=== PATIENT | male | born 1995 | race Caucasian/White ===

== ENCOUNTER 2024-11-09 22:41 | Inpatient (IN) | payer OTHER, SELFPAY ==
[2024-11-09] VITALS (10 sets, daily range): BP systolic 106–134; BP diastolic 64–98; BMI 18.0
[2024-11-09 18:57] LABS: Hematocrit 26.0 % (39.0-52.0); Hemoglobin 9.3 g/dL (13.0-18.0); Mean Corp Hgb Conc. 35.8 g/dL (33.0-37.0); Mean Corpuscular Volume 88.4 fL (80.0-94.0); Platelet Count 330 10^3/uL (130-400); Red Cell Dist. Width 14.7 % (11.5-14.5)
[2024-11-09 19:34] LABS: Absolute Neutrophils -Man Diff 11.6 10^3/uL (1.4-6.5); Normal RBC Morphology No; Platelets Checked Yes
[2024-11-09 19:35] LABS: Acanthocytes 1+; Hypochromasia 1+; Microcytosis 1+; Target Cells 1+; Total Cells Counted 100
[2024-11-09] MEDS: OMNIPAQUE 50 ML PO (20:16)
[2024-11-09] MEDS: TYLENOL 650 MG PO (20:16)
[2024-11-09] MEDS: MAXIPIME 1000 MG IV (20:18)
--- NOTE | 2024-11-09 20:18 | ED.GENMED ---
History of Present Illness
<Pritesh Celis PA-C - Last Filed: 11/09/24 23:04>
General
Chief Complaint: Breathing Problem
Source: records and family
Time Seen by Provider: 11/09/24 19:56
History of Present Illness
History of Present Illness:
29-year-old male, Burkinan speaking, presenting to the emergency department with family, past medical history of previous TB reportedly treated while in [facility], renal insufficiency, presenting to the emergency department for evaluation here with
family for reported abdominal distention, fevers, poor p.o. intake and fever with Tmax of 39 Celsius over the last few days. Patient for the last 6 months has been unwell, in and out of [facility], last admission was October 2024. Family
states that they saw something within the which was possibly malignant, unable to get all of the studies due to patient's abnormal labs. Mom had been treating at home with 500 mg of azithromycin due to the fever a few days ago and reports that the
fever has since subsided. Patient did have 2 episodes of nonbloody nonbilious emesis today. Based off of record review patient was admitted to [facility] about 3 weeks ago where he had significant renal dysfunction, transaminitis and
what appeared to be a chronic fungal pneumonia. His creatinine at discharge was around 5 point. He had a MRI of the abdomen which was concerning for possible malignancy versus TB findings. AST and ALT were only minimally elevated, normal
bilirubin.
Past History
<Pritesh Celis PA-C - Last Filed: 11/09/24 23:04>
Past History
ED Past Medical History: Renal failure, Hypothyroidism, Other (Thrombocytopenia) and Other (TB/chronic pneumonia)
ED Past Surgical History: Appendectomy and Other (Splenectomy)
Review of Systems
<Pritesh Celis PA-C - Last Filed: 11/09/24 23:04>
Review of Systems
All Other Systems: ROS reviewed and negative except as documented in HPI and ROS
Phy Exam
<Pritesh Celis PA-C - Last Filed: 11/09/24 23:04>
Physical Exam
Physical Exam:
GENERAL: Alert , chronically ill-appearing, somewhat mottled, malnourished
HEAD: Normocephalic atraumatic
EYE: Clear conjunctiva/anicteric sclera
NECK: Supple
ENT: o/p clr, dry mucous membranes
CARDIAC: tachycardic rate and rhythm between 130 bpm and 138 bpm
LUNGS: Clear breath sounds bilaterally, no acute respiratory distress, no wheezes/rales/rhonchi
ABDOMEN: Firm, distended, generally tender
NEUROLOGICAL: Alert but not answering questions
SKIN: Hot to the touch and somewhat clammy, skin intact.
MUSCULOSKELETAL: 1+ pitting edema bilateral ankle, well perfused.
PSYCH: Unable to assess
Scores
<Pritesh Celis PA-C - Last Filed: 11/09/24 23:04>
Heart Failure Risk
Heart Failure Risk Score: Not Applicable
Heart Score for Chest Pain Patients
STEMI patient?: Not applicable
Withdrawal Assessment of Alcohol
Withdrawal Assessment Completed?: Not applicable
Course
<Pritesh Celis PA-C - Last Filed: 11/09/24 23:04>
Orders/Labs/Results
Orders:
Orders
11/09/24 18:10
EKG [Electrocardiogram (*1)] Urgent
Reason for Study: Tachycardia
EKG- Treatment ONCE
11/09/24 18:35
Complete Blood Count/With Diff Urgent
Manual Differential Urgent
11/09/24 19:46
Comprehensive Metabolic Panel Urgent
Serum Osmolality Urgent
Comment: ADD ON
11/09/24 20:04
Lactic Acid Q4H
Comment: CANCEL 2nd LACTIC ACID IF 1st LACTIC ACID IS LESS THAN 2
NT-proBNP Urgent
Troponin I Urgent
Blood Culture Q30M
CHIP Source: Blood/Venous
Specimen Description:
Blood Culture Q30M
CHIP Source: Blood/Venous
Specimen Description:
11/09/24 20:09
Iohexol [Omnipaque] See Protocol PO NOW STA
11/09/24 20:10
0.9% Sodium Chloride 1000 ml [Nss] 1,300 ml IV NOW STA
Acetaminophen [Tylenol] 650 mg PO NOW STA
11/09/24 20:14
Cefepime HCl [Maxipime] 1,000 mg IV NOW STA
11/09/24 20:15
Vancomycin 1 Gram/200 ml [Vancocin] 1 gram in 200 ml IV NOW
11/09/24 20:34
Calcium Gluconate 1,000 mg IV NOW STA
Dextrose 50%-Water [Dextrose 50% Syringe] 25 grams IV NOW STA
Insulin Human Regular [Novolin R] 4 units SC NOW STA
Sodium Bicarbonate 50 meq IV NOW STA
11/09/24 20:39
Add On- LAB Urgent
Tests Added?: urine sodium, serum osmo
Straight cath- Treatment ONCE
Sodium Zirconium Cyclosilicate [Lokelma] 10 gram PO NOW STA
11/09/24 20:42
Osmolality, Random Urine Urgent
Date Specimen was Collected: 11/09/24
Time Specimen was Collected: 20:35
Comment: ADD ON
Urinalysis Reflex To Culture Urgent
Date Specimen was Collected: 11/09/24
Time Specimen was Collected: 20:35
Urine Microscopic Reflex Cult Urgent
Urine Sodium Urgent
Date Specimen was Collected: 11/09/24
Time Specimen was Collected: 20:35
Comment: ADD ON
11/09/24 20:49
CR Chest Portable - 1 View Urgent
Comment:
Reason For Exam: fever
Reason Study Needs to be Portable: Patient Unstable
07/06/25 22:22
CT Abd/pel Without Iv Or Oral Urgent
Comment:
Reason For Exam: abd distention, renal failure
11/09/24 22:24
Admit/Transfer Patient As Directed
Co-Sign Provider:
Level of Care: Inpatient admission
Assign to:: ICU
Physician / Group: [facility]
Diagnosis: Pneumonia
Reason for Hospitalization: sepsis, hyponatremia, hyperkalemia
Expected length of stay greater than two midnights?: Yes
ELOS- Estimated Length of Stay in days: 3
I certify the patient meets the requirements for IP care: Yes
PRN Pain Medication Management As Directed
May give lesser potent ordered pain med per pt: Yes
preference::
Protocol:: Medication orders for pain may be administered in a
manner that supports deferring to patient preference
when the pt is:
- Requesting an ordered lesser potent pain medication.
Least to most potent pain medications are defined
as: acetaminophen < NSAID < tramadol < opioids
(morphine, oxycodone, hydromorphone).
- Requesting a lesser dose of the same medication IF
ORDERED.
- Requesting a less intrusive route of administration
if both routes are prescribed by the provider (PO <
IV).
11/09/24 22:25
Code Status As Directed
Resuscitation Status: Full Code
11/10/24 00:00
Lactic Acid Q4H
Comment: CANCEL 2nd LACTIC ACID IF 1st LACTIC ACID IS LESS THAN 2
Abnormal Lab Results
11/09/24 11/09/24 11/09/24
18:35 19:46 20:42
WBC 16.2 H 10^3/uL
(4.8-10.8)
RBC 2.94 L 10^6/uL
(4.70-6.10)
Hgb 9.3 L g/dL
(13.0-18.0)
Hct 26.0 L %
(39.0-52.0)
MCH 31.6 H pg
(27.0-31.0)
RDW 14.7 H %
(11.5-14.5)
MPV 12.5 H fL
(7.4-10.4)
Abs Neuts (Manual) 11.6 H 10^3/uL
(1.4-6.5)
Band Neutrophils 6 H %
(0-3)
Lymphocytes (Manual) 4 L %
(20-51)
Monocytes (Manual) 22 H %
(2-9)
Sodium 118 L* mmol/L
(135-145)
Potassium 6.4 H* mmol/L
(3.5-5.1)
Chloride 90 L mmol/L
(98-107)
BUN 95 H mg/dl
(9-20)
Creatinine 6.3 H* mg/dL
(0.7-1.3)
Calcium 12.1 H mg/dl
(8.4-10.2)
Alkaline Phosphatase 1127 H U/L
(38-126)
Total Protein 5.7 L g/dl
(6.3-8.2)
Albumin 3.1 L g/dl
(3.5-5.0)
Ur Occult Blood Reflex 1+ A
(Negative)
Urine Osmolality 292 L mOsm/kg
(300-900)
Urine Sodium 98 H mmol/L
(30-90)
Urine Albumin (Reflex) 2+ A
(Neg - Trace)
POC Glucose
11/09/24
20:48
WBC
RBC
Hgb
Hct
MCH
RDW
MPV
Abs Neuts (Manual)
Band Neutrophils
Lymphocytes (Manual)
Monocytes (Manual)
Sodium
Potassium
Chloride
BUN
Creatinine
Calcium
Alkaline Phosphatase
Total Protein
Albumin
Ur Occult Blood Reflex
Urine Osmolality
Urine Sodium
Urine Albumin (Reflex)
POC Glucose 124 H mg/dl
(70-99)
11/09/24 18:35
11/09/24 19:46
Vital Signs
Initial and Last Documented VS:
Initial Vital Signs
Temp Pulse Resp BP Pulse Ox
98.9 F 138 18 129/90 98
11/09/24 18:02 11/09/24 18:02 11/09/24 18:02 11/09/24 18:02 11/09/24 18:02
Last Documented Vital Signs
Temp Pulse Resp BP Pulse Ox
99.0 F 129 28 109/80 94
11/09/24 22:51 11/09/24 22:00 11/09/24 22:00 11/09/24 22:00 11/09/24 22:00
<Rigoberto Escobedo, DO - Last Filed: 11/09/24 20:57>
Orders/Labs/Results
Orders:
Orders
11/09/24 18:10
EKG [Electrocardiogram (*1)] Urgent
Reason for Study: Tachycardia
EKG- Treatment ONCE
11/09/24 18:35
Complete Blood Count/With Diff Urgent
Manual Differential Urgent
11/09/24 19:46
Comprehensive Metabolic Panel Urgent
Serum Osmolality Urgent
Comment: ADD ON
11/09/24 20:04
Lactic Acid Q4H
Comment: CANCEL 2nd LACTIC ACID IF 1st LACTIC ACID IS LESS THAN 2
NT-proBNP Urgent
Troponin I Urgent
Blood Culture Q30M
CHIP Source: Blood/Venous
Specimen Description:
Blood Culture Q30M
CHIP Source: Blood/Venous
Specimen Description:
11/09/24 20:09
Iohexol [Omnipaque] See Protocol PO NOW STA
11/09/24 20:10
0.9% Sodium Chloride 1000 ml [Nss] 1,300 ml IV NOW STA
Acetaminophen [Tylenol] 650 mg PO NOW STA
11/09/24 20:14
Cefepime HCl [Maxipime] 1,000 mg IV NOW STA
11/09/24 20:15
Vancomycin 1 Gram/200 ml [Vancocin] 1 gram in 200 ml IV NOW
11/09/24 20:34
Calcium Gluconate 1,000 mg IV NOW STA
Dextrose 50%-Water [Dextrose 50% Syringe] 25 grams IV NOW STA
Insulin Human Regular [Novolin R] 4 units SC NOW STA
Sodium Bicarbonate 50 meq IV NOW STA
11/09/24 20:39
Add On- LAB Urgent
Tests Added?: urine sodium, serum osmo
Straight cath- Treatment ONCE
Sodium Zirconium Cyclosilicate [Lokelma] 10 gram PO NOW STA
11/09/24 20:42
Osmolality, Random Urine Urgent
Date Specimen was Collected: 11/09/24
Time Specimen was Collected: 20:35
Comment: ADD ON
Urinalysis Reflex To Culture Urgent
Date Specimen was Collected: 11/09/24
Time Specimen was Collected: 20:35
Urine Microscopic Reflex Cult Urgent
Urine Sodium Urgent
Date Specimen was Collected: 11/09/24
Time Specimen was Collected: 20:35
Comment: ADD ON
11/09/24 20:49
CR Chest Portable - 1 View Urgent
Comment:
Reason For Exam: fever
Reason Study Needs to be Portable: Patient Unstable
11/09/24 22:22
CT Abd/pel Without Iv Or Oral Urgent
Comment:
Reason For Exam: abd distention, renal failure
11/09/24 22:24
Admit/Transfer Patient As Directed
Co-Sign Provider:
Level of Care: Inpatient admission
Assign to:: ICU
Physician / Group: [facility]
Diagnosis: Pneumonia
Reason for Hospitalization: sepsis, hyponatremia, hyperkalemia
Expected length of stay greater than two midnights?: Yes
ELOS- Estimated Length of Stay in days: 3
I certify the patient meets the requirements for IP care: Yes
PRN Pain Medication Management As Directed
May give lesser potent ordered pain med per pt: Yes
preference::
Protocol:: Medication orders for pain may be administered in a
manner that supports deferring to patient preference
when the pt is:
- Requesting an ordered lesser potent pain medication.
Least to most potent pain medications are defined
as: acetaminophen < NSAID < tramadol < opioids
(morphine, oxycodone, hydromorphone).
- Requesting a lesser dose of the same medication IF
ORDERED.
- Requesting a less intrusive route of administration
if both routes are prescribed by the provider (PO <
IV).
11/09/24 22:25
Code Status As Directed
Resuscitation Status: Full Code
11/10/24 00:00
Lactic Acid Q4H
Comment: CANCEL 2nd LACTIC ACID IF 1st LACTIC ACID IS LESS THAN 2
Abnormal Lab Results
11/09/24 11/09/24 11/09/24
18:35 19:46 20:42
WBC 16.2 H 10^3/uL
(4.8-10.8)
RBC 2.94 L 10^6/uL
(4.70-6.10)
Hgb 9.3 L g/dL
(13.0-18.0)
Hct 26.0 L %
(39.0-52.0)
MCH 31.6 H pg
(27.0-31.0)
RDW 14.7 H %
(11.5-14.5)
MPV 12.5 H fL
(7.4-10.4)
Abs Neuts (Manual) 11.6 H 10^3/uL
(1.4-6.5)
Band Neutrophils 6 H %
(0-3)
Lymphocytes (Manual) 4 L %
(20-51)
Monocytes (Manual) 22 H %
(2-9)
Sodium 118 L* mmol/L
(135-145)
Potassium 6.4 H* mmol/L
(3.5-5.1)
Chloride 90 L mmol/L
(98-107)
BUN 95 H mg/dl
(9-20)
Creatinine 6.3 H* mg/dL
(0.7-1.3)
Calcium 12.1 H mg/dl
(8.4-10.2)
Alkaline Phosphatase 1127 H U/L
(38-126)
Total Protein 5.7 L g/dl
(6.3-8.2)
Albumin 3.1 L g/dl
(3.5-5.0)
Ur Occult Blood Reflex 1+ A
(Negative)
Urine Osmolality 292 L mOsm/kg
(300-900)
Urine Sodium 98 H mmol/L
(30-90)
Urine Albumin (Reflex) 2+ A
(Neg - Trace)
POC Glucose
11/09/24
20:48
WBC
RBC
Hgb
Hct
MCH
RDW
MPV
Abs Neuts (Manual)
Band Neutrophils
Lymphocytes (Manual)
Monocytes (Manual)
Sodium
Potassium
Chloride
BUN
Creatinine
Calcium
Alkaline Phosphatase
Total Protein
Albumin
Ur Occult Blood Reflex
Urine Osmolality
Urine Sodium
Urine Albumin (Reflex)
POC Glucose 124 H mg/dl
(70-99)
11/09/24 18:35
11/09/24 19:46
Vital Signs
Initial and Last Documented VS:
Initial Vital Signs
Temp Pulse Resp BP Pulse Ox
98.9 F 138 18 129/90 98
11/09/24 18:02 11/09/24 18:02 11/09/24 18:02 11/09/24 18:02 11/09/24 18:02
Last Documented Vital Signs
Temp Pulse Resp BP Pulse Ox
99.0 F 129 28 109/80 94
11/09/24 22:51 11/09/24 22:00 11/09/24 22:00 11/09/24 22:00 11/09/24 22:00
<Pritesh Celis PA-C - Last Filed: 11/09/24 23:04>
MDM/Problems Addressed
Differential Diagnosis Includes:
Bacteremia
Pneumonia
Worsening renal failure
Hepatitis
Malignancy
Pancreatitis
Electrolyte imbalance
MDM/Problems Addressed:
29-year-old male, chronically ill-appearing presenting to the ER for evaluation of fever, vomiting and weakness. Patient with multiple recent admissions and hospitalizations at [facility]. Records from there were reviewed which showed worsening
renal function and MRI of the abdomen findings concerning for possible malignancy. Patient arrives here febrile to 100.5 at time of my exam, tachycardiac. He is not in any acute respiratory distress. Based off of exam I am concerned for worsening
renal function, progression of patient's potential malignancy and dehydration. Sepsis workup initiated. Anticipate admission. I ordered CT of the abdomen pelvis with oral contrast only given patient's known renal dysfunction
Chronic conditions affecting care: Kidney disease
Acute Exacerbation and/or Progression of Chronic Illness: Kidney disease
<Pritesh Celis PA-C - Last Filed: 11/09/24 23:04>
*Radiology
Radiology exam reviewed: radiology read reviewed
*Pulse Oximetry
SaO2: 97
Oxygen Mode of Delivery: Room air
Patient hypoxic: no
*EKG
Heart Rate: 136
Rate: tachycardiac
Rhythm: sinus
[place]: normal axis
Ischemia: other (Diffuse ST changes in)
*Aircraft Riveter Interpretation
Rate: tachycardiac
Rhythm: sinus
*Critical Care Note
Total Time (30-74mins, 75-104mins- exclusive of procedures): 34
comment:
Critical care statement: A total of 34 minutes of critical care time was provided for this patient. This includes management of unstable vital signs, evaluation of the patient at bedside, reviewing the patient's pertinent medical records, discussion
with consultants, review of old EKGs and review of pertinent medical records. This time with separate from time utilized to perform the aforementioned documented procedures.
Data Reviewed
Review of Other/Old Records Reveals: Labs, Records and Discharge Summary
<Pritesh Celis PA-C - Last Filed: 11/09/24 23:04>
Patient Management
Discussion with other providers: Hospitalist and Patient Observation Assistant
Escalation/DeEscalation of care consider admission/obs:
Patient critically ill. Significant leukocytosis with leftward shift and bandemia, hemoglobin of 9.3. Chemistry significantly abnormal with a sodium of 118 potassium 6.4, creatinine of 6.3., Patient's EKG with diffuse ST changes, concerns that
patient potassium could potentially be the cause of this. We ordered calcium gluconate, sodium bicarb, insulin, dextrose and Lokelma. I discussed the case with Dr. Jack from nephrology who will come to the ER to evaluate the patient. Agrees with
medications at present time. I did also notify interventional radiology as patient may need a temporary dialysis catheter. Hospitalist team was also notified and accepts for continued evaluation and treatment.
After nephrology evaluated bedside, they do not feel patient needs emergent dialysis this evening. Interventional radiology notified. Patient to be dispositioned to the ICU.
ED Attending Note
<Pritesh Celis PA-C - Last Filed: 11/09/24 23:04>
-
Portions of this chart may have been created with voice recognition software.� Occasional wrong word or��sound alike� substitutions may have occurred due to the inherent limitations of voice recognition software.
<Rigoberto Escobedo DO - Last Filed: 11/09/24 20:57>
ED Attending Note
Patient seen and examined by attending physician: Yes
I performed the substantive portion of visit, reviewed & personally made and approve the management plan that is documented in note by myself or REGINO.: Yes
ED Attending Note:
Seen with CATA examined independently chronically ill male with multiple visits to presents with fever cough shortness of breath here is acute on chronic renal sufficiency with hyperkalemia hyponatremia will treat medically, nephrology has been
consulted,
Discharge Plan
Departure
Patient Disposition: Admit
Date of Disposition: 11/09/24
Time of Disposition: 20:59
Presentation/result/management discussed w/ accepting MD/DO: Hospitalist
Discharge Problem:
Renal failure, Acute hyponatremia, Acute hyperkalemia, Anemia
Interventions
Interventions:
*Risk Screen - Suicide Last Done: 11/09/24 18:02
*General Assessment Last Done: 11/09/24 18:02
*Neglect/Abuse Screening Last Done: 11/09/24 19:47
*ED- Fall Risk Assessment Last Done: 11/09/24 19:47
*ED COVID-19 Vaccine History Last Done: 11/09/24 19:47
ED- Cardiac Assessment Last Done: 11/09/24 19:43
ED- Pulmonary Assessment Last Done: 11/09/24 19:43
[2024-11-09] MEDS: NSS 1300 ML IV (20:19)
[2024-11-09 20:33] LABS: ALT (SGPT) 38 U/L (0-50); AST (SGOT) 54 U/L (17-59); Albumin 3.1 g/dl (3.5-5.0); Blood Urea Nitrogen 95 mg/dl (9-20); Calcium 12.1 mg/dl (8.4-10.2); Carbon Dioxide 26 mmol/L (22-30); Chloride 90 mmol/L (98-107); Estimated Creatinine Clearance 11 ml/min; Glucose 94 mg/dl (70-99); Potassium 6.4 mmol/L (3.5-5.1); Sodium 118 mmol/L (135-145); Total Protein 5.7 g/dl (6.3-8.2); eGFR 11.34
[2024-11-09] MEDS: VANCOCIN 200 IV (20:35)
[2024-11-09 20:42] LABS: Troponin I 0.024 ng/ml
[2024-11-09] MEDS: DEXTROSE 50% SYRINGE 25 GRAMS IV (20:45)
[2024-11-09] MEDS: NOVOLIN R 4 UNITS SC (20:46)
[2024-11-09] MEDS: SODIUM BICARBONATE 50 MEQ IV (20:46)
[2024-11-09] MEDS: CALCIUM GLUCONATE 1000 MG IV (20:46)
[2024-11-09 20:47] LABS: Alkaline Phosphatase 1127 U/L (38-126)
[2024-11-09 20:49] LABS: Glucose - Point of Care 124 mg/dl (70-99)
[2024-11-09] MEDS: LOKELMA 10 GRAM PO (20:54)
[2024-11-09 21:06] LABS: Urine Character Clear (Clear)
--- NOTE | 2024-11-09 22:35 | HPS.HSE ---
Family Physician
-
Family Physician: Anatoliy Schaffer
Chief Complaint
-
Shortness of breath
History of Present Illness
This 29-year-old male with complex past medical history who presents to the emergency department with recurrent fevers, shortness of breath, nausea decreased p.o. and essentially some failure to thrive.
Briefly, patient is originally from [facility] having moved to the 8 years ago with parents. He has a history of congenital chromosomal abnormality currently unknown to us. Is chronic history of primary hypothyroid, he has been developing
worsening CKD over the last several years with last creatinine of around 5.5, he has history of recurrent pulmonary infections likely has had multiple pneumonias in the past, he has a history of triple cytopenia status post penectomy with subsequent
infections from that, history of appendectomy unrelated to the splenectomy, intellectual developmental level at about the 12-year-old level with normal activities of daily living.
According to family members patient was previously treated for TB in 2009. At that time it was not clearly diagnosed but he was treated empirically and he completed a 9-day course of a 4 drug regimen. Patient has also been evaluated more recently
for fungal infection. It is unclear whether he had a bronc but he has had a biopsy for tissue scarring from his recurrent pneumonias. Family tells me that is evaluation at pain that essentially ruled out fungal infections.
Over the last 6 months the patient has been having admissions for pneumonia with last admission at [facility] in October. He presented there for abnormal labs with a sodium of 120 fatigue and itchiness. Found to have elevated alk phos. He had an
MRI of the abdomen which was limited due to motion artifact but no evidence of abnormal biliary ductal dilation, there was bulky abdominal adenopathy with concern for malignancy such as lymphoma or metastatic disease, infections including TB could
have a similar appearance. He had a cystic focus in the head of the pancreas which will also represent intraductal papillary mucinous neoplasm. A suggestion was made to consider contrast-enhanced CT or MRI. This test actually high risk patient
due to its severe CKD and it was opted not to be performed.
They found that he likely had advanced CKD/ATN,. He was found to have chronic hyperparathyroidism with a PTH of 1.0, 25 OH vitamin D was 28 at that time. Acute on chronic hyponatremia noted thought to be secondary to hypovolemic hyponatremia. His
sodium had improved to 137 at the time of discharge. It is unclear to me whether he was treated with any antibiotics while he was admitted there.
According to family the patient has been having recurrent fevers up to 100.5 at home. Family started taking azithromycin 500 mg daily for the last 3 days. Patient reports nausea and mild vomiting. Decreased p.o. intake. No diarrhea. No acute
urinary symptoms. He did report that he has been coughing mostly nonproductively. No sick contacts at home.
In the ED Emergency Department the patient was found to be tachycardic to 136, temperature was 98.9, blood pressure 131/89 with oxygen saturation of 94%.
ECG shows sinus tachycardia at 136. Troponin was negative. BNP was 800.
Chest x-ray shows bilateral opacities consistent with bilateral pneumonia.
Labs notable for a white count of 16.2, hemoglobin 9.3 platelets 330, potassium was 6.4 sodium 118 BUN 95 creatinine 6.3 with a bicarb of 26. Alk phos was elevated at over 1000. Rest of the LFTs were unremarkable.
Medical History
Past Medical History
Past Medical History: Reports Other
Additional Past Medical History:
CKD
Chronic primary hyperparathyroid
ITP status post penectomy
Status post appendectomy
CKD with baseline creatinine of around 5.0
Intellectual developmental delay
Past Surgical History: Reports Other (Splenectomy)
Social History
Tobacco: Non-smoker
Alcohol: None
Drug: None
Personal: Single
Living: With Family
Family History
Family History: Not pertinent
Allergies / Home Medications
Allergies reflects when Allergies were last updated in [employer]
Home Medications with original date entered in [employer]
Allergy/Medication List:
Allergies
Allergy/AdvReac Type Severity Reaction Status Date / Time
No Known Allergies Allergy Unverified 11/09/24 18:08
Allopurinol 100 mg tablet, 100 mg p.o. daily
Dizziness 0.25 mg / 2 mL suspension, 2 mL inhalation every 12 hours
Calcium acetate 667 mg tablet, 3 tablets orally 3 times daily
Cholecalciferol 2000 unit capsule, 1 capsule oral daily
Levothyroxine 88 mcg, 1 tablet oral daily
Sodium bicarbonate 650 mg tablets, 2 tablets oral 3 times daily
Review of Systems
-
History Source: Patient and Family
Constitutional: Reports Fever
EENT: Reports No Symptoms
Respiratory: Reports Cough and Trouble Breathing
Cardiac: Reports No Symptoms
Abdomen/GI: Reports Nausea
: Reports No Symptoms
Musculoskeletal: Reports No Symptoms
Skin: Reports No Symptoms
Neurological: Reports No Symptoms
Endocrine: Reports No Symptoms
Hematologic/Lymphatic: Reports No Symptoms
Psych: Reports No Symptoms
Physical Exam
Vital Signs
Vital Signs
Temp Pulse Resp BP Pulse Ox
100.5 F H 129 28 109/80 94
11/09/24 20:30 11/09/24 22:00 11/09/24 22:00 11/09/24 22:00 11/09/24 22:00
Physical Exam
General: Well Developed, Well Nourished and No Apparent Distress
HEENT: Atraumatic and Other (Microcephaly); No NormoCephalic or Moist mucous membranes
Respiratory: Clear
Cardiac: S1/S2 and Regular Rhythm; No Murmur or Rub
GI: Soft, Non Tender, Non Distended and Normal Bowel Sounds; No Organomegaly
Rectal: Deferred by Provider
Musculoskeletal: No Clubbing, No Cyanosis and No Edema
Skin: No Rash
Neuro: Nonfocal/grossly intact
Hematologic/Lymphatic: No Lymphadenopathy
Laboratory Results
-
11/09/24 18:35
11/09/24 19:46
Laboratory Results
Lactic Acid 1.7 mmol/L (0.7-2.0) 11/09/24 20:04
Total Bilirubin 0.8 mg/dl (0.2-1.3) 11/09/24 19:46
AST 54 U/L (17-59) 11/09/24 19:46
ALT 38 U/L (0-50) 11/09/24 19:46
Alkaline Phosphatase 1127 U/L (38-126) H 11/09/24 19:46
Troponin I 0.024 ng/ml 11/09/24 20:04
Data Reviewed
-
Diagnostic Radiology: Image Personally Visualized and interpreted and Report Reviewed by me
Medical Tests (Nuc Med, Echo, EKG etc): Image Personally Visualized and interpreted
Lab Data: Labs Reviewed by me
Old Records: Reviewed
Impression/Plan
-
IMPRESSION:
29-year-old with multiple medical conditions including advanced CKD with likely BRENDON on CKD complicated by hyponatremia and hyperkalemia to 6.4. ECG without acute hyperkalemic changes. History suggestive of significant hypovolemia due to poor p.o.
intake. He also has features of pneumonia with sepsis including hypoxia, lethargy, cough, leukocytosis with and recurrent fevers at home. Patient has a complex pulmonary, infectious and renal disease and recently found to have significant
intra-abdominal adenopathy concerning for granulomatous/infectious/lymphoma/metastatic disease.
PLAN:
1. Sepsis -patient with fever, tachycardia, hypoxia and x-ray with bilateral lower lobe infiltrates. Picture suggestive of pneumonia with sepsis presumptively.
- Admit to ICU
-Status post 30 mL/kg crystalloid
-Blood cultures
-Sputum culture
-Urinary Legionella and pneumococcal antigens
- Checking COVID and flu
-IV vancomycin, cefepime and doxycycline for now
-ID consultation
-Pulmonary critical care consult
2. Pulmonary infections -history of recurrent pulmonary infections, status post splenectomy, patient has been being followed by pain status post biopsy and family stated that they ruled out aspergillosis. He completed a 9-month 4 drug regimen for
TB in 2009.
- tb testing as below
- Pneumococcal urinary antigen
- Check galactomannan
- airborne precautions
3. Adenopathy -intra-abdominal adenopathy, given history of prior treatment for TB cannot rule out TB at this time, cannot rule out other granulomatous disease
- AFB smear from sputum
- Check IGRA
- check dale levels
- CT a/p pending
- consider biopsy
4. Hyponatremia - H/O hyponatremia, poor po intake and severe CKD. Suspect combination of tea/toast, impaired free water clearance and dehyration. Na 118
- s/p 30 ml/kg sepsis bolus
- continue with 3% saline 250 ml
- repeat na in 6 hours
5. Hyperkalemia
- s/p insulin/dextrose
- s/p lokelma
- low K diet for now
- iv fluids
6. BRENDON on CKD - non oliguric
- fluid resuscitation
- avoid nephrotoxins
7. Hypercalcemia - Patient on calcium/vitamin d supplementation for primary hypopara.
- check serum phos, vit d levels and ionized calcium in am
- check pth
- stopping supplementation for now
Nephrology consulted and appreciate recs for renal/electrolyte issues
DVT PPX - heparin sq
Code status - Full Code
--- NOTE | 2024-11-09 22:50 | W.CON.NEPH ---
Consultation
-
Date/Time Consultation Requested: 11/09/2024 8 PM
Date/Time Consultation Performed: 11/09/2024 10 PM
Requesting Provider: Dr. Damon
Performing Provider: Dr. Jack
Reason for Consultation: BRENDON
Medical History
-
Chief Complaint: Fever, cough
History of Present Illness:
This is a 29-year-old gentleman who was born in the [facility]. His parents believe that he did have either a developmental or chromosomal abnormality at given that he was born with microcephaly. They do not recall if they diagnosis was made at
that time. His childhood was notable for mental retardation and he did complete up to 10th grade with special education. His brother notes that his conversational skills are equal to a 12-year-old. However, he is otherwise able to perform almost
all tasks independently and is able to even cook for himself if needed. In 2008 he developed thrombocytopenia and required splenectomy which had resolved the thrombocytopenia. The parents do not recall what type of thrombocytopenia he had. He
then underwent appendectomy the year after. In 2009 there is also suspected tuberculosis. The family notes that this was never confirmed but that he was treated empirically with 9 months of 4 drug therapy. They do believe that since his
splenectomy he has had more frequent and aggressive bouts of pneumonia, at least twice yearly. He has received multiple courses of antibiotics as a result. Since coming to [facility] almost a decade ago he has been following with nephrology
with the [facility]. They state that his creatinine was around 2.2 back in 2018 but has steadily risen over time but he was running easily 4 or 5 last year. About 6 months ago he began feeling sick again with fever and cough this worsened 2
months ago. About a month ago he also then developed decreasing appetite. He brought him to [facility] where he was admitted. Reportedly he was treated for pneumonia but then discharged. Going to the family he still had a fever at
the time of discharge. Imaging studies at [facility] disclosed lymphadenopathy in the abdomen and he was told to see oncology as an outpatient. Creatinine at that time was 5.7. They state that he had a creatinine 1 week ago which was 6.95. At
the time of admission here his sodium was 118, creatinine was 6.3 with a potassium of 6.4 and a calcium level of 12.1. His calcium at [facility] on October 28 was 7.8 with a PTH 1.0.
He said that they had discussed dialysis with his outpatient trenching machine operator but then no formal plans had been made.
Past Medical History
Microcephaly, multiple pneumonia, cavitary lung lesion, hypoparathyroidism, appendectomy, splenectomy, thrombocytopenia unknown type
Developmental delay, short stature
Social History
Tobacco: Non-Smoker
Alcohol: None
Drug: None
Family History
No CKD in the family, no developmental issues in the family otherwise
Allergies / Home Medications
Allergy/AdvReac Type Severity Reaction Status Date / Time
No Known Allergies Allergy Unverified 11/09/24 18:08
Review of Systems
-
Fever and cough
History Source: Family
Physical Exam
Vital Signs
Vital Signs
Temp Pulse Resp BP Pulse Ox
100.5 F H 129 28 109/80 94
11/09/24 20:30 11/09/24 22:00 11/09/24 22:00 11/09/24 22:00 11/09/24 22:00
Lab Results
WBC 16.2 10^3/uL (4.8-10.8) H 11/09/24 18:35
RBC 2.94 10^6/uL (4.70-6.10) L 11/09/24 18:35
Hgb 9.3 g/dL (13.0-18.0) L 11/09/24 18:35
Hct 26.0 % (39.0-52.0) L 11/09/24 18:35
Plt Count 330 10^3/uL (130-400) 11/09/24 18:35
Sodium 118 mmol/L (135-145) L* 11/09/24 19:46
Potassium 6.4 mmol/L (3.5-5.1) H* 11/09/24 19:46
Chloride 90 mmol/L (98-107) L 11/09/24 19:46
Carbon Dioxide 26 mmol/L (22-30) 11/09/24 19:46
BUN 95 mg/dl (9-20) H 11/09/24 19:46
Creatinine 6.3 mg/dL (0.7-1.3) H* 11/09/24 19:46
eGFR 11.34 11/09/24 19:46
Glucose 94 mg/dl (70-99) 11/09/24 19:46
Calcium 12.1 mg/dl (8.4-10.2) H 11/09/24 19:46
Clc-N-Nmhcukczppr Pept 845 pg/ml 11/09/24 20:04
Albumin 3.1 g/dl (3.5-5.0) L 11/09/24 19:46
Laboratory Tests
11/09/24 11/09/24 11/09/24
18:35 19:46 20:04
Monocytes (Manual) 22 H
Lactic Acid 1.7
Alkaline Phosphatase 1127 H
Nak-H-Qtuvkropbhu Pept 845
Albumin 3.1 L
Urine Sodium
11/09/24
20:42
Monocytes (Manual)
Lactic Acid
Alkaline Phosphatase
Zkc-E-Ypctjufmyyb Pept
Albumin
Urine Sodium 98 H
Physical Exam
Patient is awake alert oriented and in no distress. Mood and affect were pleasant, insight and judgment were good. Pupils are equal round and reactive to light, extraocular movements are intact, sclera were anicteric. Hearing was normal, ears and
nose are intact. Oropharynx was clear. Neck was supple with trachea midline and no thyromegaly. Heart was regular rate and rhythm without rubs. Lower extremities without edema. Lungs were clear to auscultation bilaterally and with normal
excursion. Abdomen was soft, nontender, with normal active bowel sounds, and no hepatosplenomegaly. Skin was without rash and with normal turgor.
Data Reviewed
-
Radiology: Image Personally Visualized and interpreted (Chest x-ray 11/08/2024 by reading shows bilateral infiltrate)
CT Scan: Report Reviewed by me (Report pending)
Labs: Labs Reviewed by me
Old Records: Reviewed
Assessment/Plan
-
Assessment
Microcephaly, short stature
Hypoparathyroidism
Hypercalcemia
CKD 5 progressive
Hyperkalemia
Hyponatremia
Abdominal lymphadenopathy
History of cavitary lung lesion, multiple pneumonia
Bilateral infiltrates lung
Splenectomy
Plan
Hypertonic saline
Serial BMP
If calcium remains elevated will offer pamidronate
Hypercalcemia workup
CT imaging, will likely need biopsy
Concern for malignancy or granulomatous disease
will likely need to start HD this admission. parents understand and would accept if needed.
critical care time 75 minutes
--- NOTE | 2024-11-09 23:32 | PHA.VAN.IN ---
Assessment
- Assessment
Renal Function: Other (ESRD on possible start of dialysis this admission)
Renal Function may be Overestimated due to: cefepime, doxycycline
Maximum Temperature: 100.5
Minimum Temperature: 98.9
Plan
- Plan
Initial / Loading Dose: 1000mg on 11/09
Maintenance Regimen: Dose by level
Monitoring: Random level with labs at 0600 on 11/10
Pharmacokinetics Vancomycin I
- -
Patient Age: 29
Patient Sex: Male
Vancomycin Day #: 1
Indication: Pulmonary/Respiratory
Requesting Provider: Dr. Damon/Dr. Stern
Pertinent Antimicrobial Allergies:
NKDA
Height / Weight:
Height 5 ft 1 in
Actual Weight 44.5 kg
- Vital Signs / Lab Results
Temp Pulse Resp BP Pulse Ox
99.0 F 124 28 106/65 93
11/09/24 22:51 11/09/24 23:00 11/09/24 23:00 11/09/24 23:00 11/09/24 23:00
Lab Results - Hematology
11/09/24
18:35
WBC 16.2 H
Band Neutrophils 6 H
Lab Results - Chemistry
11/09/24 11/09/24
18:35 19:46
BUN Cancelled 95 H
Creatinine Cancelled 6.3 H*
Estimated Creat Clear Cancelled 11
Albumin Cancelled 3.1 L
11/09/24
20:04
Lactic Acid 1.7
Lab Results - Urine
11/09/24
20:42
Urine Nitrite (Reflex) Negative
Leukocyte Esterase Rfl Negative
Urine WBC (Reflex)
Ur Squamous Epith Cells
Urine Bacteria (Reflex)
[2024-11-10] VITALS (73 sets, daily range): BP systolic 68–128; BP diastolic 48–109; BMI 18.0
--- NOTE | 2024-11-10 | PTCARENOTE ---
Patient received from ED, ambulated from stretcher to bed, ethiopian speaking only with developmental delays. Sinus Tachycardia on monitor, afebrile, blood pressure as documented. No edema. Lungs with crackles left base, pulse ox 96% on room air.
+ shallow respirations, + tachypnea. Abdomen round with hypoactive bowel sounds. skin intct. #20 g in left wrist and #20 g in RAC flushed and patent. CHG bath given
[2024-11-10] MEDS: SODIUM CHLORIDE 3% 250 IV ×2 (00:10→18:30)
--- NOTE | 2024-11-10 01:05 | W.PN.SEPSIS ---
Sepsis
Vital Signs
Temp Pulse Resp BP Pulse Ox
99.1 F 116 40 110/73 96
11/09/24 23:45 11/10/24 00:00 11/10/24 00:00 11/10/24 00:00 11/10/24 00:48
Physical Exam
Physical Exam:
A focused exam was performed after fluid resuscitation.
Capillary Refill
Bilateral Upper Extremity:
Constance Time: Less than 3 sec
Bilateral Lower Extremity:
Constance Time: Less than 3 sec
Pulse Evaluation
Bilateral Radial:
Pulse Evaluation: Present
Bilateral Dorsalis Pedis:
Pulse Evaluation: Present
[2024-11-10 01:13] LABS: COVID-19 Antigen Negative (Negative)
--- NOTE | 2024-11-10 03:29 | PTCARENOTE ---
Reassessed patient, hypothermic, incontinent of urine, patient obtunded during care, notified COURTESY CLERK, orders received
[2024-11-10 03:42] LABS: Blood Urea Nitrogen 89 mg/dl (9-20); Calcium 12.0 mg/dl (8.4-10.2); Carbon Dioxide 26 mmol/L (22-30); Chloride 98 mmol/L (98-107); Estimated Creatinine Clearance 11 ml/min; Glucose < 30 mg/dl (70-99); Potassium 5.2 mmol/L (3.5-5.1); Sodium 126 mmol/L (135-145); eGFR 13.06
[2024-11-10] MEDS: DEXTROSE 50% SYRINGE 25 GRAMS IV ×2 (03:50→05:09)
--- NOTE | 2024-11-10 03:52 | PTCARENOTE ---
BMP results noted, dextrose given
--- NOTE | 2024-11-10 03:53 | PTCARENOTE ---
Patient vomited, pulse ox 85-87% on room air. MUSIC THERAPY SPECIALIST notified, placed on nasal cannula
[2024-11-10 04:09] LABS: Glucose - Point of Care 138 mg/dl (70-99)
[2024-11-10 04:18] LABS: B.E. -2.5 mmol/L; HCO3 23.2 mmol/L (21-28); O2 Saturation % 92.1 % (94-98); PCO2 43 mmHg (35-48); PO2 65 mmHg (83-108)
[2024-11-10 04:19] LABS: O2 Therapy RA
--- NOTE | 2024-11-10 04:27 | PTCARENOTE ---
ABG resulted, Respiratory at bedside for HFNC
[2024-11-10] MEDS: DEXTROSE 50% SYRINGE 12.5 GRAMS IV ×6 (05:05→12:37)
--- NOTE | 2024-11-10 05:05 | PTCARENOTE ---
Patients blood sugar check, reading 28, dextrose given.
[2024-11-10 05:14] LABS: Glucose - Point of Care 28 mg/dl (70-99)
[2024-11-10] MEDS: ATIVAN 1 MG IV (05:19)
[2024-11-10] MEDS: NSS (PRESERVATIVE FREE) 0.5 ML IV (05:20)
--- NOTE | 2024-11-10 05:20 | PTCARENOTE ---
Patient with myoclonic jerks in bilateral upper and lower extremities, notified SUPERVISOR ENGINES ROAD. order received.
[2024-11-10 05:25] LABS: Glucose - Point of Care 223 mg/dl (70-99)
--- NOTE | 2024-11-10 05:30 | PTCARENOTE ---
Patient continues with seizure like activity, respiratory distress, patient intubated 7.0 ETT and 21 cm by ELECTRO MECHANICAL TECHNICIAN
--- NOTE | 2024-11-10 05:46 | W.PN.ANESINT ---
Anesthesia Intubation Note
- Intubation Note
Intubation Note:
Diagnosis: sepsis/seizures/respiratory distress
Blade: Glidescope # 4
Tube Size: 7.0 ETT
Depth: 21 cm at right lip
Side Taped:
Drugs Used: propofol 100 mg IV
Grade View: grade 1
EtCO2 Present: + ETCO2 via stat cap
Atraumatic: yes
Attempts: 1
Insertion Start and Stop Time: 3583-9112
SaO2 Pre: 93%
SaO2 Post: 98%
Glidescope Used: yes
Other Airway Adjustments:
Pre-Oxygenated: easy ambu bag ventilation
Portable Chest X-Ray: pending
RSI:
Suctioned: no, airway clear
Bilateral Breath Sounds Confirmed: yes
Vent Settings: see respiratory/ICU notes for vent settings
*of note- called to ICU earlier at 0348 for urgent intubation, on arrival pts respiratory status/VS/ABG improving, intubation on hold and high flow O2 to be started as per MOVABLE BULKHEAD INSTALLER. Called to ICU at 0516 with suspected seizure activity, tachypneic and
unresponsive and decision made to intubate at that time. Induction and intubation smooth/uneventful...VSS left in care of ICU team in stable condition.
Settings per ___Attending Physician
[2024-11-10 06:09] LABS: Hematocrit 25.5 % (39.0-52.0); Hemoglobin 8.9 g/dL (13.0-18.0); Mean Corp Hgb Conc. 34.9 g/dL (33.0-37.0); Mean Corpuscular Volume 90.1 fL (80.0-94.0); Platelet Count 298 10^3/uL (130-400); Red Cell Dist. Width 15.0 % (11.5-14.5)
[2024-11-10 06:10] LABS: INR 1.04; PT 13.9 Sec (11.4-14.6); Triglycerides 79 mg/dl (10-149)
[2024-11-10 06:11] LABS: APTT 44.1 Sec (23.4-35.0)
[2024-11-10 06:14] LABS: Blood Urea Nitrogen 81 mg/dl (9-20); Calcium 10.7 mg/dl (8.4-10.2); Carbon Dioxide 17 mmol/L (22-30); Chloride 98 mmol/L (98-107); Estimated Creatinine Clearance 11 ml/min; Glucose 110 mg/dl (70-99); Magnesium 2.7 mg/dl (1.6-2.3); Potassium 4.9 mmol/L (3.5-5.1); Sodium 125 mmol/L (135-145); eGFR 12.52
[2024-11-10 06:17] LABS: Glucose - Point of Care 56 mg/dl (70-99)
[2024-11-10] MEDS: D10W 1000 IV (06:22)
[2024-11-10 06:32] LABS: B.E. -3.8 mmol/L; HCO3 21.5 mmol/L (21-28); O2 Saturation % 96.7 % (94-98); PCO2 39 mmHg (35-48); PO2 134 mmHg (83-108)
[2024-11-10] MEDS: SOLU-CORTEF 100 MG IV ×2 (06:37→17:15)
[2024-11-10 06:38] LABS: Glucose - Point of Care 104 mg/dl (70-99)
--- NOTE | 2024-11-10 06:57 | CON.NEURO ---
Neuro Assessment/Plan
Assessment
29 year old man with unknown to us chromosomal abnormality, questionable history of TB which was treated but not confirmed, numerous infections
symptomatic seizure with status epilepticus, most likely due to hypoglycemia <30, as the hyponatremia was improving.
status epilepticus broke with ativan
no suspicion for underlying epilepy, no need for Keppra, brain MRI, or routine EEG
Ceribell EEG beginning 5:24 am showing seizure in initial 2 minutes, then no seizure 2 hours and can be discontinued
Consultation
Order
Date of Consultation: 11/10/24
Requesting Provider: Ana Garibay
Reason for Consult: Seizure
Subjective/Objective
Subjective Data
Date of Service: November 10, 2024
called ~6am by ICU team for emergent consult for status epilepticus
from h&p:
This 29-year-old male with complex past medical history who presents to the emergency department with recurrent fevers, shortness of breath, nausea decreased p.o. and essentially some failure to thrive.
Briefly, patient is originally from [facility] having moved to the 8 years ago with parents. He has a history of congenital chromosomal abnormality currently unknown to us. Is chronic history of primary hypothyroid, he has been developing
worsening CKD over the last several years with last creatinine of around 5.5, he has history of recurrent pulmonary infections likely has had multiple pneumonias in the past, he has a history of triple cytopenia status post penectomy with subsequent
infections from that, history of appendectomy unrelated to the splenectomy, intellectual developmental level at about the 12-year-old level with normal activities of daily living.
According to family members patient was previously treated for TB in 2009. At that time it was not clearly diagnosed but he was treated empirically and he completed a 9-day course of a 4 drug regimen. Patient has also been evaluated more recently
for fungal infection. It is unclear whether he had a bronc but he has had a biopsy for tissue scarring from his recurrent pneumonias. Family tells me that is evaluation at pain that essentially ruled out fungal infections.
Over the last 6 months the patient has been having admissions for pneumonia with last admission at [facility] in October. He presented there for abnormal labs with a sodium of 120 fatigue and itchiness. Found to have elevated alk phos. He had an
MRI of the abdomen which was limited due to motion artifact but no evidence of abnormal biliary ductal dilation, there was bulky abdominal adenopathy with concern for malignancy such as lymphoma or metastatic disease, infections including TB could
have a similar appearance. He had a cystic focus in the head of the pancreas which will also represent intraductal papillary mucinous neoplasm. A suggestion was made to consider contrast-enhanced CT or MRI. This test actually high risk patient
due to its severe CKD and it was opted not to be performed.
They found that he likely had advanced CKD/ATN,. He was found to have chronic hyperparathyroidism with a PTH of 1.0, 25 OH vitamin D was 28 at that time. Acute on chronic hyponatremia noted thought to be secondary to hypovolemic hyponatremia. His
sodium had improved to 137 at the time of discharge. It is unclear to me whether he was treated with any antibiotics while he was admitted there.
According to family the patient has been having recurrent fevers up to 100.5 at home. Family started taking azithromycin 500 mg daily for the last 3 days. Patient reports nausea and mild vomiting. Decreased p.o. intake. No diarrhea. No acute
urinary symptoms. He did report that he has been coughing mostly nonproductively. No sick contacts at home.
overnight patient seizure - left gaze deviation, convulsions. the seizure did not break on it's own, and at exactly 5 minutes the patient given Ativan 1 mg and the seizure broke clinically. glc was <30, he was given D10, Ceribell device placed,
seizure seen in the initial 2 minutes.
This AM Na 118-->125
family report no prior history of seizures
Objective Data
Vital Signs
Temp Pulse Resp BP Pulse Ox
36.6 C 122 26 81/57 98
11/10/24 06:30 11/10/24 05:55 11/10/24 05:55 11/10/24 05:55 11/10/24 05:58
Lab Results
11/10/24 05:38
PT 13.9 Sec (11.4-14.6) 11/10/24 05:37
INR 1.04 11/10/24 05:37
APTT 44.1 Sec (23.4-35.0) H 11/10/24 05:37
Sodium 125 mmol/L (135-145) L 11/10/24 05:37
Potassium 4.9 mmol/L (3.5-5.1) 11/10/24 05:37
BUN 81 mg/dl (9-20) H 11/10/24 05:37
Glucose 110 mg/dl (70-99) H 11/10/24 05:37
Calcium 10.7 mg/dl (8.4-10.2) H 11/10/24 05:37
Phosphorus 5.2 mg/dl (2.5-4.5) H 11/10/24 05:37
Dbc-F-Rgznmevhqyo Pept 845 pg/ml 11/09/24 20:04
Patient Allergies
No Known Allergies Allergy (Unverified 11/09/24 18:08)
Physical Exam
-
intubated, sedated propofol 10 mcg/kg/min
+pupils +corneal +cough
no response noxious stim x4
Medications
-
Active Medications
Generic Name Dose Route Start Last Admin
Trade Name Freq PRN Reason Stop Dose Admin
Acetaminophen 650 mg 11/09/24 23:18
Acetaminophen 325 Mg Tablet PO 12/07/24 23:17
Q4HPRN PRN
if temp > 101 F
Albuterol 2 puff 11/09/24 23:18
Albuterol Hfa [90 Mcg/Dose] Inhaler INH
R Q4HPRN PRN
shortness of breath
Protocol
Budesonide 0.25 mg 07/07/25 08:00
Budesonide (Pulmicort Respules) 0.25 Mg/2 Ml INH
R BID KAYY
Protocol
Cefepime HCl 1,000 mg 11/10/24 08:00
Cefepime Hcl 1,000 Mg/11.3 Ml Vial IV
Q12H KAYY
Dextrose 12.5 grams 11/10/24 05:04 11/10/24 06:12
Dextrose 50% (0.5 Grams/Ml) 50 Ml Syringe IV 12/08/24 05:03 12.5 grams
[id number] PRN Administration
hypoglycemia
Protocol
Doxycycline Hyclate 100 mg 11/10/24 08:00
Doxycycline 100 Mg Capsule PO
Q12 KAYY
Fentanyl Citrate 50 mcg 11/10/24 03:52
Fentanyl (50 Mcg/Ml) 100 Mcg/2 Ml Ampul IV 11/24/24 03:51
[id number] PRN
see protocol
Protocol
Glucagon 1 mg 11/10/24 05:04
Glucagon 1 Mg Vial IM 12/08/24 05:03
PRN PRN
hypoglycemia
Protocol
Guaifenesin 600 mg 11/10/24 08:00
Guaifenesin 600 Mg Extended Release Tablet PO 12/08/24 07:59
Q12 KAYY
Heparin Sodium 5,000 units 11/10/24 08:00
Heparin 5,000 Units/Ml 1 Ml Vial SC 12/08/24 07:59
Q12 KAYY
Sodium Chloride 250 mls @ 20 mls/hr 11/09/24 23:03 11/10/24 00:10
Sodium Chloride 3% IV 11/10/24 11:32 250 mls
ONCE ONE Administration
Vancomycin HCl 1 each/ Device 0 mls @ 0 mls/hr 11/09/24 23:18
IV
PER PROTOCOL KAYY
Protocol
As Directed
Fentanyl Citrate 1,000 mcg in 100 mls @ 0 mls/hr 11/10/24 04:00
Sublimaze IV
PER PROTOCOL KAYY
Protocol
Per Protocol
Propofol 1,000,000 mcg in 100 mls @ 0 mls/hr 11/10/24 04:00
Diprivan IV
PER PROTOCOL KAYY
Protocol
Per Protocol
Norepinephrine Bitartrate 4 mg in 250 mls @ 0 mls/hr 11/10/24 04:00
Levophed IV
PER PROTOCOL KAYY
Protocol
Per Protocol
Dextrose 1,000 mls @ 20 mls/hr 11/10/24 07:00 11/10/24 06:22
D10w IV 1,000 mls
.Q24H KAYY Administration
Levetiracetam 500 mg 11/10/24 08:00
Levetiracetam (100 Mg/Ml) 500 Mg/5 Ml Vial IV 12/08/24 07:59
Q12 KAYY
Levothyroxine Sodium 88 mcg 11/10/24 06:00
Levothyroxine 88 Mcg Tablet PO 12/08/24 05:59
DAILY @ 06 KAYY
Magnesium Hydroxide 30 ml 11/09/24 23:18
Milk Of Magnesia 30 Ml Cup PO 12/07/24 23:17
Q4HPRN PRN
constipation
Polyethylene Glycol 17 grams 11/11/24 08:00
Polyethylene Glycol Powder 17 Grams Packet TUBE 12/09/24 07:59
DAILY KAYY
Sodium Bicarbonate 1,300 mg 11/10/24 08:00
Sodium Bicarbonate 650 Mg Tablet PO 12/08/24 07:59
TID KAYY
Sodium Chloride 0 flush 11/09/24 23:00
Sodium Chloride 0.9% (Flush) Syringe IV 12/07/24 22:59
PER PROTOCOL KAYY
Sterile Water 10 ml 11/10/24 08:00
Sterile Water For Injection 10 Ml Vial IV 12/08/24 07:59
Q12 KAYY
--- NOTE | 2024-11-10 07:15 | W.PN.UPDATE ---
Addendum entered and electronically signed by ELY Ogden 11/11/24 00:16:
late entry:
Add to above note- seizure last approximately 5 minutes and was treated with 1mg IV ativan.
Original Note:
Update Note
Progress Note Update
11/10/2024
034- Patient unresponsive to noxious stimuli. Increased difficulty with breathing, tachypnea RR 30s, tachycardic 120-130s, and vomited. Blood sugar was hypoglycemic <30, treated with dextrose IV. Concern about protecting airway and increased
work of breathing, anesthesia was called for intubation. Abg obtained ph 7.34, CO2 43, PO2 65, HC03 23; patient was opening his eyes and breathing had improved, therefore decision was made to trial high flow nasal cannula. Blood sugars checks
ordered q1H.
0430- BMP results sodium 126 and K 5.2; Dr. Jack mr teacher updated with results.
0500 Patient had abrupt change in mental status, became unresponsive, blood sugar checked and it dropped to 28, again dextrose IV push was ordered. Then generalized tonic clonic movements were noted in both arms and legs with left fixed gaze of the
eyes. Ativan 1mg IV push was given and anesthesia was called for intubation. Patient tachypnea, 30-40s, tachycardic 150s, hypoxic 70s%, and concern for seizure activity with protection of airway. rapt.fmibell rapid EEG monitor applied to monitor
seizure activity. Patient was intubated without event. Chest xray ordered for ETT placement and post ABG. Unclear of seizure like activity triggers: hypoglycemia, hyponatremia, or infection. Hypertonic 3% turned off. Hypoglycemia was treated
and q1H blood sugars, labs sent: CBC/BMP/Lactic/mag/phos. Family at bedside and updated on events, all questions answered. Sedation ordered propofol gtt and fentanyl gtt/prns, per light sedation protocol.
Dr. Jack, mr teacher updated, recommendations: stop hypertonic 3% saline, start D10W 20cc/hr, and check blood sugars q1H, treat with dextrose IV push. Dr. Woodruff, clicking machine operator, case discussed, recommendations received.
Dr. Guardado, neurologist consulted for seizures. Ctscan of the head ordered, at this time recommendation from neurology to hold keppra or AEDs for now. Patient on propofol for sedation and seizures.
--- NOTE | 2024-11-10 07:34 | CON.INTV ---
Consultation
Consultation Request
Date/Time Consultation Requested: 11/10
Date/Time Consultation Performed: 11/10
Reason for Consultation: Critical care
Medical History
-
History of Present Illness:
History obtained from the chart, brother and father at bedside with brother acting as livestock buyer. Patient is a 29-year-old male with complex medical history. 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, complicated by multiple pneumonias as a
child, hospitalized for 9 months, treated for presumed tuberculosis, moved to [facility] 2014, with multiple pneumonias since, follows infectious disease, pulmonary, nephrology, endocrine at [facility]. Patient has had 6 months of persistent cough,
fevers, now presents with 1 week of increased nausea, poor appetite. Patient was brought to [facility] as family wanted to go to a different hospital. Upon arrival to [facility], afebrile, pulse 138, breathing at 18, blood
pressure 129/90, 98%. Cultures were obtained, patient given cefepime, vancomycin. He was also given 1 dose of insulin in the ED for hyperglycemia. Hospital course reviewed. Patient became increasingly confused, developed seizure noted to have
low blood sugar, treated for hypoglycemia. Patient was empirically intubated for airway protection 11/10/2024. We are asked to help from critical care standpoint
At baseline, patient is living with family. There is some question as to underlying malignancy being considered at [facility] although details unclear. Records also suggest chronic fungal pneumonia but cannot confirm. Family is unaware of any
chronic infection.
Of note, patient has seen nephrology, pulmonary and infectious disease in the last month. Was also told by fisher spear that did not need to follow-up
.
PMH: Hospitalized for 10 months in [address] [facility] for pneumonia, empirically treated for tuberculosis with 9 months of therapy, details unclear. Tuberculosis was not confirmed according to family. History of multiple pneumonias upon moving to
[facility] in 2014, chronic renal disease, baseline creatinine 2.0 as of 2014, history of hypothyroidism, chronic lung disease. Hx of Liver disease seen by [facility]. Care is primarily at [facility].
Past Medical History
Past Medical History: None (See above)
Past Surgical History: None (See above)
Social History
Tobacco: Non-smoker
Alcohol: None
Drug: None
Personal: Single
Living: With Family
Employment: Not Employed
Environmental Exposures: Born in [facility], moved to [facility] 2014
Family History
Family History: Other (1 brother at age 6 months from pneumonia. Otherwise family history negative for blood clots, cancer, pneumonia. 2 siblings and parents are healthy)
Allergies / Home Medications
Allergies
Allergy/AdvReac Type Severity Reaction Status Date / Time
No Known Allergies Allergy Unverified 11/09/24 18:08
Review of Systems
-
Unable to Obtain full review of systems at this time due to: Patient Intubation
History Source: Family
All other systems: Negative unless noted
Vitals / Labs / Diagnostic Testing
Vital Signs
Temp Pulse Resp BP Pulse Ox
97.8 F 119 18 105/73 100
11/10/24 06:30 11/10/24 07:15 11/10/24 07:15 11/10/24 07:15 11/10/24 07:15
Lab Data
11/10/24 05:38
Laboratory Results
11/10/24 11/10/24 11/10/24
03:35 04:12 05:37
PT 13.9
INR 1.04
APTT 44.1 H
pH Cancelled 7.34 L
pCO2 Cancelled 43
pO2 Cancelled 65 L
HCO3 Cancelled 23.2
O2 Delivery Level Cancelled Ra
11/10/24
06:16
PT
INR
APTT
pH 7.35
pCO2 39
pO2 134 H
HCO3 21.5
O2 Delivery Level
Microbiology
11/10/24 00:38 Nasal Swab Influenza Types A & B (YADIRA) - Final
Negative for Influenza A & B, NAAT
Negative results must be combined with clinical observations
and patient history.
Nucleic Acid Amplification test (NAAT)performed on the
[employer] platform.
Diagnostic Testing:
Physical Exam
-
HEENT: Normocephalic (Microcephaly) and Other (ETT, OG tube)
Cardiovascular: S1/S2, Regular Rhythm (Tachycardic), Murmur (n), Rub (n), Peripheral Edema (n) and Calf Tenderness (n)
Respiratory: Wheeze (n), Rales (n), Rhonchi (n) and Non-Labored Respirations
GI: Soft, Distended and Non Tender
Neurology: Other (spont moves head and coughs)
Skin: Good Color and Other (no rash, extremities warm. cap refill > 3 sec)
General: Comfortable
Assessment
-
29-year-old male with complex medical history, including microcephaly, history of multiple pneumonias, treated for 9 months for tuberculosis in 2009, complaining of 6 months of cough, intermittent fevers, followed by infectious disease, nephrology,
endocrinology, pulmonary at [facility] with recent hospital stay 3 weeks ago at , now presents with increased fatigue, emesis, cough and malaise. Family brought patient to the [facility] due to no answers at . patient developed
increased tachypnea, emesis, hypoglycemia with blood sugar less than 30. Patient was intubated, hypoglycemia treated. Sodium on admission 118, increased to 126, stabilized at 125. Patient required initiation of D10 gtt. we are asked to help from
critical care standpoint
Acute respiratory failure
Intubated 11/10/2024
Tachypnea, airway protection in the setting of emesis
Bilateral interstitial infiltrates
Chronicity unclear
Hypoglycemia
Hyponatremia/hyperkalemia
Leukocytosis/fevers, hypothermia
Bandemia, lymphopenia
Tachycardia
Incomplete right bundle branch block
Metabolic acidemia, elevated lactate
Acute renal insufficiency, creatinine 5.8
Baseline 2.0 in 2015, follows nephrology at [facility]
Acute seizure
Possibly secondary to hypoglycemia
Retroperitoneal and abdominal adenopathy per imaging
Largest 6.4 cm
Conditions present prior to admission
History of splenectomy/appendectomy in [facility]?
Thrombocytopenia while in [facility]
History of microcephaly
History of multiple pneumonias
10+ times
Prolonged hospital stay for 9 months in 2009 ([facility])
Presumptive diagnosis of tuberculosis status posttreatment
Follows pulmonary at [facility]
History of liver disease, follows hepatology at [facility]
Details unclear
Hypothyroidism
Plan/recommendations
At this time, patient remains critically ill with multisystem organ dysfunction
Salient features include presentation with hyponatremia, hypoglycemia, tachycardia
Patient with episode of emesis preadmission
Chest x-ray with bilateral infiltrates although per report, patiently initially ambulating in the room without clear respiratory distress
Developed increased tachypnea, hypoglycemia, questionable seizure activity
Intubated emergently 11/10, treated for hypoglycemia and 1 dose of Ativan
Family states patient has had symptoms for 6 months including cough, fevers, weight loss
Patient had been treated with steroids earlier within the last year although details unclear
There is some concern for underlying malignancy according to family but could not confirm this
Imaging suggest significant adenopathy worrisome for a lymphomatous process
Moving forward
Continue with volume cycle ventilation
Currently on AC 16/350/5/80%
ABG 7.3 539/134
Pplat 25
We will make appropriate adjustments to minimize lung injury
wean FiO2 as able
family states patient has chronic lung disease, chronic cough. No prior films available for review
Differential includes infectious, inflammatory, chronic interstitial disease, acute aspiration pneumonitis
Continue broad-spectrum antibiotics, currently cefepime/vancomycin. Doxycycline also ordered
Infectious disease has been consulted
Patient does follow-up with infectious disease at [facility]. family not aware of vaccine status
History of splenectomy noted per history, and confirmed per report although report is nebulous
Urine Legionella and streptococcal pneumonia antigen negative
Influenza, COVID-negative
Maintain minimal sedation as able
Hypoglycemia is concerning
Patient presented with hyperglycemia in the ED, was given 1 dose of insulin 4 units
Developed hypoglycemia while in ICU requiring Treatment, initiation of D10
Questionable history of steroid use although details unclear
Check a.m. serum cortisol
Empiric hydrocortisone for now
History of liver disease noted
Do not have medication list at this time. Will try to reconcile. Family denies any prior blood sugar issues
Suspect hypoglycemia secondary to underlying malignancy, renal disease, liver disease
Acute renal failure noted
Baseline creatinine 2.0 as of 2014, progressive over the past few years according to family. Patient follows nephrology at [facility]
No evidence of obvious hydronephrosis on abdominal CT imaging
Gruber catheter
Mild distention of the right renal pelvis noted per imaging
Patient had received hypertonic saline initially for sodium 118, this was discontinued overnight after follow-up sodium of 126, currently 125
Currently receiving D10
Follow sodium levels closely
Trend lactate
Nephrology following
Significant adenopathy noted on abdominal imaging, 6.4 cm retroperitoneal adenopathy and mesenteric adenopathy
Worrisome for underlying malignancy
Seizure likely secondary to hypoglycemia although sodium levels also noted
Hypertonic saline has been discontinued
Remains on D10, follow-up sodium levels closely
Will cancel head CT. Await stability of blood sugars prior to transport
Neurology has been consulted
Keppra has been discontinued. Neurology has signed off
DVT prophylaxis: Remains on subcutaneous heparin
GI prophylaxis: Will add Protonix
Reviewed with critical care nursing, respiratory care, pharmacy
Reviewed with neurology, infectious disease
Reviewed at length with father and brother at bedside. Brother acted as livestock buyer
Given multisystem organ dysfunction, prognosis at this point is poor, especially if underlying malignancy is within the differential
All questions answered
TCCT 90 min
[2024-11-10] MEDS: PULMICORT 0.25 MG INH ×2 (07:39→19:44)
[2024-11-10] MEDS: MAXIPIME 1000 MG IV ×2 (07:51→19:19)
[2024-11-10] MEDS: HEPARIN 5000 UNITS SC ×2 (07:51→19:20)
[2024-11-10] MEDS: STERILE WATER FOR INJECTION 10 ML IV ×2 (07:52→19:19)
[2024-11-10] MEDS: SODIUM BICARBONATE PO (07:52)
[2024-11-10 07:58] LABS: Glucose - Point of Care 36 mg/dl (70-99)
[2024-11-10] MEDS: SYNTHROID 88 MCG PO (08:16)
[2024-11-10 08:21] LABS: Glucose - Point of Care 83 mg/dl (70-99)
[2024-11-10] MEDS: SODIUM BICARBONATE 1300 MG PO (08:22)
[2024-11-10] MEDS: VIBRAMYCIN 100 MG PO ×2 (08:23→19:20)
--- NOTE | 2024-11-10 08:33 | EEGC.RPT ---
Continuous EEG Report
Recording
Start Date of Data Reviewed: 11/10/24
Start Time of Data Reviewed: 05:24
End Date of Data Reviewed: 11/10/24
End Time of Data Reviewed: 07:39
Report
Clinical Background:�status epilepticus
Introduction: A routine bedside EEG was done using [employer] 10-20 electrode placement protocol.
Background: In the comatose state, there is continuous generalized slowing, low amplitude delta activity. at times, frontally predominant alpha activity. There is spontaneous variability and reactivity.�
Sleep: none
Focal/epileptiform: in the initial 2 minutes, there is seizure consisting of of generalized 2-3 Hz spike waves and rhythmic delta with overriding fast activity
Photic stimulation: resulted in normal driving response. There was no photo myogenic or photoparoxysmal response.�
Impression: seizure in the initial 2 minutes followed by moderate generalized cerebral dysfunction
[2024-11-10 09:15] LABS: Glucose - Point of Care 124 mg/dl (70-99)
--- NOTE | 2024-11-10 09:32 | CON.ID ---
Consultation
-
Date/Time Consultation Requested: 11/09/2024 2318
Date/Time Consultation Performed: 11/10/2024 0900
Requesting Provider: Nelson
Performing Provider: Leena
Reason for Consultation: Fever
Chief Complaint / Past History
History of Present Illness
Bay Boyce is a 29-year-old male with a significant past medical history of microcephaly, intellectual disability and reported prior Hx of TB being evaluated at the request of Dr. Damon regarding pneumonia. History is obtained from chart
review, along with history obtained from the patient's father and her brother who are at the bedside. The patient is currently intubated and sedated, and no history is available from him.
Patient has a remote history of reported tuberculosis while living in [facility], and reportedly was treated in 2009 for 9 months in a hospital that there. The patient arrived in the [place] approximately 10 years ago, and was doing well until proximately
a year ago (or possibly longer; it is unclear) when he began to have kidney issues. He is usually seen at [facility], and has had multiple visits there recently.
Over the past 6 months he has had fever and cough. He has been on multiple courses of antibiotics. He additionally has had ongoing fevers.
The patient presented to the emergency room yesterday, brought in by family, for abdominal distention, poor p.o. intake. In the ER, history was obtained that the patient was on Azithromycin over the past several days to treat the fever.
Additionally, the patient reportedly recently had an MRI of the abdomen which was concerning for malignancy versus TB.
Admission workup revealed leukocytosis. Patient was placed on empiric antibiotics. Because of poor respiratory status, the patient was intubated overnight.
Past History
Additional Past Medical History:
Possible TB (Tx for 9 months in [facility], although not clear if empiric)
Microcephaly
CKD
Additional Past Surgical History:
Splenectomy (2008)
Appendectomy
Allergy History:
No Known Allergies Allergy (Unverified 11/09/24 18:08)
Medications Reviewed: Yes
Current Antibiotics:
Vancomycin
Cefepime
Doxycycline
Social History
Tobacco: Non-Smoker
Alcohol: None
Drug: None
Personal: Single
Living: With Family
Employment: Disabled
Family History
Family History: Not Pertinent
Review of Systems
Vital Signs
Temp Pulse Resp BP Pulse Ox
98.5 F 115 26 105/73 100
11/10/24 07:50 11/10/24 07:57 11/10/24 07:57 11/10/24 07:15 11/10/24 08:00
Physical Exam
Physical Exam
Constitutional: Acutely Ill, Chronically Ill and Non-toxic
Head: Other (Microcephalic)
Eyes: Pupils Equal, Pupils Round, No Conjunctival Hemorrhage and Sclera Anicteric
Oral: No Thrush and No Ulcers
Cardiovascular: S1/S2; Negative S3/S4
Pulmonary: Coarse and Other (ET tube in place to vent)
Gastrointestinal: Soft, Distended, Decreased Bowel Sounds, No Rebound and No Guarding
Genito-Urinary: Gruber and Clear Urine
Extremities: Negative Edema, Cyanosis or Erythema
Skin: Warm and Dry; Negative Rash or Jaundice
Neurological: Other (Sedated)
.
Lab / Diagnostic Study Results
11/10/24 05:38
Total Counted 100 11/09/24 18:35
Abs Neuts (Manual) 11.6 10^3/uL (1.4-6.5) H 11/09/24 18:35
Segmented Neutrophils 66 % (42-75) 11/09/24 18:35
Band Neutrophils 6 % (0-3) H 11/09/24 18:35
Lymphocytes (Manual) 4 % (20-51) L 11/09/24 18:35
Eosinophils (Manual) 1 % (0-6) 11/09/24 18:35
PT 13.9 Sec (11.4-14.6) 11/10/24 05:37
INR 1.04 11/10/24 05:37
Lactic Acid 6.9 mmol/L (0.7-2.0) H* 11/10/24 05:41
Ur Squamous Epith Cells /LPF (Few) 11/09/24 20:42
Microbiology Results
Micro:
11/10/24 07:58 Respiratory Culture - Pending
Sputum Gram Stain - Pending
11/10/24 07:58 Acid Fast Bacilli Smear - Pending
Sputum Acid Fast Bacilli Culture - Pending
11/10/24 07:58 Nasal Screen MRSA (PCR) - Pending
Nose
11/10/24 05:58 Legionella Urinary Antigen - Final
Urine Negative for Legionella pneumophila Serogroup 1 antigen.
A negative result does not rule out the possiblity of
Legionella infection due to other serogroups or species of
Legionella. Clinical correlation is recommended.
Streptococcus pneumoniae Antigen (M - Final
Negative for Streptococcus pneumoniae antigen.
A negative result does not exclude infection with
Streptococcus pneumoniae. Clinical correlation is
recommended.
11/09/24 20:04 Blood Culture - Pending
Blood/Venous
11/10/24 00:38 Influenza Types A & B (YADIRA) - Final
Nasal Swab Negative for Influenza A & B, NAAT
Negative results must be combined with clinical observations
and patient history.
Nucleic Acid Amplification test (NAAT)performed on the
ICEX platform.
11/09/24 20:04 Blood Culture - Pending
Blood/Venous
Imaging:
11/09/2024 CT abdomen/pelvis without contrast: Severe abdominal lymphadenopathy with markedly enlarged mesenteric, retroperitoneal and upper abdominal lymph nodes. Small volume ascites. Moderate to severe chronic renal disease. Severe pancreatic
lipomatosis. Moderate distal small bowel distention; suspected ileus. Diffuse groundglass pulmonary disease suspected to be inflammatory although cannot rule out infectious etiology. Mild focal left lower lobe airspace consolidation and possible
mild pneumonia. Please see full dictation for additional detail. Film personally viewed.
11/09/2024 CXR (portable): Bilateral parenchymal opacities. No evidence for cavitation. No evidence for pleural effusion. Please see full dictation for additional detail.
Assessment / Plan
Ventilator dependent respiratory failure
BRENDON on CKD
Hyponatremia
Suspected pneumonia
Leukocytosis
Lactic acidosis
Anemia
Hyperkalemia
Significant abdominal lymphadenopathy on CT
Possible TB (Tx for 9 months in [facility], although not clear if empiric)
Microcephaly
Hx splenectomy (2008). Vaccine status currently unknown.
Recommendations:
Continue with empiric antibiotics for today (vancomycin, cefepime, doxycycline).
- Cefepime dose appropriate for current renal insufficiency
Sputum culture has been obtained.
AFB culture has been obtained. Will order 2 more for collection today.
Given hyponatremia, will check Legionella culture (although may be negative given recent Azithromycin administration), along with a DFA.
Monitor white count and temperature curve.
Obtain old records from [facility] for review.
Continue with supportive measures.
Patient may ultimately require lymph node biopsy for more definitive diagnosis of lymphadenopathy
Patient currently critically ill, on pressor, vent dependent in ICU. Prognosis guarded.
Care Review
Plan reviewed with: Physician (Hospitalist, Critical Care)
--- NOTE | 2024-11-10 09:36 | W.PN.HOSP.TC ---
Today's Communication/Plan
-
abx per ID
f/u BMP
vent management per potato peeler
Assessment / Plan
Assessment / Plan
1. Sepsis
-Source remains unclear, presumed pulmonary at this stage
-Total WBC 16K, some bandemia of 6% yesterday. Significant lymphopenia and monocytosis.
-Chest x-ray showing bilateral infiltrates
-Blood cultures/sputum culture collected. COVID flu negative
-Maintain on broad-spectrum antibiotic
-Patient history of tuberculosis in past AFB culture has been obtained. QuantiFERON test was normal in 23.
2. History of cavitary lung lesion
-[facility] records showing CT scan of chest showing bronchiectasis/upper lobe cystic lung disease
-Question of possible aspergilloma
3. Seizure episode
-Patient was intubated earlier in the morning for possible seizure episode
-Seizure intent possibly was provoked by Hypoglycemia
-Will require brain imaging once clinically appropriate
-Neurology was involved who has signed off at this stage.
4. Diffuse lymphadenopathy
-Major intra-abdominal adenopathy suspicious of malignancy
-Will require eventual biopsy and oncology evaluation. Of note patient was recommended to follow-up with oncology on outpatient basis.
5. Hyponatremia
-Has history of previous hyponatremia. Reason unclear
-Urine sodium of 98 and urine osmolarity of 292
-Patient got 3% saline
-Nephrology folloing
6. Acute kidney injury on CKD stage unknown
- Patient apparently reported to have creatinine in range of 3, has been following with [facility]
- This admission creatinine elevated to 5-6 range
- Nephrology anticipating need of hemodialysis if not improved
7. Hyperkalemia - resolved
- s/p insulin/dextrose
- s/p lokelma
8. Episode of hypoglycemia
- Patient had low blood glucose of 30 in night, maintained on d10
- Discussed with potato peeler, who prefers for patient to be maintained on dextrose IVF for now
9. Hypercalcemia
- Due to chronic granulomatous disease versus malignancy related?
- Vitamin D 25-hydroxy level of 30, MARY level pending, PTH/PTH RP level pending
- Calcium level is improved with IV hydration
10. Lactic acidosis
- Possible seizure related, resolving
11. Developmental disorder
Microcephaly
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
- Patient have microcephaly and converges sign scale of 10-year old
- Lives with family and was somewhat independent before hospitalization
DVT PPX - heparin sq
Code status - Full Code
Total critical care time 43 mins . Total critical care time documented does not include time spent on separately billed procedures or the services of residents, students, nurses or physician assistants. I personally saw and examined the patient. I
have reviewed all diagnostic interpretations and treatment plans as written. I was present for the orellana portions of any procedures performed and the inclusive time noted in any critical care statement. Critical care time includes patient management
by me, time spent at the patients bedside, time to review lab and imaging results, discussing patient care, documentation in the medical record, and time spent with the family or caregiver.
Anticipated Discharge: > 48 hours
Subjective/Interval History
-
Date of Service: November 10, 2024
patient intubated overnight due to concern of seizures
Vitally stable and not requiring any pressors
Afebrile
Objective Data
-
Labs:
Laboratory Results
11/10/24 11/10/24 11/10/24
03:09 03:09 03:35
WBC
Hgb
Hct
Plt Count
PT
INR
APTT
HCO3 Cancelled
Sodium 126 L D
Potassium Cancelled 5.2 H
Chloride 98
Carbon Dioxide 26
BUN 89 H
Creatinine 5.6 H*
Glucose < 30 L*
Calcium 12.0 H
11/10/24 11/10/24 11/10/24
04:12 05:37 05:38
WBC 14.2 H
Hgb 8.9 L
Hct 25.5 L
Plt Count 298
PT 13.9
INR 1.04
APTT 44.1 H
HCO3 23.2
Sodium 125 L
Potassium 4.9
Chloride 98
Carbon Dioxide 17 L
BUN 81 H
Creatinine 5.8 H*
Glucose 110 H
Calcium 10.7 H
11/10/24 11/10/24
06:16 09:05
WBC
Hgb
Hct
Plt Count
PT
INR
APTT
HCO3 21.5
Sodium Pending
Potassium Pending
Chloride Pending
Carbon Dioxide Pending
BUN Pending
Creatinine Pending
Glucose Pending
Calcium Pending
Vital Signs:
Vital Signs
Temp Pulse Resp BP Pulse Ox
98.5 F 115 26 105/73 100
11/10/24 07:50 11/10/24 07:57 11/10/24 07:57 11/10/24 07:15 11/10/24 08:00
I&O
11/09/24 11/10/24 11/11/24
06:59 06:59 06:59
Intake Total 100 / 100
Output Total 200 / 200
Balance -100 / -100
Review of Systems
-
Unable to obtain full review of systems at this time due to: Acuity (Sedated )
Physical Exam
-
General: Comfortable
HEENT: Negative Oxygen
Respiratory: Clear to Auscultation
Cardiac: Regular Rhythm and S1/S2; Negative Murmur or Rub
GI: Soft, Nontender, Nondistended and Normal Bowel Sounds
Musculoskeletal: No Edema
Neuro: Negative Awake
Psych: Calm
[2024-11-10 09:41] LABS: Glucose - Point of Care 73 mg/dl (70-99)
[2024-11-10] MEDS: SUBLIMAZE 50 MCG IV (09:54)
--- NOTE | 2024-11-10 10:02 | PTCARENOTE ---
IV team at bedside to place picc line, premedicated with fentanyl prior to procedure
[2024-11-10 10:10] LABS: Blood Urea Nitrogen 84 mg/dl (9-20); Calcium 10.5 mg/dl (8.4-10.2); Carbon Dioxide 25 mmol/L (22-30); Chloride 98 mmol/L (98-107); Estimated Creatinine Clearance 11 ml/min; Glucose 70 mg/dl (70-99); Potassium 4.8 mmol/L (3.5-5.1); Sodium 124 mmol/L (135-145); eGFR 12.02
[2024-11-10 10:25] LABS: Vitamin D, 25-OH*** 30.0 ng/mL (30-80)
--- NOTE | 2024-11-10 10:36 | W.PN.NEPH.PH ---
Today's Communication / Plan
-
see plan
Assessment/Plan
-
Assessment
Microcephaly, short stature
Hypoparathyroidism
Hypercalcemia
CKD 5 progressive
Hyperkalemia
Hyponatremia
Abdominal lymphadenopathy
History of cavitary lung lesion, multiple pneumonia
Bilateral infiltrates lung
Splenectomy
Plan
hyponatremia-high ADH mediated, U osmo 292, U na 98
improved to 126 with HTS, now is off
monitor sodium q4h while on hypotonic fluids for hypoglycemia
goal of sodium today 124-126
hyperkalemia improved
monitor L acidosis -improving too
cont pressors to keep MAP>65
check cortisol level and u osmo
if sodium decreases likely resume HTS at low rate
hypercalcemia-improving, no need pamidronate
CT abd noted with severe abd lymphadenopathy, may need biopsy
h/o TB on precautions
cr no change at 6, UOP non oliguric with fletcher
felt to have status s/p ativan -felt hypoglycemia likely is the culprit
however SZ threshold could be lowered by hyponatremia and renal failure too
no emergent need of HD today , however high risk-may have to consider CRRT
abx per ICU
dose meds renally
d/w nursing and brother in detail
CC spent 40min
-
-
Date of Service: November 10, 2024
CC / HPI / ROS
-
Chief Complaint:
CKD, hyperkalemia, hyponatremia
History of Present Illness:
sodium upto 126 early this am, now at 124
off HTS through night and changed to D10 for persistent hypoglycemia
SZ-new, now intubated and sedated
cr no change at 6, BUN 84
L acid improving to 3.2
no fever, WBC slightly better at 14.2
Review of Systems:
intubated and sedated
non oliguric with fletcher
Labs
-
Labs:
WBC 14.2 10^3/uL (4.8-10.8) H 11/10/24 05:38
RBC 2.83 10^6/uL (4.70-6.10) L 11/10/24 05:38
Hgb 8.9 g/dL (13.0-18.0) L 11/10/24 05:38
Hct 25.5 % (39.0-52.0) L 11/10/24 05:38
Plt Count 298 10^3/uL (130-400) 11/10/24 05:38
eGFR 12.02 11/10/24 09:05
Phosphorus 5.2 mg/dl (2.5-4.5) H 11/10/24 05:37
Dow-S-Vndkrbssdod Pept 845 pg/ml 11/09/24 20:04
Albumin 3.1 g/dl (3.5-5.0) L 11/09/24 19:46
Physical Exam
-
Vital Signs:
Vital Signs
Temp Pulse Resp BP Pulse Ox
98.5 F 102 20 100/75 100
11/10/24 07:50 11/10/24 10:15 11/10/24 10:15 11/10/24 10:15 11/10/24 10:15
Cardiovascular:: Regular rate and rhythm
Respiratory:: Bilateral: Coarse
Lung Excursion:: Abnormal
Abdomen:: Nontender and Soft
Extremity Edema:: None: Bilateral:
Fletcher Catheter: Yes
[2024-11-10] MEDS: LEVOPHED 250 IV ×2 (10:38→16:35)
[2024-11-10 10:40] LABS: Cortisol, Random 34.9 ug/dl; TSH 24.60 uIU/ml (0.47-4.68)
[2024-11-10 10:41] LABS: Glucose - Point of Care 61 mg/dl (70-99)
[2024-11-10 10:56] LABS: Glucose - Point of Care 146 mg/dl (70-99)
--- NOTE | 2024-11-10 11:05 | PTCARENOTE ---
Received pt this am with multiple episodes of hypoglycemia this shift. No sz activity noted, per Dr Woodruff have given glucagon in addition to d50 as charted. PICC line has been placed with xray completed, waiting on read. Once confirmed, plan to
add vasopressin. Marcie Pedro, Hailey, Dimitry, Kacy all in to see pt and updated family.
[2024-11-10] MEDS: PITRESSIN 100 IV ×2 (11:46→20:50)
[2024-11-10 11:49] LABS: Glucose - Point of Care 78 mg/dl (70-99)
--- NOTE | 2024-11-10 11:54 | CM ---
Patient receiving care. Initial assessment completed with chris's brother. Patient is from [facility] and has lived in [place] since 2014. Patient lives with his parents and brother in a 2 story plus basement home with 1/2 bath on , B/B on , 1
step to enter. EDUCATION TRAINER patient was independent in ADL's and ambulation, does not drive. Patient has a nebulizer machine and no in-home services. No HC-POA. No service. PCP is Dr. Anatoliy Schaffer and Pharmacy is [facility]. Discharge POC:
Anticipate home with no needs, possibly HH RN.
[2024-11-10 12:42] LABS: Glucose - Point of Care 60 mg/dl (70-99)
--- NOTE | 2024-11-10 12:54 | PHA.VAN.FU ---
Vancomycin Assessment / Plan
- Assessment
Renal Function: Stable
WBC's are: Trending Down
Concomitant Antimicrobials: cefepime, doxycycline
- Assessment - Therapeutic Drug Monitoring
Random Level: 22.4 - drawn ~9H after initial dose of 1000mg
- Dosing Plan
Dosing by Level: Hold off on dosing today
- Monitoring Plan
Random Level: 11/11 06
- Follow Up
Pharmacy will continue to follow.
Vancomycin Follow UP
- -
Patient Age: 29
Patient Sex: Male
Vancomycin Day #: 2
Indication: Pulmonary/Respiratory
Requesting Provider: Dr. Damon/Dr. Stern
Pertinent Antimicrobial Allergies:
NKDA
Height / Weight:
Height 5 ft
Actual Weight 41.7 kg
IBW in k
Pertinent Past Medical History: BMI ~18
- Vital Signs / Lab Results
Temp Pulse Resp BP Pulse Ox
98.9 F 96 18 89/69 95
11/10/24 10:25 11/10/24 11:30 11/10/24 11:30 11/10/24 11:30 11/10/24 12:00
Lab Results - Hematology
11/09/24 11/10/24
18:35 05:38
WBC 16.2 H 14.2 H
Band Neutrophils 6 H
Lab Results - Chemistry
11/09/24 11/09/24 11/10/24
18:35 19:46 03:09
BUN Cancelled 95 H 89 H
Creatinine Cancelled 6.3 H* 5.6 H*
Estimated Creat Clear Cancelled 11 11
Albumin Cancelled 3.1 L
11/10/24 11/10/24
05:37 09:05
BUN 81 H 84 H
Creatinine 5.8 H* 6.0 H*
Estimated Creat Clear 11 11
Albumin
11/09/24 11/10/24 11/10/24
20:04 05:41 09:30
Lactic Acid 1.7 6.9 H* 3.2 H
Lab Results - Urine
11/09/24
20:42
Urine Nitrite (Reflex) Negative
Leukocyte Esterase Rfl Negative
Ur Squamous Epith Cells
Microbiology Results
11/10/24 07:58 Nasal Screen MRSA (PCR) - Final
Nose MRSA not detected - performed by PCR methodology.
11/10/24 05:58 Legionella Urinary Antigen - Final
Urine Negative for Legionella pneumophila Serogroup 1 antigen.
A negative result does not rule out the possiblity of
Legionella infection due to other serogroups or species of
Legionella. Clinical correlation is recommended.
Streptococcus pneumoniae Antigen (M - Final
Negative for Streptococcus pneumoniae antigen.
A negative result does not exclude infection with
Streptococcus pneumoniae. Clinical correlation is
recommended.
11/10/24 00:38 Influenza Types A & B (YADIRA) - Final
Nasal Swab Negative for Influenza A & B, NAAT
Negative results must be combined with clinical observations
and patient history.
Nucleic Acid Amplification test (NAAT)performed on the
frenting platform.
Therapeutic Drug Monitoring
Random Vancomycin 22.4 ug/ml 11/10/24 05:42
[2024-11-10 13:04] LABS: Glucose - Point of Care 169 mg/dl (70-99)
--- NOTE | 2024-11-10 13:09 | W.PN.UPDATE ---
Update Note
Progress Note Update
Reviewed extensive records provided from [facility]
Reviewed nephrology, infectious disease, pulmonary correspondence
Patient recently hospitalized 10/23/[address]24
[address] chest with bronchiectasis, left upper lobe predominant cystic lung disease. 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
There is also new subcarinal adenopathy when compared to prior imaging
Abdominal MRI confirms extensive abdominal and retroperitoneal adenopathy
Patient was referred to oncology
Patient was treated with cefepime
Of note prior records suggest cavitary pneumonia, fungal pneumonia diagnosed in 2022 at [facility] via bronchoscopy
Patient was started on antifungal therapy but per records, unclear whether patient followed through with antifungal therapy due to intolerance
Patient also has had negative QuantiFERON gold study 2022
Records also suggest possible NTM ([place]) from bronchoscopy 2022 but this cannot be confirmed
Serum galactomannan study negative
Based on above, worrisome for underlying malignancy
Significant adenopathy is new per imaging
Continue with antibiotics, AFB testing, Legionella testing per ID
Continue with current management plans
[2024-11-10 13:18] LABS: Blood Urea Nitrogen 85 mg/dl (9-20); Calcium 10.2 mg/dl (8.4-10.2); Carbon Dioxide 24 mmol/L (22-30); Chloride 96 mmol/L (98-107); Estimated Creatinine Clearance 11 ml/min; Glucose 41 mg/dl (70-99); Potassium 4.9 mmol/L (3.5-5.1); Sodium 123 mmol/L (135-145); eGFR 13.34
[2024-11-10 13:39] LABS: Glucose - Point of Care 55 mg/dl (70-99)
[2024-11-10 13:43] LABS: Glucose - Point of Care 103 mg/dl (70-99)
--- NOTE | 2024-11-10 13:53 | CM ---
TC from Outside Event Sales Specialist, Lenny, from [facility].
Patient is current with their services for NUCLEAR REACTOR ENGINEER daily and RN/PT.
--- NOTE | 2024-11-10 14:37 | CM ---
Patient receiving care. Initial assessment completed with patent's brother. Patient is from [facility] and has lived in [place] since 2014. Patient lives with his parents and brother in a 2 story plus basement home with 1/2 bath on , B/B on , 1
step to enter. 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 Patient has a nebulizer machine. Has in-home services with [facility] for AUTOMATIC PINSETTER MECHANIC daily and RN, PT/OT services. No HC-POA. No service. PCP is
Anatoliy Schaffer and Pharmacy is [facility]. Discharge POC: TBD.
[2024-11-10 14:52] LABS: Glucose - Point of Care 83 mg/dl (70-99)
--- NOTE | 2024-11-10 15:05 | PTCARENOTE ---
pt having echo at bedside
[2024-11-10 15:46] LABS: Glucose - Point of Care 80 mg/dl (70-99)
[2024-11-10 16:42] LABS: Glucose - Point of Care 73 mg/dl (70-99)
[2024-11-10 17:39] LABS: Glucose - Point of Care 88 mg/dl (70-99)
[2024-11-10 17:51] LABS: Blood Urea Nitrogen 90 mg/dl (9-20); Calcium 9.6 mg/dl (8.4-10.2); Carbon Dioxide 23 mmol/L (22-30); Chloride 96 mmol/L (98-107); Estimated Creatinine Clearance 12 ml/min; Glucose 49 mg/dl (70-99); Potassium 5.2 mmol/L (3.5-5.1); Sodium 120 mmol/L (135-145); eGFR 13.95
[2024-11-10 18:43] LABS: Glucose - Point of Care 95 mg/dl (70-99)
[2024-11-10 19:39] LABS: Glucose - Point of Care 103 mg/dl (70-99)
[2024-11-10 20:46] LABS: Glucose - Point of Care 140 mg/dl (70-99)
[2024-11-10 21:00] LABS: Blood Urea Nitrogen 89 mg/dl (9-20); Calcium 9.3 mg/dl (8.4-10.2); Carbon Dioxide 22 mmol/L (22-30); Chloride 97 mmol/L (98-107); Estimated Creatinine Clearance 12 ml/min; Glucose 108 mg/dl (70-99); Potassium 5.2 mmol/L (3.5-5.1); Sodium 120 mmol/L (135-145); eGFR 13.95
--- NOTE | 2024-11-10 21:21 | PTCARENOTE ---
Pt received start of shift, HR SR on telemetry. ETT #7 @ 22cm. Vent settings 16/350/+5/40%. Pt tolerating vent settings w/ occasional spontaneous breaths. RASS -1. Gruber draining clear yellow urine. Gtts infusing as ordered and documented in
worklist. OGT @ 58cm connected to continuous tube feed. No seizure activity noted. Mother and sister at bedside.
[2024-11-10 21:43] LABS: Glucose - Point of Care 152 mg/dl (70-99)
[2024-11-10 22:43] LABS: Glucose - Point of Care 170 mg/dl (70-99)
[2024-11-10 23:46] LABS: Glucose - Point of Care 198 mg/dl (70-99)
[2024-11-11] VITALS (44 sets, daily range): BP systolic 87–113; BP diastolic 55–84; BMI 18.6
[2024-11-11 00:53] LABS: Glucose - Point of Care 213 mg/dl (70-99)
[2024-11-11 02:00] LABS: Blood Urea Nitrogen 89 mg/dl (9-20); Calcium 9.0 mg/dl (8.4-10.2); Carbon Dioxide 21 mmol/L (22-30); Chloride 99 mmol/L (98-107); Estimated Creatinine Clearance 12 ml/min; Glucose 176 mg/dl (70-99); Potassium 5.4 mmol/L (3.5-5.1); Sodium 122 mmol/L (135-145); eGFR 13.64
[2024-11-11] MEDS: SODIUM CHLORIDE 3% 250 IV (02:09)
[2024-11-11] MEDS: SUBLIMAZE 50 MCG IV ×2 (02:17→08:16)
[2024-11-11] MEDS: DIPRIVAN 100 IV (02:20)
[2024-11-11] MEDS: LEVOPHED 250 IV (02:20)
[2024-11-11 02:41] LABS: Glucose - Point of Care 200 mg/dl (70-99)
--- NOTE | 2024-11-11 02:44 | PTCARENOTE ---
Addendum entered by Anastacio Wild RN 11/11/24 03:41:
d10w gtt placed on standby d/t sustained high sugars
Original Note:
Blood sugars within range, spoke with MANAGEMENT PROFESSOR d10W gtt decreased. Pt continuing to tolerate tube feed, rate increased per order to 30mL/hr. Vaso off since 2200. BP remaining in target range on low dose levo.
Pt asynchronous with vent and attempting to remove tube - fent bolus (see MAR) and Prop gtt increased.
[2024-11-11 03:49] LABS: Glucose - Point of Care 202 mg/dl (70-99)
[2024-11-11 03:51] LABS: Hematocrit 20.1 % (39.0-52.0); Hemoglobin 7.1 g/dL (13.0-18.0); Mean Corp Hgb Conc. 35.3 g/dL (33.0-37.0); Mean Corpuscular Volume 88.9 fL (80.0-94.0); Platelet Count 235 10^3/uL (130-400); Red Cell Dist. Width 14.6 % (11.5-14.5)
[2024-11-11 04:15] LABS: B.E. -2.8 mmol/L; HCO3 21.7 mmol/L (21-28); O2 Saturation % 96.2 % (94-98); PCO2 35 mmHg (35-48); PO2 105 mmHg (83-108)
[2024-11-11 04:46] LABS: Glucose - Point of Care 191 mg/dl (70-99)
[2024-11-11 05:12] LABS: Blood Urea Nitrogen 91 mg/dl (9-20); Calcium 9.0 mg/dl (8.4-10.2); Carbon Dioxide 19 mmol/L (22-30); Chloride 99 mmol/L (98-107); Estimated Creatinine Clearance 11 ml/min; Glucose 150 mg/dl (70-99); Potassium 5.3 mmol/L (3.5-5.1); Sodium 123 mmol/L (135-145); eGFR 13.06
[2024-11-11] MEDS: SYNTHROID 88 MCG TUBE (05:28)
[2024-11-11] MEDS: SODIUM BICARBONATE 50 MEQ IV (05:29)
[2024-11-11] MEDS: SOLU-CORTEF 100 MG IV (05:29)
[2024-11-11 05:48] LABS: Glucose - Point of Care 222 mg/dl (70-99)
[2024-11-11 05:55] LABS: Hematocrit 18.9 % (39.0-52.0); Hemoglobin 6.8 g/dL (13.0-18.0)
--- NOTE | 2024-11-11 06:27 | W.PN.UPDATE ---
Update Note
Progress Note Update
Hgb 6.8, (repeat lab and result), no external signs of bleeding, no bloody stools. Type and screen ordered, blood consent obtained at bedside from patient's mother Marline Boyce.
--- NOTE | 2024-11-11 06:30 | PTCARENOTE ---
AM labs drawn and sent. Amp bicarb ordered and administered. Levo titrating down as tolerated. Hgb critical, ENGINEERING TECHNICAL ANALYST aware. T+S obtained.
--- NOTE | 2024-11-11 06:38 | PTCARENOTE ---
Pt continues to be oriented but agitated at times. Continues to follow all commands. Pt removed pulsox, BP cuff, and SCDs by self. Turning in bed by self.
[2024-11-11 07:09] LABS: Glucose - Point of Care 216 mg/dl (70-99)
--- NOTE | 2024-11-11 07:19 | W.PN.ID1 ---
Date of Service
Date of Service: November 11, 2024
Today's Communication
Continue current antibiotics. See below�
Assessment / Plan
Ventilator dependent respiratory failure
BRENDON on CKD
Hyponatremia
Suspected pneumonia
Leukocytosis
Lactic acidosis
Anemia
Hyperkalemia
Significant abdominal lymphadenopathy on CT
Possible TB (Tx for 9 months in [facility], although not clear if empiric)
Microcephaly
Hx splenectomy (2008). Vaccine status currently unknown.
Recommendations:
Continue with empiric vancomycin, cefepime, doxycycline.
- Cefepime dose appropriate for current renal insufficiency
Sputum culture has been obtained.
AFB stain/culturex3 obtained.
Legionella culture and DFA pending.
Monitor white count and temperature curve.
Old records from [facility] obtained; will review. Per Pulmonary, reports of fungal infection noted, although not clear to what extent.
- Will order Aspergillus antibodies, along with dedicated sputum fungal culture.
Continue with supportive measures.
Patient may ultimately require lymph node biopsy for more definitive diagnosis.
Patient currently critically ill, on pressor, vent dependent in ICU. Prognosis guarded.
Chief Complaint
-: Leukocytosis and Pneumonia
Subjective / Review of Systems
Patient seen examined. Remains on vent at this time. Vasopressin titrated to off, patient remains on norepinephrine at this time.
Vital Signs / Physical Exam
Vital Signs
Vital Signs
Temp Pulse Resp BP Pulse Ox
97.5 F 100 17 93/62 97
11/11/24 02:00 11/11/24 06:00 11/11/24 06:00 11/11/24 06:00 11/11/24 06:05
Physical Exam
Constitutional: Acutely Ill, Chronically Ill and Non-toxic
Head: Other (Microcephaly)
Eyes: No Conjunctival Hemorrhage and Sclera Anicteric
Oropharyngeal: Other (ET tube in place.)
Cardiovascular: S1/S2; Negative S3/S4
Pulmonary: Rhonchi (Few; scattered), Coarse and Other (ET tube present.)
Gastrointestinal: Soft, Non Distended, Normal Bowel Sounds, No Rebound and No Guarding
Extremities: Negative Edema, Cyanosis or Erythema
Skin: Negative Rash or Jaundice
Lines: PICC
Objective Data
Lab Data
Lab Results
11/11/24 05:37
PT 13.9 Sec (11.4-14.6) 11/10/24 05:37
INR 1.04 11/10/24 05:37
APTT 44.1 Sec (23.4-35.0) H 11/10/24 05:37
Estimated Creat Clear 11 ml/min 11/11/24 04:34
Lactic Acid 3.2 mmol/L (0.7-2.0) H 11/10/24 09:30
Total Bilirubin 0.8 mg/dl (0.2-1.3) 11/09/24 19:46
AST 54 U/L (17-59) 11/09/24 19:46
ALT 38 U/L (0-50) 11/09/24 19:46
Alkaline Phosphatase 1127 U/L (38-126) H 11/09/24 19:46
Most recent labs reviewed.
Micro Results:
11/09/24 20:04 Blood Culture - Preliminary
Blood/Venous No Growth in 24 hours- Final report to follow
11/09/24 20:04 Blood Culture - Preliminary
Blood/Venous No Growth in 24 hours- Final report to follow
11/10/24 17:13 Acid Fast Bacilli Smear - Pending
Endotracheal Acid Fast Bacilli Culture - Pending
11/10/24 07:58 Respiratory Culture - Pending
Sputum Gram Stain - Preliminary
11/10/24 12:32 Acid Fast Bacilli Smear - Pending
Endotracheal Acid Fast Bacilli Culture - Pending
11/10/24 12:32 Specimen Source - Pending
Endotracheal Legionella pneumophila (Direct FA) - Pending
Legionella Culture - Pending
11/10/24 07:58 Nasal Screen MRSA (PCR) - Final
Nose MRSA not detected - performed by PCR methodology.
11/10/24 07:58 Acid Fast Bacilli Smear - Pending
Sputum Acid Fast Bacilli Culture - Pending
11/10/24 05:58 Legionella Urinary Antigen - Final
Urine Negative for Legionella pneumophila Serogroup 1 antigen.
A negative result does not rule out the possiblity of
Legionella infection due to other serogroups or species of
Legionella. Clinical correlation is recommended.
Streptococcus pneumoniae Antigen (M - Final
Negative for Streptococcus pneumoniae antigen.
A negative result does not exclude infection with
Streptococcus pneumoniae. Clinical correlation is
recommended.
11/10/24 00:38 Influenza Types A & B (YADIRA) - Final
Nasal Swab Negative for Influenza A & B, NAAT
Negative results must be combined with clinical observations
and patient history.
Nucleic Acid Amplification test (NAAT)performed on the
[employer] platform.
Imaging:
11/09/2024 CT abdomen/pelvis without contrast: Severe abdominal lymphadenopathy with markedly enlarged mesenteric, retroperitoneal and upper abdominal lymph nodes. Small volume ascites. Moderate to severe chronic renal disease. Severe pancreatic
lipomatosis. Moderate distal small bowel distention; suspected ileus. Diffuse groundglass pulmonary disease suspected to be inflammatory although cannot rule out infectious etiology. Mild focal left lower lobe airspace consolidation and possible
mild pneumonia. Please see full dictation for additional detail. Film personally viewed.
11/09/2024 CXR (portable): Bilateral parenchymal opacities. No evidence for cavitation. No evidence for pleural effusion. Please see full dictation for additional detail.
--- NOTE | 2024-11-11 07:46 | W.PN.HOSP.TC ---
Addendum entered and electronically signed by Lynette Villalba MD 11/11/24 08:07:
acute anemia likely on chronic disease--HGB dropped to 6.8--transfusing 1 unit pRBC--will add on iron studies prior to transfusion
Original Note:
Today's Communication/Plan
-
weaning to extubate
wean pressors/stress dose steroids per geoscience technician
Dobhoff for feedings?
rule out TB
apprec all consultants' input
prognosis guarded
Assessment / Plan
Assessment / Plan
pt is a 29 year old male with unspecified chromosomal abnormality
1. Septic shock?--requiring pressors, weaning to off but still on levophed--source unclear--pna most likely--ruling out TB--WBC increased to 49K (nursing reports addition of stress steroids)--Quantiferon pending--cont cefepime, doxy, vanco
-Chest x-ray showing bilateral infiltrates
-Blood cultures/sputum culture collected. COVID flu negative
-Maintain on broad-spectrum antibiotic
-Patient history of tuberculosis in past AFB culture has been obtained. QuantiFERON test was normal in 23.
2. History of cavitary lung lesion--ID checking for aspergillus and adding fungal culture
-[facility] records showing CT scan of chest showing bronchiectasis/upper lobe cystic lung disease
-Question of possible aspergilloma
3. Seizure episode--thought due to hypoglycemia--none further--apprec neuro, signed off--cont keppra
-Patient was intubated earlier in the morning for possible seizure episode
-Seizure intent possibly was provoked by Hypoglycemia
-Will require brain imaging once clinically appropriate
-Neurology was involved who has signed off at this stage.
4. Diffuse lymphadenopathy--highly suspicious for malignancy--will likely need LN biopsy
-Major intra-abdominal adenopathy suspicious of malignancy
-Will require eventual biopsy and oncology evaluation. Of note patient was recommended to follow-up with oncology on outpatient basis.
5. Hyponatremia --baseline ~ 127--apprec renal--on 3% NaCl--still low (123 this AM)
-Has history of previous hyponatremia. Reason unclear
-Urine sodium of 98 and urine osmolarity of 292
-Patient got 3% saline
6. Acute kidney injury on CKD stage unknown--appears progressive, creat staying in mid 5 range--may need to start HD--apprec renal
- Patient apparently reported to have creatinine in range of 3, has been following with [place] nephrology
- This admission creatinine elevated to 5-6 range
- Nephrology anticipating need of hemodialysis if not improved
7. Hyperkalemia - resolved
- s/p insulin/dextrose
- s/p lokelma
8. Episode of hypoglycemia--unclear if that precipitated the seizure or hyponatremia (less likely as pt chronically hyponatremic)--now on tube feeds--BS trending high--Q6H accuchecks--now on tube feeds--? need for Dobhoff--will defer to geoscience technician
- Patient had low blood glucose of 30 in night, maintained on d10
- Discussed with geoscience technician, who prefers for patient to be maintained on dextrose IVF for now
9. Hypercalcemia--elevated on admission (12.1 now down to 9.0)-intact pTH and PTH related peptide pending--MARY level pending--with renal failure--consider SPEP/UPEP
- Due to chronic granulomatous disease versus malignancy related?
- Vitamin D 25-hydroxy level of 30, MARY level pending, PTH/PTH RP level pending
- Calcium level is improved with IV hydration
10. Lactic acidosis--will repeat
- Possible seizure related, resolving
11. Developmental disorder
Microcephaly
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
- Patient have microcephaly and converges sign scale of 10-year old
- Lives with family and was somewhat independent before hospitalization
DVT PPX - heparin sq
Code status - Full Code
Total critical care time 38 mins . Total critical care time documented does not include time spent on separately billed procedures or the services of residents, students, nurses or physician assistants. I personally saw and examined the patient. I
have reviewed all diagnostic interpretations and treatment plans as written. I was present for the orellana portions of any procedures performed and the inclusive time noted in any critical care statement. Critical care time includes patient management
by me, time spent at the patients bedside, time to review lab and imaging results, discussing patient care, documentation in the medical record, and time spent with the family or caregiver.
Anticipated Discharge: > 48 hours
Subjective/Interval History
-
Date of Service: November 11, 2024
pt intubated and Dad at bedside
Objective Data
-
Labs:
Laboratory Results
11/10/24 11/11/24 11/11/24
20:36 01:25 03:38
WBC 49.5 H*
Hgb 7.1 L D
Hct 20.1 L*
Plt Count 235 D
HCO3
Sodium 120 L 122 L
Potassium 5.2 H 5.4 H
Chloride 97 L 99
Carbon Dioxide 22 21 L
BUN 89 H 89 H
Creatinine 5.3 H* 5.4 H*
Glucose 108 H 176 H
Calcium 9.3 9.0
11/11/24 11/11/24 11/11/24
04:02 04:34 05:37
WBC
Hgb 6.8 L*
Hct 18.9 L*
Plt Count
HCO3 21.7
Sodium 123 L
Potassium 5.3 H
Chloride 99
Carbon Dioxide 19 L
BUN 91 H
Creatinine 5.6 H*
Glucose 150 H
Calcium 9.0
11/11/24
06:00
WBC
Hgb
Hct
Plt Count
HCO3
Sodium Pending
Potassium Pending
Chloride Pending
Carbon Dioxide Pending
BUN Pending
Creatinine Pending
Glucose Pending
Calcium Pending
Vital Signs:
max temp for 24 hours
11/10/24
10:25
Temp 98.9 F
Vital Signs
Temp Pulse Resp BP Pulse Ox
97.5 F 100 17 93/62 97
11/11/24 02:00 11/11/24 06:00 11/11/24 06:00 11/11/24 06:00 11/11/24 06:05
I&O
11/10/24 11/11/24 11/12/24
06:59 06:59 06:59
Intake Total 100 / 167.5 2431.0 / 2431.0
Output Total 200 / 220 1025 / 1025
Balance -100 / -52.5 1406.0 / 1406.0
Review of Systems
-
Unable to obtain full review of systems at this time due to: Patient Intubation
Physical Exam
-
General: Intubated and Appears Chronically Ill
HEENT: Atraumatic; Negative Normocephalic (microcephalic)
Respiratory: Clear to Auscultation; Negative Wheezes, Rales, Rhonchi or Crackles
Cardiac: Regular Rhythm and S1/S2; Negative Murmur
GI: Soft, Nontender, Nondistended and Normal Bowel Sounds
Musculoskeletal: No Clubbing, No Cyanosis and No Edema
Skin: Warm
Neuro: Negative Awake or Alert
Psych: Calm
--- NOTE | 2024-11-11 07:49 | W.PN.INTV ---
Today's Communication / Plan
Recommendations
Transition to ASV
Sedation vacation
Restart low-dose sliding scale
Decrease steroids
Transfuse, follow hemoglobin
Wean pressors
DVT prophylaxis, GI prophylaxis
Assessment
-
29-year-old male with complex medical history, including microcephaly, history of multiple pneumonias, treated for 9 months for tuberculosis in 2009, complaining of 6 months of cough, intermittent fevers, followed by infectious disease, nephrology,
endocrinology, pulmonary at [facility] [address] with recent hospital stay 3 weeks ago at , now presents with increased fatigue, emesis, cough and malaise. Family brought patient to the [facility] due to no answers at . patient developed
increased tachypnea, emesis, hypoglycemia with blood sugar less than 30. Patient was intubated, hypoglycemia treated. Sodium on admission 118, increased to 126, stabilized at 125. Patient required initiation of D10 gtt. we are asked to help from
critical care standpoint
Acute respiratory failure
Intubated 11/10/2024
Tachypnea, airway protection in the setting of emesis
Bilateral interstitial infiltrates
Chronicity unclear
Hypoglycemia
Hyponatremia/hyperkalemia
Chronic intermittent hyponatremia in the past per records
Leukocytosis/fevers, hypothermia
Bandemia, lymphopenia
Tachycardia
Incomplete right bundle branch block
Metabolic acidemia, elevated lactate
Acute renal insufficiency, creatinine 5.8
Baseline 2.0 in 2014, follows nephrology at
Acute seizure
Possibly secondary to hypoglycemia
Retroperitoneal and abdominal adenopathy per imaging
Largest 6.4 cm
Conditions present prior to admission
History of splenectomy/appendectomy in [place]?
Thrombocytopenia while in [facility]
History of microcephaly
History of multiple pneumonias
10+ times
Prolonged hospital stay for 9 months in 2009 ([facility])
Presumptive diagnosis of tuberculosis status posttreatment
Follows pulmonary at [facility] left upper lobe cavitary lung disease
Left upper lobe cavitary lung disease
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
Bronchoscopy at [place] 2022, positive fungal pneumonia
Did not tolerate antifungal therapy per records
Bronchiectasis per prior imaging at [facility]
History of liver disease, follows hepatology at [place]
Details unclear
Hypothyroidism
Plan/recommendations
At this time, patient remains critically ill with multisystem organ dysfunction
Remains on norepinephrine, wean down to 4 mcg
Now off D10, hypoglycemia resolved
Tolerating tube feeds
Remains on stress dose steroids
Imaging suggest significant adenopathy worrisome for a lymphomatous process
Moving forward
Continue with volume cycle ventilation, will change to ASV
Attempt sedation vacation later today
ABG 7.40/35/105 as of 11/11
Pplat 21
Depending on how he does with sedation vacation but, may consider transition to CPAP, possible extubation trial in next 24 to 48 hours
Chest x-ray in a.m.
Family states patient has chronic lung disease, chronic cough. No prior films available for review
Reviewed extensive records from [facility]
Bronchiectasis, cavitary lung disease with bronchoscopy in the past suspicious for aspergilloma based on imaging and possible positive biopsy
Family unaware of this
For now Continue broad-spectrum antibiotics, currently cefepime/vancomycin/doxycycline
Infectious disease following
AFB culture Legionella sputum culture pending
Patient does follow-up with infectious disease at . family not aware of vaccine status
History of splenectomy noted per history, and confirmed per report although report is nebulous
Urine Legionella and streptococcal pneumonia antigen negative
Influenza, COVID-negative
Maintain minimal sedation as able
Hypoglycemia seems to be improved
Follow-up for now, may need to restart low-dose sliding scale
Questionable history of steroid use although details unclear
Decrease hydrocortisone
History of liver disease noted
Do not have medication list at this time. Will try to reconcile. Family denies any prior blood sugar issues
Suspect hypoglycemia secondary to underlying malignancy, renal disease, liver disease
Acute renal failure noted
Baseline creatinine 2.0 as of 2014, progressive over the past few years according to family. Patient follows nephrology at [facility]
No evidence of obvious hydronephrosis on abdominal CT imaging
Gruber catheter
Mild distention of the right renal pelvis noted per imaging
Patient remains on hypertonic saline
Follow sodium levels closely, target around 128 per discussion with nephrology
Family aware that patient may require hemodialysis
Significant adenopathy noted on abdominal imaging, 6.4 cm retroperitoneal adenopathy and mesenteric adenopathy
Worrisome for underlying malignancy
Eventual biopsy depending on clinical course
Seizure likely secondary to hypoglycemia although sodium levels also noted
Hypertonic saline has been discontinued
Hypoglycemia and hyponatremia seem to be improved
No further workup at this time.
Neurology has signed off
DVT prophylaxis: Remains on subcutaneous heparin, will decrease dosing given low BMI
GI prophylaxis: Protonix
Reviewed with critical care nursing, respiratory care, pharmacy
Reviewed with nephrology
Will try to update family later today with cassandra architect
TCCT 33 min
Subjective Dataa
Subjective Data
Date of Service:
Date of Service: November 11, 2024
Subjective:
Patient remains critically ill, remains on low-dose norepinephrine being weaned down to 4 mcg. Agitation overnight noted, required fentanyl bolus, reinitiation of propofol. Hemoglobin drop noted, no evidence of active bleeding. Remains on 3%
saline. Off D10, now hyperglycemic
Objective Data
Data Reviewed
Vital Signs / I&O / Oxygen:
Vital Signs
Temp Pulse Resp BP Pulse Ox
97.5 F 100 17 93/62 97
11/11/24 02:00 11/11/24 06:00 11/11/24 06:00 11/11/24 06:00 11/11/24 06:05
Intake and Output
11/10/24 11/11/24 11/12/24
06:59 06:59 06:59
Intake Total 100 / 167.5 2431.0 / 2431.0
Output Total 200 / 220 1025 / 1025
Balance -100 / -52.5 1406.0 / 1406.0
SaO2 [A/C] 95
SaO2 97
Nasal Cannula flow liters per 50
minute
Physical Exam
General: Comfortable and Other (Right upper extremity PICC line)
HEENT: Anicteric (n) and Other (Microcephalic)
Cardiovascular: S1-S2, Regular Rhythm, Murmur (n), Rub (n) and Peripheral Edema (tr)
Respiratory: Wheeze (n), Crackles (n), Rhonchi (n), Non-Labored Respirations, Crepitus (n) and ET Tube
GI: Soft, Distended (Slightly distended) and Non Tender
Neurology: Lethargic (Sedated. Does not open eyes, moves extremities)
Skin: Cyanosis (n), Jaundice (n) and Rash (n)
Labs/Micro/Reports
Lab Data
11/11/24 05:37
Laboratory Results
11/11/24
04:02
pH 7.40
pCO2 35
pO2 105
HCO3 21.7
O2 Delivery Level
Microbiology
11/09/24 20:04 Blood/Venous Blood Culture - Preliminary
No Growth in 24 hours- Final report to follow
11/09/24 20:04 Blood/Venous Blood Culture - Preliminary
No Growth in 24 hours- Final report to follow
11/10/24 07:58 Sputum Gram Stain - Preliminary
11/10/24 07:58 Nose Nasal Screen MRSA (PCR) - Final
MRSA not detected - performed by PCR methodology.
11/10/24 05:58 Urine Legionella Urinary Antigen - Final
Negative for Legionella pneumophila Serogroup 1 antigen.
A negative result does not rule out the possiblity of
Legionella infection due to other serogroups or species of
Legionella. Clinical correlation is recommended.
11/10/24 05:58 Urine Streptococcus pneumoniae Antigen (M - Final
Negative for Streptococcus pneumoniae antigen.
A negative result does not exclude infection with
Streptococcus pneumoniae. Clinical correlation is
recommended.
11/10/24 00:38 Nasal Swab Influenza Types A & B (YADIRA) - Final
Negative for Influenza A & B, NAAT
Negative results must be combined with clinical observations
and patient history.
Nucleic Acid Amplification test (NAAT)performed on the
[employer] platform.
[2024-11-11] MEDS: HEPARIN 5000 UNITS SC (08:00)
[2024-11-11] MEDS: MIRALAX 17 GRAMS TUBE (08:01)
[2024-11-11] MEDS: MAXIPIME 1000 MG IV ×2 (08:01→20:27)
[2024-11-11] MEDS: NSS (PRESERVATIVE FREE) 10 ML IV (08:01)
[2024-11-11] MEDS: PROTONIX IV 40 MG IV (08:01)
[2024-11-11] MEDS: FLUSH (NSS) 1 FLUSH IV (08:02)
[2024-11-11] MEDS: STERILE WATER FOR INJECTION 10 ML IV ×2 (08:02→20:27)
[2024-11-11] MEDS: PULMICORT 0.25 MG INH ×2 (08:12→19:44)
[2024-11-11] MEDS: VIBRAMYCIN 100 MG PO ×2 (08:16→20:28)
[2024-11-11] MEDS: MILK OF MAGNESIA 30 ML PO (08:27)
--- NOTE | 2024-11-11 08:28 | PHA.VAN.FU ---
Vancomycin Assessment / Plan
- Assessment
Renal Function: Stable
WBC's are: Trending Up
In the past 24 hrs, patient has been: Afebrile
Concomitant Antimicrobials: cefepime, doxycycline
- Assessment - Therapeutic Drug Monitoring
Random Level: 16.7 - drawn ~22H after previous level of 22.4
Calculated ke: 0.0134
Calculated half life (H): 51.8
- Dosing Plan
Dosing by Level: Re-dose today (Vanc 500mg)
patient may maintain level through next 24H but will re-dose to ensure levels maintained
- Monitoring Plan
Random Level: 11/12 599
- Follow Up
Pharmacy will continue to follow.
Vancomycin Follow UP
- -
Patient Age: 29
Patient Sex: Male
Vancomycin Day #: 3
Indication: Pulmonary/Respiratory
Requesting Provider: Dr. Damon/Dr. Stern
Pertinent Antimicrobial Allergies:
NKDA
Height / Weight:
Height 5 ft
Actual Weight 43.3 kg
IBW in k
Pertinent Past Medical History: BMI ~18
- Vital Signs / Lab Results
Temp Pulse Resp BP Pulse Ox
98.3 F 107 20 87/56 100
11/11/24 08:04 11/11/24 08:14 11/11/24 08:14 11/11/24 08:04 11/11/24 08:14
Lab Results - Hematology
11/09/24 11/10/24 11/11/24
18:35 05:38 03:38
WBC 16.2 H 14.2 H 49.5 H*
Band Neutrophils 6 H
Lab Results - Chemistry
11/09/24 11/09/24 11/10/24
18:35 19:46 03:09
BUN Cancelled 95 H 89 H
Creatinine Cancelled 6.3 H* 5.6 H*
Estimated Creat Clear Cancelled 11 11
Albumin Cancelled 3.1 L
11/10/24 11/10/24 11/10/24
05:37 09:05 13:00
BUN 81 H 84 H 85 H
Creatinine 5.8 H* 6.0 H* 5.5 H*
Estimated Creat Clear 11 11 11
Albumin
11/10/24 11/10/24 11/11/24
17:13 20:36 01:25
BUN 90 H 89 H 89 H
Creatinine 5.3 H* 5.3 H* 5.4 H*
Estimated Creat Clear 12 12 12
Albumin
11/11/24 11/11/24
04:34 06:00
BUN 91 H Cancelled
Creatinine 5.6 H* Cancelled
Estimated Creat Clear 11 Cancelled
Albumin
11/09/24 11/10/24 11/10/24
20:04 05:41 09:30
Lactic Acid 1.7 6.9 H* 3.2 H
Microbiology Results
11/09/24 20:04 Blood Culture - Preliminary
Blood/Venous No Growth in 24 hours- Final report to follow
11/09/24 20:04 Blood Culture - Preliminary
Blood/Venous No Growth in 24 hours- Final report to follow
11/10/24 07:58 Gram Stain - Preliminary
Sputum
11/10/24 07:58 Nasal Screen MRSA (PCR) - Final
Nose MRSA not detected - performed by PCR methodology.
11/10/24 05:58 Legionella Urinary Antigen - Final
Urine Negative for Legionella pneumophila Serogroup 1 antigen.
A negative result does not rule out the possiblity of
Legionella infection due to other serogroups or species of
Legionella. Clinical correlation is recommended.
Streptococcus pneumoniae Antigen (M - Final
Negative for Streptococcus pneumoniae antigen.
A negative result does not exclude infection with
Streptococcus pneumoniae. Clinical correlation is
recommended.
11/10/24 00:38 Influenza Types A & B (YADIRA) - Final
Nasal Swab Negative for Influenza A & B, NAAT
Negative results must be combined with clinical observations
and patient history.
Nucleic Acid Amplification test (NAAT)performed on the
[employer] platform.
Therapeutic Drug Monitoring
Random Vancomycin 16.7 ug/ml 11/11/24 03:38
[2024-11-11 08:43] LABS: Reticulocyte Count 2.0 % (0.4-2.8)
[2024-11-11 08:58] LABS: Iron 31 ug/dl (49-181); Magnesium 2.4 mg/dl (1.6-2.3)
[2024-11-11 09:04] LABS: Total Iron Binding Capacity 151 ug/dl (261-462)
--- NOTE | 2024-11-11 10:03 | W.PN.NEPH.PH ---
Today's Communication / Plan
-
laisx low dose,
follow labs now
Assessment/Plan
-
Assessment
Microcephaly, short stature
Hypoparathyroidism
Hypercalcemia
CKD 5 progressive
Hyperkalemia
Hyponatremia
Abdominal lymphadenopathy
History of cavitary lung lesion, multiple pneumonia
Bilateral infiltrates lung
Splenectomy
Plan
hyponatremia-high ADH mediated, U osmo 292, U na 98
sodium decreased to 120 overnight with hypotonic fluids, now better at 123 with HTS
recheck labs now, no FWF on TF
mild hyperkalemia-Lokelma prn
stable renal function and non oliguric
wt is up today, give lasix x1 post PRBC
azotemia worsening from steroids
cont pressors to keep MAP>65, cortisol ok
hypercalcemia-improved, with concern of malignancy and sig lypmhedenopathy will check U acid and LDH
Anemia-hb low today, no clear etiology s/p PRBC this am
h/o TB on precautions
hypoglycemia resolved and off D10
no emergent need of HD today , however high risk this admit
abx per ICU
dose meds renally
d/w nursing
CC spent 31min
-
-
Date of Service: November 11, 2024
CC / HPI / ROS
-
Chief Complaint:
CKD, hyperkalemia, hyponatremia
History of Present Illness:
sodium upto 123 early this am,
on HTS , off D10 now
no SZ, remains intubated and sedated
cr down to 5.6m k high 5.3, bicarb 19, BUN 91
no fever, WBC up at 49.5 on steroids, hb low at 6.8
Review of Systems:
intubated and sedated
non oliguric with fletcher
Labs
-
Labs:
WBC 49.5 10^3/uL (4.8-10.8) H* 11/11/24 03:38
RBC 2.26 10^6/uL (4.70-6.10) L 11/11/24 03:38
Hgb 6.8 g/dL (13.0-18.0) L* 11/11/24 05:37
Hct 18.9 % (39.0-52.0) L* 11/11/24 05:37
Plt Count 235 10^3/uL (130-400) D 11/11/24 03:38
eGFR Cancelled 11/11/24 10:00
Phosphorus 5.2 mg/dl (2.5-4.5) H 11/10/24 05:37
Igq-P-Mbabbxtlhvd Pept 845 pg/ml 11/09/24 20:04
Albumin 3.1 g/dl (3.5-5.0) L 11/09/24 19:46
Physical Exam
-
Vital Signs:
Vital Signs
Temp Pulse Resp BP Pulse Ox
97.8 F 91 24 97/68 100
11/11/24 09:34 11/11/24 09:34 11/11/24 09:34 11/11/24 09:34 11/11/24 08:14
Cardiovascular:: Regular rate and rhythm
Respiratory:: Bilateral: Coarse
Lung Excursion:: Abnormal
Abdomen:: Nontender and Soft
Extremity Edema:: None: Bilateral:
Fletcher Catheter: Yes
[2024-11-11 10:21] LABS: Ferritin 966.0 ng/ml (17.9-464.0)
[2024-11-11 10:35] LABS: LDH 287 U/L (120-246)
[2024-11-11] MEDS: LASIX 20 MG IV (10:47)
[2024-11-11 10:53] LABS: Folate 11.0 ng/ml (2.76-20); Vitamin B12 > 1000 pg/ml (239-931)
[2024-11-11 11:24] LABS: Blood Urea Nitrogen 90 mg/dl (9-20); Calcium 8.6 mg/dl (8.4-10.2); Carbon Dioxide 21 mmol/L (22-30); Chloride 102 mmol/L (98-107); Estimated Creatinine Clearance 12 ml/min; Glucose 132 mg/dl (70-99); Potassium 4.9 mmol/L (3.5-5.1); Sodium 128 mmol/L (135-145); eGFR 13.06
--- NOTE | 2024-11-11 11:45 | PTCARENOTE ---
Pt sedation stopped. Systems reviewed. No new changes. Propofol stopped for sedation vacation. Pt follows commands, tello, nods appropriately using language line/father as switchboard troubleshooter. Dr Woodruff in to talk with pt/father and explained procedure.
Currently placing on wean /. Appears comfortable.
[2024-11-11 11:55] LABS: Glucose - Point of Care 168 mg/dl (70-99)
[2024-11-11 12:26] LABS: Uric Acid 3.3 mg/dl (3.5-8.5)
[2024-11-11] MEDS: NOVOLOG FLEXPEN-LOW RESISTANCE 1 UNITS SC ×2 (12:43→18:12)
--- NOTE | 2024-11-11 12:45 | PTCARENOTE ---
Dr Hart aware of repeat labs. No further 3% saline.
[2024-11-11] MEDS: VANCOCIN HCL 500 MG 100 IV (14:23)
[2024-11-11 15:38] LABS: B.E. -1.0 mmol/L; HCO3 23.5 mmol/L (21-28); O2 Saturation % 96.9 % (94-98); PCO2 37 mmHg (35-48); PO2 118 mmHg (83-108)
--- NOTE | 2024-11-11 15:39 | PTCARENOTE ---
Levophed has been weaned off. Pt has been on wean tolerating well. ABG drawn and sent by resp therapist
--- NOTE | 2024-11-11 15:55 | CM ---
IV/Cefepime, Fentanyl, Solu-Cortef, Propofol. Hgb 6.8, transfusion, intubated with weaning plan. Discharge POC: TBD.
--- NOTE | 2024-11-11 16:24 | W.PN.UPDATE ---
Update Note
Progress Note Update
Patient is continuing with weaning process throughout the day, initially on ASV, then transition to CPAP 5/5
Throughout this, tidal volume around 300-350, adequate respiratory rate
ABG reviewed with adequate oxygenation/ventilation
Updated father at length through clinical trial educator throughout weaning process
Cuff leak present
Patient extubated with myself present at the bedside
Patient with good cough, passing simple swallowing tests per nursing at the bedside
Moving forward
Continued airway clearance, encourage cough
Incentive spirometry, Acapella
Reviewed with father at length that cough is important postextubation
Will advance diet as able, renal diet
Depending on clinical course, may need more aggressive pulmonary workup, CT imaging
Suspect will eventually require lymph node biopsy
Continue with current management plans as outlined earlier in the day
Reviewed at length with critical care nursing, respiratory care
Updated father at bedside with respiratory care helping with interpretation
TCCT 45 min
--- NOTE | 2024-11-11 16:27 | RESPNOTE ---
Patient is weaned and extubated as per physician order after an ABG analysis and a cuff leak test. MD,RN and RT at the bedside during extubation. Patient is doing fine with SpO2 99% on 5 Lpm nasal cannula.
[2024-11-11] MEDS: HEPARIN 2500 UNITS SC ×2 (16:47→23:29)
[2024-11-11 17:18] LABS: Glucose - Point of Care 160 mg/dl (70-99)
--- NOTE | 2024-11-11 17:18 | PTCARENOTE ---
Pt extubated shortly after 1600 after a positive cuff leak test with Dr Woodruff at bedside. Passed a bedside swallow eval with no resp distress. Placed on renal diet with fluid restrictions per Dr Hart. Dad at bedside. Anette from resp
translated prior to to extubation and talked through bedside speech eval. Answered father's questions and explained events as planned the rest of shift. Pt assisted oob to chair, reports feeling much better in chair. Was extubated to 6lnc and has
been weaned to 3lnc and appears in no distress. Father remains at bedside.
[2024-11-11] MEDS: SOLU-CORTEF 50 MG IV (18:13)
[2024-11-11 20:51] LABS: Hemoglobin 8.6 g/dL (13.0-18.0)
--- NOTE | 2024-11-11 21:15 | PTCARENOTE ---
Received patient oriented to self and place, did not know month, year, or his birthday. Family reports this is his baseline. Assist x1, PATE, following commands, denying pain. NS 80s, BP stable 110s/70s, hypothermic to 95.8, warm blankets provided.
Trace generalized edema. 94% on room air, occasional moist cough with clear, thin secretions. Lung sounds coarse throughout. Abdomen slightly distended, positive bowel sounds, last BM today. Thermistor fletcher in place, draining yellow urine. Dry skin
on face. Right triple lumen PICC patent, WNL. PIVs patent, WNL. Family updated at bedside, call baca within reach.
[2024-11-11 23:25] LABS: Glucose - Point of Care 185 mg/dl (70-99)
[2024-11-12] VITALS (15 sets, daily range): BP systolic 87–120; BP diastolic 60–78; PULSE 103; BMI 18.8; BMI 18.6
--- NOTE | 2024-11-12 00:27 | PTCARENOTE ---
Patient was intermittently on bairhugger, now off. Otherwise, assessment unchanged from previous. Mom at bedside, call baca within reach.
[2024-11-12] MEDS: SYNTHROID 88 MCG PO (04:59)
[2024-11-12] MEDS: SOLU-CORTEF 50 MG IV ×2 (04:59→17:13)
--- NOTE | 2024-11-12 05:13 | PTCARENOTE ---
CHG bath done, labs sent, call baca within reach.
[2024-11-12 05:34] LABS: Hematocrit 20.9 % (39.0-52.0); Hemoglobin 7.8 g/dL (13.0-18.0); Mean Corp Hgb Conc. 37.3 g/dL (33.0-37.0); Mean Corpuscular Volume 85.0 fL (80.0-94.0); Nucleated Red Blood Cells % 0 % (-); Platelet Count 210 10^3/uL (130-400); Red Cell Dist. Width 16.4 % (11.5-14.5)
[2024-11-12 05:51] LABS: ALT (SGPT) 31 U/L (0-50); AST (SGOT) 53 U/L (17-59); Albumin 2.3 g/dl (3.5-5.0); Alkaline Phosphatase 697 U/L (38-126); Blood Urea Nitrogen 103 mg/dl (9-20); Calcium 8.5 mg/dl (8.4-10.2); Carbon Dioxide 23 mmol/L (22-30); Chloride 102 mmol/L (98-107); Estimated Creatinine Clearance 11 ml/min; Glucose 99 mg/dl (70-99); Magnesium 2.9 mg/dl (1.6-2.3); Potassium 4.5 mmol/L (3.5-5.1); Sodium 128 mmol/L (135-145); Total Protein 4.7 g/dl (6.3-8.2); eGFR 12.52
--- NOTE | 2024-11-12 06:24 | W.PN.INTV ---
Today's Communication / Plan
Recommendations
Antibiotics per ID. Vancomycin discontinued
Sodium levels have stabilized
Gruber catheter to be DC'd
GERD therapy, follow hemoglobin
PICC line in place, discontinue when able
For transfer out of ICU. Pulmonary will continue to follow
Assessment
-
29-year-old male with complex medical history, including microcephaly, history of multiple pneumonias, treated for 9 months for tuberculosis in 2009, complaining of 6 months of cough, intermittent fevers, followed by infectious disease, nephrology,
endocrinology, pulmonary at [facility] with recent hospital stay 3 weeks ago at , now presents with increased fatigue, emesis, cough and malaise. Family brought patient to the [facility] due to no answers at . patient developed
increased tachypnea, emesis, hypoglycemia with blood sugar less than 30. Patient was intubated, hypoglycemia treated. Sodium on admission 118, increased to 126, stabilized at 125. Patient required initiation of D10 gtt. we are asked to help from
critical care standpoint
Acute respiratory failure
Intubated 11/10/24, extubated 11/11/24
Tachypnea, airway protection in the setting of emesis
Bilateral interstitial infiltrates
Chronicity unclear
Bronchiectasis with cystic lung disease per CT imaging at [facility] October 2024
Hypoglycemia, improved
Hyponatremia/hyperkalemia
Chronic intermittent hyponatremia in the past per records
Sodium ranges from 120-137
Leukocytosis/fevers, hypothermia
Bandemia, lymphopenia
Tachycardia
Incomplete right bundle branch block
Metabolic acidemia, elevated lactate, improved
Acute renal insufficiency, creatinine 5.8
Baseline 2.0 in 2014, follows nephrology at
Acute seizure
Possibly secondary to hypoglycemia in setting of hyponatremia
Retroperitoneal and abdominal adenopathy per imaging
Largest 6.4 cm
Conditions present prior to admission
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
Thrombocytopenia while in [facility]
ITP?
History of microcephaly
History of multiple pneumonias
10+ times
Prolonged hospital stay for 9 months in 2009 ([facility])
Presumptive diagnosis of tuberculosis status posttreatment
Follows pulmonary at [facility] left upper lobe cavitary lung disease
Left upper lobe cavitary lung disease
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
Bronchoscopy at [place] 2022, positive fungal pneumonia
Did not tolerate antifungal therapy per records
Bronchiectasis per prior imaging at [facility]
History of liver disease, follows hepatology at [place]
Details unclear
Hypothyroidism
Plan/recommendations
At this time, patient improved overall objectively and subjectively
Pressors have been weaned off
Extubated 11/11
Appetite adequate
Remains on stress dose steroids
Imaging suggest significant adenopathy worrisome for a lymphomatous process
Moving forward
Continue with incentive spirometry, airway clearance
Maintain antibiotic therapy for now, ID following
Cefepime/doxycycline. Vancomycin discontinued
AFB culture pending, Legionella culture pending
Family states patient has chronic lung disease, chronic cough. No prior films available for review
Reviewed extensive records from [facility]
Bronchiectasis, cavitary lung disease with bronchoscopy in the past suspicious for aspergilloma based on imaging and possible positive biopsy
Family unaware of details
Chest x-ray with persistent bilateral interstitial infiltrates
CT chest at [facility] October 2024 reveals bronchiectasis, cystic lung disease
Presently 94% on room air
Patient does follow-up with infectious disease at [facility]. family not aware of vaccine status
History of splenectomy noted per history, and confirmed per report although report is nebulous
Urine Legionella and streptococcal pneumonia antigen negative
Influenza, COVID-negative
Maintain minimal sedation as able
AFB, fungal, Legionella cultures pending
Hypoglycemia seems to be improved
Tolerating diet
Follow-up for now, may need to restart low-dose sliding scale
Questionable history of steroid use although details unclear
Decrease hydrocortisone, continue 50 mg every 12
History of liver disease noted
Do not have medication list at this time. Will try to reconcile. Family denies any prior blood sugar issues
Suspect hypoglycemia secondary to underlying malignancy, renal disease, liver disease
Acute renal failure noted
Baseline creatinine 2.0 as of 2014, progressive over the past few years according to family. Patient follows nephrology at [facility]
No evidence of obvious hydronephrosis on abdominal CT imaging
Gruber catheter, DC per nephrology
Mild distention of the right renal pelvis noted per imaging
Sodium level stable at 128
Family aware that patient may require hemodialysis
Significant adenopathy noted on abdominal imaging, 6.4 cm retroperitoneal adenopathy and mesenteric adenopathy
Worrisome for underlying malignancy
Eventual biopsy depending on clinical course
Seizure likely secondary to hypoglycemia although sodium levels also noted
Hypertonic saline has been discontinued
Hypoglycemia and hyponatremia seem to be improved
No further workup at this time.
Neurology has signed off
Anemia noted, hemoglobin 7.8
Status post 1 unit transfusion 11/11
Heme positive stool. Maintain on GERD therapy
No evidence of active bleeding
Follow-up for now
Right upper extremity PICC line in place
We will maintain for now but transition to IV access and discontinue PICC line as able in the next 24 to 48 hours
DVT prophylaxis: Remains on subcutaneous heparin, will decrease dosing given low BMI, continue 2500 units every 8 hours
GI prophylaxis: Pepcid, transition to oral
Reviewed with critical care nursing, respiratory care, pharmacy
Reviewed with nephrology, primary service
Okay for transfer out of ICU
Pulmonary will continue to follow
Subjective Dataa
Subjective Data
Date of Service:
Date of Service: November 12, 2024
Subjective:
Patient extubated yesterday without difficulty. Appears overall improved, comfortable on room air. Continues with occasional cough. Appetite is good. Received 1 unit of blood yesterday p.m. No evidence of bleeding, heme positive stool noted.
Urine output 1100 cc, Gruber catheter remains in place
Objective Data
Data Reviewed
Vital Signs / I&O / Oxygen:
Vital Signs
Temp Pulse Resp BP Pulse Ox
96.5 F L 95 38 102/72 95
11/12/24 03:02 11/12/24 06:00 11/12/24 06:00 11/12/24 06:00 11/12/24 06:00
Intake and Output
11/10/24 11/11/24 11/12/24
06:59 06:59 06:59
Intake Total 100 / 167.5 2431.0 / 2431.0 840.2 / 840.2
Output Total 200 / 220 1025 / 1025 1120 / 1120
Balance -100 / -52.5 1406.0 / 1406.0 -279.8 / -279.8
SaO2 [CPAP/PSV] 98
SaO2 [ASV] 98
SaO2 [A/C] 95
SaO2 95
Nasal Cannula flow liters per 3
minute
Physical Exam
General: Comfortable and Other (Right upper extremity PICC line)
HEENT: Anicteric (n) and Other (Microcephalic)
Cardiovascular: S1-S2, Regular Rhythm, Murmur (n), Rub (n) and Peripheral Edema (tr)
Respiratory: Wheeze (n), Crackles (Few bibasilar), Rhonchi (n), Non-Labored Respirations and Crepitus (n)
GI: Soft, Distended (Slightly distended) and Non Tender
Neurology: Awake, Alert and No Motor Deficits (Moves all extremities, ambulating)
Skin: Cyanosis (n), Jaundice (n) and Rash (n)
Labs/Micro/Reports
Lab Data
11/12/24 05:07
11/12/24 05:07
Laboratory Results
11/11/24
15:30
pH 7.41
pCO2 37
pO2 118 H
HCO3 23.5
O2 Delivery Level
Microbiology
11/10/24 12:32 Endotracheal Legionella Culture - Preliminary
11/09/24 20:04 Blood/Venous Blood Culture - Preliminary
No Growth in 48 hours- Final report to follow
11/09/24 20:04 Blood/Venous Blood Culture - Preliminary
No Growth in 48 hours- Final report to follow
11/11/24 09:52 Endotracheal Fungal Culture - Preliminary
Culture in progress.
Positive cultures are reported as soon as detected.
Final report to follow in four to five weeks.
11/10/24 07:58 Sputum Respiratory Culture - Preliminary
Eleanor albicans
11/10/24 07:58 Sputum Gram Stain - Preliminary
11/10/24 07:58 Nose Nasal Screen MRSA (PCR) - Final
MRSA not detected - performed by PCR methodology.
11/10/24 05:58 Urine Legionella Urinary Antigen - Final
Negative for Legionella pneumophila Serogroup 1 antigen.
A negative result does not rule out the possiblity of
Legionella infection due to other serogroups or species of
Legionella. Clinical correlation is recommended.
11/10/24 05:58 Urine Streptococcus pneumoniae Antigen (M - Final
Negative for Streptococcus pneumoniae antigen.
A negative result does not exclude infection with
Streptococcus pneumoniae. Clinical correlation is
recommended.
11/10/24 00:38 Nasal Swab Influenza Types A & B (YADIRA) - Final
Negative for Influenza A & B, NAAT
Negative results must be combined with clinical observations
and patient history.
Nucleic Acid Amplification test (NAAT)performed on the
[employer] platform.
[2024-11-12 06:28] LABS: Anisocytosis 2+; Macrocytosis 1+; Microcytosis 2+; Normal RBC Morphology No
[2024-11-12 06:29] LABS: Burr Cells 1+; Target Cells 2+
[2024-11-12] MEDS: PULMICORT 0.25 MG INH ×2 (08:15→19:47)
[2024-11-12 08:22] LABS: Glucose - Point of Care 148 mg/dl (70-99)
[2024-11-12] MEDS: HEPARIN 2500 UNITS SC ×3 (08:34→23:07)
[2024-11-12] MEDS: NOVOLOG FLEXPEN-LOW RESISTANCE SC ×2 (08:34→17:13)
[2024-11-12] MEDS: VIBRAMYCIN 100 MG PO ×2 (08:35→19:24)
[2024-11-12] MEDS: MAXIPIME 1000 MG IV ×2 (08:35→19:24)
[2024-11-12] MEDS: PROTONIX IV 40 MG IV (08:35)
[2024-11-12] MEDS: NSS (PRESERVATIVE FREE) 10 ML IV (08:35)
[2024-11-12] MEDS: STERILE WATER FOR INJECTION 10 ML IV ×2 (08:35→19:24)
--- NOTE | 2024-11-12 08:50 | W.PN.ID1 ---
Date of Service
Date of Service: November 12, 2024
Today's Communication
Continue antibiotics. See below...
Assessment / Plan
Ventilator dependent respiratory failure
BRENDON on CKD
Hyponatremia
Suspected pneumonia
Leukocytosis
Lactic acidosis
Anemia
Hyperkalemia
Significant abdominal lymphadenopathy on CT
Possible TB (Tx for 9 months in [facility], although not clear if empiric only)
Microcephaly
Hx splenectomy (2008). Vaccine status currently unknown.
Recommendations:
Continue with cefepime, doxycycline. No MRSA recovered; D/C vanco.
- Cefepime dose appropriate for current renal insufficiency
Sputum culture pending.
Respiratory AFB stain/culturex3 obtained. Will check blood culture for AFB.
Legionella culture and DFA pending.
Monitor white count and temperature curve.
Old records from [facility] obtained; will review. Per Pulmonary, reports of fungal infection noted, although not clear to what extent.
- Aspergillus antibodies pending, along with dedicated sputum fungal culture.
Continue with supportive measures.
Patient may ultimately require lymph node biopsy for more definitive diagnosis.
����������������������������������������������������������
Chief Complaint
-: Leukocytosis and Pneumonia
Subjective / Review of Systems
Patient seen and examined. Chart reviewed. Patient extubated. Via custodian blood bank he reports his breathing is comfortable, and denies any shortness of breath.
Review of Systems: Cough and No Sputum Production
Vital Signs / Physical Exam
Vital Signs
Vital Signs
Temp Pulse Resp BP Pulse Ox
96.7 F L 95 22 102/72 98
11/12/24 07:31 11/12/24 08:24 11/12/24 08:24 11/12/24 06:00 11/12/24 08:24
Physical Exam
Constitutional: Acutely Ill, Chronically Ill and Non-toxic
Head: Other (Microcephaly)
Eyes: No Conjunctival Hemorrhage and Sclera Anicteric
Cardiovascular: S1/S2; Negative S3/S4
Pulmonary: Coarse
Gastrointestinal: Soft, Non Distended, Normal Bowel Sounds, No Rebound and No Guarding
Extremities: Negative Edema, Cyanosis or Erythema
Skin: Negative Rash or Jaundice
Neurological: Awake and Alert
Psychological: Calm
Lines: PICC
Objective Data
Lab Data
Lab Results
11/12/24 05:07
11/12/24 05:07
PT 13.9 Sec (11.4-14.6) 11/10/24 05:37
INR 1.04 11/10/24 05:37
APTT 44.1 Sec (23.4-35.0) H 11/10/24 05:37
Estimated Creat Clear 11 ml/min 11/12/24 05:07
Lactic Acid 3.2 mmol/L (0.7-2.0) H 11/10/24 09:30
Total Bilirubin 0.8 mg/dl (0.2-1.3) 11/12/24 05:07
AST 53 U/L (17-59) 11/12/24 05:07
ALT 31 U/L (0-50) 11/12/24 05:07
Alkaline Phosphatase 697 U/L (38-126) H 11/12/24 05:07
Most recent labs reviewed.
Micro Results:
11/10/24 07:58 Acid Fast Bacilli Smear - Preliminary
Sputum Acid Fast Bacilli Culture - Preliminary
11/10/24 12:32 Specimen Source - Pending
Endotracheal Legionella pneumophila (Direct FA) - Pending
Legionella Culture - Preliminary
11/09/24 20:04 Blood Culture - Preliminary
Blood/Venous No Growth in 48 hours- Final report to follow
11/09/24 20:04 Blood Culture - Preliminary
Blood/Venous No Growth in 48 hours- Final report to follow
11/11/24 09:52 Fungal Culture - Preliminary
Endotracheal Culture in progress.
Positive cultures are reported as soon as detected.
Final report to follow in four to five weeks.
11/10/24 07:58 Respiratory Culture - Preliminary
Sputum Eleanor albicans
Gram Stain - Preliminary
11/10/24 17:13 Acid Fast Bacilli Smear - Pending
Endotracheal Acid Fast Bacilli Culture - Pending
11/10/24 12:32 Acid Fast Bacilli Smear - Pending
Endotracheal Acid Fast Bacilli Culture - Pending
11/10/24 07:58 Nasal Screen MRSA (PCR) - Final
Nose MRSA not detected - performed by PCR methodology.
11/10/24 05:58 Legionella Urinary Antigen - Final
Urine Negative for Legionella pneumophila Serogroup 1 antigen.
A negative result does not rule out the possiblity of
Legionella infection due to other serogroups or species of
Legionella. Clinical correlation is recommended.
Streptococcus pneumoniae Antigen (M - Final
Negative for Streptococcus pneumoniae antigen.
A negative result does not exclude infection with
Streptococcus pneumoniae. Clinical correlation is
recommended.
11/10/24 00:38 Influenza Types A & B (YADIRA) - Final
Nasal Swab Negative for Influenza A & B, NAAT
Negative results must be combined with clinical observations
and patient history.
Nucleic Acid Amplification test (NAAT)performed on the
[employer] platform.
Imaging:
11/09/2024 CT abdomen/pelvis without contrast: Severe abdominal lymphadenopathy with markedly enlarged mesenteric, retroperitoneal and upper abdominal lymph nodes. Small volume ascites. Moderate to severe chronic renal disease. Severe pancreatic
lipomatosis. Moderate distal small bowel distention; suspected ileus. Diffuse groundglass pulmonary disease suspected to be inflammatory although cannot rule out infectious etiology. Mild focal left lower lobe airspace consolidation and possible
mild pneumonia. Please see full dictation for additional detail. Film personally viewed.
11/09/2024 CXR (portable): Bilateral parenchymal opacities. No evidence for cavitation. No evidence for pleural effusion. Please see full dictation for additional detail.
CT Scan: Image Reviewed and Report Reviewed
Care Review
Plan reviewed with: Physician (Nephrology; Hospitalist)
[2024-11-12] MEDS: MIRALAX PO (09:00)
--- NOTE | 2024-11-12 09:06 | W.PN.HOSP.TC ---
Today's Communication/Plan
-
transfer tele
abx per ID
f/u Na/Ca/cr
VSE tomorrow
IRAD consulted for LN biopsy
Assessment / Plan
Assessment / Plan
pt is a 29 year old male with unspecified chromosomal abnormality
1. Septic shock - required vasopressors
-requiring pressors
-Chest x-ray showing bilateral infiltrates
-Blood cultures/sputum culture collected. COVID flu negative
-Maintain on cefepime/doxycycline.
-Patient history of tuberculosis in past AFB culture has been obtained. QuantiFERON test was normal in 23. Repeat QuantiFERON test pending.
2. History of cavitary lung lesion
-ID checking for aspergillus and adding fungal culture
-[facility] records showing CT scan of chest showing bronchiectasis/upper lobe cystic lung disease
-Question of possible aspergilloma
3. Seizure episode
-thought due to hypoglycemia
-Neuro signed off
-Patient was intubated for this reason, now extubated.
-Will require brain imaging once clinically appropriate
4. Diffuse lymphadenopathy
-highly suspicious for malignancy
-Inguinal LN biopsy planned, discussed with IRAD
-Major intra-abdominal adenopathy suspicious of malignancy
5. Hyponatremia
-received 3%NS , improved
-Has history of previous hyponatremia. Reason unclear
-Urine sodium of 98 and urine osmolarity of 292
-currently back on reg diet
6. Acute kidney injury on CKD stage unknown
-appears progressive, creat staying in mid 5 range
-Patient apparently reported to have creatinine in range of 3, has been following with [facility]
-Nephrology anticipating need of hemodialysis if not improved
7. Hyperkalemia - resolved
- s/p insulin/dextrose
- s/p lokelma
8. Episode of hypoglycemia
- unclear if that precipitated the seizure or hyponatremia (less likely as pt chronically hyponatremic)
- extubated and on diet, monitor BG
- Patient had low blood glucose of 30 post admission,
- Discussed with circuit manager, who prefers for patient to be maintained on dextrose IVF for now
9. Hypercalcemia
- elevated on admission (12.1 now down to 9.0)
- PTH/PTHrp Pending. MARY level 121 (normal 16-85)
- Due to chronic granulomatous disease versus malignancy related?
- Calcium level is improved with IV hydration
10. Lactic acidosis
- Possible seizure related, resolving
11. Developmental disorder
Microcephaly
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
- Patient have microcephaly and converges sign scale of 10-year old
- Lives with family and was somewhat independent before hospitalization
DVT PPX - heparin sq
Code status - Full Code
Care plan discussed with patient father who was at bedside. Discussed possible need of lumbar biopsy to further assess any systemic condition explaining patient presentation.
Total time spent : 54mins
Anticipated Discharge: > 48 hours
Subjective/Interval History
-
Date of Service: November 12, 2024
Patient has been extubated yesterday
Not on oxygen at this point
Very comfortable in bed
No reported issues by nursing staff
Objective Data
-
Labs:
Laboratory Results
11/12/24
05:07
WBC 40.4 H*
Hgb 7.8 L
Hct 20.9 L*
Plt Count 210
Sodium 128 L
Potassium 4.5
Chloride 102
Carbon Dioxide 23
BUN 103 H*
Creatinine 5.8 H*
Glucose 99
Calcium 8.5
Total Bilirubin 0.8
AST 53
ALT 31
Alkaline Phosphatase 697 H
Vital Signs:
Vital Signs
Temp Pulse Resp BP Pulse Ox
96.7 F L 95 22 102/72 98
11/12/24 07:31 11/12/24 08:24 11/12/24 08:24 11/12/24 06:00 11/12/24 08:24
I&O
11/11/24 11/12/24 11/13/24
06:59 06:59 06:59
Intake Total 2431.0 / 2431.0 840.2 / 840.2
Output Total 1025 / 1025 1120 / 1120
Balance 1406.0 / 1406.0 -279.8 / -279.8
Review of Systems
-
Unable to obtain full review of systems at this time due to: Language Barrier
Physical Exam
-
General: No Apparent Distress and Comfortable; Negative Well Developed
HEENT: Negative Oxygen
Respiratory: Clear to Auscultation
Cardiac: Regular Rhythm and S1/S2; Negative Murmur or Rub
GI: Soft, Nontender and Nondistended
Musculoskeletal: No Edema
Neuro: Awake, Alert, No Motor Deficits and Nonfocal/Grossly Intact
Psych: Calm
--- NOTE | 2024-11-12 09:07 | W.PN.NEPH.PH ---
Today's Communication / Plan
-
follow BMP
Assessment/Plan
-
Assessment
Microcephaly, short stature
Hypoparathyroidism
Hypercalcemia
CKD 5 progressive
Hyperkalemia
Hyponatremia
Abdominal lymphadenopathy
History of cavitary lung lesion, multiple pneumonia
Bilateral infiltrates lung
Splenectomy
Plan
follow BMP
ok to dc fletcher
no urgent needs for dialysis, but will likely need dialysis in the near future
will need tissue diagnosis
await TB testing results
Determination of underlying cause and treatment may dictate whether family wants dialysis
critical care time 35 minutes
-
-
Date of Service: November 12, 2024
CC / HPI / ROS
-
Chief Complaint:
CKD, hyperkalemia, hyponatremia
History of Present Illness:
sodium 128 stable
no new seizures
extubated and off pressors
BRENDON/Cr up to 5.8
BUN up to 103
WBC high at 40.4
Review of Systems:
nonoliguric with Fletcher in place
no pain/fever
Labs
-
Labs:
WBC 40.4 10^3/uL (4.8-10.8) H* 11/12/24 05:07
RBC 2.46 10^6/uL (4.70-6.10) L 11/12/24 05:07
Hgb 7.8 g/dL (13.0-18.0) L 11/12/24 05:07
Hct 20.9 % (39.0-52.0) L* 11/12/24 05:07
Plt Count 210 10^3/uL (130-400) 11/12/24 05:07
Sodium 128 mmol/L (135-145) L 11/12/24 05:07
Potassium 4.5 mmol/L (3.5-5.1) 11/12/24 05:07
Chloride 102 mmol/L (98-107) 11/12/24 05:07
Carbon Dioxide 23 mmol/L (22-30) 11/12/24 05:07
BUN 103 mg/dl (9-20) H* 11/12/24 05:07
Creatinine 5.8 mg/dL (0.7-1.3) H* 11/12/24 05:07
eGFR 12.52 11/12/24 05:07
Glucose 99 mg/dl (70-99) 11/12/24 05:07
Calcium 8.5 mg/dl (8.4-10.2) 11/12/24 05:07
Phosphorus 5.2 mg/dl (2.5-4.5) H 11/10/24 05:37
Gou-W-Dvpscoadmnu Pept 845 pg/ml 11/09/24 20:04
Albumin 2.3 g/dl (3.5-5.0) L 11/12/24 05:07
Physical Exam
-
Vital Signs:
Vital Signs
Temp Pulse Resp BP Pulse Ox
96.7 F L 95 22 102/72 98
11/12/24 07:31 11/12/24 08:24 11/12/24 08:24 11/12/24 06:00 11/12/24 08:24
Cardiovascular:: Regular rate and rhythm
Respiratory:: Bilateral: Coarse
Lung Excursion:: Normal
Abdomen:: Nontender and Soft
Bowel Sounds:: Normal
Extremity Edema:: None: Bilateral:
--- NOTE | 2024-11-12 09:47 | PTCARENOTE ---
chance dinero per order, family bedside with son assisting discussion, ambulated to bathroom and now in chair, eating breakfast brought by family. In no distress, gait steady, awaiting tele bed.
--- NOTE | 2024-11-12 10:25 | PTOTSP ---
Speech Language Pathology
Pt seen for clinical bedside swallow evaluation. Pt with likely current PNA in addition to multiple instances of PNA in the past in addition to cavitary lung lesion. Pt recently at [facility], but spoke to TIMING MACHINE OPERATOR there, who did not have consult to
see pt during admission. No previous instrumental swallowing assessments completed. Father stated that pt coughs sometimes when eating/drinking. P.O. trials of regular solids and thin liquids provided. Slightly prolonged mastication noted, but
this was functional given additional time. No overt signs of aspiration.
Recommend:
(1) VSE 11/13 given recurrent PNA
(2) Continue regular solids/thin liquids until VSE completed
(3) Aspiration precautions: slow rate, full supervision
(4) Meds as tolerated
(5) TIMING MACHINE OPERATOR to continue to follow
[2024-11-12 12:41] LABS: Glucose - Point of Care 258 mg/dl (70-99)
[2024-11-12] MEDS: NOVOLOG FLEXPEN-LOW RESISTANCE 3 UNITS SC (12:51)
--- NOTE | 2024-11-12 14:12 | PN.CDI ---
CDI
- -
CDI:
Physician Documentation Request
Admit Date: 11/09/24 22:41
Dear Doctor Deejay,
Patient admitted with sepsis.
Please review the following and provide your response in the progress notes.
Clinical Indicators: 11/09/24
Height: 5' 0'
Weight: 91 lb 14 oz
BMI: 18.0
Please provide an associated diagnosis related to the abnormal BMI, such as:
Underweight
Cachectic
Anorexia
Other
BMI < or = to 19
Underweight
Weight Loss
Cachectic
Anorexia
Use of terms such as suspected, likely, concern for, or probable (associated with a specific diagnosis that is being evaluated, monitored, or treated as if it exists) are acceptable and can be coded in the inpatient setting, when documented at the
time of discharge.
Thank you,
Veronica GUAJARDO, RN,CCDS
CDI Specialist
Available via [place] text
Please use your independent medical judgment in providing your response.
--- NOTE | 2024-11-12 15:09 | CM ---
Extubated, IV/Cefepime, IV/Solu-Cortef, suspected PNA, D/C [facility], possible HD in future. Discharge POC: Therapy recommendation for HH vs NN. Patient is on service with [facility]. Referral for resumption forwarded to Lenny @
[phone], .
[2024-11-12 17:11] LABS: Glucose - Point of Care 128 mg/dl (70-99)
--- NOTE | 2024-11-12 17:45 | PTCARENOTE ---
ambulated in room with parent, presently in recliner and X3 across room. eating. Voiding qs in bathroom. Multiple updates, Dr. Moraes in to speak with father. For transfer when tele bed available.
[2024-11-13 03:33] VITALS: BP 108/77
[2024-11-13 04:22] LABS: Albumin 2.1 g/dl (3.5-5.0); Blood Urea Nitrogen 103 mg/dl (9-20); Carbon Dioxide 20 mmol/L (22-30); Estimated Creatinine Clearance 11 ml/min; Total Protein 4.4 g/dl (6.3-8.2); eGFR 12.02
[2024-11-13 04:35] LABS: ALT (SGPT) 33 U/L (0-50); AST (SGOT) 47 U/L (17-59); Alkaline Phosphatase 810 U/L (38-126); Calcium 8.3 mg/dl (8.4-10.2); Chloride 105 mmol/L (98-107); Glucose 97 mg/dl (70-99); Potassium 3.6 mmol/L (3.5-5.1); Sodium 130 mmol/L (135-145)
[2024-11-13] MEDS: SOLU-CORTEF 50 MG IV (05:33)
[2024-11-13] MEDS: SYNTHROID 88 MCG PO (05:33)
--- NOTE | 2024-11-13 07:32 | PN.CDI ---
CDI
- -
CDI:
Physician Documentation Request
Admit Date: 11/09/24 22:41
Dear Doctor Dimitry,
Patient admitted with sepsis.
Please review the following and provide your response in the progress notes.
Clinical Indicators: 11/09/24
Height: 5' 0'
Weight: 91 lb 14 oz
BMI: 18.0
Please provide an associated diagnosis related to the abnormal BMI, such as:
Underweight
Cachectic
Anorexia
Other
BMI < or = to 19
Underweight
Weight Loss
Cachectic
Anorexia
Use of terms such as suspected, likely, concern for, or probable (associated with a specific diagnosis that is being evaluated, monitored, or treated as if it exists) are acceptable and can be coded in the inpatient setting, when documented at the
time of discharge.
Thank you,
Veronica GUAJARDO, RN,CCDS
CDI Specialist
Available via [place] text
Please use your independent medical judgment in providing your response.
[2024-11-13] MEDS: PULMICORT 0.25 MG INH ×2 (07:44→20:23)
[2024-11-13] MEDS: PROTONIX 40 MG PO (07:45)
[2024-11-13] MEDS: STERILE WATER FOR INJECTION 10 ML IV ×2 (07:45→10:30)
[2024-11-13] MEDS: MAXIPIME 1000 MG IV (07:45)
[2024-11-13] MEDS: MIRALAX 17 GRAMS PO (07:45)
[2024-11-13] MEDS: VIBRAMYCIN 100 MG PO (07:46)
[2024-11-13] MEDS: HEPARIN 2500 UNITS SC ×3 (07:46→23:11)
[2024-11-13 08:02] LABS: Glucose - Point of Care 112 mg/dl (70-99)
[2024-11-13] MEDS: NOVOLOG FLEXPEN-LOW RESISTANCE SC ×2 (08:02→12:00)
[2024-11-13 08:30] VITALS: BP 112/75
--- NOTE | 2024-11-13 09:22 | W.PN.PUL3 ---
Today's Communication / Plan
-
Awaiting IR CT-guided lymph node biopsy today + temporary HD catheter
Starting HD tomorrow or Sunday
Monitor UOP
Continue to trend serum sodium
Monitor BG with goal >100 and <180 mg/dL
If possible, obtain CT chest tomorrow to assess lung parenchyma
Continue weaning down stress dose steroids as he clinically improves
Continue aspiration precautions, keeping HOB >30-45�
Abx per ID
Follow hemoglobin, continue PPI
PICC line to be removed today
Pulmonary service will continue to follow along
Assessment
-
29-year-old male with complex medical history, including microcephaly, history of multiple pneumonias, treated for 9 months for tuberculosis in 2009, complaining of 6 months of cough, intermittent fevers, followed by infectious disease, nephrology,
endocrinology, pulmonary at [facility] with recent hospital stay 3 weeks ago at , now presents with increased fatigue, emesis, cough and malaise. Family brought patient to the [facility] due to no answers at . patient developed
increased tachypnea, emesis, hypoglycemia with blood sugar less than 30. Patient was intubated, hypoglycemia treated. Sodium on admission 118, increased to 126, stabilized at 125. Patient required initiation of D10 gtt. we are asked to help from
critical care standpoint
Acute respiratory failure
Intubated 11/10/24 (intubated for airway protection in setting of emesis) --> extubated 11/11/24
Bilateral interstitial infiltrates (chronicity unclear)
Bronchiectasis with cystic lung disease per CT imaging at [facility] October 2024
Hypoglycemia, resolved
Hyponatremia/hyperkalemia
Chronic intermittent hyponatremia in the past per records (sodium ranges from 120-137)
Leukocytosis/fevers, hypothermia -leukocytosis due to leukemoid reaction versus myelodysplastic disorder vs leukemia
Bandemia, lymphopenia
Tachycardia � resolved
Incomplete right bundle branch block
Metabolic acidemia, elevated lactate, improved
Acute renal insufficiency, creatinine 6.0 (baseline 2.0 in 2014, follows nephrology at [facility])
Acute seizure (possibly secondary to hypoglycemia in setting of hyponatremia)
Retroperitoneal and abdominal adenopathy per imaging (largest 6.4 cm and left-sided para-aortic retroperitoneal region from CT A/P from 11/09/2024)
Conditions present prior to admission
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
Thrombocytopenia while in [facility]
ITP?
History of microcephaly
History of multiple pneumonias (10+ times)
Prolonged hospital stay for 9 months in 2009 ([facility])
Presumptive diagnosis of tuberculosis status post-treatment
Follows pulmonary at left upper lobe cavitary lung disease
Left upper lobe cavitary lung disease
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
Bronchoscopy at [place] 2022, positive fungal pneumonia
Did not tolerate antifungal therapy per records
Bronchiectasis per prior imaging at [facility]
History of liver disease, follows hepatology at [place] (details unclear)
Hypothyroidism
Plan/recommendations
At this time, patient has continued to improve objectively and subjectively, currently on room air, saturating 93% and breathing comfortably
Now off all pressors and is hemodynamically stable with MAP >70�75
Extubated 11/11
Appetite adequate
Remains on stress dose steroids - continue weaning as he clinically improves (starting 25 mg IV q12hr tonight)
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
Moving forward
Continue with incentive spirometry, airway clearance
Maintain antibiotic therapy for now, ID following
Antibiotics narrowed, now on ceftriaxone s/p cefepime/doxycycline. Vancomycin discontinued
AFB blood + sputum cultures show NGTD, Legionella ETT culture negative; respiratory culture from 11/10/2024 from sputum has grown Eleanor albicans, likely colonization
Family states patient has chronic lung disease, chronic cough. No prior films available for review
Dr. Woodruff reviewed [facility]
Bronchiectasis, cavitary lung disease with bronchoscopy in the past suspicious for aspergilloma based on imaging and possible positive biopsy
Family unaware of details
Chest x-ray with persistent bilateral interstitial infiltrates/opacities with GGO
CT chest at [facility] October 2024 reveals bronchiectasis, cystic lung disease
Patient does follow-up with infectious disease at [facility]. family not aware of vaccine status
History of splenectomy noted per history, and confirmed per report although report is nebulous
Urine Legionella and streptococcal pneumonia antigen negative
Influenza, COVID-negative
Hypoglycemia is now resolved
Tolerating diet
Maintain BG >100 and <180 mg/dL
Questionable history of steroid use although details unclear
History of liver disease noted
Family denies any prior blood sugar issues
Suspect hypoglycemia secondary to underlying malignancy, renal disease, liver disease
Acute renal failure noted
Baseline creatinine 2.0 as of 2014, progressive over the past few years according to family. Patient follows nephrology at [facility]
No evidence of obvious hydronephrosis on abdominal CT imaging
Gruber catheter, DC per nephrology
Mild distention of the right renal pelvis noted per imaging
Continue to monitor serum sodium, with goal 135�145
Family aware that patient may require hemodialysis --> he will be going down for temporary HD catheter today (11/13) and start dialysis tomorrow or Sunday
Significant adenopathy noted on abdominal imaging, 6.4 cm retroperitoneal adenopathy and mesenteric adenopathy
Worrisome for underlying malignancy
Plan for IR CT-guided biopsy of inguinal lymphadenopathy - concern for lymphoma
Seizure likely secondary to hypoglycemia although sodium levels also noted
s/p hypertonic saline on 11/10 - 11/11/2024
Neurology has signed off
Anemia noted
Goal Hb >7-8 g/dL, transfusing if needed to maintain this goal
Heme positive stool. Continue PPI
No evidence of active bleeding
Right upper extremity PICC line in place --> ok to remove this
DVT prophylaxis: HSQ
GI prophylaxis: PPI
Pulmonary service will continue to follow along. If possible, would obtain CT chest tomorrow to assess lung parenchyma.
Total time spent today was 38 minutes for this encounter. Time includes reviewing laboratory test/imaging results, reviewing pertinent medical records, obtaining and reviewing medical history, performing an appropriate exam, ordering medications,
tests and procedures. Time also includes documentation of this encounter, coordinating patient care and communicating with other healthcare professionals. Total time does not include separately billed tests performed on this date of service.
Subjective Data
-
Date of Service:
Date of Service: November 13, 2024
Chief Complaint: Pulmonary Follow Up
Subjective:
Patient seen and evaluated this morning. Patient is resting in bed with his father, Emir, present at bedside. The patient's brother, Tripp, spoke to me over the phone and helped translate for the patient and the father. Patient is currently
breathing well, is currently on room air, saturating 94%. I answered all of the patient's father's + brother's questions.
Review of Systems
General: Other (Negative unless mentioned above)
Objective Data
Data Reviewed
Vital Signs / I&O / Oxygen:
Vital Signs
Temp Pulse Resp BP Pulse Ox
97.8 F 88 16 108/77 95
11/13/24 03:33 11/13/24 07:50 11/13/24 07:50 11/13/24 03:33 11/13/24 07:50
Intake and Output
11/12/24 11/13/24 11/14/24
06:59 06:59 06:59
Intake Total 840.2 / 940.2 460 / 460
Output Total 1120 / 1120 230 / 230
Balance -279.8 / -179.8 230 / 230
SaO2 [CPAP/PSV] 98
SaO2 [ASV] 98
SaO2 [A/C] 95
SaO2 95
Nasal Cannula flow liters per 3
minute
Physical Exam
General: Respiratory Distress (negative), Comfortable, Chills (negative) and Sweats (negative)
HEENT: Normocephalic and Anicteric
Cardiovascular: S1-S2 and Peripheral Edema (Trace lower extremity edema bilaterally)
Respiratory: Wheeze (negative), Crackles (Bilateral), Rhonchi (negative) and Non-Labored Respirations
GI: Soft, Non Distended, Non Tender and Normal Bowel Sounds
Neurology: Awake, Tremors (negative) and Other (Drowsy at times)
Skin: Warm, Dry, Cyanosis (negative) and Jaundice (negative)
Labs/Micro/Reports
Lab Data
11/12/24 05:07
11/13/24 03:45
Microbiology
11/09/24 20:04 Blood/Venous Blood Culture - Preliminary
No Growth in 72 hours- Final report to follow
11/09/24 20:04 Blood/Venous Blood Culture - Preliminary
No Growth in 72 hours- Final report to follow
11/10/24 12:32 Endotracheal Acid Fast Bacilli Smear - Preliminary
11/10/24 12:32 Endotracheal Acid Fast Bacilli Culture - Preliminary
11/10/24 12:32 Endotracheal Specimen Source - Final
11/10/24 12:32 Endotracheal Legionella pneumophila (Direct FA) - Final
11/10/24 12:32 Endotracheal Legionella Culture - Preliminary
11/10/24 07:58 Sputum Respiratory Culture - Final
Eleanor albicans
11/10/24 07:58 Sputum Gram Stain - Final
11/10/24 07:58 Sputum Acid Fast Bacilli Smear - Preliminary
11/10/24 07:58 Sputum Acid Fast Bacilli Culture - Preliminary
11/11/24 09:52 Endotracheal Fungal Culture - Preliminary
Culture in progress.
Positive cultures are reported as soon as detected.
Final report to follow in four to five weeks.
11/10/24 07:58 Nose Nasal Screen MRSA (PCR) - Final
MRSA not detected - performed by PCR methodology.
11/10/24 05:58 Urine Legionella Urinary Antigen - Final
Negative for Legionella pneumophila Serogroup 1 antigen.
A negative result does not rule out the possiblity of
Legionella infection due to other serogroups or species of
Legionella. Clinical correlation is recommended.
11/10/24 05:58 Urine Streptococcus pneumoniae Antigen (M - Final
Negative for Streptococcus pneumoniae antigen.
A negative result does not exclude infection with
Streptococcus pneumoniae. Clinical correlation is
recommended.
--- NOTE | 2024-11-13 09:46 | W.PN.ID1 ---
Date of Service
Date of Service: November 13, 2024
Today's Communication
Narrow to ceftriaxone.
Assessment / Plan
Ventilator dependent respiratory failure
BRENDON on CKD
Hyponatremia
Suspected pneumonia
Leukocytosis
Lactic acidosis
Anemia
Hyperkalemia
Significant abdominal lymphadenopathy on CT
Possible TB (Tx for 9 months in [facility], although not clear if empiric only)
Microcephaly
Hx splenectomy (2008). Vaccine status currently unknown.
Recommendations:
Sputum culture without Pseudomonas.
Legionella culture pending; DFA negative
Narrow antibiotics to ceftriaxone 1 g IV every 24 hours
Respiratory AFB stain/culturex3 obtained. AFB blood culture pending.
Monitor white count and temperature curve.
Old records from [facility] with reports of prior fungal infection noted, although not clear to what extent.
- Aspergillus antibodies pending, along with dedicated sputum fungal culture.
Continue with supportive measures.
Patient may ultimately require lymph node biopsy for more definitive diagnosis.
����������������������������������������������������������
Chief Complaint
-: Leukocytosis and Pneumonia
Subjective / Review of Systems
Father present. Reports patient feels well today. Decreased appetite.
Review of Systems: No Fever
Vital Signs / Physical Exam
Vital Signs
Vital Signs
Temp Pulse Resp BP Pulse Ox
97.4 F 88 16 112/75 98
11/13/24 08:30 11/13/24 08:30 11/13/24 08:30 11/13/24 08:30 11/13/24 08:30
Physical Exam
Constitutional: No Acute Distress, Comfortable, Chronically Ill and Non-toxic
Head: Other (Microcephaly)
Eyes: No Conjunctival Hemorrhage and Sclera Anicteric
Cardiovascular: S1/S2; Negative S3/S4 or Murmur
Pulmonary: Coarse and Non Labored
Gastrointestinal: Soft, Non Distended, Normal Bowel Sounds, No Rebound and No Guarding
Extremities: Negative Edema, Cyanosis or Erythema
Skin: Negative Rash or Jaundice
Neurological: Awake and Alert
Psychological: Calm
Lines: PICC
Objective Data
Lab Data
Lab Results
11/12/24 05:07
11/13/24 03:45
PT 13.9 Sec (11.4-14.6) 11/10/24 05:37
INR 1.04 11/10/24 05:37
APTT 44.1 Sec (23.4-35.0) H 11/10/24 05:37
Estimated Creat Clear 11 ml/min 11/13/24 03:45
Lactic Acid 3.2 mmol/L (0.7-2.0) H 11/10/24 09:30
Total Bilirubin 0.7 mg/dl (0.2-1.3) 11/13/24 03:45
AST 47 U/L (17-59) 11/13/24 03:45
ALT 33 U/L (0-50) 11/13/24 03:45
Alkaline Phosphatase 810 U/L (38-126) H 11/13/24 03:45
Most recent labs reviewed.
Micro Results:
11/09/24 20:04 Blood Culture - Preliminary
Blood/Venous No Growth in 72 hours- Final report to follow
11/09/24 20:04 Blood Culture - Preliminary
Blood/Venous No Growth in 72 hours- Final report to follow
11/10/24 12:32 Acid Fast Bacilli Smear - Preliminary
Endotracheal Acid Fast Bacilli Culture - Preliminary
11/10/24 12:32 Specimen Source - Final
Endotracheal Legionella pneumophila (Direct FA) - Final
Legionella Culture - Preliminary
11/10/24 07:58 Respiratory Culture - Final
Sputum Eleanor albicans
Gram Stain - Final
11/12/24 10:12 AFB Blood Culture - Pending
Blood/Venous
11/10/24 07:58 Acid Fast Bacilli Smear - Preliminary
Sputum Acid Fast Bacilli Culture - Preliminary
11/11/24 09:52 Fungal Culture - Preliminary
Endotracheal Culture in progress.
Positive cultures are reported as soon as detected.
Final report to follow in four to five weeks.
11/10/24 17:13 Acid Fast Bacilli Smear - Pending
Endotracheal Acid Fast Bacilli Culture - Pending
11/10/24 07:58 Nasal Screen MRSA (PCR) - Final
Nose MRSA not detected - performed by PCR methodology.
11/10/24 05:58 Legionella Urinary Antigen - Final
Urine Negative for Legionella pneumophila Serogroup 1 antigen.
A negative result does not rule out the possiblity of
Legionella infection due to other serogroups or species of
Legionella. Clinical correlation is recommended.
Streptococcus pneumoniae Antigen (M - Final
Negative for Streptococcus pneumoniae antigen.
A negative result does not exclude infection with
Streptococcus pneumoniae. Clinical correlation is
recommended.
11/10/24 00:38 Influenza Types A & B (YADIRA) - Final
Nasal Swab Negative for Influenza A & B, NAAT
Negative results must be combined with clinical observations
and patient history.
Nucleic Acid Amplification test (NAAT)performed on the
[employer] platform.
Imaging:
11/09/2024 CT abdomen/pelvis without contrast: Severe abdominal lymphadenopathy with markedly enlarged mesenteric, retroperitoneal and upper abdominal lymph nodes. Small volume ascites. Moderate to severe chronic renal disease. Severe pancreatic
lipomatosis. Moderate distal small bowel distention; suspected ileus. Diffuse groundglass pulmonary disease suspected to be inflammatory although cannot rule out infectious etiology. Mild focal left lower lobe airspace consolidation and possible
mild pneumonia. Please see full dictation for additional detail. Film personally viewed.
11/09/2024 CXR (portable): Bilateral parenchymal opacities. No evidence for cavitation. No evidence for pleural effusion. Please see full dictation for additional detail.
Care Review
Plan reviewed with: Physician (Hospitalist)
[2024-11-13] MEDS: NSS 1000 IV ×2 (10:29→22:02)
[2024-11-13] MEDS: ROCEPHIN 1000 MG IV (10:29)
--- NOTE | 2024-11-13 11:03 | W.PN.NEPH.PH ---
Today's Communication / Plan
-
HD
Assessment/Plan
-
Assessment
Microcephaly, short stature
Hypoparathyroidism
Hypercalcemia
CKD 5 progressive
Hyperkalemia
Hyponatremia
Abdominal lymphadenopathy
History of cavitary lung lesion, multiple pneumonia
Bilateral infiltrates lung
Splenectomy
Plan
follow BMP
will need tissue diagnosis for lymph node biopsy
await TB testing results
Discussed with father at bedside with family as label coder. They are okay excepting dialysis at this time. We will plan for tunneled dialysis catheter and initiation of dialysis tomorrow or Sunday.
He will have lymph node biopsy as well.
total time 45 minutes
-
-
Date of Service: November 13, 2024
CC / HPI / ROS
-
Chief Complaint:
CKD, hyperkalemia, hyponatremia
History of Present Illness:
sodium 130 stable
no new seizures
extubated and off pressors
BRENDON/Cr up to 6.0
BUN up to 103 stable
Review of Systems:
nonoliguric with Gruber in place
no pain/fever
Labs
-
Labs:
WBC 40.4 10^3/uL (4.8-10.8) H* 11/12/24 05:07
RBC 2.46 10^6/uL (4.70-6.10) L 11/12/24 05:07
Hgb 7.8 g/dL (13.0-18.0) L 11/12/24 05:07
Hct 20.9 % (39.0-52.0) L* 11/12/24 05:07
Plt Count 210 10^3/uL (130-400) 11/12/24 05:07
Sodium 130 mmol/L (135-145) L 11/13/24 03:45
Potassium 3.6 mmol/L (3.5-5.1) 11/13/24 03:45
Chloride 105 mmol/L (98-107) 11/13/24 03:45
Carbon Dioxide 20 mmol/L (22-30) L 11/13/24 03:45
BUN 103 mg/dl (9-20) H* 11/13/24 03:45
Creatinine 6.0 mg/dL (0.7-1.3) H* 11/13/24 03:45
eGFR 12.02 11/13/24 03:45
Glucose 97 mg/dl (70-99) 11/13/24 03:45
Calcium 8.3 mg/dl (8.4-10.2) L 11/13/24 03:45
Phosphorus 5.2 mg/dl (2.5-4.5) H 11/10/24 05:37
Pvm-W-Visblvkjtzp Pept 845 pg/ml 11/09/24 20:04
Albumin 2.1 g/dl (3.5-5.0) L 11/13/24 03:45
Physical Exam
-
Vital Signs:
Vital Signs
Temp Pulse Resp BP Pulse Ox
97.4 F 88 16 112/75 98
11/13/24 08:30 11/13/24 08:30 11/13/24 08:30 11/13/24 08:30 11/13/24 08:30
Cardiovascular:: Regular rate and rhythm
Respiratory:: Bilateral: Coarse
Lung Excursion:: Normal
Abdomen:: Nontender and Soft
Bowel Sounds:: Normal
Extremity Edema:: None: Bilateral:
[2024-11-13 11:34] VITALS: BP 109/73
[2024-11-13 11:48] LABS: Glucose - Point of Care 112 mg/dl (70-99)
[2024-11-13 15:20] VITALS: BP 109/70
--- NOTE | 2024-11-13 15:57 | CM ---
CM reviewed chart, plan for tunneled dialysis cath/initiate of dialysis tomorrow or Sunday. Will need outpatient dialysis set up upon discharge. CM will continue to follow for all discharge planning needs.
Plan; initiate dialysis
[facility]
[2024-11-13 17:06] LABS: Glucose - Point of Care 178 mg/dl (70-99)
[2024-11-13] MEDS: SOLU-CORTEF 25 MG IV (17:13)
[2024-11-13] MEDS: NOVOLOG FLEXPEN-LOW RESISTANCE 1 UNITS SC (17:13)
--- NOTE | 2024-11-13 17:40 | W.PN.HOSP.TC ---
Addendum entered and electronically signed by Jac Moraes MD 11/14/24 07:54:
Cachectic
Original Note:
Today's Communication/Plan
-
see note
Assessment / Plan
Assessment / Plan
pt is a 29 year old male with unspecified chromosomal abnormality
1. Septic shock - required vasopressors
-Chest x-ray showing bilateral infiltrates
-Blood cultures/sputum culture collected. COVID flu negative
-Maintain on cefepime/doxycycline. ID managing and help appreciated.
-Patient history of tuberculosis in past AFB culture has been obtained. QuantiFERON test was normal in 23. Repeat QuantiFERON test pending.
2. History of cavitary lung lesion
-ID checking for aspergillus and adding fungal culture
-[facility] records showing CT scan of chest showing bronchiectasis/upper lobe cystic lung disease
-Question of possible aspergilloma
3. Seizure episode
-thought due to hypoglycemia
-Neuro signed off
-Patient was intubated for this reason, now extubated.
-Will require brain imaging once clinically appropriate
4. Diffuse lymphadenopathy
-highly suspicious for malignancy
-Major intra-abdominal adenopathy suspicious of malignancy
-Ing LN biopsy pending
5. Hyponatremia
-received 3%NS , improved
-Has history of previous hyponatremia. Reason unclear
-Urine sodium of 98 and urine osmolarity of 292
-currently back on reg diet
6. Acute kidney injury on CKD stage unknown
-appears progressive, creat staying in mid 5 range
-Patient apparently reported to have creatinine in range of 3, has been following with [place] [facility]
-Patient developing some signs of uremia. discussed need of HD with father who is in agreement. IRAD consutled for tunneled cath but later IRAD physician notified me that patient father have changed mind, will re-disucss tomorrow.
-started on IVF for now.
7. Hyperkalemia - resolved
- s/p insulin/dextrose
- s/p lokelma
8. Episode of hypoglycemia
- unclear if that precipitated the seizure or hyponatremia (less likely as pt chronically hyponatremic)
- extubated and on diet, monitor BG
- Patient had low blood glucose of 30 post admission,
- Discussed with decating machine operator, who prefers for patient to be maintained on dextrose IVF for now
9. Hypercalcemia
- elevated on admission (12.1 now down to 9.0)
- PTH/PTHrp Pending. MARY level 121 (normal 16-85)
- Due to chronic granulomatous disease versus malignancy related?
- Calcium level is improved with IV hydration
10. Lactic acidosis
- Possible seizure related, resolving
11. Developmental disorder
Microcephaly
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
- Patient have microcephaly and converges sign scale of 10-year old
- Lives with family and was somewhat independent before hospitalization
DVT PPX - heparin sq
Code status - Full Code
11/13 care plan discussed with patient father. Nephrology at bedside
Total time spent : 53mins
Anticipated Discharge: > 48 hours
Subjective/Interval History
-
Date of Service: November 13, 2024
patient have less energy
appetite is poor
no other issues
Objective Data
-
Vital Signs:
Vital Signs
Temp Pulse Resp BP Pulse Ox
98.0 F 93 16 109/70 93
11/13/24 15:20 11/13/24 15:20 11/13/24 15:20 11/13/24 15:20 11/13/24 15:20
I&O
11/12/24 11/13/24 11/14/24
06:59 06:59 06:59
Intake Total 840.2 / 940.2 460 / 460 420 / 420
Output Total 1120 / 1120 230 / 230
Balance -279.8 / -179.8 230 / 230 420 / 420
Review of Systems
-
Unable to obtain full review of systems at this time due to: Language Barrier (have developmental delay)
Physical Exam
-
General: No Apparent Distress and Comfortable; Negative Well Developed
HEENT: Negative Oxygen
Respiratory: Clear to Auscultation
Cardiac: Regular Rhythm and S1/S2; Negative Murmur or Rub
GI: Soft, Nontender and Nondistended
Musculoskeletal: No Edema
Neuro: Awake, Alert, No Motor Deficits and Nonfocal/Grossly Intact
Psych: Calm
[2024-11-13 19:00] VITALS: BP 103/73
--- NOTE | 2024-11-13 20:00 | PTCARENOTE ---
pt incontinent of bowel and bladder. abdomen distended, firm. hypo bowel sounds. no c/o pain or nausea. according to family even if he was in pain patient would deny it. bladder scan for 75ml. reviewed lab results BUN and Creatinine. informed that
IVF are running and labs will be rechecked in the am. reviewed Fluid restriction and pt being NPO for IRAD cath. pt ankle and pedal pulses with +1edema. pt and family agreeable at this time.
--informed BOWLING BALL ASSEMBLER Tootie Sullivan re: abdominal distention. to monitor for now and to inform if there are any changes in pain or distention.
[2024-11-13 21:33] LABS: Glucose - Point of Care 220 mg/dl (70-99)
[2024-11-13 23:25] VITALS: BP 106/79
[2024-11-14] VITALS (7 sets, daily range): BP systolic 74–119; BP diastolic 69–87; BMI 19.2; BMI 19.4
[2024-11-14] MEDS: NSS IV (05:36)
[2024-11-14] MEDS: SOLU-CORTEF 25 MG IV ×2 (05:39→16:50)
[2024-11-14] MEDS: SYNTHROID 88 MCG PO (05:39)
[2024-11-14 05:40] LABS: Glucose - Point of Care 105 mg/dl (70-99)
[2024-11-14] MEDS: NOVOLOG FLEXPEN-LOW RESISTANCE SC ×3 (05:55→16:42)
[2024-11-14] MEDS: PULMICORT 0.25 MG INH ×2 (07:44→19:37)
[2024-11-14] MEDS: NSS 1000 IV ×2 (07:44→22:38)
[2024-11-14 08:42] LABS: Hematocrit 23.7 % (39.0-52.0); Hemoglobin 8.3 g/dL (13.0-18.0); Mean Corp Hgb Conc. 35.0 g/dL (33.0-37.0); Mean Corpuscular Volume 87.1 fL (80.0-94.0); Platelet Count 208 10^3/uL (130-400); Red Cell Dist. Width 17.0 % (11.5-14.5)
[2024-11-14 09:00] LABS: ALT (SGPT) 52 U/L (0-50); AST (SGOT) 60 U/L (17-59); Albumin 2.3 g/dl (3.5-5.0); Alkaline Phosphatase 1014 U/L (38-126); Blood Urea Nitrogen 90 mg/dl (9-20); Calcium 7.1 mg/dl (8.4-10.2); Carbon Dioxide 18 mmol/L (22-30); Chloride 109 mmol/L (98-107); Estimated Creatinine Clearance 12 ml/min; Glucose 100 mg/dl (70-99); Potassium 3.0 mmol/L (3.5-5.1); Sodium 133 mmol/L (135-145); Total Protein 4.6 g/dl (6.3-8.2); eGFR 12.52
[2024-11-14] MEDS: HEPARIN SC (09:18)
--- NOTE | 2024-11-14 09:23 | W.PN.PUL3 ---
Today's Communication / Plan
-
HD catheter inserted today - HD tomorrow per nephrology
s/p lymph node biopsy by IR today � follow-up pathology
Monitor UOP
Continue to trend serum sodium
Monitor BG with goal >100 and <180 mg/dL
Continue weaning down stress dose steroids as he clinically improves
Continue aspiration precautions, keeping HOB >30-45�
Abx per ID
Follow-up further identification of the filamentous fungus seen on ETT Legionella culture collected 11/10/2024
Follow hemoglobin, continue PPI
PICC line removed on 11/13
Pulmonary service will continue to follow along
Assessment
-
29-year-old male with complex medical history, including microcephaly, history of multiple pneumonias, treated for 9 months for tuberculosis in 2009, complaining of 6 months of cough, intermittent fevers, followed by infectious disease, nephrology,
endocrinology, pulmonary at [facility] with recent hospital stay 3 weeks ago at , now presents with increased fatigue, emesis, cough and malaise. Family brought patient to the [facility] due to no answers at . patient developed
increased tachypnea, emesis, hypoglycemia with blood sugar less than 30. Patient was intubated, hypoglycemia treated. Sodium on admission 118, increased to 126, stabilized at 125. Patient required initiation of D10 gtt. we are asked to help from
critical care standpoint
Acute respiratory failure
Intubated 11/10/24 (intubated for airway protection in setting of emesis) --> extubated 11/11/24
Bilateral interstitial infiltrates (chronicity unclear)
Bronchiectasis with cystic lung disease per CT imaging at [facility] October 2024
Hypoglycemia, resolved
Hyponatremia/hyperkalemia
Chronic intermittent hyponatremia in the past per records (sodium ranges from 120-137)
Leukocytosis/fevers, hypothermia -leukocytosis due to leukemoid reaction versus myelodysplastic disorder vs leukemia
Bandemia, lymphopenia
Tachycardia � resolved
Incomplete right bundle branch block
Metabolic acidemia
Lactic acidosis � resolved
Acute renal insufficiency, creatinine 6.0 (baseline 2.0 in 2014, follows nephrology at [facility])
Acute seizure (possibly secondary to hypoglycemia in setting of hyponatremia)
Retroperitoneal and abdominal adenopathy per imaging (largest 6.4 cm and left-sided para-aortic retroperitoneal region from CT A/P from 11/09/2024)
Conditions present prior to admission
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
Thrombocytopenia while in [facility]
ITP?
History of microcephaly
History of multiple pneumonias (10+ times)
Prolonged hospital stay for 9 months in 2009 ([facility])
Presumptive diagnosis of tuberculosis status post-treatment
Follows pulmonary at left upper lobe cavitary lung disease
Left upper lobe cavitary lung disease
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
Bronchoscopy at [place] 2022, positive fungal pneumonia
Did not tolerate antifungal therapy per records
Bronchiectasis per prior imaging at [facility]
History of liver disease, follows hepatology at [place] (details unclear)
Hypothyroidism
Plan/recommendations
At this time, patient has continued to improve objectively and subjectively, currently on room air, saturating 93% and breathing comfortably
Now off all pressors and is hemodynamically stable with MAP >70�75
Extubated 7
Appetite adequate
Remains on stress dose steroids - continue weaning as he clinically improves (started 25 mg IV q12hr on 11/13) --> can DC steroids in 1-2 days
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
Moving forward
Continue with incentive spirometry, airway clearance
Maintain antibiotic therapy for now, ID following
Antibiotics narrowed, now on ceftriaxone s/p cefepime/doxycycline. Vancomycin discontinued
AFB blood + sputum cultures show NGTD, Legionella ETT culture shows filamentous fungus; respiratory culture from 11/10/2024 from sputum has grown Eleanor albicans, and fungus culture from ETT on 11/11 has grown yeast; ID has asked micro to further
identify the filamentous fungi
Defer treating with antifungals to ID
CT chest obtained today (11/14) showing thick-walled cavitary mass in the left upper lobe, with severe groundglass opacification with fluid infissures with bilateral pleural effusions, and severe mediastinal lymphadenopathy --> pleural effusions
could be explained by his acute renal failure, and unable to assess if this left upper lobe cystic lesion is stable or worsening as unable to review prior imaging from [facility]
Family states patient has chronic lung disease, chronic cough. No prior films available for review
Dr. Woodruff reviewed extensive records from [facility]
Bronchiectasis, cavitary lung disease with bronchoscopy in the past suspicious for aspergilloma based on imaging and possible positive biopsy
Family unaware of details
Chest x-ray with persistent bilateral interstitial infiltrates/opacities with GGO
CT chest at [facility] October 2024 reveals bronchiectasis, cystic lung disease
Patient does follow-up with infectious disease at . family not aware of vaccine status
History of splenectomy noted per history, and confirmed per report although report is nebulous
Urine Legionella and streptococcal pneumonia antigen negative
Influenza, COVID-negative
Hypoglycemia is now resolved
Tolerating diet
Maintain BG >100 and <180 mg/dL
Questionable history of steroid use although details unclear
History of liver disease noted
Family denies any prior blood sugar issues
Suspect hypoglycemia secondary to underlying malignancy, renal disease, liver disease
Acute renal failure noted
Baseline creatinine 2.0 as of 2014, progressive over the past few years according to family. Patient follows nephrology at [facility]
No evidence of obvious hydronephrosis on abdominal CT imaging
Gruber catheter, DC per nephrology
Mild distention of the right renal pelvis noted per imaging
Continue to monitor serum sodium, with goal 135�145
Family aware that patient will require hemodialysis --> went down today for temporary HD catheter, and will start dialysis Sunday (11/15)
Significant adenopathy noted on abdominal imaging, 6.4 cm retroperitoneal adenopathy and mesenteric adenopathy
Worrisome for underlying malignancy
Underwent IR CT-guided biopsy of inguinal lymphadenopathy today (11/14) - concern for lymphoma
Seizure likely secondary to hypoglycemia although sodium levels also noted
s/p hypertonic saline on 11/10 - 11/11/2024
Neurology has signed off
Anemia noted
Goal Hb >7-8 g/dL, transfusing if needed to maintain this goal
Heme positive stool. Continue PPI
No evidence of active bleeding
Right upper extremity PICC line in place --> removed on 11/13
DVT prophylaxis: HSQ (may need to be held given that the HD catheter insertion site is oozing blood)
GI prophylaxis: PPI
Pulmonary service will continue to follow along.
Total time spent today was 42 minutes for this encounter. Time includes reviewing laboratory test/imaging results, reviewing pertinent medical records, obtaining and reviewing medical history, performing an appropriate exam, ordering medications,
tests and procedures. Time also includes documentation of this encounter, coordinating patient care and communicating with other healthcare professionals. Total time does not include separately billed tests performed on this date of service.
Subjective Data
-
Date of Service:
Date of Service: November 14, 2024
Chief Complaint: Pulmonary Follow Up
Subjective:
Patient seen and evaluated this morning. Patient's father + brother both at bedside. All questions were answered. Obtained right�IJ HD catheter this AM, which has been oozing blood since insertion. Patient is otherwise breathing comfortably on
room air. Went for lymph node biopsy today as well. No acute events reported overnight.
Review of Systems
General: Other (Negative unless mentioned above)
Objective Data
Data Reviewed
Vital Signs / I&O / Oxygen:
Vital Signs
Temp Pulse Resp BP Pulse Ox
97.8 F 82 18 102/69 91
11/14/24 07:49 11/14/24 07:49 11/14/24 07:49 11/14/24 07:49 11/14/24 07:49
Intake and Output
11/13/24 11/14/24 11/15/24
06:59 06:59 06:59
Intake Total 460 / 460 2140 / 2140
Output Total 230 / 230 300 / 300
Balance 230 / 230 1840 / 1840
SaO2 [CPAP/PSV] 98
SaO2 [ASV] 98
SaO2 [A/C] 95
SaO2 91
Nasal Cannula flow liters per 3
minute
Physical Exam
General: Respiratory Distress (negative), Comfortable, Chills (negative) and Sweats (negative)
HEENT: Normocephalic and Anicteric
Cardiovascular: S1-S2 and Peripheral Edema (+2 lower extremity pitting edema bilaterally)
Respiratory: Wheeze (negative), Crackles (Bilateral), Rhonchi (negative) and Non-Labored Respirations
GI: Soft, Non Distended, Non Tender and Normal Bowel Sounds
Neurology: Awake, Tremors (negative) and Other (Drowsy at times)
Skin: Warm, Dry, Cyanosis (negative) and Jaundice (negative)
Labs/Micro/Reports
Lab Data
11/14/24 08:27
11/14/24 08:27
Microbiology
11/12/24 10:12 Blood/Venous AFB Blood Culture - Preliminary
11/09/24 20:04 Blood/Venous Blood Culture - Preliminary
No Growth in 4 days- Final report to follow
11/09/24 20:04 Blood/Venous Blood Culture - Preliminary
No Growth in 4 days- Final report to follow
11/10/24 17:13 Endotracheal Acid Fast Bacilli Smear - Preliminary
11/10/24 17:13 Endotracheal Acid Fast Bacilli Culture - Preliminary
11/10/24 12:32 Endotracheal Acid Fast Bacilli Smear - Preliminary
11/10/24 12:32 Endotracheal Acid Fast Bacilli Culture - Preliminary
11/10/24 12:32 Endotracheal Specimen Source - Final
11/10/24 12:32 Endotracheal Legionella pneumophila (Direct FA) - Final
11/10/24 12:32 Endotracheal Legionella Culture - Preliminary
11/10/24 07:58 Sputum Respiratory Culture - Final
Eleanor albicans
11/10/24 07:58 Sputum Gram Stain - Final
11/10/24 07:58 Sputum Acid Fast Bacilli Smear - Preliminary
11/10/24 07:58 Sputum Acid Fast Bacilli Culture - Preliminary
11/11/24 09:52 Endotracheal Fungal Culture - Preliminary
Culture in progress.
Positive cultures are reported as soon as detected.
Final report to follow in four to five weeks.
[2024-11-14] MEDS: ROCEPHIN 1000 MG IV (09:42)
[2024-11-14] MEDS: STERILE WATER FOR INJECTION 10 ML IV (09:42)
[2024-11-14] MEDS: MIRALAX 17 GRAMS PO (09:42)
[2024-11-14] MEDS: PROTONIX 40 MG PO (09:43)
--- NOTE | 2024-11-14 10:03 | W.PN.HOSP.TC ---
Addendum entered and electronically signed by Jac Moraes MD 11/14/24 10:44:
Providing PO K 20meq for K 3.0 in AM, with BRENDON/ESRD will try not to overcorrect
Original Note:
Today's Communication/Plan
-
CT chest report reviewed
for HD tunneled cath placement today
for LN biopsy today
abx per ID
maintain on IVF
Assessment / Plan
Assessment / Plan
Ct chest
1. 3.5 cm and 3.0 cm thick walled cavitary masses in the left upper lobe.
2. Severe ground-glass opacity throughout the lower lobes and right upper lobe.
3. Moderate-sized right and small left pleural effusions.
4. Severe mediastinal lymphadenopathy.
Diagnostic possibilities are (1) SEVERE CAVITARY PNEUMONIA in the left upper lobe and severe pneumonia in both lower lobes and right upper lobe or (2) malignancy (lymphoma or metastatic disease which is likely given the patient's age). TUBERCULOSIS
or FUNGAL DISEASE are diagnostic possibilities.

1. Septic shock - required vasopressors
-Chest x-ray showing bilateral infiltrates
-Blood cultures/sputum culture collected. COVID flu negative
-Maintain on cefepime/doxycycline. ID managing and help appreciated.
-Patient history of tuberculosis in past AFB culture has been obtained. QuantiFERON test was normal in 23. Repeat QuantiFERON test pending.
2. History of cavitary lung lesion
ARIANA cavitary lung lesion
-ID checking for aspergillus and adding fungal culture
-[facility] CT scan of chest showing bronchiectasis/upper lobe cystic lung disease
-Patient have unclear workup and treatment for this ARIANA cavitary lesion in past.
-CT chest re-demonstrating the cavitary lesion.
3. Seizure episode
-thought due to hypoglycemia
-Neuro signed off
-Patient was intubated for this reason, now extubated.
-Will require brain imaging once clinically appropriate
4. Diffuse lymphadenopathy
-highly suspicious for malignancy
-Major intra-abdominal adenopathy suspicious of malignancy
-Ing LN biopsy pending
5. Hyponatremia
-received 3%NS , improved
-Has history of previous hyponatremia. Reason unclear
-Urine sodium of 98 and urine osmolarity of 292
-currently back on reg diet
6. Acute kidney injury on CKD stage unknown
-appears progressive, creat staying in mid 5 range
-Patient apparently reported to have creatinine in range of 3, has been following with [facility]
-Patient developing some signs of uremia. IRAD is planning to place tunneled cath today.
-started on IVF for now.
7. Hyperkalemia - resolved
Hypokalemia
- s/p insulin/dextrose and lokelma
- replace K as needed
8. Episode of hypoglycemia
- unclear if that precipitated the seizure or hyponatremia (less likely as pt chronically hyponatremic)
- extubated and on diet, monitor BG
- Patient had low blood glucose of 30 post admission,
- Discussed with contract negotiator, who prefers for patient to be maintained on dextrose IVF for now
9. Hypercalcemia - Improved
- elevated on admission (12.1 now down to 9.0)
- PTH/PTHrp Pending. MARY level 121 (normal 16-85)
- Due to chronic granulomatous disease versus malignancy related?
- Calcium level is improved with IV hydration
10. Lactic acidosis
- Possible seizure related, resolving
11. Developmental disorder
Microcephaly
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
- Patient have microcephaly and converges sign scale of 10-year old
- Lives with family and was somewhat independent before hospitalization
DVT PPX - heparin sq
Code status - Full Code
11/13 care plan discussed with patient father. Nephrology at bedside
11/14 Re-discussed the need of HD cath and family is in agreeement
Anticipated Discharge: > 48 hours
Subjective/Interval History
-
Date of Service: November 14, 2024
resting comfortably in bed
not hypoxic
father at bedside
afebrile
Objective Data
-
Labs:
Laboratory Results
11/14/24
08:27
WBC 24.7 H
Hgb 8.3 L
Hct 23.7 L
Plt Count 208
Sodium 133 L
Potassium 3.0 L
Chloride 109 H
Carbon Dioxide 18 L
BUN 90 H
Creatinine 5.8 H*
Glucose 100 H
Calcium 7.1 L
Total Bilirubin 0.7
AST 60 H
ALT 52 H
Alkaline Phosphatase 1014 H
Vital Signs:
Vital Signs
Temp Pulse Resp BP Pulse Ox
97.8 F 82 18 102/69 91
11/14/24 07:49 11/14/24 07:49 11/14/24 07:49 11/14/24 07:49 11/14/24 07:49
I&O
11/13/24 11/14/24 11/15/24
06:59 06:59 06:59
Intake Total 460 / 460 2140 / 2140
Output Total 230 / 230 300 / 300
Balance 230 / 230 1840 / 1840
Review of Systems
-
Unable to obtain full review of systems at this time due to: Language Barrier and Other (Developmental dealy)
Physical Exam
-
General: No Apparent Distress and Comfortable; Negative Well Developed
HEENT: Negative Oxygen
Respiratory: Clear to Auscultation
Cardiac: Regular Rhythm and S1/S2; Negative Murmur or Rub
GI: Soft, Nontender and Distended
Musculoskeletal: Other (Anasarca)
Neuro: Awake, Alert, No Motor Deficits and Nonfocal/Grossly Intact
Psych: Calm
--- NOTE | 2024-11-14 11:43 | W.PN.ID1 ---
Date of Service
Date of Service: November 14, 2024
Today's Communication
Continue current antibiotics.
Assessment / Plan
Ventilator dependent respiratory failure
BRENDON on CKD
Hyponatremia
Suspected pneumonia
Leukocytosis
Lactic acidosis
Anemia
Hyperkalemia
Significant abdominal lymphadenopathy on CT
Possible TB (Tx for 9 months in [facility], although not clear if empiric only)
Microcephaly
Hx splenectomy (2008). Vaccine status currently unknown.)
Recommendations:
Sputum culture without Pseudomonas.
Legionella culture negative, although 'filamentous fungus' seen on plate; DFA negative
Continue ceftriaxone 1 g IV every 24 hours
Respiratory AFB stain/culture x 3 performed. AFB stain negative x 3. Patient removed from Airborne Isolation.
AFB blood culture pending.
Monitor white count and temperature curve.
Old records from [facility] with reports of prior fungal infection noted.
Per father, patient had previously been evaluated at [facility] by ID sometime in 2019 through 2022. Does not recall ID physician.
- Aspergillus antibodies pending, along with dedicated sputum fungal culture.
Continue with supportive measures.
Patient may ultimately require lymph node biopsy for more definitive diagnosis.
Have asked Micro to ask for further identification of the 'filamentous fungi'.
Attempting to get records from [facility] outpatient setting regarding prior treatment.
����������������������������������������������������������
Chief Complaint
-: Leukocytosis and Pneumonia
Subjective / Review of Systems
Patient seen and examined. Reports feeling unwell (per father and brother). No fevers. Some cough.
Vital Signs / Physical Exam
Vital Signs
Vital Signs
Temp Pulse Resp BP Pulse Ox
97.8 F 82 18 102/69 91
11/14/24 07:49 11/14/24 07:49 11/14/24 07:49 11/14/24 07:49 11/14/24 07:49
Physical Exam
Constitutional: No Acute Distress, Comfortable, Chronically Ill and Non-toxic
Head: Other (Microcephaly)
Eyes: No Conjunctival Hemorrhage and Sclera Anicteric
Cardiovascular: S1/S2; Negative S3/S4 or Murmur
Pulmonary: Coarse and Non Labored
Gastrointestinal: Soft, Non Distended, Normal Bowel Sounds, No Rebound and No Guarding
Extremities: Negative Edema, Cyanosis or Erythema
Skin: Negative Rash or Jaundice
Neurological: Awake and Alert
Psychological: Calm
Objective Data
Lab Data
Lab Results
11/14/24 08:27
11/14/24 08:27
PT 13.9 Sec (11.4-14.6) 11/10/24 05:37
INR 1.04 11/10/24 05:37
APTT 44.1 Sec (23.4-35.0) H 11/10/24 05:37
Estimated Creat Clear 12 ml/min 11/14/24 08:27
Lactic Acid 1.9 mmol/L (0.7-2.0) 11/14/24 08:27
Total Bilirubin 0.7 mg/dl (0.2-1.3) 11/14/24 08:27
AST 60 U/L (17-59) H 11/14/24 08:27
ALT 52 U/L (0-50) H 11/14/24 08:27
Alkaline Phosphatase 1014 U/L (38-126) H 11/14/24 08:27
Most recent labs reviewed.
Micro Results:
11/10/24 12:32 Specimen Source - Final
Endotracheal Legionella pneumophila (Direct FA) - Final
Legionella Culture - Preliminary
Filamentous fungus
11/12/24 10:12 AFB Blood Culture - Preliminary
Blood/Venous
11/09/24 20:04 Blood Culture - Preliminary
Blood/Venous No Growth in 4 days- Final report to follow
11/09/24 20:04 Blood Culture - Preliminary
Blood/Venous No Growth in 4 days- Final report to follow
11/10/24 17:13 Acid Fast Bacilli Smear - Preliminary
Endotracheal Acid Fast Bacilli Culture - Preliminary
11/10/24 12:32 Acid Fast Bacilli Smear - Preliminary
Endotracheal Acid Fast Bacilli Culture - Preliminary
11/10/24 07:58 Respiratory Culture - Final
Sputum Eleanor albicans
Gram Stain - Final
11/10/24 07:58 Acid Fast Bacilli Smear - Preliminary
Sputum Acid Fast Bacilli Culture - Preliminary
11/11/24 09:52 Fungal Culture - Preliminary
Endotracheal Culture in progress.
Positive cultures are reported as soon as detected.
Final report to follow in four to five weeks.
11/10/24 07:58 Nasal Screen MRSA (PCR) - Final
Nose MRSA not detected - performed by PCR methodology.
11/10/24 05:58 Legionella Urinary Antigen - Final
Urine Negative for Legionella pneumophila Serogroup 1 antigen.
A negative result does not rule out the possiblity of
Legionella infection due to other serogroups or species of
Legionella. Clinical correlation is recommended.
Streptococcus pneumoniae Antigen (M - Final
Negative for Streptococcus pneumoniae antigen.
A negative result does not exclude infection with
Streptococcus pneumoniae. Clinical correlation is
recommended.
11/10/24 00:38 Influenza Types A & B (YADIRA) - Final
Nasal Swab Negative for Influenza A & B, NAAT
Negative results must be combined with clinical observations
and patient history.
Nucleic Acid Amplification test (NAAT)performed on the
[employer] platform.
Imaging:
11/09/2024 CT abdomen/pelvis without contrast: Severe abdominal lymphadenopathy with markedly enlarged mesenteric, retroperitoneal and upper abdominal lymph nodes. Small volume ascites. Moderate to severe chronic renal disease. Severe pancreatic
lipomatosis. Moderate distal small bowel distention; suspected ileus. Diffuse groundglass pulmonary disease suspected to be inflammatory although cannot rule out infectious etiology. Mild focal left lower lobe airspace consolidation and possible
mild pneumonia. Please see full dictation for additional detail. Film personally viewed.
11/09/2024 CXR (portable): Bilateral parenchymal opacities. No evidence for cavitation. No evidence for pleural effusion. Please see full dictation for additional detail.
Care Review
Plan reviewed with: Physician (Hospitalist)
[2024-11-14 15:38] LABS: Hepatitis B Surface Antigen Negative (Negative)
--- NOTE | 2024-11-14 15:55 | CM ---
CM reviewed chart, patient for tunneled cath placement today. Patient seen bedside with sister and father, discussed plan for dialysis, will send referrals to outpatient dialysis. Family confirms they live in [place] and prefer closest facility-
referrals placed in [facility]. CM received call from Lenny from [facility], will update on discharge once closer to discharge. CM will continue to follow for all discharge planning needs.
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
[facility]:
[2024-11-14 15:56] LABS: Hepatitis C Antibody Negative (Negative)
--- NOTE | 2024-11-14 16:02 | W.PN.NEPH.PH ---
Today's Communication / Plan
-
HD tomorrow
Assessment/Plan
-
Assessment
Microcephaly, short stature
Hypoparathyroidism
Hypercalcemia
CKD 5 progressive
Hyperkalemia
Hyponatremia
Abdominal lymphadenopathy
History of cavitary lung lesion, multiple pneumonia
Bilateral infiltrates lung
Splenectomy
Plan
renal function no sig bladder changer all
azotemia improving tapering steroids
family reports he has no appetite
decrease IVF rate as he is ESRD status
replace k
s/p lymph node biopsy today
Discussed with father at bedside with family as tax preparer. They are okay accepting dialysis at this time. he had CVC already, start HD tomorrow
-
-
Date of Service: November 14, 2024
CC / HPI / ROS
-
Chief Complaint:
CKD, hyperkalemia, hyponatremia
History of Present Illness:
sodium 133 stable, k low at 3
no new seizures
BRENDON/Cr fluctuating trend 5.8
BUN better at 90
WBC improving
Review of Systems:
UOP not measured off fletcher
no pain/fever
Labs
-
Labs:
WBC 24.7 10^3/uL (4.8-10.8) H 11/14/24 08:27
RBC 2.72 10^6/uL (4.70-6.10) L 11/14/24 08:27
Hgb 8.3 g/dL (13.0-18.0) L 11/14/24 08:27
Hct 23.7 % (39.0-52.0) L 11/14/24 08:27
Plt Count 208 10^3/uL (130-400) 11/14/24 08:27
Sodium 133 mmol/L (135-145) L 11/14/24 08:27
Potassium 3.0 mmol/L (3.5-5.1) L 11/14/24 08:27
Chloride 109 mmol/L (98-107) H 11/14/24 08:27
Carbon Dioxide 18 mmol/L (22-30) L 11/14/24 08:27
BUN 90 mg/dl (9-20) H 11/14/24 08:27
Creatinine 5.8 mg/dL (0.7-1.3) H* 11/14/24 08:27
eGFR 12.52 11/14/24 08:27
Glucose 100 mg/dl (70-99) H 11/14/24 08:27
Calcium 7.1 mg/dl (8.4-10.2) L 11/14/24 08:27
Phosphorus 4.8 mg/dl (2.5-4.5) H 11/14/24 08:27
Gzx-S-Kssabbtmagh Pept 845 pg/ml 11/09/24 20:04
Albumin 2.3 g/dl (3.5-5.0) L 11/14/24 08:27
Physical Exam
-
Vital Signs:
Vital Signs
Temp Pulse Resp BP Pulse Ox
97.5 F 79 22 119/87 97
11/14/24 12:40 11/14/24 14:41 11/14/24 14:41 11/14/24 14:41 11/14/24 12:40
Cardiovascular:: Regular rate and rhythm
Respiratory:: Bilateral: Coarse
Lung Excursion:: Normal
Abdomen:: Nontender and Soft
Bowel Sounds:: Normal
Extremity Edema:: +1: Bilateral:
Fletcher Catheter: No
[2024-11-14 16:42] LABS: Glucose - Point of Care 93 mg/dl (70-99)
[2024-11-14] MEDS: KCL 20 MEQ PO ×2 (16:43→22:38)
--- NOTE | 2024-11-14 18:51 | PTCARENOTE ---
Pt IJ bleeding from suture site, IRAD up to reinforce, bled again, VAT team in and reinforced, bleeding stopped at this time. will cont to monitor.
--- NOTE | 2024-11-14 19:46 | VATNOTE ---
lat entry: @1800 Called to room by PCNVeronica, due to bleeding from new right HD site; at this time PCN, was removing dsg, dr. verdugo present and IR staff arrived. Noted no new active bleeding from site. This VAT RN redressed HD site with
surgifoam and 1 thick 4x4 after cleaning with chlorhexidine. Covered with 2 tegaderms.
--- NOTE | 2024-11-14 19:49 | VATNOTE ---
1930: rechecked right HD cath site; dry and intact.
[2024-11-14 21:21] LABS: Glucose - Point of Care 158 mg/dl (70-99)
[2024-11-14] MEDS: HEPARIN 2500 UNITS SC (23:21)
[2024-11-15 03:00] VITALS: BP 118/80
[2024-11-15] MEDS: SYNTHROID 88 MCG PO (06:14)
[2024-11-15] MEDS: SOLU-CORTEF 25 MG IV ×2 (06:14→16:18)
[2024-11-15] MEDS: MIRALAX PO (06:24)
[2024-11-15 07:00] VITALS: BP 117/77
--- NOTE | 2024-11-15 07:40 | PTCARENOTE ---
11/15- Patient currently receiving HD. Will administer morning medications as ordered S/P HD.
[2024-11-15] MEDS: HEPARIN SC ×2 (07:41)
[2024-11-15 07:56] LABS: Glucose - Point of Care 189 mg/dl (70-99)
[2024-11-15] MEDS: PULMICORT 0.25 MG INH ×2 (08:09→19:35)
[2024-11-15] MEDS: HEPARIN IV (08:10)
[2024-11-15] MEDS: HEPARIN 500 UNITS IV ×2 (08:10→09:10)
[2024-11-15] MEDS: MANNITOL 25% 12.5 GRAMS IV ×2 (08:22→09:24)
[2024-11-15] MEDS: FLEXBUMIN 25% FOR HEMODIALYSIS 12.5 GRAMS IV ×2 (08:22→09:25)
[2024-11-15] MEDS: NOVOLOG FLEXPEN-LOW RESISTANCE 1 UNITS SC ×2 (08:32→15:57)
[2024-11-15 09:20] LABS: Blood Urea Nitrogen 80 mg/dl (9-20); Calcium 7.3 mg/dl (8.4-10.2); Carbon Dioxide 15 mmol/L (22-30); Chloride 111 mmol/L (98-107); Estimated Creatinine Clearance 13 ml/min; Glucose 144 mg/dl (70-99); Potassium 2.9 mmol/L (3.5-5.1); Sodium 135 mmol/L (135-145); eGFR 13.95
[2024-11-15] MEDS: RETACRIT 4000 UNITS IV (09:26)
--- NOTE | 2024-11-15 09:33 | W.PN.NEPH.HD ---
Assessment
-
pt seen during HD
vitals stable, SBP in 90s
no UF planned
ok to d/c IVF
replace k , high k bath
CVC function fine
Progress Note - Hemodialysis
-
Date of Service: November 15, 2024
Duration: 2 hours
Potassium Bath: 4
Calcium Bath: 2.5
Opti-Dialyzer: 160
Ultrafiltration: Other (0)
Blood Flow: 250
Dialysate Flow: Other (400)
Heparin: no
EPO: 4000
[2024-11-15] MEDS: HEPARIN 3900 UNITS INTRACATH (10:16)
[2024-11-15] MEDS: ROCEPHIN 1000 MG IV (10:57)
[2024-11-15] MEDS: PROTONIX 40 MG PO (10:57)
[2024-11-15] MEDS: STERILE WATER FOR INJECTION 10 ML IV (10:57)
[2024-11-15 12:26] LABS: Glucose - Point of Care 115 mg/dl (70-99)
[2024-11-15] MEDS: NOVOLOG FLEXPEN-LOW RESISTANCE SC (12:27)
--- NOTE | 2024-11-15 14:09 | W.PN.ID1 ---
Date of Service
Date of Service: November 15, 2024
Today's Communication
Follow labs.
Assessment / Plan
s/p Ventilator dependent respiratory failure
BRENDON on CKD - started HD 11/15
Hyponatremia
Suspected pneumonia
Leukocytosis - improved
Lactic acidosis
Anemia
Hyperkalemia
Significant mediastinal and abdominal lymphadenopathy on CT
Possible TB (Tx for 9 months in [facility], although not clear if empiric only)
Microcephaly
Hx splenectomy (2008). Vaccine status currently unknown.)
Recommendations:
Sputum culture without Pseudomonas.
Legionella culture negative, although 'filamentous fungus' seen on plate; DFA negative
Fungal cx: yeast
Continue ceftriaxone 1 g IV every 24 hours
Respiratory AFB stain/culture x 3 performed. AFB stain negative x 3. Patient removed from Airborne Isolation.
AFB blood culture pending.
11/14/24 s/p IR right groin lymph node biopsy.
Cx neg to date
Path pending.
Monitor white count and temperature curve.
Old records from [facility] with reports of prior fungal infection noted.
Per father, patient had previously been evaluated at [facility] by ID sometime in 2019 through 2022. Does not recall ID physician.
- Aspergillus antibodies pending, along with dedicated sputum fungal culture.
Continue with supportive measures.
Attempting to get records from [facility] outpatient setting regarding prior treatment.
����������������������������������������������������������
Chief Complaint
-: Leukocytosis and Pneumonia
Subjective / Review of Systems
Appetite poor.
Vital Signs / Physical Exam
Vital Signs
Vital Signs
Temp Pulse Resp BP Pulse Ox
98.0 F 70 14 117/77 94
11/15/24 07:00 11/15/24 08:11 11/15/24 08:11 11/15/24 07:00 11/15/24 08:11
Physical Exam
Constitutional: Chronically Ill
Head: Other (microcephaly)
Eyes: Sclera Anicteric
Cardiovascular: Regular Rate and S1/S2
Pulmonary: Coarse
Gastrointestinal: Soft, Non Tender and Non Distended
Extremities: Negative Edema
Neurological: AO x 3
Objective Data
Lab Data
Lab Results
11/14/24 08:27
11/15/24 07:33
PT 13.9 Sec (11.4-14.6) 11/10/24 05:37
INR 1.04 11/10/24 05:37
APTT 44.1 Sec (23.4-35.0) H 11/10/24 05:37
Estimated Creat Clear 13 ml/min 11/15/24 07:33
Lactic Acid 1.9 mmol/L (0.7-2.0) 11/14/24 08:27
Total Bilirubin 0.7 mg/dl (0.2-1.3) 11/14/24 08:27
AST 60 U/L (17-59) H 11/14/24 08:27
ALT 52 U/L (0-50) H 11/14/24 08:27
Alkaline Phosphatase 1014 U/L (38-126) H 11/14/24 08:27
Most recent labs reviewed.
Micro Results:
11/14/24 14:30 Tissue Culture - Preliminary
Lymph Node No Growth After 18-24 Hours
Gram Stain - Preliminary
11/09/24 20:04 Blood Culture - Final
Blood/Venous No Growth - Final Report
11/09/24 20:04 Blood Culture - Final
Blood/Venous No Growth - Final Report
11/11/24 09:52 Fungal Culture - Preliminary
Endotracheal Yeast
11/10/24 12:32 Fungus Mold Identification - Pending
Endotracheal
11/10/24 12:32 Specimen Source - Final
Endotracheal Legionella pneumophila (Direct FA) - Final
Legionella Culture - Preliminary
Filamentous fungus
11/12/24 10:12 AFB Blood Culture - Preliminary
Blood/Venous
11/10/24 17:13 Acid Fast Bacilli Smear - Preliminary
Endotracheal Acid Fast Bacilli Culture - Preliminary
11/10/24 12:32 Acid Fast Bacilli Smear - Preliminary
Endotracheal Acid Fast Bacilli Culture - Preliminary
11/10/24 07:58 Respiratory Culture - Final
Sputum Eleanor albicans
Gram Stain - Final
11/10/24 07:58 Acid Fast Bacilli Smear - Preliminary
Sputum Acid Fast Bacilli Culture - Preliminary
11/10/24 07:58 Nasal Screen MRSA (PCR) - Final
Nose MRSA not detected - performed by PCR methodology.
11/10/24 05:58 Legionella Urinary Antigen - Final
Urine Negative for Legionella pneumophila Serogroup 1 antigen.
A negative result does not rule out the possiblity of
Legionella infection due to other serogroups or species of
Legionella. Clinical correlation is recommended.
Streptococcus pneumoniae Antigen (M - Final
Negative for Streptococcus pneumoniae antigen.
A negative result does not exclude infection with
Streptococcus pneumoniae. Clinical correlation is
recommended.
11/10/24 00:38 Influenza Types A & B (YADIRA) - Final
Nasal Swab Negative for Influenza A & B, NAAT
Negative results must be combined with clinical observations
and patient history.
Nucleic Acid Amplification test (NAAT)performed on the
[employer] platform.
Imaging:
CT chest: 3.5 cm and 3.0 cm thick walled cavitary masses in the left upper lobe. Severe ground-glass opacity throughout the lower lobes and right upper lobe.
Moderate-sized right and small left pleural effusions. Severe mediastinal lymphadenopathy.
11/09/2024 CT abdomen/pelvis without contrast: Severe abdominal lymphadenopathy with markedly enlarged mesenteric, retroperitoneal and upper abdominal lymph nodes. Small volume ascites. Moderate to severe chronic renal disease. Severe pancreatic
lipomatosis. Moderate distal small bowel distention; suspected ileus. Diffuse groundglass pulmonary disease suspected to be inflammatory although cannot rule out infectious etiology. Mild focal left lower lobe airspace consolidation and possible
mild pneumonia. Please see full dictation for additional detail. Film personally viewed.
11/09/2024 CXR (portable): Bilateral parenchymal opacities. No evidence for cavitation. No evidence for pleural effusion. Please see full dictation for additional detail.
--- NOTE | 2024-11-15 14:21 | W.PN.HOSP.TC ---
Today's Communication/Plan
-
see note
Assessment / Plan
Assessment / Plan
Ct chest
1. 3.5 cm and 3.0 cm thick walled cavitary masses in the left upper lobe.
2. Severe ground-glass opacity throughout the lower lobes and right upper lobe.
3. Moderate-sized right and small left pleural effusions.
4. Severe mediastinal lymphadenopathy.
Diagnostic possibilities are (1) SEVERE CAVITARY PNEUMONIA in the left upper lobe and severe pneumonia in both lower lobes and right upper lobe or (2) malignancy (lymphoma or metastatic disease which is likely given the patient's age). TUBERCULOSIS
or FUNGAL DISEASE are diagnostic possibilities.

1. Septic shock - required vasopressors
-Chest x-ray showing bilateral infiltrates
-Blood cultures/sputum culture collected. COVID flu negative
-Patient history of tuberculosis in past AFB culture has been obtained. QuantiFERON test was normal in 23. Repeat QuantiFERON test neg.
- Sputum culture growing filamentous fungus -ID has requested further identification.
- Aspergillus immunoglobin antibody sent
- Currently on Rocephin only, ID managing antibiotic regimen
2. History of cavitary lung lesion
ARIANA cavitary lung lesion
-ID checking for aspergillus and adding fungal culture
-[facility] records showing CT scan of chest showing bronchiectasis/upper lobe cystic lung disease
-CT chest re-demonstrating the cavitary lesion. Stable from previous reported location/finding on imaging.
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
3. Seizure episode
-thought due to hypoglycemia
-Neuro signed off
-Patient was intubated for this reason, now extubated.
-Will require brain imaging once clinically appropriate
4. Diffuse lymphadenopathy
-highly suspicious for malignancy
-Major intra-abdominal adenopathy suspicious of malignancy
-s/p needle biopsy of right ing LN, f/u results.
-Previous biopsy has shown noncaseating granulomas of unclear significance. Sarcoidosis was ruled out per [facility] records.
5. Hyponatremia -improved
-received 3%NS , improved
-Has history of previous hyponatremia. Reason unclear
-Urine sodium of 98 and urine osmolarity of 292
6. Acute kidney injury on CKD stage unknown
Metabolic acidosis
-appears progressive, creat staying in mid 5 range
-Patient apparently reported to have creatinine in range of 3, has been following with [place] [facility]
- Status post tunnel catheter placement
- Patient getting first round of hemodialysis today
7. Hyperkalemia - resolved
Hypokalemia
- s/p insulin/dextrose and lokelma
- As needed replacement of potassium
8. Episode of hypoglycemia
- unclear if that precipitated the seizure or hyponatremia (less likely as pt chronically hyponatremic)
- extubated and on diet, monitor BG
- Patient had low blood glucose of 30 post admission,
- Discussed with saloon keeper, who prefers for patient to be maintained on dextrose IVF for now
9. Hypercalcemia - Improved
- elevated on admission (12.1 now down to 9.0)
- PTH < 4 /PTHrp Pending. MARY level 121 (normal 16-85)
- Due to chronic granulomatous disease versus malignancy related?
- Calcium level is improved with IV hydration
10. Lactic acidosis
- Possible seizure related, resolving
11. Developmental disorder
Microcephaly
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
- Patient have microcephaly and converges sign scale of 10-year old
- Lives with family and was somewhat independent before hospitalization
12. Acute transaminitis
Elevated ALP
- LFT uptrending, repeat ordered for tomorrow
13. Left-sided pleural effusion
Anasarca
- Volume overload state from ESRD
- Will consider left-sided thoracentesis based on clinical course. Patient asymptomatic/not hypoxic
Pancreatic lipomatosis
DVT PPX - heparin sq
Code status - Full Code
11/13 care plan discussed with patient father. Nephrology at bedside
11/14 Re-discussed the need of HD cath and family is in agreement
11/15 patient mother at bedside and care plan discussed.
Total time spent: 55mins
Anticipated Discharge: > 48 hours
Subjective/Interval History
-
Date of Service: November 15, 2024
Patient continues to have poor appetite
Mother at bedside and translating
Patient have not expressed any problems of abdominal pain/nausea/vomiting
Objective Data
-
Labs:
Laboratory Results
11/15/24
07:33
Sodium 135
Potassium 2.9 L
Chloride 111 H
Carbon Dioxide 15 L
BUN 80 H
Creatinine 5.3 H*
Glucose 144 H
Calcium 7.3 L
Vital Signs:
Vital Signs
Temp Pulse Resp BP Pulse Ox
98.0 F 70 14 117/77 94
11/15/24 07:00 11/15/24 08:11 11/15/24 08:11 11/15/24 07:00 11/15/24 08:11
I&O
11/14/24 11/15/24 11/16/24
06:59 06:59 06:59
Intake Total 2139 / 2139 1959 / 1959
Output Total 300 / 300 60 / 60
Balance 1839 / 1840 1899 / 1899
Review of Systems
-
Respiratory: Reports No Symptoms
Cardiac: Reports No Symptoms
Abdomen/GI: Reports No Symptoms
Physical Exam
-
General: Cachectic
HEENT: Oxygen
Respiratory: Clear to Auscultation
Cardiac: Regular Rhythm and S1/S2; Negative Murmur or Rub
GI: Soft, Nontender and Distended
Musculoskeletal: Other (Anasarca)
Neuro: Awake, Alert, No Motor Deficits and Nonfocal/Grossly Intact
Psych: Calm
[2024-11-15 15:00] VITALS: BP 110/76
[2024-11-15 15:56] LABS: Glucose - Point of Care 181 mg/dl (70-99)
[2024-11-15] MEDS: IMODIUM 2 MG PO (16:17)
--- NOTE | 2024-11-15 16:33 | W.PN.PUL3 ---
Today's Communication / Plan
-
Continue HD
Continue ceftriaxone
Remains on hydrocortisone 25 mg every 12 hour
Continue with nebulizer regimen
PT/OT, ambulate
Assessment
-
29-year-old male with complex medical history, including microcephaly, history of multiple pneumonias, treated for 9 months for tuberculosis in 2009, complaining of 6 months of cough, intermittent fevers, followed by infectious disease, nephrology,
endocrinology, pulmonary at [facility] with recent hospital stay 3 weeks ago at , now presents with increased fatigue, emesis, cough and malaise. Family brought patient to the [facility] due to no answers at . patient developed
increased tachypnea, emesis, hypoglycemia with blood sugar less than 30. Patient was intubated, hypoglycemia treated. Sodium on admission 118, increased to 126, stabilized at 125. Patient required initiation of D10 gtt. we are asked to help from
critical care standpoint
Acute respiratory failure
Intubated 11/10/24 (intubated for airway protection in setting of emesis) --> extubated 11/11/24
Bilateral interstitial infiltrates (chronicity unclear)
Bronchiectasis with cystic lung disease per CT imaging at [facility] October 2024
Hypoglycemia, resolved
Hyponatremia/hyperkalemia
Chronic intermittent hyponatremia in the past per records (sodium ranges from 120-137)
Leukocytosis/fevers, hypothermia -leukocytosis due to leukemoid reaction versus myelodysplastic disorder vs leukemia
Bandemia, lymphopenia
Tachycardia � resolved
Incomplete right bundle branch block
Metabolic acidemia
Lactic acidosis � resolved
Acute renal insufficiency, creatinine 6.0 (baseline 2.0 in 2014, follows nephrology at [facility])
Acute seizure (possibly secondary to hypoglycemia in setting of hyponatremia)
Retroperitoneal and abdominal adenopathy per imaging (largest 6.4 cm and left-sided para-aortic retroperitoneal region from CT A/P from 11/09/2024)
Conditions present prior to admission
History of splenectomy/appendectomy in [place]?
Thrombocytopenia while in [facility]
ITP?
History of microcephaly
History of multiple pneumonias (10+ times)
Prolonged hospital stay for 9 months in 2009 ([facility])
Presumptive diagnosis of tuberculosis status post-treatment
Follows pulmonary at left upper lobe cavitary lung disease
Left upper lobe cavitary lung disease
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
Bronchoscopy at [place] 2022, positive fungal pneumonia
Did not tolerate antifungal therapy per records
Bronchiectasis per prior imaging at [facility]
History of liver disease, follows hepatology at [place] (details unclear)
Hypothyroidism
Plan/recommendations
At this time, patient appears to be comfortable from pulmonary standpoint, on room air
Plans for HD noted
Remains on ceftriaxone
Presently on hydrocortisone 25 mg every 12 hours
Lymph node biopsy pending
Moving forward
Continue with incentive spirometry, airway clearance
Maintain antibiotic therapy for now, ID following
Antibiotics narrowed, now on ceftriaxone s/p cefepime/doxycycline. Vancomycin discontinued
AFB blood + sputum cultures show NGTD, Legionella ETT culture shows filamentous fungus; respiratory culture from 11/10/2024 from sputum has grown Eleanor albicans, and fungus culture from ETT on 11/11 has grown yeast; ID has asked micro to further
identify the filamentous fungi
Defer treating with antifungals to ID
CT chest obtained (11/14) showing thick-walled cavitary mass in the left upper lobe, with severe groundglass opacification with fluid infissures with bilateral pleural effusions, and severe mediastinal lymphadenopathy --> pleural effusions could be
explained by his acute renal failure, and unable to assess if this left upper lobe cystic lesion is stable or worsening as unable to review prior imaging from [facility]
Prior records suggest crescent sign, prior suspicion for aspergilloma
Family states patient has chronic lung disease, chronic cough. No prior films available for review
Dr. Woodruff reviewed extensive records from [facility]
Bronchiectasis, cavitary lung disease with bronchoscopy in the past suspicious for aspergilloma based on imaging and possible positive biopsy
Family unaware of details
Chest x-ray with persistent bilateral interstitial infiltrates/opacities with GGO
CT chest at [facility] October 2024 reveals bronchiectasis, cystic lung disease
Patient does follow-up with infectious disease at [facility]. family not aware of vaccine status
History of splenectomy noted per history, and confirmed per report although report is nebulous
Urine Legionella and streptococcal pneumonia antigen negative
Influenza, COVID-negative
Acute renal failure noted
Baseline creatinine 2.0 as of 2014, progressive over the past few years according to family. Patient follows nephrology at [facility]
Now with HD
Significant adenopathy noted on abdominal imaging, 6.4 cm retroperitoneal adenopathy and mesenteric adenopathy
Worrisome for underlying malignancy
Underwent IR CT-guided biopsy of inguinal lymphadenopathy today (11/14) - concern for lymphoma
Pending
Right upper extremity PICC line in place --> removed on 11/13
DVT prophylaxis: HSQ (may need to be held given that the HD catheter insertion site is oozing blood)
GI prophylaxis: PPI
Reviewed with mother at bedside
Subjective Data
-
Date of Service:
Date of Service: November 15, 2024
Chief Complaint: Pulmonary Follow Up
Subjective:
Patient examined earlier this morning. Mother at bedside. Patient lying flat, on room air. Mild cough according to mother. Patient complaining of loose stool. HD continues
Objective Data
Data Reviewed
Vital Signs / I&O / Oxygen:
Vital Signs
Temp Pulse Resp BP Pulse Ox
98.2 F 90 20 110/76 94
11/15/24 15:00 11/15/24 15:00 11/15/24 15:00 11/15/24 15:00 11/15/24 15:00
Intake and Output
11/14/24 11/15/24 11/16/24
06:59 06:59 06:59
Intake Total 2142139
Output Total 300 / 300 60 / 60
Balance 1839 / 1839
SaO2 [CPAP/PSV] 98
SaO2 [ASV] 98
SaO2 [A/C] 95
SaO2 94
Nasal Cannula flow liters per 3
minute
Physical Exam
General: Comfortable and Other (Right IJ HD cath)
HEENT: Normocephalic and Anicteric
Cardiovascular: S1-S2 and Peripheral Edema (1+)
Respiratory: Wheeze (negative), Crackles (Bilateral), Rhonchi (negative), Non-Labored Respirations and Stridor (n)
GI: Soft, Non Distended and Non Tender
Neurology: Awake, Alert, No Motor Deficits and Other (Drowsy at times)
Skin: Warm, Dry, Cyanosis (negative) and Jaundice (negative)
Labs/Micro/Reports
Lab Data
11/14/24 08:27
11/15/24 07:33
Microbiology
11/14/24 14:30 Lymph Node Tissue Culture - Preliminary
No Growth After 18-24 Hours
11/14/24 14:30 Lymph Node Gram Stain - Preliminary
11/09/24 20:04 Blood/Venous Blood Culture - Final
No Growth - Final Report
11/09/24 20:04 Blood/Venous Blood Culture - Final
No Growth - Final Report
11/11/24 09:52 Endotracheal Fungal Culture - Preliminary
Yeast
11/10/24 12:32 Endotracheal Specimen Source - Final
11/10/24 12:32 Endotracheal Legionella pneumophila (Direct FA) - Final
11/10/24 12:32 Endotracheal Legionella Culture - Preliminary
Filamentous fungus
11/12/24 10:12 Blood/Venous AFB Blood Culture - Preliminary
11/10/24 17:13 Endotracheal Acid Fast Bacilli Smear - Preliminary
11/10/24 17:13 Endotracheal Acid Fast Bacilli Culture - Preliminary
11/10/24 12:32 Endotracheal Acid Fast Bacilli Smear - Preliminary
11/10/24 12:32 Endotracheal Acid Fast Bacilli Culture - Preliminary
[2024-11-15] MEDS: PULMICORT INH (18:09)
[2024-11-15 21:12] LABS: Glucose - Point of Care 125 mg/dl (70-99)
[2024-11-15] MEDS: KCL 40 MEQ PO (22:46)
[2024-11-15 23:00] VITALS: BP 111/75
--- NOTE | 2024-11-15 23:00 | PTCARENOTE ---
Pox 88% on RA. No distress noted, patient resting in bed with father at bedside. Patient placed on 2L. GERIATRIC NURSE ASSISTANT notified, chelsie tx ordered. GERIATRIC NURSE ASSISTANT on unit to see patient.
[2024-11-16] MEDS: HEPARIN 2500 UNITS SC ×2 (00:37→23:55)
[2024-11-16 00:47] LABS: Glucose - Point of Care 131 mg/dl (70-99)
[2024-11-16] MEDS: DUONEB 3 ML INH (00:52)
--- NOTE | 2024-11-16 03:55 | W.PN.UPDATE ---
Update Note
Progress Note Update
0 RN reported AM K 2.9 KCL PO 40meq ordered.
0030 RN reported patient oxygen level 88% on RA. placed on 2L. stable VS otherwise, no tachypnea. RN reports patient been coughing prior to PO potassium pill and noted coughing increased after the PO pill.
Duoneb order place.
Patient seen and evaluated, RT at the bed side, auscultated, rales in bases, previous Chest Xray results noted
Patient resting in bed at present. 98% 2l 22
advise to keep patient NPO if patient fails swallow eval.
RN reports this AM, patient swallowing water without any difficulty, but feels comfortable sitting at the side of the bed, 2L O2 98% RR 26
[2024-11-16 06:00] VITALS: BMI 19.5
[2024-11-16] MEDS: SYNTHROID 88 MCG PO (06:09)
[2024-11-16] MEDS: SOLU-CORTEF 25 MG IV (06:09)
--- NOTE | 2024-11-16 06:30 | PTCARENOTE ---
Pox 88-90% on RA. Patient maintained on 2L through night. RR 26 this AM, but patient appears comfortable and without distress. No s/s of aspiration noted with AM meds. Patient up 1 lb on daily weight. FISH HATCHERY LABORER updated.
[2024-11-16 06:53] LABS: Hematocrit 24.9 % (39.0-52.0); Hemoglobin 8.6 g/dL (13.0-18.0); Mean Corp Hgb Conc. 34.5 g/dL (33.0-37.0); Mean Corpuscular Volume 87.4 fL (80.0-94.0); Platelet Count 185 10^3/uL (130-400); Red Cell Dist. Width 16.8 % (11.5-14.5)
[2024-11-16 07:00] VITALS: BP 121/50
[2024-11-16 07:18] LABS: ALT (SGPT) 99 U/L (0-50); AST (SGOT) 100 U/L (17-59); Albumin 2.8 g/dl (3.5-5.0); Blood Urea Nitrogen 49 mg/dl (9-20); Calcium 7.7 mg/dl (8.4-10.2); Carbon Dioxide 20 mmol/L (22-30); Chloride 111 mmol/L (98-107); Estimated Creatinine Clearance 18 ml/min; Glucose 85 mg/dl (70-99); Potassium 3.9 mmol/L (3.5-5.1); Sodium 137 mmol/L (135-145); Total Protein 5.0 g/dl (6.3-8.2); eGFR 20.79
[2024-11-16 07:23] LABS: Alkaline Phosphatase 1132 U/L (38-126)
[2024-11-16 07:23] LABS: Glucose - Point of Care 137 mg/dl (70-99)
[2024-11-16] MEDS: NOVOLOG FLEXPEN-LOW RESISTANCE SC ×3 (07:30→16:53)
[2024-11-16] MEDS: PROTONIX 40 MG PO (07:30)
[2024-11-16] MEDS: HEPARIN SC ×2 (07:34→16:52)
[2024-11-16] MEDS: PULMICORT 0.25 MG INH ×2 (07:37→20:01)
[2024-11-16] MEDS: DELTASONE 30 MG PO (08:25)
[2024-11-16] MEDS: STERILE WATER FOR INJECTION 10 ML IV (11:05)
[2024-11-16] MEDS: ROCEPHIN 1000 MG IV (11:05)
[2024-11-16 11:29] LABS: Glucose - Point of Care 132 mg/dl (70-99)
--- NOTE | 2024-11-16 12:30 | CM ---
CM reviewed chart, [facility] [address] [facility]. Patient for Chest X-Ray today. Patient remains on IV antibiotics. CM will continue to follow for all discharge planning needs.
Plan; outpatient HD, referral to [facility], followed by [facility]:
--- NOTE | 2024-11-16 13:05 | W.PN.HOSP.TC ---
Today's Communication/Plan
-
see note
Assessment / Plan
Assessment / Plan
Ct chest
1. 3.5 cm and 3.0 cm thick walled cavitary masses in the left upper lobe.
2. Severe ground-glass opacity throughout the lower lobes and right upper lobe.
3. Moderate-sized right and small left pleural effusions.
4. Severe mediastinal lymphadenopathy.
Diagnostic possibilities are (1) SEVERE CAVITARY PNEUMONIA in the left upper lobe and severe pneumonia in both lower lobes and right upper lobe or (2) malignancy (lymphoma or metastatic disease which is likely given the patient's age). TUBERCULOSIS
or FUNGAL DISEASE are diagnostic possibilities.

1. Septic shock - required vasopressors
-Chest x-ray showing bilateral infiltrates
-Blood cultures/sputum culture collected. COVID flu negative
-Patient history of tuberculosis in past AFB culture has been obtained. QuantiFERON test was normal in 23. Repeat QuantiFERON test neg.
-ET tube aspirate culture growing filamentous fungus -ID has requested further identification.
- Aspergillus immunoglobin antibody sent
- Currently on Rocephin only, ID managing antibiotic regimen
2. History of cavitary lung lesion
ARIANA cavitary lung lesion
-ID checking for aspergillus and adding fungal culture
-[facility] records showing CT scan of chest showing bronchiectasis/upper lobe cystic lung disease
-CT chest re-demonstrating the cavitary lesion. Stable from previous reported location/finding on imaging.
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
3. Seizure episode
-thought due to hypoglycemia
-Neuro signed off
-Patient was intubated for this reason, now extubated.
-Will require brain imaging once clinically appropriate
4. Severe Diffuse lymphadenopathy
-highly suspicious for malignancy
-Major intra-abdominal adenopathy suspicious of malignancy
-s/p needle biopsy of right ing LN, f/u results.
-Previous biopsy has shown noncaseating granulomas of unclear significance. Sarcoidosis was ruled out per [facility] records.
5. Hyponatremia -improved
-received 3%NS , improved
-Has history of previous hyponatremia. Reason unclear
-Urine sodium of 98 and urine osmolarity of 292
6. Acute kidney injury on CKD stage unknown
Metabolic acidosis
-appears progressive, creat staying in mid 5 range
-Patient apparently reported to have creatinine in range of 3, has been following with [place] [facility]
- Status post tunnel catheter placement
- Patient getting first round of hemodialysis today
7. Hyperkalemia - resolved
Hypokalemia
- s/p insulin/dextrose and lokelma
- As needed replacement of potassium
8. Episode of hypoglycemia
- unclear if that precipitated the seizure or hyponatremia (less likely as pt chronically hyponatremic)
- extubated and on diet, monitor BG
- Patient had low blood glucose of 30 post admission,
- Discussed with face painter, who prefers for patient to be maintained on dextrose IVF for now
9. Hypercalcemia - Improved
- elevated on admission (12.1 now down to 9.0)
- PTH < 4 /PTHrp Pending. MARY level 121 (normal 16-85)
- Due to chronic granulomatous disease versus malignancy related?
- Calcium level is improved with IV hydration
10. Lactic acidosis
- Possible seizure related, resolving
11. Developmental disorder
Microcephaly
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
- Patient have microcephaly and converges sign scale of 10-year old
- Lives with family and was somewhat independent before hospitalization
12. Acute transaminitis
Elevated ALP
- Persistent mild transaminitis.
- Elevated ALP from infiltrative disease lymphoma? Sarcoidosis? Tuberculosis?
- CT abdomen pelvis showing moderate periportal edema. Surgically absent spleen. Normal biliary duct/gb.
13. Left-sided pleural effusion
Anasarca
Acute hypoxic respiratory insufficiency
- Volume overload state from ESRD
- Patient developed new shortness of breath and minimal hypoxia in the night. Interventional radiology consulted for elective thoracentesis
- Crackles on lung exam, getting HD and should help with volume optimization
Pancreatic lipomatosis
DVT PPX - heparin sq
Code status - Full Code
11/13 care plan discussed with patient father. Nephrology at bedside
11/14 Re-discussed the need of HD cath and family is in agreement
11/15 patient mother at bedside and care plan discussed.
Anticipated Discharge: > 48 hours
Subjective/Interval History
-
Date of Service: November 16, 2024
Patient had new onset of shortness of breath
on 2L o2 through NC
afebrile overnight
Objective Data
-
Labs:
Laboratory Results
11/16/24
06:35
WBC 24.7 H
Hgb 8.6 L
Hct 24.9 L
Plt Count 185
Sodium 137
Potassium 3.9 D
Chloride 111 H
Carbon Dioxide 20 L
BUN 49 H
Creatinine 3.8 H
Glucose 85
Calcium 7.7 L
Total Bilirubin 0.8
AST 100 H
ALT 99 H
Alkaline Phosphatase 1132 H
Vital Signs:
Vital Signs
Temp Pulse Resp BP Pulse Ox
98.2 F 87 18 121/50 95
11/16/24 07:00 11/16/24 07:40 11/16/24 07:40 11/16/24 07:00 11/16/24 07:40
I&O
07/04/3011/16/24 11/17/24
06:59 06:59 06:59
Intake Total 1959
Output Total
Balance 1899
Review of Systems
-
Unable to obtain full review of systems at this time due to: Language Barrier
Physical Exam
-
General: Cachectic
HEENT: Oxygen
Respiratory: Crackles
Cardiac: Regular Rhythm and S1/S2; Negative Murmur or Rub
GI: Soft, Nontender and Distended
Musculoskeletal: Other (Anasarca)
Neuro: Awake, Alert, No Motor Deficits and Nonfocal/Grossly Intact
Psych: Calm
[2024-11-16] MEDS: MANNITOL 25% 12.5 GRAMS IV ×2 (13:20→14:49)
[2024-11-16] MEDS: FLEXBUMIN 25% FOR HEMODIALYSIS 12.5 GRAMS IV ×2 (13:25→14:48)
[2024-11-16] MEDS: RETACRIT 6000 UNITS IV (13:44)
--- NOTE | 2024-11-16 14:34 | W.PN.PUL3 ---
Today's Communication / Plan
-
Continue with HD
Chest x-ray today in my view is likely a expiratory film
Minimal fluid per CT imaging
Continue with plan as below
Await lymph node biopsy
Note steroid dose slowly decreasing
Assessment
-
29-year-old male with complex medical history, including microcephaly, history of multiple pneumonias, treated for 9 months for tuberculosis in 2009, complaining of 6 months of cough, intermittent fevers, followed by infectious disease, nephrology,
endocrinology, pulmonary at [facility] [address] with recent hospital stay 3 weeks ago at , now presents with increased fatigue, emesis, cough and malaise. Family brought patient to the [facility] due to no answers at . patient developed
increased tachypnea, emesis, hypoglycemia with blood sugar less than 30. Patient was intubated, hypoglycemia treated. Sodium on admission 118, increased to 126, stabilized at 125. Patient required initiation of D10 gtt. we are asked to help from
critical care standpoint
Acute respiratory failure
Intubated 11/10/24 (intubated for airway protection in setting of emesis) --> extubated 11/11/24
Bilateral interstitial infiltrates (chronicity unclear)
Bronchiectasis with cystic lung disease per CT imaging at [facility] [address] October 2024
Hypoglycemia, resolved
Hyponatremia/hyperkalemia
Chronic intermittent hyponatremia in the past per records (sodium ranges from 120-137)
Leukocytosis/fevers, hypothermia -leukocytosis due to leukemoid reaction versus myelodysplastic disorder vs leukemia
Bandemia, lymphopenia
Tachycardia � resolved
Incomplete right bundle branch block
Metabolic acidemia
Lactic acidosis � resolved
Acute renal insufficiency, creatinine 6.0 (baseline 2.0 in 2014, follows nephrology at [facility])
Acute seizure (possibly secondary to hypoglycemia in setting of hyponatremia)
Retroperitoneal and abdominal adenopathy per imaging (largest 6.4 cm and left-sided para-aortic retroperitoneal region from CT A/P from 11/09/2024)
Conditions present prior to admission
History of splenectomy/appendectomy in [facility]?
Thrombocytopenia while in [facility]
ITP?
History of microcephaly
History of multiple pneumonias (10+ times)
Prolonged hospital stay for 9 months in 2009 ([facility])
Presumptive diagnosis of tuberculosis status post-treatment
Follows pulmonary at left upper lobe cavitary lung disease
Left upper lobe cavitary lung disease
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
Bronchoscopy at [place] 2022, positive fungal pneumonia
Did not tolerate antifungal therapy per records
Bronchiectasis per prior imaging at [facility]
History of liver disease, follows hepatology at [place] (details unclear)
Hypothyroidism
Plan/recommendations
At this time, patient appears to be comfortable from pulmonary standpoint, on nasal cannula
Chest exam is unchanged, decreased breath sounds at base, crackles
Remains on ceftriaxone
Presently on hydrocortisone 25 mg every 12 hours
Lymph node biopsy pending
Chest x-ray obtained today suspect is an expiratory film. Read as worsening pleural effusions
Moving forward
Continue with incentive spirometry, airway clearance
Maintain antibiotic therapy for now, ID following
Antibiotics narrowed, now on ceftriaxone s/p cefepime/doxycycline. Vancomycin discontinued
AFB blood + sputum cultures show NGTD, Legionella ETT culture shows filamentous fungus; respiratory culture from 11/10/2024 from sputum has grown Eleanor albicans, and fungus culture from ETT on 11/11 has grown yeast; ID has asked micro to further
identify the filamentous fungi
Defer treating with antifungals to ID
CT chest obtained (11/14) showing thick-walled cavitary mass in the left upper lobe, with severe groundglass opacification with fluid infissures with bilateral pleural effusions, and severe mediastinal lymphadenopathy --> pleural effusions could be
explained by his acute renal failure, and unable to assess if this left upper lobe cystic lesion is stable or worsening as unable to review prior imaging from [facility]
Prior records suggest crescent sign, prior suspicion for aspergilloma
Chest x-ray with worsening interstitial changes, pleural effusion
Based on CT imaging, suspect pleural effusions are small and current film is expiratory
Family states patient has chronic lung disease, chronic cough. No prior films available for review
Dr[facility] Wood[facility]
Bronchiectasis, cavitary lung disease with bronchoscopy in the past suspicious for aspergilloma based on imaging and possible positive biopsy
Family unaware of details
Chest x-ray with persistent bilateral interstitial infiltrates/opacities with GGO
CT chest at [facility] October 2024 reveals bronchiectasis, cystic lung disease
Patient does follow-up with infectious disease at [facility]. family not aware of vaccine status
History of splenectomy noted per history, and confirmed per report although report is nebulous
Urine Legionella and streptococcal pneumonia antigen negative
Influenza, COVID-negative
Acute renal failure noted
Baseline creatinine 2.0 as of 2014, progressive over the past few years according to family. Patient follows nephrology at [facility]
Now with HD
Significant adenopathy noted on abdominal imaging, 6.4 cm retroperitoneal adenopathy and mesenteric adenopathy
Worrisome for underlying malignancy
Underwent IR CT-guided biopsy of inguinal lymphadenopathy today (11/14) - concern for lymphoma
Pending
Right upper extremity PICC line in place --> removed on 11/13
DVT prophylaxis: HSQ (may need to be held given that the HD catheter insertion site is oozing blood)
GI prophylaxis: PPI
Reviewed with father at bedside, and brother by phone
Subjective Data
-
Date of Service:
Date of Service: November 16, 2024
Chief Complaint: Pulmonary Follow Up
Subjective:
Patient examined earlier this morning. Presently on 2 L of oxygen. Through brother by phone, patient fatigued but otherwise no change in cough, shortness of breath. Ambulating without difficulty. Was tired yesterday with dialysis. Father at
bedside as well
Objective Data
Data Reviewed
Vital Signs / I&O / Oxygen:
Vital Signs
Temp Pulse Resp BP Pulse Ox
98.2 F 87 18 121/50 95
11/16/24 07:00 11/16/24 07:40 11/16/24 07:40 11/16/24 07:00 11/16/24 07:40
Intake and Output
11/15/24 11/16/24 11/17/24
06:59 06:59 06:59
Intake Total 1959 / 1959
Output Total 60 / 60
Balance 190 / 190
SaO2 [CPAP/PSV] 98
SaO2 [ASV] 98
SaO2 [A/C] 95
SaO2 95
Nasal Cannula flow liters per 2
minute
Physical Exam
General: Comfortable and Other (Right IJ HD cath)
HEENT: Normocephalic and Anicteric
Cardiovascular: S1-S2 and Peripheral Edema (1+)
Respiratory: Wheeze (negative), Crackles (Bilateral), Rhonchi (negative), Non-Labored Respirations and Stridor (n)
GI: Soft, Non Distended and Non Tender
Neurology: Awake, Alert, No Motor Deficits and Other (Drowsy at times)
Skin: Warm, Dry, Cyanosis (negative) and Jaundice (negative)
Labs/Micro/Reports
Lab Data
11/16/24 06:35
11/16/24 06:35
Microbiology
11/11/24 09:52 Endotracheal Fungal Culture - Preliminary
Yeast
11/14/24 14:30 Lymph Node Tissue Culture - Preliminary
No Growth After 48 Hours
11/14/24 14:30 Lymph Node Gram Stain - Preliminary
11/10/24 12:32 Endotracheal Fungus Mold Identification - Preliminary
11/09/24 20:04 Blood/Venous Blood Culture - Final
No Growth - Final Report
11/09/24 20:04 Blood/Venous Blood Culture - Final
No Growth - Final Report
11/10/24 12:32 Endotracheal Specimen Source - Final
11/10/24 12:32 Endotracheal Legionella pneumophila (Direct FA) - Final
11/10/24 12:32 Endotracheal Legionella Culture - Preliminary
Filamentous fungus
11/12/24 10:12 Blood/Venous AFB Blood Culture - Preliminary
11/10/24 17:13 Endotracheal Acid Fast Bacilli Smear - Preliminary
11/10/24 17:13 Endotracheal Acid Fast Bacilli Culture - Preliminary
--- NOTE | 2024-11-16 15:57 | W.PN.NEPH.HD ---
Assessment
-
pt seen during HD
vitals stable
UF as tolerates, wean O2 as able
CVC functions well
d/w mother
Progress Note - Hemodialysis
-
Date of Service: November 16, 2024
Duration: 45 minutes and 2 hours
Potassium Bath: 3
Calcium Bath: 2.5
Opti-Dialyzer: 160
Ultrafiltration: Other (05-1kg)
Blood Flow: 300
Dialysate Flow: 600
Heparin: no
EPO: 6000
[2024-11-16 16:49] LABS: Glucose - Point of Care 120 mg/dl (70-99)
[2024-11-16 17:19] LABS: PTH Related Peptide LC-MS/MS 4.4 pmol/L (0.0-2.3)
[2024-11-16 21:15] LABS: Glucose - Point of Care 225 mg/dl (70-99)
[2024-11-16 23:42] VITALS: BP 113/79
[2024-11-17] MEDS: SYNTHROID 88 MCG PO (05:25)
[2024-11-17 06:00] VITALS: BMI 19.0
[2024-11-17 07:30] VITALS: BP 127/84
[2024-11-17] MEDS: PULMICORT 0.25 MG INH (07:34)
[2024-11-17 07:39] LABS: Hematocrit 24.1 % (39.0-52.0); Hemoglobin 8.0 g/dL (13.0-18.0); Mean Corp Hgb Conc. 33.2 g/dL (33.0-37.0); Mean Corpuscular Volume 90.9 fL (80.0-94.0); Platelet Count 163 10^3/uL (130-400); Red Cell Dist. Width 17.2 % (11.5-14.5)
[2024-11-17 07:41] LABS: Glucose - Point of Care 91 mg/dl (70-99)
[2024-11-17 08:21] LABS: ALT (SGPT) 120 U/L (0-50); AST (SGOT) 113 U/L (17-59); Albumin 2.8 g/dl (3.5-5.0); Alkaline Phosphatase 1178 U/L (38-126); Blood Urea Nitrogen 24 mg/dl (9-20); Calcium 7.6 mg/dl (8.4-10.2); Carbon Dioxide 24 mmol/L (22-30); Chloride 105 mmol/L (98-107); Estimated Creatinine Clearance 22 ml/min; Glucose 72 mg/dl (70-99); Potassium 3.4 mmol/L (3.5-5.1); Sodium 135 mmol/L (135-145); Total Protein 4.8 g/dl (6.3-8.2); eGFR 27.61
[2024-11-17] MEDS: NOVOLOG FLEXPEN-LOW RESISTANCE SC ×3 (08:31→16:26)
[2024-11-17] MEDS: DELTASONE 30 MG PO (08:39)
[2024-11-17] MEDS: PROTONIX 40 MG PO (08:39)
[2024-11-17] MEDS: HEPARIN 2500 UNITS SC ×2 (08:39→16:33)
--- NOTE | 2024-11-17 09:32 | W.PN.PUL3 ---
Today's Communication / Plan
-
Off O2 today, SOB ongoing but could be functional given shallow breaths
Will try IS and albuterol nebs
CT AP recommended given abdominal issues, last reported on 11/09--discussed with care team
Further volume removal via HD, not enough on US to tap
Eventually will need CT chest when volume removed to review underlying lung [place]
OOB, PT/OT encouraged, family states he only started ambulating to bathroom today
Prednisone taper
Assessment
-
29-year-old male with complex medical history, including microcephaly, history of multiple pneumonias, treated for 9 months for tuberculosis in 2009, complaining of 6 months of cough, intermittent fevers, followed by infectious disease, nephrology,
endocrinology, pulmonary at [facility] with recent hospital stay 3 weeks ago at , now presents with increased fatigue, emesis, cough and malaise. Family brought patient to the [facility] due to no answers at . patient developed
increased tachypnea, emesis, hypoglycemia with blood sugar less than 30. Patient was intubated, hypoglycemia treated. Sodium on admission 118, increased to 126, stabilized at 125. Patient required initiation of D10 gtt. we are asked to help from
critical care standpoint
Acute respiratory failure
Intubated 11/10/24 (intubated for airway protection in setting of emesis) --> extubated 11/11/24
Bilateral interstitial infiltrates (chronicity unclear)
Bronchiectasis with cystic lung disease per CT imaging at [facility] October 2024
Hypoglycemia, resolved
Hyponatremia/hyperkalemia
Chronic intermittent hyponatremia in the past per records (sodium ranges from 120-137)
Leukocytosis/fevers, hypothermia -leukocytosis due to leukemoid reaction versus myelodysplastic disorder vs leukemia
Bandemia, lymphopenia
Tachycardia � resolved
Incomplete right bundle branch block
Metabolic acidemia
Lactic acidosis � resolved
Acute renal insufficiency, creatinine 6.0 (baseline 2.0 in 2014, follows nephrology at [facility])
Acute seizure (possibly secondary to hypoglycemia in setting of hyponatremia)
Retroperitoneal and abdominal adenopathy per imaging (largest 6.4 cm and left-sided para-aortic retroperitoneal region from CT A/P from 11/09/2024)
Conditions present prior to admission
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
Thrombocytopenia while in [facility]
ITP?
History of microcephaly
History of multiple pneumonias (10+ times)
Prolonged hospital stay for 9 months in 2009 ([facility])
Presumptive diagnosis of tuberculosis status post-treatment
Follows pulmonary at left upper lobe cavitary lung disease
Left upper lobe cavitary lung disease
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
Bronchoscopy at [place] 2022, positive fungal pneumonia
Did not tolerate antifungal therapy per records
Bronchiectasis per prior imaging at [facility]
History of liver disease, follows hepatology at [place] (details unclear)
Hypothyroidism
Plan/recommendations
At this time, patient appears to be comfortable from pulmonary standpoint, on nasal cannula 93% on 2L--RA now
Chest exam is unchanged, decreased breath sounds at base, crackles
Restriction and lack of OOB mobility likely an issue
IS and inhalers to be added
Remains on ceftriaxone
Presently on hydrocortisone 25 mg every 12 hours
Lymph node biopsy pending
Chest x-ray obtained today suspect is an expiratory film. Read as worsening pleural effusions
Would need repeat CT eventually when fluid not an issue
Moving forward
Continue with incentive spirometry, airway clearance
Maintain antibiotic therapy for now, ID following
Antibiotics narrowed, now on ceftriaxone s/p cefepime/doxycycline. Vancomycin discontinued
AFB blood + sputum cultures show NGTD, Legionella ETT culture shows filamentous fungus; respiratory culture from 11/10/2024 from sputum has grown Eleanor albicans, and fungus culture from ETT on 11/11 has grown yeast; ID has asked micro to further
identify the filamentous fungi
Defer treating with antifungals to ID
CT chest obtained (11/14) showing thick-walled cavitary mass in the left upper lobe, with severe groundglass opacification with fluid infissures with bilateral pleural effusions, and severe mediastinal lymphadenopathy --> pleural effusions could be
explained by his acute renal failure, and unable to assess if this left upper lobe cystic lesion is stable or worsening as unable to review prior imaging from [facility]
Prior records suggest crescent sign, prior suspicion for aspergilloma
Chest x-ray with worsening interstitial changes, pleural effusion
Based on CT imaging, suspect pleural effusions are small and current film is expiratory
Family states patient has chronic lung disease, chronic cough. No prior films available for review
Dr. Woodruff reviewed extensive records from [facility]
Bronchiectasis, cavitary lung disease with bronchoscopy in the past suspicious for aspergilloma based on imaging and possible positive biopsy
Family unaware of details
Chest x-ray with persistent bilateral interstitial infiltrates/opacities with GGO
CT chest at [facility] October 2024 reveals bronchiectasis, cystic lung disease
Patient does follow-up with infectious disease at . family not aware of vaccine status
History of splenectomy noted per history, and confirmed per report although report is nebulous
Urine Legionella and streptococcal pneumonia antigen negative
Influenza, COVID-negative
Unknown HIV status
Acute renal failure noted
Baseline creatinine 2.0 as of 2014, progressive over the past few years according to family.
Patient follows nephrology at
Now with HD
Significant adenopathy noted on abdominal imaging, 6.4 cm retroperitoneal adenopathy and mesenteric adenopathy
Worrisome for underlying malignancy
Underwent IR CT-guided biopsy of inguinal lymphadenopathy today (11/14) - concern for lymphoma
Pending
Abd distension firmness noted, repeat CT AP recommended
Discussed with care team
Right upper extremity PICC line in place --> removed on 11/13
DVT prophylaxis: HSQ (may need to be held given that the HD catheter insertion site is oozing blood)
GI prophylaxis: PPI
Reviewed with father at bedside, and brother by phone
Diagnostic Data
Chest X-Ray: 11/16/24-Findings suggesting severe pulmonary edema. Pneumonia and underlying pulmonary fibrosis not excluded. Significantly progressed. Prior chest CT identified left upper lobe cavitary masses. Poorly seen by x-ray examination
11/12/24-Patchy bilateral parenchymal opacities, most likely representing pneumonia.
US chest 11/17/24-Small right pleural effusion. Amount of fluid present not sufficient for safe thoracentesis.
CT Scan: CHEST 11/14/24-1. 3.5 cm and 3.0 cm thick walled cavitary masses in the left upper lobe.
2. Severe ground-glass opacity throughout the lower lobes and right upper lobe.
3. Moderate-sized right and small left pleural effusions.
4. Severe mediastinal lymphadenopathy.
Echo: 11/10/24-Normal left ventricular chamber size. Normal left ventricular systolic function. Left ventricular ejection fraction is 50-55%. Normal regional wall motion. Normal left ventricular wall thickness. Normal diastolic function.
PFT's:
Reports and relevant images were personally reviewed.
Total time spent on this consultation/encounter __52__ minutes which includes review of history, physical exam, medications, laboratory data, personal review of imaging, extensive review of outpatient records, discussion with care team and
respiratory therapy.
Subjective Data
-
Date of Service:
Date of Service: November 17, 2024
Chief Complaint: Pulmonary Follow Up
Subjective:
Remains stable on RA, shallow breaths noted
Family at bedside concerned about his belly
Cough noted as well
Objective Data
Data Reviewed
Vital Signs / I&O / Oxygen:
Vital Signs
Temp Pulse Resp BP Pulse Ox
98.7 F 107 18 127/84 92
11/17/24 07:30 11/17/24 07:30 11/17/24 07:30 11/17/24 07:30 11/17/24 07:30
Intake and Output
11/16/24 11/17/24 11/18/24
06:59 06:59 06:59
Intake Total 180 / 180
Output Total 120 / 120
Balance 60 / 60
SaO2 [CPAP/PSV] 98
SaO2 [ASV] 98
SaO2 [A/C] 95
SaO2 92
Nasal Cannula flow liters per 2
minute
Physical Exam
General: Comfortable and Other (Right IJ HD cath)
HEENT: Normocephalic, Anicteric and Moist Mucous Membranes
Cardiovascular: S1-S2, Regular Rhythm and Peripheral Edema (1+)
Respiratory: Wheeze (negative), Crackles (Bilateral), Rhonchi (negative), Non-Labored Respirations and Stridor (n)
GI: Soft, Non Distended and Non Tender
Neurology: Awake, Alert, No Motor Deficits and Other (Drowsy at times)
Skin: Warm, Dry, Cyanosis (negative) and Jaundice (negative)
Labs/Micro/Reports
Lab Data
11/17/24 06:34
11/17/24 06:34
Microbiology
11/14/24 14:30 Lymph Node Tissue Culture - Final
No Growth After 72 Hours
11/14/24 14:30 Lymph Node Gram Stain - Final
11/11/24 09:52 Endotracheal Fungal Culture - Preliminary
Eleanor albicans
11/10/24 12:32 Endotracheal Fungus Mold Identification - Preliminary
11/09/24 20:04 Blood/Venous Blood Culture - Final
No Growth - Final Report
11/09/24 20:04 Blood/Venous Blood Culture - Final
No Growth - Final Report
11/10/24 12:32 Endotracheal Specimen Source - Final
11/10/24 12:32 Endotracheal Legionella pneumophila (Direct FA) - Final
11/10/24 12:32 Endotracheal Legionella Culture - Preliminary
Filamentous fungus
[2024-11-17 10:19] VITALS: BP 123/93; BP_SYST 120
[2024-11-17] MEDS: STERILE WATER FOR INJECTION 10 ML IV (11:22)
[2024-11-17] MEDS: ROCEPHIN 1000 MG IV (11:22)
[2024-11-17 11:45] LABS: Glucose - Point of Care 117 mg/dl (70-99)
--- NOTE | 2024-11-17 12:33 | PTOTSP ---
Video Swallow Examination
Patient presents with an oral/pharyngeal dysphagia characterized by disorganized oral transfer (large volume, neck hyperextension), and delayed swallow timing with liquids resulting in fairly consistent aspiration of thin liquid across presentation
methods and mildly thick liquid by straw. When utilizing smaller sips, there was less aspiration of thin liquids, though patient had occasional difficulty maintaining chin tuck posture throughout entirety of swallow. Cough response to aspiration was
inconsistent.
Recommend
1. Regular solids and Mildly thick liquid
2. NO STRAWS
3. Meds in applesauce (crush as needed)
4. Small sips - may benefit from regulating drinking cup.
5. Supervision with meals to ensure appropriate amount and rate of intake.
6. Aspiration precautions.
ST will follow and provide family education.
--- NOTE | 2024-11-17 13:42 | W.PN.NEPH.PH ---
Today's Communication / Plan
-
Dialysis tomorrow
Assessment/Plan
-
Assessment
Microcephaly, short stature
Hypoparathyroidism
Hypercalcemia
CKD 5 progressive
Hyperkalemia
Hyponatremia
Abdominal lymphadenopathy
History of cavitary lung lesion, multiple pneumonia
Bilateral infiltrates lung
Splenectomy
Plan
s/p lymph node biopsy pending
Discussed with father at bedside with family as endocrinology teacher.
Initial dialysis 11/15 x 2
No acute need for dialysis today
Dialysis ordered for tomorrow
Patient does not appear volume overloaded as his weights are stable with very little ultrafiltration with dialysis
Patient's family stated his abdomen is distended= we will check imaging /hospitalist aware
D/W pulm
-
-
Date of Service: November 17, 2024
CC / HPI / ROS
-
Chief Complaint:
CKD, hyperkalemia, hyponatremia
History of Present Illness:
no new seizures
BRENDON/Cr
Progressive CKD
WBC improving
Review of Systems:
UOP not measured off fletcher
no pain/fever
Difficult to obtain ROS
Weight stable not on oxygen
Labs
-
Labs:
WBC 26.1 10^3/uL (4.8-10.8) H 11/17/24 06:34
RBC 2.65 10^6/uL (4.70-6.10) L 11/17/24 06:34
Hgb 8.0 g/dL (13.0-18.0) L 11/17/24 06:34
Hct 24.1 % (39.0-52.0) L 11/17/24 06:34
Plt Count 163 10^3/uL (130-400) 11/17/24 06:34
Sodium 135 mmol/L (135-145) 11/17/24 06:34
Potassium 3.4 mmol/L (3.5-5.1) L 11/17/24 06:34
Chloride 105 mmol/L (98-107) 11/17/24 06:34
Carbon Dioxide 24 mmol/L (22-30) 11/17/24 06:34
BUN 24 mg/dl (9-20) H 11/17/24 06:34
Creatinine 3.0 mg/dL (0.7-1.3) H 11/17/24 06:34
eGFR 27.61 11/17/24 06:34
Glucose 72 mg/dl (70-99) 11/17/24 06:34
Calcium 7.6 mg/dl (8.4-10.2) L 11/17/24 06:34
Phosphorus 4.8 mg/dl (2.5-4.5) H 11/14/24 08:27
Albumin 2.8 g/dl (3.5-5.0) L 11/17/24 06:34
Physical Exam
-
Vital Signs:
Vital Signs
Temp Pulse Resp BP Pulse Ox
98.8 F 120 20 123/93 92
11/17/24 11:21 11/17/24 10:19 11/17/24 10:19 11/17/24 10:19 11/17/24 10:19
Cardiovascular:: Regular rate and rhythm
Respiratory:: Bilateral: Coarse
Lung Excursion:: Normal
Abdomen:: Nontender and Soft
Bowel Sounds:: Normal
Extremity Edema:: +1: Bilateral:
Fletcher Catheter: No
--- NOTE | 2024-11-17 14:33 | W.PN.ID1 ---
Date of Service
Date of Service: November 17, 2024
Today's Communication
D/C abx and observe.
Assessment / Plan
s/p Ventilator dependent respiratory failure
BRENDON on CKD - started HD 11/15
Hyponatremia
Suspected pneumonia
Leukocytosis - improved
Lactic acidosis
Anemia
Hyperkalemia
Significant mediastinal and abdominal lymphadenopathy on CT
Possible TB (Tx for 9 months in [facility], although not clear if empiric only)
Microcephaly
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
Recommendations:
Sputum culture without Pseudomonas.
Legionella culture negative, although 'filamentous fungus' seen on plate; DFA negative
Fungal cx: yeast
Currently d#9 abx tx.
At this point, patient appears clinically stable. Will D/C further abx and observe.
Respiratory AFB stain/culture x 3 performed. AFB stain negative x 3. Patient removed from Airborne Isolation.
AFB blood culture pending.
11/14/24 s/p IR right groin lymph node biopsy.
Cx neg to date
Path pending.
Video swallowing study results noted positive for aspiration.
Monitor white count and temperature curve.
Old records from [facility] with reports of prior fungal infection noted.
Aspergillus antibodies pending, along with dedicated sputum fungal culture.
Continue with supportive measures.
����������������������������������������������������������
Chief Complaint
-: Leukocytosis and Pneumonia
Subjective / Review of Systems
Pt seen / examined. Father and sister at the bedside. They report that he appears brighter today. Still with some cough.
Review of Systems: No Fever and No Chills
Vital Signs / Physical Exam
Vital Signs
Vital Signs
Temp Pulse Resp BP Pulse Ox
98.8 F 120 20 123/93 92
11/17/24 11:21 11/17/24 10:19 11/17/24 10:19 11/17/24 10:19 11/17/24 10:19
Physical Exam
Constitutional: No Acute Distress, Comfortable and Non-toxic
Eyes: No Conjunctival Hemorrhage and Sclera Anicteric
Cardiovascular: Regular Rate; Negative S3/S4
Pulmonary: Coarse and Non Labored; Negative Rhonchi
Gastrointestinal: Soft, Non Tender and Non Distended
Extremities: Edema; Negative Clubbing or Cyanosis
Neurological: Awake and Alert
Psychological: Calm
Objective Data
Lab Data
Lab Results
11/17/24 06:34
11/17/24 06:34
PT 13.9 Sec (11.4-14.6) 11/10/24 05:37
INR 1.04 11/10/24 05:37
APTT 44.1 Sec (23.4-35.0) H 11/10/24 05:37
Estimated Creat Clear 22 ml/min 11/17/24 06:34
Lactic Acid 1.9 mmol/L (0.7-2.0) 11/14/24 08:27
Total Bilirubin 0.9 mg/dl (0.2-1.3) 11/17/24 06:34
AST 113 U/L (17-59) H 11/17/24 06:34
ALT 120 U/L (0-50) H 11/17/24 06:34
Alkaline Phosphatase 1178 U/L (38-126) H 11/17/24 06:34
Most recent labs reviewed.
Micro Results:
11/11/24 09:52 Fungal Culture - Preliminary
Endotracheal Eleanor albicans
11/14/24 14:30 Tissue Culture - Final
Lymph Node No Growth After 72 Hours
Gram Stain - Final
11/10/24 12:32 Fungus Mold Identification - Preliminary
Endotracheal
11/09/24 20:04 Blood Culture - Final
Blood/Venous No Growth - Final Report
11/09/24 20:04 Blood Culture - Final
Blood/Venous No Growth - Final Report
11/10/24 12:32 Specimen Source - Final
Endotracheal Legionella pneumophila (Direct FA) - Final
Legionella Culture - Preliminary
Filamentous fungus
11/12/24 10:12 AFB Blood Culture - Preliminary
Blood/Venous
11/10/24 17:13 Acid Fast Bacilli Smear - Preliminary
Endotracheal Acid Fast Bacilli Culture - Preliminary
11/10/24 12:32 Acid Fast Bacilli Smear - Preliminary
Endotracheal Acid Fast Bacilli Culture - Preliminary
11/10/24 07:58 Respiratory Culture - Final
Sputum Eleanor albicans
Gram Stain - Final
11/10/24 07:58 Acid Fast Bacilli Smear - Preliminary
Sputum Acid Fast Bacilli Culture - Preliminary
11/10/24 07:58 Nasal Screen MRSA (PCR) - Final
Nose MRSA not detected - performed by PCR methodology.
11/10/24 05:58 Legionella Urinary Antigen - Final
Urine Negative for Legionella pneumophila Serogroup 1 antigen.
A negative result does not rule out the possiblity of
Legionella infection due to other serogroups or species of
Legionella. Clinical correlation is recommended.
Streptococcus pneumoniae Antigen (M - Final
Negative for Streptococcus pneumoniae antigen.
A negative result does not exclude infection with
Streptococcus pneumoniae. Clinical correlation is
recommended.
11/10/24 00:38 Influenza Types A & B (YADIRA) - Final
Nasal Swab Negative for Influenza A & B, NAAT
Negative results must be combined with clinical observations
and patient history.
Nucleic Acid Amplification test (NAAT)performed on the
Experenti platform.
Imaging:
chest: 3.5 cm and 3.0 cm thick walled cavitary masses in the left upper lobe. Severe ground-glass opacity throughout the lower lobes and right upper lobe.
Moderate-sized right and small left pleural effusions. Severe mediastinal lymphadenopathy.
11/09/2024 CT abdomen/pelvis without contrast: Severe abdominal lymphadenopathy with markedly enlarged mesenteric, retroperitoneal and upper abdominal lymph nodes. Small volume ascites. Moderate to severe chronic renal disease. Severe pancreatic
lipomatosis. Moderate distal small bowel distention; suspected ileus. Diffuse groundglass pulmonary disease suspected to be inflammatory although cannot rule out infectious etiology. Mild focal left lower lobe airspace consolidation and possible
mild pneumonia. Please see full dictation for additional detail. Film personally viewed.
11/09/2024 CXR (portable): Bilateral parenchymal opacities. No evidence for cavitation. No evidence for pleural effusion. Please see full dictation for additional detail.
[2024-11-17 15:30] VITALS: BP 129/91
--- NOTE | 2024-11-17 16:00 | PTCARENOTE ---
patient moving from bed to stretcher to go to xray. Patient coughed up a spot of blood onto blanket. Patient states his throat does not hurt and there is no visible blood in patient's mouth upon assessment. MD Lipscomb notified. new orders placed.
will continue to monitor.
--- NOTE | 2024-11-17 16:08 | W.PN.HOSP.TC ---
Today's Communication/Plan
-
Observe off antibiotics
Reported minimal hemoptysis. Quantify
Follow lymph node biopsy path
Noted with firm, mildly distended abdomen, although denies any symptoms of nausea or vomiting. Daily BMs. Will check obstruction series.
Assessment / Plan
Assessment / Plan
Impression:
Presentation with acute respiratory failure.
VDRF
� Intubated 11/10/2024
� Extubated 11/11/2024
Bilateral cavitary pneumonia
Sepsis present on admission currently resolved
Hyponatremia/hyperkalemia improved.
Hypoglycemia resolved.
Acute kidney injury CKD stage V requiring HD initiation.
Metabolic acidosis.
Lactic acidosis.
Seizure suspected secondary to hypoglycemia.
Diffuse lymphadenopathy
Other conditions:
Microcephaly with developmental delay.
History of splenectomy/appendectomy in [place].
Recurrent pneumonias.
Presumptive diagnosis of tuberculosis status posttreatment. Details not clear
History of fungal pneumonia proven by bronchoscopy at [facility] 2022. 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
Bronchiectasis
Hepatitis?
Chronic normocytic anemia
Hypothyroidism replaced
Plan
1. Septic shock - required vasopressors. Bilateral cavitary pneumonia (left upper lobe cavitary lung lesion)
-Chest x-ray showing bilateral infiltrates
-Blood cultures/sputum culture collected. COVID flu negative
-Patient history of tuberculosis in past AFB culture has been obtained. QuantiFERON test was normal in 23. Repeat QuantiFERON test neg.
- Status post bronchoscopy. ET tube aspirate culture growing filamentous fungus -ID has requested further identification.
- Aspergillus immunoglobin antibody pending
-Sputum AFB stain negative x 3, pending cultures. QuantiFERON gold reported intermediate. Isolation discontinued.
-Diffuse lymphadenopathy. Status post right inguinal lymph node biopsy with negative cultures. Path pending
-Concern for ongoing aspiration syndrome. Speech and swallow including VSE evaluation noted. Diet adjusted with thickened liquids.
-Completed 7-day course of antibiotics. Ceftriaxone discontinued on 11/17.
- Current respiratory status is stable with no requirements of supplemental oxygen.
- 11/17 noted mild hemoptysis. Will continue to quantify.
2. Seizure episode
-thought due to hypoglycemia
-Neuro signed off
-Patient was intubated for this reason, now extubated.
-Will require brain imaging once clinically appropriate
3. Severe Diffuse lymphadenopathy
-highly suspicious for malignancy
-Major intra-abdominal adenopathy suspicious of malignancy
-s/p needle biopsy of right ing LN, f/u results.
-Previous biopsy has shown noncaseating granulomas of unclear significance. Sarcoidosis was ruled out per [facility] records.
4. Hyponatremia -improved
-received 3%NS , improved
-Has history of previous hyponatremia. Reason unclear
-Urine sodium of 98 and urine osmolarity of 292
5. Acute kidney injury on CKD stage unknown
Metabolic acidosis
-appears progressive, creat staying in mid 5 range
-Patient apparently reported to have creatinine in range of 3, has been following with [place] [facility]
- Status post tunnel catheter placement
- Patient getting first round of hemodialysis today
6. Hyperkalemia - resolved
Hypokalemia
- s/p insulin/dextrose and lokelma
- As needed replacement of potassium
7. Episode of hypoglycemia
- unclear if that precipitated the seizure or hyponatremia (less likely as pt chronically hyponatremic)
- extubated and on diet, monitor BG
- Patient had low blood glucose of 30 post admission,
- Discussed with cloth measurer machine, who prefers for patient to be maintained on dextrose IVF for now
8. Hypercalcemia - Improved
- elevated on admission (12.1 now down to 9.0)
- PTH < 4 /PTHrp Pending. MARY level 121 (normal 16-85)
- Due to chronic granulomatous disease versus malignancy related?
- Calcium level is improved with IV hydration
9. Lactic acidosis
- Possible seizure related, resolving
10. Developmental disorder
Microcephaly
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
- Patient have microcephaly and converges sign scale of 10-year old
- Lives with family and was somewhat independent before hospitalization
11. Acute transaminitis
Elevated ALP
- Persistent mild transaminitis.
- Elevated ALP from infiltrative disease lymphoma? Sarcoidosis? Tuberculosis?
- CT abdomen pelvis showing moderate periportal edema. Surgically absent spleen. Normal biliary duct/gb.
12. Left-sided pleural effusion
Anasarca
Acute hypoxic respiratory insufficiency
- Volume overload state from ESRD
- Attempt thoracentesis on 11/17 with not enough fluids
Pancreatic lipomatosis
DVT PPX - heparin sq
Code status - Full Code
Anticipated Discharge: > 48 hours
Subjective/Interval History
-
Date of Service: November 17, 2024
Objective Data
-
Labs:
Laboratory Results
11/17/24
06:34
WBC 26.1 H
Hgb 8.0 L
Hct 24.1 L
Plt Count 163
Sodium 135
Potassium 3.4 L
Chloride 105
Carbon Dioxide 24
BUN 24 H
Creatinine 3.0 H
Glucose 72
Calcium 7.6 L
Total Bilirubin 0.9
AST 113 H
ALT 120 H
Alkaline Phosphatase 1178 H
Vital Signs:
Vital Signs
Temp Pulse Resp BP Pulse Ox
97.3 F 110 18 129/91 96
11/17/24 15:30 11/17/24 15:30 11/17/24 15:30 11/17/24 15:30 11/17/24 15:30
I&O
11/16/24 11/17/24 11/18/24
06:59 06:59 06:59
Intake Total 180 / 180
Output Total 120 / 120
Balance 60 / 60
Physical Exam
-
General: Well Developed and No Apparent Distress
HEENT: Normocephalic, Atraumatic and Moist Mucous Membranes
Respiratory: Clear to Auscultation
Cardiac: Regular Rhythm and S1/S2; Negative Murmur, Rub or Gallop
GI: Soft, Nontender, Normal Bowel Sounds and Other (Firm, mild distention, nontender); Negative Organomegaly
Rectal: Deferred by Provider
Musculoskeletal: No Clubbing, No Cyanosis and No Edema
Skin: Negative Rash
Neuro: Nonfocal/Grossly Intact
[2024-11-17 16:27] LABS: Glucose - Point of Care 126 mg/dl (70-99)
[2024-11-17] MEDS: VENTOLIN NEBULES 2.5 MG INH (17:47)
[2024-11-17 21:43] LABS: Glucose - Point of Care 161 mg/dl (70-99)
[2024-11-17 23:33] VITALS: BP 131/90
[2024-11-18] VITALS (15 sets, daily range): BP systolic 113–134; BP diastolic 72–90; BMI 19.4
[2024-11-18] MEDS: HEPARIN 2500 UNITS SC ×3 (00:26→16:34)
[2024-11-18] MEDS: ROBITUSSIN 100 MG PO ×4 (04:12→20:55)
[2024-11-18] MEDS: SYNTHROID 88 MCG PO (06:06)
[2024-11-18] MEDS: DELTASONE 30 MG PO (07:45)
[2024-11-18] MEDS: PROTONIX 40 MG PO (07:45)
[2024-11-18 07:58] LABS: Hematocrit 24.3 % (39.0-52.0); Hemoglobin 8.2 g/dL (13.0-18.0); Mean Corp Hgb Conc. 33.7 g/dL (33.0-37.0); Mean Corpuscular Volume 91.7 fL (80.0-94.0); Platelet Count 148 10^3/uL (130-400); Red Cell Dist. Width 17.5 % (11.5-14.5)
[2024-11-18] MEDS: VENTOLIN NEBULES 2.5 MG INH ×2 (08:04→13:19)
[2024-11-18 08:05] LABS: Glucose - Point of Care 89 mg/dl (70-99)
[2024-11-18] MEDS: NOVOLOG FLEXPEN-LOW RESISTANCE SC ×2 (08:08→16:53)
[2024-11-18 08:38] LABS: Blood Urea Nitrogen 31 mg/dl (9-20); Calcium 7.3 mg/dl (8.4-10.2); Carbon Dioxide 22 mmol/L (22-30); Chloride 105 mmol/L (98-107); Estimated Creatinine Clearance 18 ml/min; Glucose 69 mg/dl (70-99); Potassium 3.6 mmol/L (3.5-5.1); Sodium 134 mmol/L (135-145); eGFR 20.79
--- NOTE | 2024-11-18 09:40 | W.PN.PUL3 ---
Today's Communication / Plan
-
Improving, repeat CXR showing improvement on my review
Volume removal ongoing per HD, renal service
Encouraged further airway clearance/mobility, IS/OOB
Prednisone taper
Cough ongoing, will add Tesslon and Mucinex TID
Will repeat image in next 48 hours to see if improving
(Translation today using eveline)
Assessment
-
29-year-old male with complex medical history, including microcephaly, history of multiple pneumonias, treated for 9 months for tuberculosis in 2009, complaining of 6 months of cough, intermittent fevers, followed by infectious disease, nephrology,
endocrinology, pulmonary at [facility] with recent hospital stay 3 weeks ago at , now presents with increased fatigue, emesis, cough and malaise. Family brought patient to the [facility] due to no answers at . patient developed
increased tachypnea, emesis, hypoglycemia with blood sugar less than 30. Patient was intubated, hypoglycemia treated. Sodium on admission 118, increased to 126, stabilized at 125. Patient required initiation of D10 gtt. we are asked to help from
critical care standpoint
Acute respiratory failure
Intubated 11/10/24 (intubated for airway protection in setting of emesis) --> extubated 11/11/24
Bilateral interstitial infiltrates (chronicity unclear)
Bronchiectasis with cystic lung disease per CT imaging at [facility] October 2024
Hypoglycemia, resolved
Hyponatremia/hyperkalemia
Chronic intermittent hyponatremia in the past per records (sodium ranges from 120-137)
Leukocytosis/fevers, hypothermia -leukocytosis due to leukemoid reaction versus myelodysplastic disorder vs leukemia
Bandemia, lymphopenia
Tachycardia � resolved
Incomplete right bundle branch block
Metabolic acidemia
Lactic acidosis � resolved
Acute renal insufficiency, creatinine 6.0 (baseline 2.0 in 2014, follows nephrology at [facility])
Acute seizure (possibly secondary to hypoglycemia in setting of hyponatremia)
Retroperitoneal and abdominal adenopathy per imaging (largest 6.4 cm and left-sided para-aortic retroperitoneal region from CT A/P from 11/09/2024)
Conditions present prior to admission
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
Thrombocytopenia while in [facility]
ITP?
History of microcephaly
History of multiple pneumonias (10+ times)
Prolonged hospital stay for 9 months in 2009 ([facility])
Presumptive diagnosis of tuberculosis status post-treatment
Follows pulmonary at left upper lobe cavitary lung disease
Left upper lobe cavitary lung disease
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
Bronchoscopy at [place] 2022, positive fungal pneumonia
Did not tolerate antifungal therapy per records
Bronchiectasis per prior imaging at [facility]
History of liver disease, follows hepatology at [place] (details unclear)
Hypothyroidism
Plan/recommendations
At this time, patient appears to be comfortable from pulmonary standpoint, on nasal cannula 93% on 2L-->RA now
Chest exam is improving, minimal crackles
Restriction and lack of OOB mobility likely an issue
IS and inhalers to be added
Remains on ceftriaxone
Presently on hydrocortisone 25 mg every 12 hours
Lymph node biopsy pending
Chest x-ray obtained today suspect is an expiratory film. Read as worsening pleural effusions
Would need repeat CT eventually when fluid not an issue
Moving forward
Continue with incentive spirometry, airway clearance
Maintain antibiotic therapy for now, ID following
Antibiotics narrowed, now on ceftriaxone s/p cefepime/doxycycline. Vancomycin discontinued
AFB blood + sputum cultures show NGTD, Legionella ETT culture shows filamentous fungus; respiratory culture from 11/10/2024 from sputum has grown Eleanor albicans, and fungus culture from ETT on 11/11 has grown yeast; ID has asked micro to further
identify the filamentous fungi
Defer treating with antifungals to ID
CT chest obtained (11/14) showing thick-walled cavitary mass in the left upper lobe, with severe GGOs with fluid in fissures with bilateral pleural effusions, and severe mediastinal lymphadenopathy --> pleural effusions could be explained by his
acute renal failure, and unable to assess if this left upper lobe cystic lesion is stable or worsening as unable to review prior imaging from [facility]
Prior records suggest crescent sign, prior suspicion for aspergilloma
Chest x-ray with worsening interstitial changes, pleural effusion
Based on CT imaging, suspect pleural effusions are small and current film is expiratory
Family states patient has chronic lung disease, chronic cough. No prior films available for review
Dr. Woodruff reviewed extensive records from [facility]
Bronchiectasis, cavitary lung disease with bronchoscopy in the past suspicious for aspergilloma based on imaging and possible positive biopsy
Family unaware of details
Chest x-ray with persistent bilateral interstitial infiltrates/opacities with GGO
CT chest at October 2024 reveals bronchiectasis, cystic lung disease
Patient does follow-up with infectious disease at . family not aware of vaccine status
History of splenectomy noted per history, and confirmed per report although report is nebulous
Urine Legionella and streptococcal pneumonia antigen negative
Influenza, COVID-negative
Acute renal failure noted
Baseline creatinine 2.0 as of 2014, progressive over the past few years according to family.
Patient follows nephrology at
Now with HD--volume removal needed
Significant adenopathy noted on abdominal imaging, 6.4 cm retroperitoneal adenopathy and mesenteric adenopathy
Worrisome for underlying malignancy
Underwent IR CT-guided biopsy of inguinal lymphadenopathy today (11/14) - concern for lymphoma, pending
Abd distension firmness noted, repeat CT AP recommended
Discussed with care team
Repeat imaging showing improvement in lung aeration from prior
Bowel gas pattern noted
Encouraged further PT/OT, OOB
DVT prophylaxis: HSQ (may need to be held given that the HD catheter insertion site is oozing blood)
GI prophylaxis: PPI
Reviewed with father at bedside, and brother by phone
Diagnostic Data
Chest X-Ray: 11/16/24-Findings suggesting severe pulmonary edema. Pneumonia and underlying pulmonary fibrosis not excluded. Significantly progressed. Prior chest CT identified left upper lobe cavitary masses. Poorly seen by x-ray examination
11/12/24-Patchy bilateral parenchymal opacities, most likely representing pneumonia.
US chest 11/17/24-Small right pleural effusion. Amount of fluid present not sufficient for safe thoracentesis.
CT Scan: CHEST 11/14/24-1. 3.5 cm and 3.0 cm thick walled cavitary masses in the left upper lobe.
2. Severe ground-glass opacity throughout the lower lobes and right upper lobe.
3. Moderate-sized right and small left pleural effusions.
4. Severe mediastinal lymphadenopathy.
Echo: 11/10/24-Normal left ventricular chamber size. Normal left ventricular systolic function. Left ventricular ejection fraction is 50-55%. Normal regional wall motion. Normal left ventricular wall thickness. Normal diastolic function.
PFT's:
Reports and relevant images were personally reviewed.
Total time spent on this consultation/encounter __52__ minutes which includes review of history, physical exam, medications, laboratory data, personal review of imaging, extensive review of outpatient records, discussion with care team and
respiratory therapy.
Subjective Data
-
Date of Service:
Date of Service: November 18, 2024
Chief Complaint: Pulmonary Follow Up
Subjective:
Better today, sitting in chair
Coughing and father concerned with nocturnal disruption from coughing
(Translation eveline used for communication)
Objective Data
Data Reviewed
Vital Signs / I&O / Oxygen:
Vital Signs
Temp Pulse Resp BP Pulse Ox
98.2 F 98 20 128/89 93
11/18/24 07:09 11/18/24 08:05 11/18/24 08:05 11/18/24 07:09 11/18/24 08:05
Intake and Output
11/17/24 11/18/24 11/19/24
06:59 06:59 06:59
Intake Total 180 / 180 240 / 240
Output Total 120 / 120
Balance 60 / 60 240 / 240
SaO2 [CPAP/PSV] 98
SaO2 [ASV] 98
SaO2 [A/C] 95
SaO2 93
Nasal Cannula flow liters per 2
minute
Physical Exam
General: Comfortable and Other (Right IJ HD cath)
HEENT: Normocephalic, Anicteric and Moist Mucous Membranes
Cardiovascular: S1-S2, Regular Rhythm and Peripheral Edema (1+)
Respiratory: Wheeze (negative), Crackles (Bilateral), Rhonchi (negative), Non-Labored Respirations and Stridor (n)
GI: Soft, Non Distended and Non Tender
Neurology: Awake, Alert, No Motor Deficits and Other (Drowsy at times)
Skin: Warm, Dry, Cyanosis (negative) and Jaundice (negative)
Labs/Micro/Reports
Lab Data
11/18/24 07:04
11/18/24 07:04
Microbiology
11/11/24 09:52 Endotracheal Fungal Culture - Preliminary
Eleanor albicans
11/14/24 14:30 Lymph Node Tissue Culture - Final
No Growth After 72 Hours
11/14/24 14:30 Lymph Node Gram Stain - Final
11/10/24 12:32 Endotracheal Fungus Mold Identification - Preliminary
[2024-11-18 12:38] LABS: Glucose - Point of Care 228 mg/dl (70-99)
[2024-11-18] MEDS: NOVOLOG FLEXPEN-LOW RESISTANCE 2 UNITS SC (13:08)
--- NOTE | 2024-11-18 13:25 | PN.CDI ---
CDI
- -
CDI:
Physician Documentation Request
Admit Date: 11/09/24 22:41
Dear Doctor Ruel,
Patient admitted with sepsis.
11/17 Nephrology note, 'CKD 5 progressive.'
11/17 PN, 'Acute kidney injury CKD stage V requiring HD initiation.... Acute kidney injury on CKD stage unknown...Volume overload state from ESRD.'
Laboratory Tests
11/09/24 11/11/24 11/16/24
19:46 01:25 06:35
Creatinine 6.3 H* 5.4 H* 3.8 H
eGFR 11.34 13.64 20.79
Due to potentially conflicting documentation, please provide in your note the diagnosis associated with the patient's renal status:
CDK 5 progressive
ESRD
Other
Stages of Chronic Kidney Disease*
Level Description GFR
G1 Normal or High >90
G2 Mildly decreased 60-89
G3a Mildly to moderately decreased 45-59
G3b Moderately to severely decreased 30-44
G4 Severely decreased 15-29
G5 Kidney failure <15
Use of terms such as suspected, likely, concern for, or probable (associated with a specific diagnosis that is being evaluated, monitored, or treated as if it exists) are acceptable and can be coded in the inpatient setting, when documented at the
time of discharge.
Thank you,
Veronica GUAJARDO,RN,CCDS
CDI Specialist
Available via [place] text
Please use your independent medical judgment in providing your response.
*Source: Kidney Disease: Improving Global Outcomes (KDIGO) 2012
--- NOTE | 2024-11-18 13:38 | W.PN.NEPH.HD ---
Assessment
-
Patient seen on HD
sbp at 123 at current u/f
Progress Note - Hemodialysis
-
Date of Service: November 18, 2024
Duration: 3 hours
Potassium Bath: 4
Calcium Bath: 2.5
Opti-Dialyzer: 160
Ultrafiltration: EDW (1kg)
Blood Flow: 400
Dialysate Flow: 600
Heparin: none
EPO: 10K
--- NOTE | 2024-11-18 14:18 | W.PN.HOSP.TC ---
Today's Communication/Plan
-
Observe off antibiotics
Hemodialysis
Assessment / Plan
Assessment / Plan
Impression:
Presentation with acute respiratory failure.
VDRF
� Intubated 11/10/2024
� Extubated 11/11/2024
Bilateral cavitary pneumonia secondary to aspiration.
Sepsis present on admission currently resolved
Hyponatremia/hyperkalemia improved.
Hypoglycemia resolved.
Acute kidney injury CKD stage V requiring HD initiation.
Metabolic acidosis.
Lactic acidosis.
Seizure suspected secondary to hypoglycemia.
Diffuse lymphadenopathy
Other conditions:
Microcephaly with developmental delay.
History of splenectomy/appendectomy in [facility].
Recurrent pneumonias.
Presumptive diagnosis of tuberculosis status posttreatment. Details not clear
History of fungal pneumonia proven by bronchoscopy at [facility] 2022. 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
Bronchiectasis
Hepatitis?
Chronic normocytic anemia
Hypothyroidism replaced
Plan
1. Septic shock - required vasopressors. Bilateral cavitary pneumonia (left upper lobe cavitary lung lesion)
-Chest x-ray showing bilateral infiltrates
-Blood cultures/sputum culture collected. COVID flu negative
-Patient history of tuberculosis in past AFB culture has been obtained. QuantiFERON test was normal in 23. Repeat QuantiFERON test neg.
- Status post bronchoscopy. ET tube aspirate culture growing filamentous fungus -ID has requested further identification.
- Aspergillus immunoglobin antibody pending
-Sputum AFB stain negative x 3, pending cultures. QuantiFERON gold reported intermediate. Isolation discontinued.
-Diffuse lymphadenopathy. Status post right inguinal lymph node biopsy with negative cultures. Path pending
-Concern for ongoing aspiration syndrome. Speech and swallow including VSE evaluation noted. Diet adjusted with thickened liquids.
-Completed 7-day course of antibiotics. Ceftriaxone discontinued on 11/17.
- Current respiratory status is stable with no requirements of supplemental oxygen.
- 11/17 noted mild hemoptysis. Will continue to quantify.
2. Seizure episode
-thought due to hypoglycemia
-Neuro signed off
-Patient was intubated for this reason, now extubated.
-Will require brain imaging once clinically appropriate
3. Severe Diffuse lymphadenopathy
-highly suspicious for malignancy
-Major intra-abdominal adenopathy suspicious of malignancy
-s/p needle biopsy of right ing LN, f/u results.
-Previous biopsy has shown noncaseating granulomas of unclear significance. Sarcoidosis was ruled out per [facility] records.
4. Hyponatremia -improved
-received 3%NS , improved
-Has history of previous hyponatremia. Reason unclear
-Urine sodium of 98 and urine osmolarity of 292
5. Acute kidney injury on CKD stage unknown
Metabolic acidosis
-appears progressive, creat staying in mid 5 range
-Patient apparently reported to have creatinine in range of 3, has been following with [facility]
- Status post tunnel catheter placement
- Patient getting first round of hemodialysis today
6. Hyperkalemia - resolved
Hypokalemia
- s/p insulin/dextrose and lokelma
- As needed replacement of potassium
7. Episode of hypoglycemia
- unclear if that precipitated the seizure or hyponatremia (less likely as pt chronically hyponatremic)
- extubated and on diet, monitor BG
- Patient had low blood glucose of 30 post admission,
- Discussed with lead burner apprentice, who prefers for patient to be maintained on dextrose IVF for now
8. Hypercalcemia - Improved
- elevated on admission (12.1 now down to 9.0)
- PTH < 4 /PTHrp Pending. MARY level 121 (normal 16-85)
- Due to chronic granulomatous disease versus malignancy related?
- Calcium level is improved with IV hydration
9. Lactic acidosis
- Possible seizure related, resolving
10. Developmental disorder
Microcephaly
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
- Patient have microcephaly and converges sign scale of 10-year old
- Lives with family and was somewhat independent before hospitalization
11. Acute transaminitis
Elevated ALP
- Persistent mild transaminitis.
- Elevated ALP from infiltrative disease lymphoma? Sarcoidosis? Tuberculosis?
- CT abdomen pelvis showing moderate periportal edema. Surgically absent spleen. Normal biliary duct/gb.
12. Left-sided pleural effusion
Anasarca
Acute hypoxic respiratory insufficiency
- Volume overload state from ESRD
- Attempt thoracentesis on 11/17 with not enough fluids
Pancreatic lipomatosis
DVT PPX - heparin sq
Code status - Full Code
Goals of care discussion. I had extensive discussion with patient's father at the bedside on 11/18. Looking through medical records and current hospitalization, there is a fair impression of chronic and recurrent cavitary pneumonia secondary to
aspiration. Over this hospitalization patient developed respiratory failure requiring invasive ventilation. This is likely a progressive process with overall deteriorating respiratory reserve and normal compensation especially in the patient with
ESRD.
Anticipated Discharge: 24 - 48 hours
Subjective/Interval History
-
Date of Service: November 18, 2024
Objective Data
-
Labs:
Laboratory Results
11/18/24
07:04
WBC 20.0 H
Hgb 8.2 L
Hct 24.3 L
Plt Count 148
Sodium 134 L
Potassium 3.6
Chloride 105
Carbon Dioxide 22
BUN 31 H
Creatinine 3.8 H
Glucose 69 L
Calcium 7.3 L
Vital Signs:
Vital Signs
Temp Pulse Resp BP Pulse Ox
98.2 F 90 18 128/89 94
11/18/24 07:09 11/18/24 13:20 11/18/24 13:20 11/18/24 07:09 11/18/24 13:20
I&O
11/17/24 11/18/24 11/19/24
06:59 06:59 06:59
Intake Total 180 / 180 240 / 240
Output Total 120 / 120
Balance 60 / 60 240 / 240
Physical Exam
-
General: Well Developed and No Apparent Distress
HEENT: Normocephalic, Atraumatic and Moist Mucous Membranes
Respiratory: Clear to Auscultation
Cardiac: Regular Rhythm and S1/S2; Negative Murmur, Rub or Gallop
GI: Soft, Nontender, Normal Bowel Sounds and Other (Firm, mild distention, nontender); Negative Organomegaly
Rectal: Deferred by Provider
Musculoskeletal: No Clubbing, No Cyanosis and No Edema
Skin: Negative Rash
Neuro: Nonfocal/Grossly Intact
[2024-11-18] MEDS: RETACRIT 10000 UNITS IV (14:34)
--- NOTE | 2024-11-18 16:27 | CM ---
CM reviewed chart, per [facility]- do not accept patients insurance. [facility]- spoke with [facility]- coordinator will reach out to CM- as of now there is a , 11:00 a.m. / 11:45 a.m. start time. Will
continue to follow/ send clinical information to dialysis center.
Plan; outpatient HD to be set up, referral to [facility] as [facility] does not accept pt insurance
--- NOTE | 2024-11-18 16:30 | PTCARENOTE ---
Patient finishing dialysis, dialysis nurse, Mi at the bedside. Per nurse, Patient starting to shake and cough vigorously. Patients vitals taken.temp 98.2 BP 149/79 Heart rate 164 while patient shaking, O2 sat 95% on 2 L NC. MD Lipscomb notified
of change. MD assessing patient at bedside. Patient is alert. Verbal order to give PRN tylenol and new orders to be placed. will continue to monitor.
[2024-11-18] MEDS: TYLENOL 650 MG PO (16:32)
[2024-11-18] MEDS: TESSALON PERLES 100 MG PO ×2 (16:34→20:55)
[2024-11-18 16:51] LABS: Glucose - Point of Care 110 mg/dl (70-99)
[2024-11-18] MEDS: STERILE WATER FOR INJECTION 10 ML IV (17:05)
[2024-11-18] MEDS: ROCEPHIN 1000 MG IV (17:05)
[2024-11-18 17:21] LABS: Hematocrit 28.1 % (39.0-52.0); Hemoglobin 9.3 g/dL (13.0-18.0); Mean Corp Hgb Conc. 33.1 g/dL (33.0-37.0); Mean Corpuscular Volume 92.1 fL (80.0-94.0); Platelet Count 158 10^3/uL (130-400); Red Cell Dist. Width 18.6 % (11.5-14.5)
--- NOTE | 2024-11-18 17:40 | W.PN.UPDATE ---
Update Note
Progress Note Update
Patient found in distress with severe chills and rigors after hemodialysis completion
Vitals: Temp 98.3, 119/80, 103, 18, 97% on 2 L
Persistent cough otherwise no new complaints
Repeat laboratory data noted for trending down WBC 20�16.8, elevated lactic acid level at 8.3
Chest x-ray with no new infiltrates pending final report
Blood culture redrawn
Suspect persistent aspiration with looks like evolving sepsis
Reinstate antibiotics, ceftriaxone ordered
Will give 250 mg normal saline bolus
Tylenol
Monitor in ICU
[2024-11-18 17:46] LABS: Absolute Neutrophils -Man Diff 12.2 10^3/uL (1.4-6.5); Normal RBC Morphology No; Platelets Checked Yes
[2024-11-18 17:51] LABS: Anisocytosis 2+; Hypochromasia 3+; Macrocytosis 1+; Microcytosis 1+; Polychromasia 1+; Schistocytes Occasional; Target Cells 3+; Total Cells Counted 100
[2024-11-18 18:04] LABS: Blood Urea Nitrogen 12 mg/dl (9-20); Calcium 7.8 mg/dl (8.4-10.2); Carbon Dioxide 22 mmol/L (22-30); Chloride 103 mmol/L (98-107); Estimated Creatinine Clearance 34 ml/min; Glucose 129 mg/dl (70-99); Potassium 4.2 mmol/L (3.5-5.1); Sodium 137 mmol/L (135-145); eGFR 44.92
[2024-11-18 18:32] LABS: B.E. -1.4 mmol/L; HCO3 21.8 mmol/L (21-28); O2 Saturation % 94.4 % (94-98); PCO2 30 mmHg (35-48); PO2 62 mmHg (83-108)
--- NOTE | 2024-11-18 19:00 | PTCARENOTE ---
report given to nurse nabil musa
[2024-11-18 19:08] LABS: Glucose - Point of Care 129 mg/dl (70-99)
[2024-11-18] MEDS: VENTOLIN NEBULES 1.25 MG INH (19:43)
[2024-11-18] MEDS: PULMICORT 0.25 MG INH (19:44)
--- NOTE | 2024-11-18 20:00 | PTCARENOTE ---
Received patient oriented to self and place, baseline according to family. No pain, following commands, smiling and pleasant. ST 100s-120s, BP 110s-130s/70s, afebrile, +1 b/l LE edema. Palpable radial and pedal pulses b/l. On 5 liters nasal cannula,
crackles in the bases, diminished throughout. Saturating 95%. Stomach distended, round, positive bowel sounds. Poor appetite. Smear of a BM. Voids in bathroom with assistance. PIV patent, WNL. Right chest HD cath. CHG bath done, patient's family
helped to brush teeth. Call baca within reach.
[2024-11-18 22:58] LABS: Glucose - Point of Care 122 mg/dl (70-99)
[2024-11-19] VITALS (17 sets, daily range): BP systolic 107–180; BP diastolic 67–168; BMI 20.1
[2024-11-19] MEDS: HEPARIN 2500 UNITS SC ×3 (00:10→18:39)
--- NOTE | 2024-11-19 00:19 | PTCARENOTE ---
Patient assessment unchanged from previous, resting comfortably, call baca within reach.
--- NOTE | 2024-11-19 04:48 | PTCARENOTE ---
Patient assessment unchanged from previous, labs sent.
[2024-11-19] MEDS: SYNTHROID 88 MCG PO (04:49)
[2024-11-19 05:13] LABS: Hematocrit 22.9 % (39.0-52.0); Hemoglobin 7.7 g/dL (13.0-18.0); Mean Corp Hgb Conc. 33.6 g/dL (33.0-37.0); Mean Corpuscular Volume 91.2 fL (80.0-94.0); Platelet Count 128 10^3/uL (130-400); Red Cell Dist. Width 18.6 % (11.5-14.5)
[2024-11-19 05:42] LABS: Blood Urea Nitrogen 17 mg/dl (9-20); Calcium 7.3 mg/dl (8.4-10.2); Carbon Dioxide 24 mmol/L (22-30); Chloride 108 mmol/L (98-107); Estimated Creatinine Clearance 26 ml/min; Glucose 69 mg/dl (70-99); Magnesium 1.8 mg/dl (1.6-2.3); Potassium 3.8 mmol/L (3.5-5.1); Sodium 135 mmol/L (135-145); eGFR 31.33
[2024-11-19] MEDS: PULMICORT 0.25 MG INH (07:07)
[2024-11-19] MEDS: VENTOLIN NEBULES 1.25 MG INH ×3 (07:08→20:07)
--- NOTE | 2024-11-19 07:31 | W.PN.INTV ---
Today's Communication / Plan
Recommendations
- DC inhaled and systemic steroids
- Initiate airway clearance with hypertonic saline nebulized twice a day, continue albuterol
- Follow-up on final cultures and sensitivities
- Await CT chest, abdomen, pelvis
Assessment
-
29-year-old male with complex medical history, including microcephaly, history of multiple pneumonias, treated for 9 months for tuberculosis in 2009, complaining of 6 months of cough, intermittent fevers, followed by infectious disease, nephrology,
endocrinology, pulmonary at [facility] with recent hospital stay 3 weeks ago at , now presents with increased fatigue, emesis, cough and malaise. Family brought patient to the [facility] due to no answers at . patient developed
increased tachypnea, emesis, hypoglycemia with blood sugar less than 30. Patient was intubated, hypoglycemia treated. Sodium on admission 118, increased to 126, stabilized at 125. Patient required initiation of D10 gtt. in view of respiratory
failure and intubation, patient was admitted to the ICU. He was subsequently extubated. Infectious workup mostly stayed negative except for Eleanor noted on sputum. Blood culture stayed negative. Infectious disease service was following along.
Patient completed close to 10 days of antibiotics. And patient was transferred out of ICU.
On 11/18, postdialysis, patient developed rigors and chills and lactic level was noted to be around 8. In view of concern for possible developing sepsis patient was transferred to the ICU. Patient otherwise was hemodynamically stable, afebrile
without gross abnormality on lab work or new changes on chest x-ray. He was empirically started on ceftriaxone and blood cultures were drawn.
Conditions present prior to admission
History of splenectomy/appendectomy in [place]?
Thrombocytopenia while in [facility]
ITP?
History of microcephaly
History of multiple pneumonias (10+ times)
Prolonged hospital stay for 9 months in 2009 ([facility])
Presumptive diagnosis of tuberculosis status post-treatment
Follows pulmonary at left upper lobe cavitary lung disease
Left upper lobe cavitary lung disease
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
Bronchoscopy at [place] 2022, positive fungal pneumonia
Did not tolerate antifungal therapy per records
Bronchiectasis per prior imaging at [facility]
History of liver disease, follows hepatology at [place] (details unclear)
Hypothyroidism
Assessment and plan:
#1. Acute respiratory failure on admission, suspect aspiration pneumonia and fluid overload
- Intubated 11/10/24 (intubated for airway protection in setting of emesis) --> extubated 11/11/24
- Currently on supplemental oxygen
#2. Chronic pulmonary cavitary opacities with bilateral interstitial infiltrates, bronchiectasis
- Patient has had extensive workup at [facility] including bronchoscopy, CT scan.
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
- Infectious disease service on case, await formal cultures and sensitivities obtained during current hospital stay
- Suspect ongoing chronic aspiration contributing to pulmonary changes
- Initiate airway clearance with hypertonic saline nebulized twice a day along with albuterol
- Await CT Chest
- Suspect GGO on prior imaging are related to over load.
- D/c inhaled steroids with known h/o Aspergillus. D/c systemic steroids.
#3. Prior h/o ?TB, completed Anti tubercular medications x 9 months
- AFB x 3 have been negative during this hospitalization, no need for airborne isolation
#4. Lactic acidosis and chills, 11/18
- Serial lactate has since improved
- Blood cultures have been obtained and patient empirically started on Rocephin
- Patient hemodynamically stable, no change on chest x-ray, blood work has been essentially without any significant change
- ? Dialysis disequilibrium syndrome
- Follow-up on cultures to rule out any infectious etiology for patient's symptoms
- Will get a follow-up CT chest, abdomen and pelvis.
#5. BRENDON with underlying chronic kidney disease
- Suspect progression to now end-stage renal disease, patient newly started on hemodialysis
- Nephrology service on case
#6. Seizures, provoked by hypoglycemia.
- Per neurology no further workup or antiepileptic medications needed.
#7. Retroperitoneal, abdominal, mediastinal and hilar adenopathy per imaging/New diagnoses of T Cell Lymphoma
- S/p IR guided lymph node biopsy in the inguinal region, pathology suggestive of T cell lymphoma
- Oncology consult
#8. Chronic mild hyponatremia
- Resolved since patient has been started on hemodialysis, 135 this morning
#9. Recurrent hypoglycemia
- Particularly pronounced on admission, required D10 infusion
- Suspect acute illness, sepsis contributed as well
- Blood sugars well-controlled now
#10. Bilateral pleural effusions
- Suspect related to progressive renal failure, now on hemodialysis
- Fluid collection felt to be too small for safe thoracentesis
- Follow-up CT chest today
Critical Care time 56 mins -- The patient is admitted for acute critical illness for the treatment of vital organ failure and/or prevention of further life-threatening conditions. Total care includes time spent in review of history, physical exam,
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
Diagnostic Data
Chest X-Ray: 11/16/24-Findings suggesting severe pulmonary edema. Pneumonia and underlying pulmonary fibrosis not excluded. Significantly progressed. Prior chest CT identified left upper lobe cavitary masses. Poorly seen by x-ray examination
11/12/24-Patchy bilateral parenchymal opacities, most likely representing pneumonia.
US chest 11/17/24-Small right pleural effusion. Amount of fluid present not sufficient for safe thoracentesis.
CT Scan: CHEST 11/14/24-1. 3.5 cm and 3.0 cm thick walled cavitary masses in the left upper lobe.
2. Severe ground-glass opacity throughout the lower lobes and right upper lobe.
3. Moderate-sized right and small left pleural effusions.
4. Severe mediastinal lymphadenopathy.
Echo: 11/10/24-Normal left ventricular chamber size. Normal left ventricular systolic function. Left ventricular ejection fraction is 50-55%. Normal regional wall motion. Normal left ventricular wall thickness. Normal diastolic function.
Subjective Dataa
Subjective Data
Date of Service:
Date of Service: November 19, 2024
Subjective:
Patient comfortably sitting in bed in no acute distress. Smiling, work of breathing normal
Review of Systems
General: Other (Unable to obtain)
Objective Data
Data Reviewed
Vital Signs / I&O / Oxygen:
Vital Signs
Temp Pulse Resp BP Pulse Ox
97.5 F 97 18 108/84 96
11/19/24 03:10 11/19/24 07:13 11/19/24 07:13 11/19/24 06:00 11/19/24 07:13
Intake and Output
11/18/24 11/19/24 11/20/24
06:59 06:59 06:59
Intake Total 240 / 240
Balance 240 / 240
SaO2 [CPAP/PSV] 98
SaO2 [ASV] 98
SaO2 [A/C] 95
SaO2 96
Nasal Cannula flow liters per 5
minute
Physical Exam
General: Comfortable
Cardiovascular: S1-S2, Regular Rhythm, Murmur (n), Rub (n) and Peripheral Edema (tr)
Respiratory: Wheeze (n), Crackles (few inspiratoty rales R>L), Rhonchi (n), Non-Labored Respirations and Crepitus (n)
GI: Soft, Distended (Slightly distended) and Non Tender
Neurology: Awake, Alert and No Motor Deficits (Moves all extremities, ambulating)
Skin: Cyanosis (n), Jaundice (n) and Rash (n)
Labs/Micro/Reports
Lab Data
11/19/24 04:56
11/19/24 04:56
Laboratory Results
11/18/24
18:24
pH 7.47 H
pCO2 30 L
pO2 62 L
HCO3 21.8
O2 Delivery Level
Microbiology
11/10/24 12:32 Endotracheal Specimen Source - Final
11/10/24 12:32 Endotracheal Legionella pneumophila (Direct FA) - Final
11/10/24 12:32 Endotracheal Legionella Culture - Final
Filamentous fungus
11/11/24 09:52 Endotracheal Fungal Culture - Preliminary
Eleanor albicans
11/14/24 14:30 Lymph Node Tissue Culture - Final
No Growth After 72 Hours
11/14/24 14:30 Lymph Node Gram Stain - Final
[2024-11-19] MEDS: NOVOLOG FLEXPEN-LOW RESISTANCE SC ×3 (08:00→18:40)
[2024-11-19 08:04] LABS: Glucose - Point of Care 78 mg/dl (70-99)
--- NOTE | 2024-11-19 08:11 | CON.ONC ---
Consultation
-
Date Consultation Requested: 11/18/24
Date Consultation Performed: 11/19/24
Performing Provider: Miguel Angel Aranda
Impression
Impression
Peripheral T Cell Lymphoma, NOS
- severe diffuse abdominal lymphadenopathy on imaging
- s/p needle biopsy on 11/14
- preliminary pathology results posted from . The case is submitted for outside consultation to [facility] for further testing and subclassification.
Normocytic Anemia
- hgb 6.8 on 11/11, transfused one unit of blood
- hgb today 7.7
- Iron studies 11/11: Iron 31 ug/dl, TIBC 151 ug/dl, ferritin 966 ng/mL
Septic Shock
- chest x ray on admission showed b/l cavitary pneumonia
- ceftriaxone discontinued on 11/17, restarted 11/18
Seizure episode
- thought to be hypoglycemia related
- Intubated 11/10/24 (intubated for airway protection in setting of emesis), extubated 11/11/24
Acute kidney injury on CKD stage unknown
- on HD, started 11/15
Plan
Plan
Peripheral T Cell Lymphoma
- Plan to meet and discuss the patient's diagnosis with the patient's parents tomorrow morning as they were unavailable this morning during our rounds.
- Patient may be eligible for multiagent chemo pending [facility]'s additional pathology review.
Patient History
History of Present Illness
Patient is a 29 yo male with complex past medical history who presents to the emergency department with recurrent fevers, shortness of breath, nausea decreased p.o. intake and failure to thrive.
Patient is originally from [facility] having moved to the 8 years ago with parents. He has a history of congenital chromosomal abnormality. Patient also has chronic history of primary hypothyroid, has been developing worsening CKD over the last
several years, he has history of recurrent pulmonary infections likely has had multiple pneumonias in the past, he has a history of triple cytopenia status post penectomy with subsequent associated infections, history of appendectomy, and
intellectual developmental level at about the 10 yo level with normal activities of daily living. Patient was also previously treated for TB in 2009. At that time it was not clearly diagnosed but he was treated empirically and he completed a course
of a 4 drug regimen.
Over the last 6 months the patient has been having admissions for pneumonia with last admission at [facility] in October. At that time patient had an MRI of the abdomen which revealed bulky abdominal adenopathy with concern for malignancy. A
suggestion was made to consider contrast CT but as test actually high risk patient due to its severe CKD and it was opted not to be performed.
Patient presented to the [facility] ED on 11/09/2024 and has had a complicated admission. As per the H&P, the patient had been having recurrent fevers up to 100.5 at home and started taking azithromycin 500 mg daily for 3 days prior to admission.
Patient reported nausea and mild vomiting, decreased p.o. intake and a nonproductive cough. Patient was found to have septic shock requiring vasopressors from b/l cavitary pneumonia. Patient started on antibiotics as well. Patient also experienced a
seizure during admission though to be caused by hypoglycemia resulting in intubated 11/10/24 for airway protection in setting of emesis. Patient extubated 11/11/24.
Notable labs during admission:
Patient's hgb was 9.3 on admission 11/09 but dropped to 6.8 on 11/11. Patient was transfused one unit on 11/11.
Quantiferon Gold 11/10 indeterminate
Creatinine 5.6 on admission. Patient started on HD 11/15
Imaging:
CT AP oral contrast 11/09/24 showed severe abdominal lymphadenopathy with markedly enlarged mesenteric, retroperitoneal, and upper abdominal lymph nodes.
Chest X Ray 11/10/24 showed increased bilateral airspace opacities which may be due to worsening pneumonia.
CT Chest 11/14/24 showed 3.5 cm and 3.0 cm thick walled cavitary masses in the left upper lobe, severe ground-glass opacity throughout the lower lobes and right upper lobe and severe mediastinal lymphadenopathy.
11/14/2024 Patient under went ultrasound guided needle biopsy of the retroperitoneal and right inguinal lymphadenopathy. The preliminary path report indicates Peripheral T-cell lymphoma, NOS. The case is submitted for outside consultation to [facility] for further testing and subclassification.
Patient underwent first hemodialysis last night and then developed rigors and chills w/o fever. ID reinitiated antibiotics and the patient was transferred back to the ICU.
Patient seen this morning with Dr. Aranda and with Latvian speaking nurse able to translate at the bedside. Patient's parents had recently left the hospital and would not be back soon. Nurse spoke with patient's parents and they are ammenable to
coming in for an in person conversation tomorrow morning. Patient was pleasant and denies current ROS aside from a cough.
Past-Medical/Surgical History
Medical History
s/p Ventilator dependent respiratory failure
BRENDON on CKD - started HD 11/15
Hyponatremia
Suspected pneumonia
Leukocytosis
Lactic acidosis
Anemia
Hyperkalemia
Peripheral T-cell lymphoma
Hx TB (Tx for 9 months in [facility], although not clear if empiric only)
Microcephaly
Surgical History
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
Appendectomy
Patient Medication
�Medication �Instructions �Recorded �Confirmed �Last Taken �Type
albuterol sulfate 1.25 mg/3 mL 1.25 mg inhalation QID 11/10/24 11/10/24 Unknown History
solution for nebulization Lung/Breathing Issues
albuterol sulfate 90 mcg/actuation 2 puff inhalation Q4H PRN SOB 11/10/24 11/10/24 Unknown History
aerosol inhaler
allopurinol 100 mg tablet 100 mg PO DAILY Gout 11/10/24 11/10/24 Unknown History
budesonide 0.25 mg/2 mL suspension 0.25 mg inhalation BID 11/10/24 11/10/24 Unknown History
for nebulization Lung/Breathing Issues
calcium acetate 667 mg tablet 2,001 mg PO TID Kidney Disease 11/10/24 11/10/24 Unknown History
calcium carbonate (Tums Ultra) 800 mg PO Q6HPRN PRN INDIGESTION 11/10/24 11/10/24 Unknown History
levothyroxine 88 mcg tablet 88 mcg PO DAILY Thyroid 11/10/24 11/10/24 Unknown History
omega-3 fatty acids 1,000 mg PO DAILY Supplement 11/10/24 11/10/24 Unknown History
sodium bicarbonate 650 mg tablet 1,300 mg PO TID Kidney Disease 11/10/24 11/10/24 Unknown History
Active Medications
Generic Name Dose Route Start Last Admin
Trade Name Freq PRN Reason Stop Dose Admin
Acetaminophen 650 mg 11/11/24 20:12 11/18/24 16:32
Acetaminophen 325 Mg Tablet PO 12/09/24 20:11 650 mg
Q4HPRN PRN Administration
if temp > 101 F
Albuterol Sulfate 1.25 mg 11/18/24 20:00 11/19/24 07:08
Albuterol Nebs 1.25 Mg/3 Ml Ampul INH 1.25 mg
R QID KAYY Administration
Protocol
Allopurinol 100 mg 11/19/24 08:00
Allopurinol 100 Mg Tablet PO 12/17/24 07:59
DAILY KAYY
Benzonatate 100 mg 11/18/24 16:00 11/18/24 20:55
Benzonatate 100 Mg Capsule PO 12/16/24 15:59 100 mg
TID KAYY Administration
Budesonide 0.25 mg 11/18/24 20:00 11/19/24 07:07
Budesonide (Pulmicort Respules) 0.25 Mg/2 Ml INH 0.25 mg
R BID KAYY Administration
Protocol
Ceftriaxone Sodium 1,000 mg 11/19/24 18:00
Ceftriaxone 1000 Mg / 10 Ml Vial IV
Q24H KAYY
Dextrose 12.5 grams 11/11/24 12:00
Dextrose 50% (0.5 Grams/Ml) 50 Ml Syringe IV 12/09/24 11:59
[id number] PRN
hypoglycemia
Protocol
Glucagon 1 mg 11/11/24 12:00
Glucagon 1 Mg Vial IM 12/09/24 11:59
PRN PRN
hypoglycemia - no IV access
Protocol
Guaifenesin 100 mg 11/18/24 13:00 11/18/24 20:55
Guaifenesin Oral Solution (200 Mg/10 Ml) Cup PO 12/16/24 12:59 100 mg
QID KAYY Administration
Heparin Sodium 2,500 units 11/11/24 16:00 11/19/24 00:10
Heparin 5,000 Units/Ml 1 Ml Vial SC 12/09/24 15:59 2,500 units
Q8 KAYY Administration
Insulin Aspart 0 units 11/14/24 16:30 11/19/24 08:00
Insulin Aspart Low Resistance 300 Units/3 Ml Pen.Injctr SC 12/12/24 16:29 Not Given
AC KAYY
Protocol
Levothyroxine Sodium 88 mcg 11/12/24 06:00 11/19/24 04:49
Levothyroxine 88 Mcg Tablet PO 12/10/24 05:59 88 mcg
DAILY @ 0600 KAYY Administration
Loperamide HCl 2 mg 11/15/24 15:56 11/15/24 16:17
Loperamide 2 Mg Capsule PO 12/13/24 15:55 2 mg
Q4HPRN PRN Administration
Diarrhea
Pantoprazole Sodium 40 mg 11/13/24 08:00 11/18/24 07:45
Pantoprazole 40 Mg Delayed Release Tablet PO 12/11/24 07:59 40 mg
DAILY KAYY Administration
Prednisone 30 mg 11/16/24 08:00 11/18/24 07:45
Prednisone 10 Mg Tablet PO 12/14/24 07:59 30 mg
DAILY KAYY Administration
Sodium Chloride 0 flush 11/09/24 23:00 11/11/24 08:02
Sodium Chloride 0.9% (Flush) Syringe IV 12/07/24 22:59 1 flush
PER PROTOCOL KAYY Administration
Sterile Water 10 ml 11/19/24 18:00
Sterile Water For Injection 10 Ml Vial IV 12/17/24 17:59
Q24H KAYY
Review of Systems
-
No fevers, no chills, no abdominal pain.
Respiratory: Reports Cough
Physical Exam
-
General: No Apparent Distress
GI: Soft
Skin: Warm and Dry
Psych: Calm
Labs
Lab Results
WBC 20.0 10^3/uL (4.8-10.8) H 11/19/24 04:56
RBC 2.51 10^6/uL (4.70-6.10) L 11/19/24 04:56
Hgb 7.7 g/dL (13.0-18.0) L 11/19/24 04:56
Hct 22.9 % (39.0-52.0) L 11/19/24 04:56
MCV 91.2 fL (80.0-94.0) 11/19/24 04:56
MCH 30.7 pg (27.0-31.0) 11/19/24 04:56
MCHC 33.6 g/dL (33.0-37.0) 11/19/24 04:56
RDW 18.6 % (11.5-14.5) H 11/19/24 04:56
Plt Count 128 10^3/uL (130-400) L 11/19/24 04:56
MPV Not Reportable 11/19/24 04:56
Abs Immat Gran (auto) 2.5 10^3/uL (0-0.05) H 11/12/24 05:07
Absolute Neuts (auto) 35.5 10^3/uL (1.4-6.5) H 11/12/24 05:07
Absolute Lymphs (auto) 0.7 10^3/uL (1.2-3.4) L 11/12/24 05:07
Absolute Monos (auto) 1.6 10^3/uL (0.1-0.6) H 11/12/24 05:07
Absolute Eos (auto) 0.0 10^3/uL (0-0.7) 11/12/24 05:07
Absolute Basos (auto) 0.2 10^3/uL (0-0.2) 11/12/24 05:07
Immature Gran % 6.2 % (0-0.5) H 11/12/24 05:07
Neutrophils % 87.7 % (42.2-75.2) H 11/12/24 05:07
Lymphocytes % 1.7 % (20.5-51.1) L 11/12/24 05:07
Monocytes % 4.0 % (1.7-9.3) 11/12/24 05:07
Eosinophils % 0.0 % (0-6) 11/12/24 05:07
Basophils % 0.4 % (0-2) 11/12/24 05:07
Creatinine 2.7 mg/dL (0.7-1.3) H 11/19/24 04:56
Vital Signs
Vital Signs
Temp Pulse Resp BP Pulse Ox
97.5 F 97 18 108/84 96
11/19/24 03:10 11/19/24 07:13 11/19/24 07:13 11/19/24 06:00 11/19/24 07:13
[2024-11-19] MEDS: ROBITUSSIN 100 MG PO ×4 (08:58→20:57)
[2024-11-19] MEDS: DELTASONE 30 MG PO (08:58)
[2024-11-19] MEDS: PROTONIX 40 MG PO (08:58)
[2024-11-19] MEDS: ZYLOPRIM 100 MG PO (08:59)
[2024-11-19] MEDS: TESSALON PERLES 100 MG PO ×3 (09:01→20:57)
--- NOTE | 2024-11-19 09:07 | W.PN.ID1 ---
Date of Service
Date of Service: November 19, 2024
Today's Communication
Continue ceftriaxone for today.
Assessment / Plan
s/p Ventilator dependent respiratory failure
BRENDON on CKD - started HD 11/15
Hyponatremia
Suspected pneumonia
Leukocytosis
Lactic acidosis
Anemia
Hyperkalemia
Peripheral T-cell lymphoma
Hx TB (Tx for 9 months in [facility], although not clear if empiric only)
Microcephaly
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
Recommendations:
Sputum culture without Pseudomonas.
Legionella culture negative, although 'filamentous fungus' seen on plate; DFA negative
Fungal cx: yeast
Prior antibiotics discontinued, with patient with decompensation overnight and ceftriaxone reinitiated.
Will continue for today while cultures pending. Low threshold to discontinue further antibiotics, though.
Respiratory AFB stain/culture x 3 performed. AFB stain negative x 3. Patient removed from Airborne Isolation.
AFB blood culture pending.
11/14/24 s/p IR right groin lymph node biopsy: Peripheral T-cell lymphoma
Video swallowing study results noted positive for aspiration.
Monitor white count and temperature curve.
Old records from [facility] with reports of prior fungal infection noted.
Aspergillus antibodies pending, along with dedicated sputum fungal culture.
Continue with supportive measures.
����������������������������������������������������������
Chief Complaint
-: Leukocytosis and Pneumonia
Subjective / Review of Systems
Patient seen and examined. Chart reviewed. Patient underwent HD last evening. Thereafter, developed rigors and chills (although no subsequent fever). Lactate was performed and found to be markedly elevated. Antibiotics were reinitiated, and
patient was transferred back to the ICU. At present, patient without complaints.
Review of Systems: No Fever and No Abdominal Pain
Vital Signs / Physical Exam
Vital Signs
Vital Signs
Temp Pulse Resp BP Pulse Ox
99.1 F 97 18 108/84 96
11/19/24 09:03 11/19/24 07:13 11/19/24 07:13 11/19/24 06:00 11/19/24 07:13
Physical Exam
Constitutional: No Acute Distress, Comfortable and Non-toxic
Eyes: No Conjunctival Hemorrhage and Sclera Anicteric
Cardiovascular: Regular Rate; Negative S3/S4
Pulmonary: Coarse and Non Labored; Negative Rhonchi
Gastrointestinal: Soft, Non Tender and Non Distended
Extremities: Edema; Negative Clubbing or Cyanosis
Neurological: Awake and Alert
Psychological: Calm
Lines: HD Cath (Tunneled; right ACW)
Objective Data
Lab Data
Lab Results
11/19/24 04:56
11/19/24 04:56
PT 13.9 Sec (11.4-14.6) 11/10/24 05:37
INR 1.04 11/10/24 05:37
APTT 44.1 Sec (23.4-35.0) H 11/10/24 05:37
Estimated Creat Clear 26 ml/min 11/19/24 04:56
Lactic Acid 3.4 mmol/L (0.7-2.0) H 11/19/24 04:56
Total Bilirubin 0.9 mg/dl (0.2-1.3) 11/17/24 06:34
AST 113 U/L (17-59) H 11/17/24 06:34
ALT 120 U/L (0-50) H 11/17/24 06:34
Alkaline Phosphatase 1178 U/L (38-126) H 11/17/24 06:34
Most recent labs reviewed.
Micro Results:
11/18/24 18:31 Blood Culture - Pending
Blood/Venous
11/18/24 17:07 Blood Culture - Pending
Blood/Venous
11/10/24 12:32 Specimen Source - Final
Endotracheal Legionella pneumophila (Direct FA) - Final
Legionella Culture - Final
Filamentous fungus
11/11/24 09:52 Fungal Culture - Preliminary
Endotracheal Eleanor albicans
11/14/24 14:30 Tissue Culture - Final
Lymph Node No Growth After 72 Hours
Gram Stain - Final
11/10/24 12:32 Fungus Mold Identification - Preliminary
Endotracheal
11/09/24 20:04 Blood Culture - Final
Blood/Venous No Growth - Final Report
11/09/24 20:04 Blood Culture - Final
Blood/Venous No Growth - Final Report
11/12/24 10:12 AFB Blood Culture - Preliminary
Blood/Venous
11/10/24 17:13 Acid Fast Bacilli Smear - Preliminary
Endotracheal Acid Fast Bacilli Culture - Preliminary
11/10/24 12:32 Acid Fast Bacilli Smear - Preliminary
Endotracheal Acid Fast Bacilli Culture - Preliminary
11/10/24 07:58 Respiratory Culture - Final
Sputum Eleanor albicans
Gram Stain - Final
11/10/24 07:58 Acid Fast Bacilli Smear - Preliminary
Sputum Acid Fast Bacilli Culture - Preliminary
11/10/24 07:58 Nasal Screen MRSA (PCR) - Final
Nose MRSA not detected - performed by PCR methodology.
11/10/24 05:58 Legionella Urinary Antigen - Final
Urine Negative for Legionella pneumophila Serogroup 1 antigen.
A negative result does not rule out the possiblity of
Legionella infection due to other serogroups or species of
Legionella. Clinical correlation is recommended.
Streptococcus pneumoniae Antigen (M - Final
Negative for Streptococcus pneumoniae antigen.
A negative result does not exclude infection with
Streptococcus pneumoniae. Clinical correlation is
recommended.
11/10/24 00:38 Influenza Types A & B (YADIRA) - Final
Nasal Swab Negative for Influenza A & B, NAAT
Negative results must be combined with clinical observations
and patient history.
Nucleic Acid Amplification test (NAAT)performed on the
[employer] NOW platform.
Imaging:
CT chest: 3.5 cm and 3.0 cm thick walled cavitary masses in the left upper lobe. Severe ground-glass opacity throughout the lower lobes and right upper lobe.
Moderate-sized right and small left pleural effusions. Severe mediastinal lymphadenopathy.
11/09/2024 CT abdomen/pelvis without contrast: Severe abdominal lymphadenopathy with markedly enlarged mesenteric, retroperitoneal and upper abdominal lymph nodes. Small volume ascites. Moderate to severe chronic renal disease. Severe pancreatic
lipomatosis. Moderate distal small bowel distention; suspected ileus. Diffuse groundglass pulmonary disease suspected to be inflammatory although cannot rule out infectious etiology. Mild focal left lower lobe airspace consolidation and possible
mild pneumonia. Please see full dictation for additional detail. Film personally viewed.
11/09/2024 CXR (portable): Bilateral parenchymal opacities. No evidence for cavitation. No evidence for pleural effusion. Please see full dictation for additional detail.
Pathology:
11/14/2024 Right groin lymph node core biopsy: Peripheral T-cell lymphoma
Care Review
Plan reviewed with: Physician (Hospitalist; [facility])
--- NOTE | 2024-11-19 10:24 | W.PN.NEPH.PH ---
Today's Communication / Plan
-
HD tomorrow
noted family meeting in am
Assessment/Plan
-
Assessment
Microcephaly, short stature
Hypoparathyroidism
Hypercalcemia
CKD 5 progressive
Hyperkalemia
Hyponatremia
Abdominal lymphadenopathy
History of cavitary lung lesion, multiple pneumonia
Bilateral infiltrates lung
Splenectomy
Plan:
noted events last evening fever, chills post HD and high L acid s/p 250cc NS and pending bld cx
abx per ID on rocephin
s/p lymph node biopsy on 11/14-path shows T cell lymphoma-more tests pending
Initial dialysis 11/15
Dialysis tomorrow
wean O2 as possible, mild edema on exam which not change in days
difficult to get UF with soft BPs
d/w nursing
-
-
Date of Service: November 19, 2024
CC / HPI / ROS
-
Chief Complaint:
CKD, hyperkalemia, hyponatremia
History of Present Illness:
no new seizures
BRENDON/Cr on HD now
Progressive CKD
WBC up at 20k
Review of Systems:
UOP not measured off fletcher
sob just walking to bathroom, tachy in 140-settled down with rest
no fever
Difficult to obtain ROS
Weight not measured today
Labs
-
Labs:
WBC 20.0 10^3/uL (4.8-10.8) H 11/19/24 04:56
RBC 2.51 10^6/uL (4.70-6.10) L 11/19/24 04:56
Hgb 7.7 g/dL (13.0-18.0) L 11/19/24 04:56
Hct 22.9 % (39.0-52.0) L 11/19/24 04:56
Plt Count 128 10^3/uL (130-400) L 11/19/24 04:56
Sodium 135 mmol/L (135-145) 11/19/24 04:56
Potassium 3.8 mmol/L (3.5-5.1) 11/19/24 04:56
Chloride 108 mmol/L (98-107) H 11/19/24 04:56
Carbon Dioxide 24 mmol/L (22-30) 11/19/24 04:56
BUN 17 mg/dl (9-20) 11/19/24 04:56
Creatinine 2.7 mg/dL (0.7-1.3) H 11/19/24 04:56
eGFR 31.33 11/19/24 04:56
Glucose 69 mg/dl (70-99) L 11/19/24 04:56
Calcium 7.3 mg/dl (8.4-10.2) L 11/19/24 04:56
Phosphorus 4.8 mg/dl (2.5-4.5) H 11/14/24 08:27
Nmy-A-Fykhxjwmhql Pept 5790 pg/ml 11/17/24 06:34
Albumin 2.8 g/dl (3.5-5.0) L 11/17/24 06:34
Physical Exam
-
Vital Signs:
Vital Signs
Temp Pulse Resp BP Pulse Ox
99.1 F 97 18 108/84 96
11/19/24 09:03 11/19/24 07:13 11/19/24 07:13 11/19/24 06:00 11/19/24 07:13
Cardiovascular:: Regular rate and rhythm
Respiratory:: Bilateral: Coarse
Lung Excursion:: Normal
Abdomen:: Distended, Nontender and Soft
Extremity Edema:: +1: Bilateral:
Fletcher Catheter: No
--- NOTE | 2024-11-19 12:25 | W.PN.HOSP.TC ---
Today's Communication/Plan
-
Monitor in ICU
Follow-up with repeated blood cultures
Back on antibiotics
Pending final pathology for inguinal node biopsy
Aspiration precaution
Ongoing goals of care discussion. Family would lean towards comfort care measures he in situation of persistent aspiration, ESRD, new diagnosis of lymphoma
Assessment / Plan
Assessment / Plan
Impression:
Presentation with acute respiratory failure.
VDRF
� Intubated 11/10/2024
� Extubated 11/11/2024
Bilateral cavitary pneumonia secondary to aspiration.
Sepsis present on admission currently resolved
Hyponatremia/hyperkalemia improved.
Hypoglycemia resolved.
Acute kidney injury CKD stage V requiring HD initiation.
Metabolic acidosis.
Lactic acidosis.
Seizure suspected secondary to hypoglycemia.
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
Other conditions:
Microcephaly with developmental delay.
History of splenectomy/appendectomy in [facility].
Recurrent pneumonias.
Presumptive diagnosis of tuberculosis status posttreatment. Details not clear
History of fungal pneumonia proven by bronchoscopy at [facility] 2022. 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
Bronchiectasis
Hepatitis?
Chronic normocytic anemia
Hypothyroidism replaced
Plan
. Septic shock - required vasopressors. Bilateral cavitary pneumonia (left upper lobe cavitary lung lesion)
-Chest x-ray showing bilateral infiltrates
-Blood cultures/sputum culture collected. COVID flu negative
-Patient history of tuberculosis in past AFB culture has been obtained. QuantiFERON test was normal in 23. Repeat QuantiFERON test neg.
- Status post bronchoscopy. ET tube aspirate culture growing filamentous fungus -ID has requested further identification.
- Aspergillus immunoglobin antibody pending
-Sputum AFB stain negative x 3, pending cultures. QuantiFERON gold reported intermediate. Isolation discontinued.
-Diffuse lymphadenopathy. Status post right inguinal lymph node biopsy with negative cultures. Path pending
-Concern for ongoing aspiration syndrome. Speech and swallow including VSE evaluation noted. Diet adjusted with thickened liquids.
-Completed 7-day course of antibiotics. Ceftriaxone discontinued on 11/17.
- 11/18 new episode of chills and rigors, tachycardia while off antibiotics. Noted with increased oxygen requirements. Rising WBC. Lactic acidosis. Transferred to ICU. Resumed on ceftriaxone with pending blood cultures
Diffuse lymphadenopathy.
Status post inguinal lymph node biopsy with preliminary results consistent with peripheral T-cell lymphoma pending final path
Heme-onc consulted
Additional imaging with a CT of the abdomen pelvis pending
Seizure episode
-thought due to hypoglycemia
-Neuro signed off
-Patient was intubated for this reason, now extubated.
Severe Diffuse lymphadenopathy
-highly suspicious for malignancy
-Major intra-abdominal adenopathy suspicious of malignancy
-s/p needle biopsy of right ing LN, f/u results.
-Previous biopsy has shown noncaseating granulomas of unclear significance. Sarcoidosis was ruled out per [facility] records.
Hyponatremia -improved
-received 3%NS , improved
-Has history of previous hyponatremia. Reason unclear
-Urine sodium of 98 and urine osmolarity of 292
Acute kidney injury on CKD stage unknown
Metabolic acidosis
-appears progressive, creat staying in mid 5 range
-Patient apparently reported to have creatinine in range of 3, has been following with [facility]
- Status post tunnel catheter placement
- Patient getting first round of hemodialysis today
Hyperkalemia - resolved
Hypokalemia
- s/p insulin/dextrose and lokelma
- As needed replacement of potassium
Episode of hypoglycemia
- unclear if that precipitated the seizure or hyponatremia (less likely as pt chronically hyponatremic)
- extubated and on diet, monitor BG
- Patient had low blood glucose of 30 post admission,
- Discussed with credit risk specialist, who prefers for patient to be maintained on dextrose IVF for now
Hypercalcemia - Improved
- elevated on admission (12.1 now down to 9.0)
- PTH < 4 /PTHrp Pending. MARY level 121 (normal 16-85)
- Due to chronic granulomatous disease versus malignancy related?
- Calcium level is improved with IV hydration
Developmental disorder
Microcephaly
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
- Patient have microcephaly and converges sign scale of 10-year old
- Lives with family and was somewhat independent before hospitalization
Acute transaminitis
Elevated ALP
- Persistent mild transaminitis.
- Elevated ALP from infiltrative disease lymphoma? Sarcoidosis? Tuberculosis?
- CT abdomen pelvis showing moderate periportal edema. Surgically absent spleen. Normal biliary duct/gb.
Left-sided pleural effusion
Anasarca
Acute hypoxic respiratory insufficiency
- Volume overload state from ESRD
- Attempt thoracentesis on 11/17 with not enough fluids
Pancreatic lipomatosis
DVT PPX - heparin sq
Code status - Full Code
Goals of care discussion. I had extensive discussion with patient's father at the bedside on 11/18. Looking through medical records and current hospitalization, there is a fair impression of chronic and recurrent cavitary pneumonia secondary to
aspiration. Over this hospitalization patient developed respiratory failure requiring invasive ventilation. This is likely a progressive process with overall deteriorating respiratory reserve and normal compensation especially in the patient with
ESRD.
Anticipated Discharge: > 48 hours
Subjective/Interval History
-
Date of Service: November 19, 2024
Objective Data
-
Labs:
Laboratory Results
11/19/24
04:56
WBC 20.0 H
Hgb 7.7 L
Hct 22.9 L
Plt Count 128 L
Sodium 135
Potassium 3.8
Chloride 108 H
Carbon Dioxide 24
BUN 17
Creatinine 2.7 H
Glucose 69 L
Calcium 7.3 L
Vital Signs:
Vital Signs
Temp Pulse Resp BP Pulse Ox
98.7 F 97 18 108/84 92
11/19/24 11:23 11/19/24 07:13 11/19/24 07:13 11/19/24 06:00 11/19/24 08:00
I&O
11/18/24 11/19/24 11/20/24
06:59 06:59 06:59
Intake Total 240 / 240
Balance 240 / 240
Physical Exam
-
General: Well Developed and No Apparent Distress
HEENT: Normocephalic, Atraumatic and Moist Mucous Membranes
Respiratory: Clear to Auscultation
Cardiac: Regular Rhythm and S1/S2; Negative Murmur, Rub or Gallop
GI: Soft, Nontender, Normal Bowel Sounds and Other (Firm, mild distention, nontender); Negative Organomegaly
Rectal: Deferred by Provider
Musculoskeletal: No Clubbing, No Cyanosis and No Edema
Skin: Negative Rash
Neuro: Nonfocal/Grossly Intact
[2024-11-19 12:32] LABS: Glucose - Point of Care 132 mg/dl (70-99)
--- NOTE | 2024-11-19 14:04 | CM ---
Transferred to ICU on 11/18/24 PM, steroids d/cd, now with T-cell lymphoma, IV/Rocephin, On HD. Family meeting regarding GOC in am on 11/20/24.
Discharge POC: TBD based on family meeting and GOC.
[2024-11-19 14:49] LABS: Venous Blood Gas B.E. -3.1 mmol/L (-4 to +4); Venous Blood Gas O2 Sat % 97.7 %
[2024-11-19 15:31] LABS: ALT (SGPT) 170 U/L (0-50); AST (SGOT) 145 U/L (17-59); Albumin 2.8 g/dl (3.5-5.0); Alkaline Phosphatase 1053 U/L (38-126); Total Protein 5.1 g/dl (6.3-8.2)
[2024-11-19 17:05] LABS: Glucose - Point of Care 159 mg/dl (70-99)
[2024-11-19] MEDS: ROCEPHIN 1000 MG IV (18:35)
[2024-11-19] MEDS: STERILE WATER FOR INJECTION 10 ML IV (18:37)
[2024-11-19] MEDS: SODIUM CHLORIDE 3% FOR INHALATION 1 VIAL INH (20:12)
[2024-11-19 21:11] LABS: Glucose - Point of Care 154 mg/dl (70-99)
--- NOTE | 2024-11-19 21:41 | PTCARENOTE ---
Received patient oriented to self and place. No pain, following commands, smiling and pleasant. ST 100s-120s, BP 110s-130s/70s, afebrile, trace b/l LE edema. Palpable radial and pedal pulses b/l. On 4 liters nasal cannula, diminished throughout.
Saturating 93%. Stomach distended, round, positive bowel sounds. Bm and voids in bathroom with assistance. PIV patent, WNL. Right chest HD cath. Call baca within reach, gown and sheets changed.
[2024-11-19 22:14] LABS: Aspergillus Abs by ID Not Detected (Not Detected)
--- NOTE | 2024-11-19 23:45 | PTCARENOTE ---
Patient assessment unchanged from previous, call baca within reach.
[2024-11-20] VITALS (37 sets, daily range): BP systolic 89–138; BP diastolic 64–94; BMI 19.7
[2024-11-20] MEDS: HEPARIN 2500 UNITS SC ×3 (00:57→16:16)
[2024-11-20] MEDS: SYNTHROID 88 MCG PO (05:00)
--- NOTE | 2024-11-20 05:12 | PTCARENOTE ---
CHG bath done, labs sent, call baca within reach. Patient assessment unchanged from previous.
[2024-11-20 05:27] LABS: Hematocrit 23.2 % (39.0-52.0); Hemoglobin 8.0 g/dL (13.0-18.0); Mean Corp Hgb Conc. 34.5 g/dL (33.0-37.0); Mean Corpuscular Volume 90.6 fL (80.0-94.0); Platelet Count 125 10^3/uL (130-400); Red Cell Dist. Width 18.7 % (11.5-14.5)
[2024-11-20 06:00] LABS: Blood Urea Nitrogen 27 mg/dl (9-20); Calcium 8.4 mg/dl (8.4-10.2); Carbon Dioxide 23 mmol/L (22-30); Chloride 107 mmol/L (98-107); Estimated Creatinine Clearance 19 ml/min; Glucose 77 mg/dl (70-99); Potassium 4.1 mmol/L (3.5-5.1); Sodium 135 mmol/L (135-145); eGFR 21.47
[2024-11-20 07:20] LABS: Absolute Neutrophils -Man Diff 18.7 10^3/uL (1.4-6.5)
[2024-11-20 07:21] LABS: Anisocytosis 2+; Hypochromasia 3+; Macrocytosis Slight; Microcytosis Slight; Normal RBC Morphology No; Platelets Checked Yes; Polychromasia Slight; Target Cells 3+; Total Cells Counted 100
[2024-11-20] MEDS: VENTOLIN NEBULES 1.25 MG INH ×3 (07:27→19:33)
[2024-11-20] MEDS: SODIUM CHLORIDE 3% FOR INHALATION 1 VIAL INH ×2 (07:27→19:33)
--- NOTE | 2024-11-20 07:42 | PTCARENOTE ---
discussion with pts father bedside, expression concern about HD given complications 'and how awful it was on Sunday'. Requesting to speak with underground truck operator prior to treatment and anxious to have plan regarding need for HD. Dr. Hart updated.
Family bedside updated that MD will be visiting to speak with him before any HD will occur. Presently getting neb. Dr. Wheatley in to see pt.
[2024-11-20] MEDS: NOVOLOG FLEXPEN-LOW RESISTANCE SC ×3 (07:59→17:01)
[2024-11-20] MEDS: PROTONIX 40 MG PO (08:07)
[2024-11-20] MEDS: TESSALON PERLES 100 MG PO ×3 (08:07→21:13)
[2024-11-20] MEDS: ROBITUSSIN 100 MG PO ×2 (08:07→21:13)
[2024-11-20] MEDS: ZYLOPRIM 100 MG PO (08:07)
--- NOTE | 2024-11-20 09:38 | PTCARENOTE ---
family meeting with Drs. Lipscomb and Dioni, then conversation at bedside re: HD with Dr. Lipscomb and patient who is reluctant to agree to it. Appetite fair, presently pt scrolling on phone.
--- NOTE | 2024-11-20 10:02 | W.PN.HOSP.TC ---
Today's Communication/Plan
-
Multidisciplinary discussion including family (father and sister at the bedside) heme-onc, pulmonary.
Patient with aggressive type of lymphoma with overall prognosis of close to 50% survival with treatment (CHOP regimen) and less than 6 months without. Systemic treatment would be only considered with reasonable clearance of infection and the
patient staying on HD.
Reassess right pleural effusion with consideration of thoracentesis
Antibiotics per ID
Attempt of HD for volume control
Assessment / Plan
Assessment / Plan
Impression:
Presentation with acute respiratory failure.
VDRF
� Intubated 11/10/2024
� Extubated 11/11/2024
Bilateral cavitary pneumonia secondary to aspiration.
Sepsis present on admission currently resolved
Hyponatremia/hyperkalemia improved.
Hypoglycemia resolved.
Acute kidney injury CKD stage V requiring HD initiation.
Metabolic acidosis.
Lactic acidosis.
Seizure suspected secondary to hypoglycemia.
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
Other conditions:
Microcephaly with developmental delay.
History of splenectomy/appendectomy in [facility].
Recurrent pneumonias.
Presumptive diagnosis of tuberculosis status posttreatment. Details not clear
History of fungal pneumonia proven by bronchoscopy at [facility] 2022. 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
Bronchiectasis
Hepatitis?
Chronic normocytic anemia
Hypothyroidism replaced
Plan
. Septic shock - required vasopressors.
Bilateral cavitary pneumonia (left upper lobe cavitary lung lesion)
-Chest x-ray showing bilateral infiltrates
-Blood cultures/sputum negative to date.. COVID flu negative
-Patient history of tuberculosis in past AFB culture has been obtained. QuantiFERON test was normal in 23. Repeat QuantiFERON test neg.
- Status post bronchoscopy. ET tube aspirate culture growing filamentous fungus, Aspergillus fumigatus.
-Sputum AFB stain negative x 3, pending cultures. QuantiFERON gold reported intermediate. Isolation discontinued.
-Concern for ongoing aspiration syndrome. Speech and swallow including VSE evaluation noted. Diet adjusted with thickened liquids.
-Completed 7-day course of antibiotics. Ceftriaxone discontinued on 11/17.
- 11/18 new episode of chills and rigors, tachycardia while off antibiotics. Noted with increased oxygen requirements. Rising WBC. Lactic acidosis. Transferred to ICU. Resumed on ceftriaxone with repeated blood culture NTD
Bilateral right greater than left pleural effusion noted. Chest ultrasound 11/17 with minimal effusion not able to perform thoracentesis. To be reassessed with consideration of thoracentesis.
Diffuse lymphadenopathy.
Status post inguinal lymph node biopsy with preliminary results consistent with peripheral T-cell lymphoma.
Discussion with with oncology. Aggressive type of lymphoma with 44-50% survival rate with treatment (CHOP regimen).
Chemotherapy treatment would be considered only with reasonable infection clearance as well as patient staying on hemodialysis.
Seizure episode
-thought due to hypoglycemia
-Neuro signed off
-Patient was intubated for this reason, now extubated.
Hyponatremia -improved
-received 3%NS , improved
-Has history of previous hyponatremia. Reason unclear
-Urine sodium of 98 and urine osmolarity of 292
Acute kidney injury on CKD stage unknown
Metabolic acidosis
-appears progressive, creat staying in mid 5 range
-Patient apparently reported to have creatinine in range of 3, has been following with [place] [facility]
- Status post tunnel catheter placement
- Patient getting first round of hemodialysis today
Hyperkalemia - resolved
Hypokalemia
- s/p insulin/dextrose and lokelma
- As needed replacement of potassium
Episode of hypoglycemia
- unclear if that precipitated the seizure or hyponatremia (less likely as pt chronically hyponatremic)
- extubated and on diet, monitor BG
- Patient had low blood glucose of 30 post admission,
- Discussed with application internship, who prefers for patient to be maintained on dextrose IVF for now
Hypercalcemia - Improved
- elevated on admission (12.1 now down to 9.0)
- PTH < 4 /PTHrp Pending. MARY level 121 (normal 16-85)
- Due to chronic granulomatous disease versus malignancy related?
- Calcium level is improved with IV hydration
Developmental disorder
Microcephaly
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
- Patient have microcephaly and converges sign scale of 10-year old
- Lives with family and was somewhat independent before hospitalization
Acute transaminitis
Elevated ALP
- Persistent mild transaminitis.
- Elevated ALP from infiltrative disease lymphoma? Sarcoidosis? Tuberculosis?
- CT abdomen pelvis showing moderate periportal edema. Surgically absent spleen. Normal biliary duct/gb.
Pancreatic lipomatosis
DVT PPX - heparin sq
Code status - Full Code
Goals of care discussion. I had extensive discussion with patient's father at the bedside on 11/18. Looking through medical records and current hospitalization, there is a fair impression of chronic and recurrent cavitary pneumonia secondary to
aspiration. Over this hospitalization patient developed respiratory failure requiring invasive ventilation. This is likely a progressive process with overall deteriorating respiratory reserve and normal compensation especially in the patient with
ESRD.
11/20 multidisciplinary discussion including family (father and sister at the bedside) heme-onc, pulmonary.
Patient with aggressive type of lymphoma with overall prognosis of close to 50% survival with treatment (CHOP regimen) and less than 6 months without. Systemic treatment would be only considered with reasonable clearance of infection and the
patient staying on HD.
Anticipated Discharge: > 48 hours
Subjective/Interval History
-
Date of Service: November 20, 2024
Objective Data
-
Labs:
Laboratory Results
11/20/24
04:52
WBC 22.9 H
Hgb 8.0 L
Hct 23.2 L
Plt Count 125 L
Sodium 135
Potassium 4.1
Chloride 107
Carbon Dioxide 23
BUN 27 H
Creatinine 3.7 H
Glucose 77
Calcium 8.4
Vital Signs:
Vital Signs
Temp Pulse Resp BP Pulse Ox
98.3 F 102 37 125/90 95
11/20/24 08:00 11/20/24 07:30 11/20/24 07:30 11/20/24 07:00 11/20/24 08:00
I&O
11/19/24 11/20/24 11/21/24
06:59 06:59 06:59
Intake Total 120 / 120
Balance 120 / 120
Physical Exam
-
General: Well Developed and No Apparent Distress
HEENT: Normocephalic, Atraumatic and Moist Mucous Membranes
Respiratory: Clear to Auscultation
Cardiac: Regular Rhythm and S1/S2; Negative Murmur, Rub or Gallop
GI: Soft, Nontender, Nondistended and Normal Bowel Sounds; Negative Organomegaly
Rectal: Deferred by Provider
Musculoskeletal: No Clubbing, No Cyanosis and No Edema
Skin: Negative Rash
Neuro: Nonfocal/Grossly Intact
--- NOTE | 2024-11-20 10:33 | W.PN.ONC ---
Today's Communication / Plan
-
Peripheral T Cell Lymphoma
We met and discussed the patient's diagnosis with the family today. Dr. Lipscomb was present for translation. Discussed the need to clear the patient's current lung infection before being able to consider treatment options for the T cell lymphoma.
We also talked about the need for the patient to tolerate hemodialysis before starting treatment as the drugs are cleared renally and would be toxic without HD given his current ESRD.
Patient may be eligible for multiagent chemo pending [facility]'s additional pathology review and depending on the infection and kidney status in a few days. We agreed to see how the patient does over the weekend and reconvene on Sunday regarding a plan
moving forward. Goals of care and hospice were also discussed briefly, but family would like to hold off on any decisons for the time being.
Impression
Impression
Peripheral T Cell Lymphoma, NOS
- severe diffuse abdominal lymphadenopathy on imaging
- s/p needle biopsy on 11/14
- preliminary pathology results posted from . The case is submitted for outside consultation to [facility] for further testing and subclassification.
Normocytic Anemia
- hgb 6.8 on 11/11, transfused one unit of blood
- hgb today 8.0
- Iron studies 11/11: Iron 31 ug/dl, TIBC 151 ug/dl, ferritin 966 ng/mL
Septic Shock
- chest x ray on admission showed b/l cavitary pneumonia
- ceftriaxone discontinued on 11/17, restarted 11/18
Seizure episode
- thought to be hypoglycemia related
- Intubated 11/10/24 (intubated for airway protection in setting of emesis), extubated 11/11/24
Acute kidney injury on CKD stage unknown
- on HD, started 11/15
Plan
Plan
Peripheral T Cell Lymphoma
We met and discussed the patient's diagnosis with the family today. Dr. Lipscomb was present for translation. Discussed the need to clear the patient's current lung infection before being able to consider treatment options for the T cell lymphoma.
We also talked about the need for the patient to tolerate hemodialysis before starting treatment as the drugs are cleared renally and would be toxic without HD given his current ESRD.
Patient may be eligible for multiagent chemo pending [facility]'s additional pathology review and depending on the infection and kidney status in a few days. We agreed to see how the patient does over the weekend and reconvene on Sunday regarding a plan
moving forward. Goals of care and hospice were also discussed briefly, but family would like to hold off on any decisons for the time being.
Subjective/Objective
Subjective/Objective
Vital Signs:
Vital Signs
Temp Pulse Resp BP Pulse Ox
98.3 F 102 37 125/90 95
11/20/24 08:00 11/20/24 07:30 11/20/24 07:30 11/20/24 07:00 11/20/24 08:00
Lab Results:
Laboratory Data
WBC 22.9 10^3/uL (4.8-10.8) H 11/20/24 04:52
Hgb 8.0 g/dL (13.0-18.0) L 11/20/24 04:52
Plt Count 125 10^3/uL (130-400) L 11/20/24 04:52
PT 13.9 Sec (11.4-14.6) 11/10/24 05:37
INR 1.04 11/10/24 05:37
APTT 44.1 Sec (23.4-35.0) H 11/10/24 05:37
eGFR 21.47 11/20/24 04:52
--- NOTE | 2024-11-20 12:00 | PTCARENOTE ---
seen by Dr. Hart, also speech therapy. Resting, quieter than previously. Questions answered as able. Ordered and awaiting lunch.
[2024-11-20] MEDS: ROBITUSSIN PO ×2 (12:46→17:15)
[2024-11-20 12:53] LABS: Glucose - Point of Care 113 mg/dl (70-99)
--- NOTE | 2024-11-20 13:04 | W.PN.INTV ---
Addendum entered and electronically signed by Bob Cho MD 11/20/24 19:51:
Patient stable for transfer to IMU
Pulmonary team will continue to follow along.
Original Note:
Today's Communication / Plan
Recommendations
- Follow-up blood cultures
- POCUS suggestive of small pleural effusion, simple appearing without loculations, low likelihood of empyema
- If patient tolerates hemodialysis well, can be transferred out of ICU
- Pulmonary service will continue to follow
Assessment
-
29-year-old male with complex medical history, including microcephaly, history of multiple pneumonias, treated for 9 months for tuberculosis in 2009, complaining of 6 months of cough, intermittent fevers, followed by infectious disease, nephrology,
endocrinology, pulmonary at [facility] with recent hospital stay 3 weeks ago at , now presents with increased fatigue, emesis, cough and malaise. Family brought patient to the [facility] due to no answers at . patient developed
increased tachypnea, emesis, hypoglycemia with blood sugar less than 30. Patient was intubated, hypoglycemia treated. Sodium on admission 118, increased to 126, stabilized at 125. Patient required initiation of D10 gtt. in view of respiratory
failure and intubation, patient was admitted to the ICU. He was subsequently extubated. Infectious workup mostly stayed negative except for Eleanor noted on sputum. Blood culture stayed negative. Infectious disease service was following along.
Patient completed close to 10 days of antibiotics. And patient was transferred out of ICU.
On 11/18, postdialysis, patient developed rigors and chills and lactic level was noted to be around 8. In view of concern for possible developing sepsis patient was transferred to the ICU. Patient otherwise was hemodynamically stable, afebrile
without gross abnormality on lab work or new changes on chest x-ray. He was empirically started on ceftriaxone and blood cultures were drawn.
Conditions present prior to admission
History of splenectomy/appendectomy in [facility]?
Thrombocytopenia while in [facility]
ITP?
History of microcephaly
History of multiple pneumonias (10+ times)
Prolonged hospital stay for 9 months in 2009 ([place])
Presumptive diagnosis of tuberculosis status post-treatment
Follows pulmonary at left upper lobe cavitary lung disease
Left upper lobe cavitary lung disease
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
Bronchoscopy at [facility] 2022, positive fungal pneumonia
Did not tolerate antifungal therapy per records
Bronchiectasis per prior imaging at [facility]
History of liver disease, follows hepatology at [facility] (details unclear)
Hypothyroidism
Assessment and plan:
#1. Acute respiratory failure on admission, suspect aspiration pneumonia and fluid overload
- Intubated 11/10/24 (intubated for airway protection in setting of emesis) --> extubated 11/11/24
- Currently on supplemental oxygen, 91% on 4 L
#2. Chronic pulmonary cavitary opacities with bilateral interstitial infiltrates, bronchiectasis
- Patient has had extensive workup at [facility] including bronchoscopy, CT scan.
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 Endotracheal cultures here positive for Aspergillus
- Infectious disease service on case.
- Suspect ongoing chronic aspiration also contributing to pulmonary changes
- Continue airway clearance with hypertonic saline nebulized twice a day along with albuterol
- f/u CT chest with improving GGOs, likely related to fluid removal. Overall fluid overloaded.
- Suspect GGO on prior imaging are related to over load.
- Off inhaled steroids with known h/o Aspergillus. Off systemic steroids.
#3. Prior h/o ?TB, completed Anti tubercular medications x 9 months
- AFB x 3 have been negative during this hospitalization, no need for airborne isolation
#4. Lactic acidosis and chills, 11/18
- Serial lactate has since improved, overall fluctuates. No acidosis noted on ABG and VBG. Abnormal LFTs, ?slow lactate clearance vs related to lymphoma. Presentation not suggestive of severe sepsis.
- Blood cultures have been obtained and patient empirically started on Rocephin
- Patient hemodynamically stable, no change on chest x-ray, blood work has been essentially without any significant change
- ? Dialysis disequilibrium syndrome
- Follow-up on cultures to rule out any infectious etiology for patient's symptoms
#5. BRENDON with underlying chronic kidney disease
- Suspect progression to now end-stage renal disease, patient newly started on hemodialysis
- Nephrology service on case
#6. Seizures, provoked by hypoglycemia.
- Per neurology no further workup or antiepileptic medications needed.
#7. Retroperitoneal, abdominal, mediastinal and hilar adenopathy per imaging/New diagnoses of T Cell Lymphoma
- S/p IR guided lymph node biopsy in the inguinal region, pathology suggestive of T cell lymphoma
- Oncology consult
#8. Chronic mild hyponatremia
- Resolved since patient has been started on hemodialysis, 135 this morning
#9. Recurrent hypoglycemia
- Particularly pronounced on admission, required D10 infusion
- Suspect acute illness, sepsis contributed as well
- Blood sugars well-controlled now
#10. Bilateral pleural effusions
- Suspect related to progressive renal failure, now on hemodialysis
- Fluid collection felt to be too small for safe thoracentesis
- POCUS obtained 11/20, small effusion on right, no obvious loculations noted, not large enough for safe Thoracentesis. Low suspicion for empyema.
Critical Care time 45 mins -- The patient is admitted for acute critical illness for the treatment of vital organ failure and/or prevention of further life-threatening conditions. Total care includes time spent in review of history, physical exam,
medications, hemodynamic/ventilator parameters, laboratory data, imaging and discussion with house staff, pharmacy, respiratory therapy, pulp refiner operator, and nursing.
Diagnostic Data
Chest X-Ray: 11/16/24-Findings suggesting severe pulmonary edema. Pneumonia and underlying pulmonary fibrosis not excluded. Significantly progressed. Prior chest CT identified left upper lobe cavitary masses. Poorly seen by x-ray examination
11/12/24-Patchy bilateral parenchymal opacities, most likely representing pneumonia.
US chest 11/17/24-Small right pleural effusion. Amount of fluid present not sufficient for safe thoracentesis.
CT Scan: CHEST 11/14/24-1. 3.5 cm and 3.0 cm thick walled cavitary masses in the left upper lobe.
2. Severe ground-glass opacity throughout the lower lobes and right upper lobe.
3. Moderate-sized right and small left pleural effusions.
4. Severe mediastinal lymphadenopathy.
Echo: 11/10/24-Normal left ventricular chamber size. Normal left ventricular systolic function. Left ventricular ejection fraction is 50-55%. Normal regional wall motion. Normal left ventricular wall thickness. Normal diastolic function.
Subjective Dataa
Subjective Data
Date of Service:
Date of Service: November 20, 2024
Subjective:
Patient comfortably sitting in bed in no acute distress. No further chills or fever noted.
Review of Systems
General: Other (Unable to get a full review of system)
Objective Data
Data Reviewed
Vital Signs / I&O / Oxygen:
Vital Signs
Temp Pulse Resp BP Pulse Ox
99.0 F 132 32 117/83 95
11/20/24 12:00 11/20/24 12:39 11/20/24 12:00 11/20/24 12:39 11/20/24 12:00
Intake and Output
11/19/24 11/20/24 11/21/24
06:59 06:59 06:59
Intake Total 120 / 120
Balance 120 / 120
SaO2 [CPAP/PSV] 98
SaO2 [ASV] 98
SaO2 [A/C] 95
SaO2 95
Nasal Cannula flow liters per 4
minute
Physical Exam
General: Comfortable
HEENT: Anicteric (n) and Other (Microcephalic)
Cardiovascular: S1-S2, Regular Rhythm, Murmur (n), Rub (n) and Peripheral Edema (1-2+)
Respiratory: Wheeze (n), Crackles (few inspiratoty rales R>L), Rhonchi (n), Non-Labored Respirations and Crepitus (n)
GI: Soft, Distended (Slightly distended) and Non Tender
Neurology: Awake, Alert and No Motor Deficits (Moves all extremities, ambulating)
Skin: Cyanosis (n), Jaundice (n) and Rash (n)
Labs/Micro/Reports
Lab Data
11/20/24 04:52
11/20/24 04:52
Microbiology
11/18/24 18:31 Blood/Venous Blood Culture - Preliminary
No Growth in 24 hours- Final report to follow
11/18/24 17:07 Blood/Venous Blood Culture - Preliminary
No Growth in 24 hours- Final report to follow
11/10/24 12:32 Endotracheal Fungus Mold Identification - Final
Aspergillus fumigatus Group
11/10/24 12:32 Endotracheal Specimen Source - Final
11/10/24 12:32 Endotracheal Legionella pneumophila (Direct FA) - Final
11/10/24 12:32 Endotracheal Legionella Culture - Final
Filamentous fungus
11/11/24 09:52 Endotracheal Fungal Culture - Preliminary
Eleanor albicans
11/14/24 14:30 Lymph Node Tissue Culture - Final
No Growth After 72 Hours
11/14/24 14:30 Lymph Node Gram Stain - Final
--- NOTE | 2024-11-20 14:06 | W.PN.ID1 ---
Date of Service
Date of Service: November 20, 2024
Today's Communication
Continue antibiotics. Initiate posaconazole. Vaccinate for splenectomy. See below�
Assessment / Plan
s/p Ventilator dependent respiratory failure
BRENDON on CKD - started HD 11/15
Hyponatremia
Aspiration pneumonia
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
Leukocytosis
Lactic acidosis
Anemia
Hyperkalemia
Peripheral T-cell lymphoma
Hx TB (Tx for 9 months in [facility], although not clear if empiric only)
Microcephaly
Hx splenectomy (2008
- Unknown vaccine status at time of splenectomy
- [place] records indicate prior PCV 20
Recommendations:
Sputum culture without Pseudomonas.
Legionella culture negative, although Aspergillus fumigatus group recovered on plate; DFA negative
Respiratory AFB stain/culture x 3 performed. AFB stain negative x 3. Patient removed from Airborne Isolation.
AFB blood culture pending.
11/14/24 s/p IR right groin lymph node biopsy: Peripheral T-cell lymphoma
Chart reviewed. Patient likely to initiate chemotherapy if he tolerates hemodialysis.
In anticipation of treatment of underlying malignancy, will initiate therapy with posaconazole in the treatment of recovered Aspergillus.
Old records were reviewed, and patient may have been intolerant of Azole therapy in the past, although at the time it appears he may have been uremic and that may have been contributing to his perceived intolerance.
Additionally, will fully vaccinate for his post splenectomy status. He has already received PCV 20. Will give Hib x 1, along with vaccination for Neisseria meningitidis A,C,Y,W, along with Neisseria meningitidis B
Video swallowing study results noted positive for aspiration.
Monitor white count and temperature curve.
Continue with supportive measures.
����������������������������������������������������������
Chief Complaint
-: Leukocytosis and Pneumonia
Subjective / Review of Systems
Review of Systems: No Fever, Cough and Sputum Production
Vital Signs / Physical Exam
Vital Signs
Vital Signs
Temp Pulse Resp BP Pulse Ox
99.0 F 109 20 110/89 97
11/20/24 13:56 11/20/24 13:45 11/20/24 13:45 11/20/24 13:45 11/20/24 13:34
Physical Exam
Constitutional: No Acute Distress, Chronically Ill and Non-toxic
Eyes: Sclera Anicteric
Cardiovascular: S1/S2; Negative S3/S4
Pulmonary: Rhonchi (Scattered), Coarse and Non Labored
Gastrointestinal: Soft, Non Tender, Non Distended and Normal Bowel Sounds
Skin: Negative Rash or Jaundice
Neurological: Awake and Alert
Psychological: Calm
Lines: HD Cath
Objective Data
Lab Data
Lab Results
11/20/24 04:52
11/20/24 04:52
PT 13.9 Sec (11.4-14.6) 11/10/24 05:37
INR 1.04 11/10/24 05:37
APTT 44.1 Sec (23.4-35.0) H 11/10/24 05:37
Estimated Creat Clear 19 ml/min 11/20/24 04:52
Lactic Acid 4.7 mmol/L (0.7-2.0) H* 11/19/24 12:58
Total Bilirubin 1.0 mg/dl (0.2-1.3) 11/19/24 14:20
AST 145 U/L (17-59) H 11/19/24 14:20
ALT 170 U/L (0-50) H 11/19/24 14:20
Alkaline Phosphatase 1053 U/L (38-126) H 11/19/24 14:20
Most recent labs reviewed.
Micro Results:
11/18/24 18:31 Blood Culture - Preliminary
Blood/Venous No Growth in 24 hours- Final report to follow
11/18/24 17:07 Blood Culture - Preliminary
Blood/Venous No Growth in 24 hours- Final report to follow
11/10/24 12:32 Fungus Mold Identification - Final
Endotracheal Aspergillus fumigatus Group
11/10/24 12:32 Specimen Source - Final
Endotracheal Legionella pneumophila (Direct FA) - Final
Legionella Culture - Final
Filamentous fungus
11/11/24 09:52 Fungal Culture - Preliminary
Endotracheal Eleanor albicans
11/14/24 14:30 Tissue Culture - Final
Lymph Node No Growth After 72 Hours
Gram Stain - Final
11/09/24 20:04 Blood Culture - Final
Blood/Venous No Growth - Final Report
11/09/24 20:04 Blood Culture - Final
Blood/Venous No Growth - Final Report
11/12/24 10:12 AFB Blood Culture - Preliminary
Blood/Venous
11/10/24 17:13 Acid Fast Bacilli Smear - Preliminary
Endotracheal Acid Fast Bacilli Culture - Preliminary
11/10/24 12:32 Acid Fast Bacilli Smear - Preliminary
Endotracheal Acid Fast Bacilli Culture - Preliminary
11/10/24 07:58 Respiratory Culture - Final
Sputum Eleanor albicans
Gram Stain - Final
11/10/24 07:58 Acid Fast Bacilli Smear - Preliminary
Sputum Acid Fast Bacilli Culture - Preliminary
11/10/24 07:58 Nasal Screen MRSA (PCR) - Final
Nose MRSA not detected - performed by PCR methodology.
11/10/24 05:58 Legionella Urinary Antigen - Final
Urine Negative for Legionella pneumophila Serogroup 1 antigen.
A negative result does not rule out the possiblity of
Legionella infection due to other serogroups or species of
Legionella. Clinical correlation is recommended.
Streptococcus pneumoniae Antigen (M - Final
Negative for Streptococcus pneumoniae antigen.
A negative result does not exclude infection with
Streptococcus pneumoniae. Clinical correlation is
recommended.
11/10/24 00:38 Influenza Types A & B (YADIRA) - Final
Nasal Swab Negative for Influenza A & B, NAAT
Negative results must be combined with clinical observations
and patient history.
Nucleic Acid Amplification test (NAAT)performed on the
[employer] platform.
Imaging:
chest: 3.5 cm and 3.0 cm thick walled cavitary masses in the left upper lobe. Severe ground-glass opacity throughout the lower lobes and right upper lobe.
Moderate-sized right and small left pleural effusions. Severe mediastinal lymphadenopathy.
11/09/2024 CT abdomen/pelvis without contrast: Severe abdominal lymphadenopathy with markedly enlarged mesenteric, retroperitoneal and upper abdominal lymph nodes. Small volume ascites. Moderate to severe chronic renal disease. Severe pancreatic
lipomatosis. Moderate distal small bowel distention; suspected ileus. Diffuse groundglass pulmonary disease suspected to be inflammatory although cannot rule out infectious etiology. Mild focal left lower lobe airspace consolidation and possible
mild pneumonia. Please see full dictation for additional detail. Film personally viewed.
11/09/2024 CXR (portable): Bilateral parenchymal opacities. No evidence for cavitation. No evidence for pleural effusion. Please see full dictation for additional detail.
Pathology:
11/14/2024 Right groin lymph node core biopsy: Peripheral T-cell lymphoma
[2024-11-20] MEDS: RETACRIT 10000 UNITS IV (14:28)
--- NOTE | 2024-11-20 14:55 | W.PN.NEPH.HD ---
Assessment
-
pt seen during HD
vitals stable with midodrine
no UF planned
however he started with shakes and not comfortable 1hr 30min into HD
d/w family in detail at bedside
decision made to stop HD
due to his symptoms future tolerance to HD is concerning
family understands the prognosis
given vol overload will start him diuretics
CVC functioning fine
d/w nursing
Progress Note - Hemodialysis
-
Date of Service: November 20, 2024
Duration: 3 hours
Potassium Bath: 4
Calcium Bath: 2.5
Opti-Dialyzer: 160
Ultrafiltration: Other (0)
Blood Flow: 300
Dialysate Flow: 600
Heparin: no
EPO: [id number]
--- NOTE | 2024-11-20 15:13 | PTCARENOTE ---
Seen by Dr. Stern, on HD pt with some emotional upset regarding treatment, family bedside. Some shaking, temp noted, familiy updated. Dr. Stern and Dr. Hart back in room, will hold on vaccines until this evening. HD lasted approx 90 min and
now treatment is ending. Vs noted.
[2024-11-20] MEDS: LASIX 40 MG IV (16:20)
[2024-11-20] MEDS: TYLENOL 650 MG PO (16:58)
[2024-11-20] MEDS: STERILE WATER FOR INJECTION 10 ML IV (17:36)
[2024-11-20] MEDS: ROCEPHIN 1000 MG IV (17:36)
[2024-11-20] MEDS: TRUMENBA 120 MCG IM (19:14)
[2024-11-20] MEDS: [UNRECOGNIZED DRUG - OTHER] 10 MCG IM (19:38)
--- NOTE | 2024-11-20 20:37 | PTCARENOTE ---
Received patient in bed, denying pain, following commands. ST, afebrile, BP stable, trace b/l ankle edema. 93% on 5 liters nasal cannula, nonproductive cough. Coarse with crackles in the left base, diminished throughout. Abdomen distended, soft,
hypoactive bowel sounds. Voids in bathroom. Right PIV patent, WNL, right chest HD cath. 2 of 3 vaccines given, mom at bedside and educated, questions answered. Call baca within reach.
[2024-11-20] MEDS: [UNRECOGNIZED DRUG - OTHER] 10 MCG IM (21:12)
[2024-11-20] MEDS: NOXAFIL 300 MG PO (21:13)
[2024-11-20 22:20] LABS: Glucose - Point of Care 138 mg/dl (70-99)
[2024-11-21] VITALS (12 sets, daily range): BP systolic 89–118; BP diastolic 56–77; BMI 19.9; BMI 19.0
[2024-11-21] MEDS: HEPARIN 2500 UNITS SC ×2 (00:13→07:59)
[2024-11-21] MEDS: SYNTHROID 88 MCG PO (05:07)
--- NOTE | 2024-11-21 07:31 | W.PN.ID1 ---
Addendum entered and electronically signed by Brice Stern, 11/21/24 14:50:
Patient refusing further hemodialysis, which precludes chemotheraputic treatment of lymphoma.
Family has decided on hospice. Antibiotics D/C'ed.
Nothing further to add from an ID standpoint.
Will sign off and see again at your request.
Original Note:
Date of Service
Date of Service: November 21, 2024
Today's Communication
Continue antibiotics.
Assessment / Plan
s/p Ventilator dependent respiratory failure
BRENDON on CKD - started HD 11/15
- difficulty with completing sessions
Hyponatremia
Aspiration pneumonia
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
Leukocytosis
Lactic acidosis
Anemia
Hyperkalemia
Peripheral T-cell lymphoma
Hx TB (Tx for 9 months in [facility], although not clear if empiric only)
Microcephaly
Hx splenectomy (2008
- Unknown vaccine status at time of splenectomy
- [place] records indicate prior PCV 20
Recommendations:
Ceftriaxone (day #8); posaconazole (day #2)
Respiratory AFB stain/culture x 3 performed. AFB stain negative x 3; cultures pending. AFB blood culture pending.
11/14/24 s/p IR right groin lymph node biopsy: Peripheral T-cell lymphoma
Chart reviewed. Patient likely to initiate chemotherapy if he tolerates hemodialysis, although he had difficulty yesterday, and treatment was cut short. Father reports that patient no longer wants to be on hemodialysis. Will await further
discussions.
In anticipation of treatment of underlying malignancy, posaconazole has been started in the treatment of recovered Aspergillus.
Old records were reviewed, and patient may have been intolerant of Azole therapy in the past, although at the time it appears he may have been uremic and that may have been contributing to his perceived intolerance.
Given history of splenectomy, patient is now up-to-date with postsplenectomy vaccinations.
Continue with supportive measures. Await further discussions regarding hemodialysis, chemotherapy, and goals of care.
����������������������������������������������������������
Chief Complaint
-: Leukocytosis and Pneumonia
Subjective / Review of Systems
Patient seen and examined. Nursing reports uneventful night. Father at the bedside reports no significant issues at present. He does note, that the patient does not want to pursue hemodialysis anymore secondary to feeling so ill while on a
session.
Review of Systems: No Fever
Vital Signs / Physical Exam
Vital Signs
Vital Signs
Temp Pulse Resp BP Pulse Ox
97.7 F 93 24 94/70 93
11/21/24 03:35 11/21/24 07:00 11/21/24 07:00 11/21/24 06:00 11/21/24 07:00
Physical Exam
Constitutional: No Acute Distress, Chronically Ill and Non-toxic
Eyes: Sclera Anicteric
Cardiovascular: S1/S2; Negative S3/S4
Pulmonary: Rhonchi (Scattered), Coarse and Non Labored
Gastrointestinal: Soft, Non Tender, Non Distended and Normal Bowel Sounds
Skin: Negative Rash or Jaundice
Neurological: Awake and Alert
Psychological: Calm
Lines: HD Cath
Objective Data
Lab Data
Lab Results
11/20/24 04:52
11/20/24 04:52
PT 13.9 Sec (11.4-14.6) 11/10/24 05:37
INR 1.04 11/10/24 05:37
APTT 44.1 Sec (23.4-35.0) H 11/10/24 05:37
Estimated Creat Clear 19 ml/min 11/20/24 04:52
Lactic Acid 4.7 mmol/L (0.7-2.0) H* 11/19/24 12:58
Total Bilirubin 1.0 mg/dl (0.2-1.3) 11/19/24 14:20
AST 145 U/L (17-59) H 11/19/24 14:20
ALT 170 U/L (0-50) H 11/19/24 14:20
Alkaline Phosphatase 1053 U/L (38-126) H 11/19/24 14:20
Most recent labs reviewed.
Micro Results:
11/18/24 18:31 Blood Culture - Preliminary
Blood/Venous No Growth in 48 hours- Final report to follow
11/18/24 17:07 Blood Culture - Preliminary
Blood/Venous No Growth in 48 hours- Final report to follow
11/10/24 12:32 Fungus Mold Identification - Final
Endotracheal Aspergillus fumigatus Group
11/10/24 12:32 Specimen Source - Final
Endotracheal Legionella pneumophila (Direct FA) - Final
Legionella Culture - Final
Filamentous fungus
11/11/24 09:52 Fungal Culture - Preliminary
Endotracheal Eleanor albicans
11/14/24 14:30 Tissue Culture - Final
Lymph Node No Growth After 72 Hours
Gram Stain - Final
11/09/24 20:04 Blood Culture - Final
Blood/Venous No Growth - Final Report
11/09/24 20:04 Blood Culture - Final
Blood/Venous No Growth - Final Report
11/12/24 10:12 AFB Blood Culture - Preliminary
Blood/Venous
11/10/24 17:13 Acid Fast Bacilli Smear - Preliminary
Endotracheal Acid Fast Bacilli Culture - Preliminary
11/10/24 12:32 Acid Fast Bacilli Smear - Preliminary
Endotracheal Acid Fast Bacilli Culture - Preliminary
11/10/24 07:58 Respiratory Culture - Final
Sputum Eleanor albicans
Gram Stain - Final
11/10/24 07:58 Acid Fast Bacilli Smear - Preliminary
Sputum Acid Fast Bacilli Culture - Preliminary
11/10/24 07:58 Nasal Screen MRSA (PCR) - Final
Nose MRSA not detected - performed by PCR methodology.
11/10/24 05:58 Legionella Urinary Antigen - Final
Urine Negative for Legionella pneumophila Serogroup 1 antigen.
A negative result does not rule out the possiblity of
Legionella infection due to other serogroups or species of
Legionella. Clinical correlation is recommended.
Streptococcus pneumoniae Antigen (M - Final
Negative for Streptococcus pneumoniae antigen.
A negative result does not exclude infection with
Streptococcus pneumoniae. Clinical correlation is
recommended.
11/10/24 00:38 Influenza Types A & B (YADIRA) - Final
Nasal Swab Negative for Influenza A & B, NAAT
Negative results must be combined with clinical observations
and patient history.
Nucleic Acid Amplification test (NAAT)performed on the
[employer] platform.
Imaging:
CT chest: 3.5 cm and 3.0 cm thick walled cavitary masses in the left upper lobe. Severe ground-glass opacity throughout the lower lobes and right upper lobe.
Moderate-sized right and small left pleural effusions. Severe mediastinal lymphadenopathy.
11/09/2024 CT abdomen/pelvis without contrast: Severe abdominal lymphadenopathy with markedly enlarged mesenteric, retroperitoneal and upper abdominal lymph nodes. Small volume ascites. Moderate to severe chronic renal disease. Severe pancreatic
lipomatosis. Moderate distal small bowel distention; suspected ileus. Diffuse groundglass pulmonary disease suspected to be inflammatory although cannot rule out infectious etiology. Mild focal left lower lobe airspace consolidation and possible
mild pneumonia. Please see full dictation for additional detail. Film personally viewed.
11/09/2024 CXR (portable): Bilateral parenchymal opacities. No evidence for cavitation. No evidence for pleural effusion. Please see full dictation for additional detail.
Pathology:
11/14/2024 Right groin lymph node core biopsy: Peripheral T-cell lymphoma
[2024-11-21] MEDS: VENTOLIN NEBULES 1.25 MG INH (07:34)
[2024-11-21] MEDS: SODIUM CHLORIDE 3% FOR INHALATION 1 VIAL INH (07:34)
[2024-11-21] MEDS: ZYLOPRIM 100 MG PO (07:59)
[2024-11-21] MEDS: TESSALON PERLES 100 MG PO ×2 (07:59→21:12)
[2024-11-21] MEDS: ROBITUSSIN 100 MG PO ×2 (07:59→12:42)
[2024-11-21] MEDS: PROTONIX 40 MG PO (07:59)
[2024-11-21] MEDS: NOVOLOG FLEXPEN-LOW RESISTANCE SC ×2 (08:00→12:45)
--- NOTE | 2024-11-21 08:03 | W.PN.NEPH.PH ---
Today's Communication / Plan
-
HD tomorrow if family and patient agree
Assessment/Plan
-
Assessment
Microcephaly, short stature
Hypoparathyroidism
Hypercalcemia
CKD 5 progressive
Hyperkalemia
Hyponatremia
Abdominal lymphadenopathy
History of cavitary lung lesion, multiple pneumonia
Bilateral infiltrates lung
Splenectomy
Plan:
blood cultures negative
abx per ID on rocephin
s/p lymph node biopsy on 11/14-path shows T cell lymphoma-more tests pending
Initial dialysis 11/15
Dialysis tomorrow if patient agrees and or family wants to push forward with aggressive care
wean O2 as possible, mild edema on exam which not change in days
difficult to get UF with soft BPs
d/w nursing
-
-
Date of Service: November 21, 2024
CC / HPI / ROS
-
Chief Complaint:
CKD, hyperkalemia, hyponatremia
History of Present Illness:
no new seizures
BRENDON/Cr on HD now
Progressive CKD
WBC up at 20k
Review of Systems:
UOP not measured off fletcher
low grade fevers
sob just walking to bathroom, tachy in 140-settled down with rest
no fever
Difficult to obtain ROS
Weight not measured today
Labs
-
Labs:
WBC 22.9 10^3/uL (4.8-10.8) H 11/20/24 04:52
RBC 2.56 10^6/uL (4.70-6.10) L 11/20/24 04:52
Hgb 8.0 g/dL (13.0-18.0) L 11/20/24 04:52
Hct 23.2 % (39.0-52.0) L 11/20/24 04:52
Plt Count 125 10^3/uL (130-400) L 11/20/24 04:52
Sodium 135 mmol/L (135-145) 11/20/24 04:52
Potassium 4.1 mmol/L (3.5-5.1) 11/20/24 04:52
Chloride 107 mmol/L (98-107) 11/20/24 04:52
Carbon Dioxide 23 mmol/L (22-30) 11/20/24 04:52
BUN 27 mg/dl (9-20) H 11/20/24 04:52
Creatinine 3.7 mg/dL (0.7-1.3) H 11/20/24 04:52
eGFR 21.47 11/20/24 04:52
Glucose 77 mg/dl (70-99) 11/20/24 04:52
Calcium 8.4 mg/dl (8.4-10.2) 11/20/24 04:52
Phosphorus 4.8 mg/dl (2.5-4.5) H 11/14/24 08:27
Nxq-P-Bjwoeaeibhx Pept 5790 pg/ml 11/17/24 06:34
Albumin 2.8 g/dl (3.5-5.0) L 11/19/24 14:20
Physical Exam
-
Vital Signs:
Vital Signs
Temp Pulse Resp BP Pulse Ox
98.1 F 93 24 94/70 93
11/21/24 08:01 11/21/24 07:00 11/21/24 07:00 11/21/24 06:00 11/21/24 07:49
Cardiovascular:: Regular rate and rhythm
Respiratory:: Bilateral: Coarse
Lung Excursion:: Normal
Abdomen:: Distended, Nontender and Soft
Extremity Edema:: +1: Bilateral:
Fletcher Catheter: No
[2024-11-21 08:10] LABS: Glucose - Point of Care 99 mg/dl (70-99)
--- NOTE | 2024-11-21 08:27 | W.PN.PUL3 ---
Addendum entered and electronically signed by Bob Cho MD 11/21/24 14:12:
Pulmonary team will sign off, please call as needed.
Original Note:
Today's Communication / Plan
-
- Continue albuterol and hypertonic saline twice daily for airway clearance
- Patient volume overloaded, HD as tolerated
- Wean oxygen as tolerated
- Pulmonary service will continue to follow along
Assessment
-
29-year-old male with complex medical history, including microcephaly, history of multiple pneumonias, treated for 9 months for tuberculosis in 2009, complaining of 6 months of cough, intermittent fevers, followed by infectious disease, nephrology,
endocrinology, pulmonary at [facility] with recent hospital stay 3 weeks ago at , now presents with increased fatigue, emesis, cough and malaise. Family brought patient to the [facility] due to no answers at . patient developed
increased tachypnea, emesis, hypoglycemia with blood sugar less than 30. Patient was intubated, hypoglycemia treated. Sodium on admission 118, increased to 126, stabilized at 125. Patient required initiation of D10 gtt. in view of respiratory
failure and intubation, patient was admitted to the ICU. He was subsequently extubated. Infectious workup mostly stayed negative except for Eleanor noted on sputum. Blood culture stayed negative. Infectious disease service was following along.
Patient completed close to 10 days of antibiotics. And patient was transferred out of ICU.
On 11/18, postdialysis, patient developed rigors and chills and lactic level was noted to be around 8. In view of concern for possible developing sepsis patient was transferred to the ICU. Patient otherwise was hemodynamically stable, afebrile
without gross abnormality on lab work or new changes on chest x-ray. He was empirically started on ceftriaxone and blood cultures were drawn.
Conditions present prior to admission
History of splenectomy/appendectomy in [facility]?
Thrombocytopenia while in [facility]
ITP?
History of microcephaly
History of multiple pneumonias (10+ times)
Prolonged hospital stay for 9 months in 2009 ([facility])
Presumptive diagnosis of tuberculosis status post-treatment
Follows pulmonary at [facility] left upper lobe cavitary lung disease
Left upper lobe cavitary lung disease
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
Bronchoscopy at [place] 2022, positive fungal pneumonia
Did not tolerate antifungal therapy per records
Bronchiectasis per prior imaging at [facility]
History of liver disease, follows hepatology at [place] (details unclear)
Hypothyroidism
Assessment and plan:
#1. Acute respiratory failure on admission, suspect aspiration pneumonia and fluid overload
- Intubated 11/10/24 (intubated for airway protection in setting of emesis) --> extubated 11/11/24
- Currently on supplemental oxygen, 100% on 8 L, receiving neb therapy
#2. 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
- Patient has had extensive workup at [facility] including bronchoscopy, CT scan.
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 Endotracheal cultures here again positive for Aspergillus
- Infectious disease service on case, started on Posaconazole
- Suspect ongoing chronic aspiration also contributing to pulmonary parenchymal changes
- Continue airway clearance with hypertonic saline nebulized twice a day along with albuterol
- f/u CT chest with improving GGOs, likely related to fluid removal. Overall still quite fluid overloaded.
- Off inhaled steroids with known h/o Aspergillus. Off systemic steroids. Minimize steroid therapy.
#3. Prior h/o ?TB, completed Anti tubercular medications x 9 months
- AFB x 3 have been negative during this hospitalization, no need for airborne isolation
#4. Lactic acidosis and chills, 11/18
- Serial lactate has since improved, overall fluctuates. No acidosis noted on ABG and VBG. Abnormal LFTs, ?slow lactate clearance vs related to lymphoma. Presentation not suggestive of severe sepsis.
- Blood cultures have been obtained and patient empirically started on Rocephin, defer antimicrobials to ID service
- Patient hemodynamically stable, no change on chest x-ray, blood work has been essentially without any significant change
- ? Dialysis disequilibrium syndrome, considering similar symptoms with attempted HD on 11/20
#5. BRENDON with underlying chronic kidney disease
- Suspect progression to now end-stage renal disease, patient newly started on hemodialysis
- Nephrology service on case
- Poor tolerance to HD. Volume overload contributing to Pulmonary symptoms and hypoxia.
#6. Seizures, provoked by hypoglycemia.
- Per neurology no further workup or antiepileptic medications needed.
#7. Retroperitoneal, abdominal, mediastinal and hilar adenopathy per imaging/New diagnoses of T Cell Lymphoma
- S/p IR guided lymph node biopsy in the inguinal region, pathology suggestive of T cell lymphoma
- Oncology consult
- With poor tolerance of HD and chronic aspergillus cavitary pulmonary disease, chemotherapy will certainly be challenging. Goals of care being discussed currently.
#8. Chronic mild hyponatremia
- Improved since patient has been started on hemodialysis
#9. Recurrent hypoglycemia
- Particularly pronounced on admission, required D10 infusion
- Suspect acute illness, sepsis contributed as well
- Blood sugars well-controlled now
#10. Bilateral pleural effusions
- Suspect related to progressive renal failure, now on hemodialysis
- Fluid collection felt to be too small for safe thoracentesis
- POCUS obtained 11/20, small effusion on right, no obvious loculations noted, not large enough for safe Thoracentesis. Low suspicion for empyema.
Total time spent on this consultation/encounter _42___ minutes which includes review of history, physical exam, medications, laboratory data, personal review of imaging, extensive review of outpatient records, discussion with care team and
respiratory therapy.
Diagnostic Data
Chest X-Ray: 11/16/24-Findings suggesting severe pulmonary edema. Pneumonia and underlying pulmonary fibrosis not excluded. Significantly progressed. Prior chest CT identified left upper lobe cavitary masses. Poorly seen by x-ray examination
11/12/24-Patchy bilateral parenchymal opacities, most likely representing pneumonia.
US chest 11/17/24-Small right pleural effusion. Amount of fluid present not sufficient for safe thoracentesis.
CT Scan: CHEST 11/14/24-1. 3.5 cm and 3.0 cm thick walled cavitary masses in the left upper lobe.
2. Severe ground-glass opacity throughout the lower lobes and right upper lobe.
3. Moderate-sized right and small left pleural effusions.
4. Severe mediastinal lymphadenopathy.
Echo: 11/10/24-Normal left ventricular chamber size. Normal left ventricular systolic function. Left ventricular ejection fraction is 50-55%. Normal regional wall motion. Normal left ventricular wall thickness. Normal diastolic function.
Subjective Data
-
Date of Service:
Date of Service: November 21, 2024
Chief Complaint: Pulmonary Follow Up
Subjective:
Patient comfortably sitting in bed currently receiving nebulizer therapy with hypertonic saline and albuterol along with vest therapy, saturating 99 to 100% on 8 L supplemental oxygen
Review of Systems
General: Other (Not obtainable. Patient does not appear to be in any distress, smiles, appears comfortable)
Objective Data
Data Reviewed
Vital Signs / I&O / Oxygen:
Vital Signs
Temp Pulse Resp BP Pulse Ox
98.1 F 96 20 99/68 96
11/21/24 08:01 11/21/24 08:16 11/21/24 08:16 11/21/24 08:00 11/21/24 08:16
Intake and Output
11/20/24 11/21/24 11/22/24
06:59 06:59 06:59
Intake Total 460 / 460
Balance 460 / 460
SaO2 [CPAP/PSV] 98
SaO2 [ASV] 98
SaO2 [A/C] 95
SaO2 96
Nasal Cannula flow liters per 5
minute
Physical Exam
General: Comfortable and Other (Right IJ HD cath)
HEENT: Normocephalic, Anicteric and Moist Mucous Membranes
Cardiovascular: S1-S2, Regular Rhythm and Peripheral Edema (1+)
Respiratory: Wheeze (negative), Crackles (Bilateral), Rhonchi (negative), Non-Labored Respirations and Stridor (n)
GI: Soft, Non Distended and Non Tender
Neurology: Awake, Alert, No Motor Deficits and Other (Drowsy at times)
Skin: Warm, Dry, Cyanosis (negative) and Jaundice (negative)
Labs/Micro/Reports
Lab Data
11/20/24 04:52
11/20/24 04:52
Microbiology
11/18/24 18:31 Blood/Venous Blood Culture - Preliminary
No Growth in 48 hours- Final report to follow
11/18/24 17:07 Blood/Venous Blood Culture - Preliminary
No Growth in 48 hours- Final report to follow
11/10/24 12:32 Endotracheal Fungus Mold Identification - Final
Aspergillus fumigatus Group
11/10/24 12:32 Endotracheal Specimen Source - Final
11/10/24 12:32 Endotracheal Legionella pneumophila (Direct FA) - Final
11/10/24 12:32 Endotracheal Legionella Culture - Final
Filamentous fungus
[2024-11-21] MEDS: NOXAFIL 300 MG PO (10:16)
[2024-11-21 12:55] LABS: Glucose - Point of Care 101 mg/dl (70-99)
--- NOTE | 2024-11-21 13:46 | CM ---
Addendum entered by Jeannie Vu 11/21/24 13:51:
Osmin notified.
Original Note:
Attending had extensive discussion with family. Patient now on comfort care. Hospice referral forwarded.
--- NOTE | 2024-11-21 14:13 | PTCARENOTE ---
Patient and Dr. Lipscomb had goals of discussion talk and it was decided on by family to move forward with hospice care, as the family does not want to move forward with dialysis.
--- NOTE | 2024-11-21 15:29 | HOSPNOTE ---
Explained hospice and the philosophy sister Jenniffer [phone] family in agreement with hospice and they would like patient to remain inpatient hospice. Patient will remain on comfort through the weekend and we will continue to follow.
--- NOTE | 2024-11-21 16:27 | PTCARENOTE ---
Report called to receiving 2 Wilbert RN. RN updated patient parent on transfer to new room soon
--- NOTE | 2024-11-21 16:50 | W.PN.HOSP.TC ---
Today's Communication/Plan
-
Comfort care with transition to hospice
Assessment / Plan
Assessment / Plan
Impression:
Presentation with acute respiratory failure.
VDRF
� Intubated 11/10/2024
� Extubated 11/11/2024
Bilateral cavitary pneumonia secondary to aspiration.
Sepsis present on admission currently resolved
Hyponatremia/hyperkalemia improved.
Hypoglycemia resolved.
Acute kidney injury CKD stage V requiring HD initiation.
Metabolic acidosis.
Lactic acidosis.
Seizure suspected secondary to hypoglycemia.
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
Other conditions:
Microcephaly with developmental delay.
History of splenectomy/appendectomy in [facility].
Recurrent pneumonias.
Presumptive diagnosis of tuberculosis status posttreatment. Details not clear
History of fungal pneumonia proven by bronchoscopy at [facility] 2022. 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
Bronchiectasis
Hepatitis?
Chronic normocytic anemia
Hypothyroidism replaced
Plan
Patient is a 29 years old with microcephaly and developmental delay with complex clinical picture including acute on chronic hypoxic respiratory failure due to aspiration cavitary pneumonia with high clinical suspicion for invasive aspergillosis,
new diagnosis of peripheral T-cell lymphoma and acute on chronic kidney failure requiring initiation of hemodialysis.
Despite of aggressive multidisciplinary approach and treatment including broad-spectrum antibiotics with addition of antifungal agent, initiated over this admission renal replacement therapy and with new diagnosis of aggressive lymphoma clinical
course has been unfavorable particularly with patient not able to tolerate dialysis.
After multiple discussion with patient's family and today with another discussion with patient's father at the bedside and mother over the phone, with full understanding of limited options to treat in the situation of intolerance to hemodialysis and
with wishes for patient to be comfortable plan is to transition to comfort care with initiation of hospice likely inpatient.
Anticipated Discharge: > 48 hours
Subjective/Interval History
-
Date of Service: November 21, 2024
Objective Data
-
Vital Signs:
Vital Signs
Temp Pulse Resp BP Pulse Ox
98.4 F 106 34 103/67 91
11/21/24 13:40 11/21/24 16:00 11/21/24 16:00 11/21/24 16:00 11/21/24 15:30
I&O
11/20/24 11/21/24 11/22/24
06:59 06:59 06:59
Intake Total 460 / 460 240 / 240
Balance 460 / 460 240 / 240
Physical Exam
-
General: Well Developed and No Apparent Distress
HEENT: Normocephalic, Atraumatic and Moist Mucous Membranes
Respiratory: Clear to Auscultation
Cardiac: Regular Rhythm and S1/S2; Negative Murmur, Rub or Gallop
GI: Soft, Nontender, Nondistended and Normal Bowel Sounds; Negative Organomegaly
Rectal: Deferred by Provider
Musculoskeletal: No Clubbing, No Cyanosis and No Edema
Skin: Negative Rash
Neuro: Nonfocal/Grossly Intact
[2024-11-21] MEDS: ROBITUSSIN AC 5 ML PO (23:15)
[2024-11-22] MEDS: TESSALON PERLES 100 MG PO ×2 (02:45→09:45)
[2024-11-22 08:00] VITALS: BP 127/71
[2024-11-22] MEDS: ROBITUSSIN AC 5 ML PO ×2 (09:43→16:51)
--- NOTE | 2024-11-22 10:40 | W.PN.HOSP.TC ---
Today's Communication/Plan
-
Assessment / Plan
Assessment / Plan
General: No Apparent Distress, Comfortable and Conversant
HEENT: Microcephalic, Moist mucous membranes, right IJ tunneled PermCath
Respiratory: Rhonchorous breath sounds bilaterally, Non Labored Respirations
Cardiac: S1/S2 and Regular Rhythm; No Rub or Gallop
GI: Soft, Non Tender, Non Distended and Normal Bowel Sounds
Musculoskeletal: No Edema, no deformity
: NO Gruber
Neuro: Awake, Alert, Nonfocal/grossly intact
Psych: Calm and cooperative
Impression:
Presentation with acute respiratory failure.
VDRF
� Intubated 11/10/2024
� Extubated 11/11/2024
Bilateral cavitary pneumonia secondary to aspiration.
Sepsis present on admission currently resolved
Hyponatremia/hyperkalemia improved.
Hypoglycemia resolved.
Acute kidney injury CKD stage V requiring HD initiation.
Metabolic acidosis.
Lactic acidosis.
Seizure suspected secondary to hypoglycemia.
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
Other conditions:
Microcephaly with developmental delay.
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
Recurrent pneumonias.
Presumptive diagnosis of tuberculosis status posttreatment. Details not clear
History of fungal pneumonia proven by bronchoscopy at [facility] 2022. 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
Bronchiectasis
Hepatitis?
Chronic normocytic anemia
Hypothyroidism replaced
Plan
Patient is a 29 years old with microcephaly and developmental delay with complex clinical picture including acute on chronic hypoxic respiratory failure due to aspiration cavitary pneumonia with high clinical suspicion for invasive aspergillosis,
new diagnosis of peripheral T-cell lymphoma and acute on chronic kidney failure requiring initiation of hemodialysis.
Despite of aggressive multidisciplinary approach and treatment including broad-spectrum antibiotics with addition of antifungal agent, initiated over this admission renal replacement therapy and with new diagnosis of aggressive lymphoma clinical
course has been unfavorable particularly with patient not able to tolerate dialysis.
After multiple discussion with patient's family and today with another discussion with patient's father at the bedside and mother over the phone, with full understanding of limited options to treat in the situation of intolerance to hemodialysis and
with wishes for patient to be comfortable plan is to transition to comfort care with initiation of hospice likely inpatient.
Continue comfort care
Anticipated Discharge: > 48 hours
Subjective/Interval History
-
Date of Service: November 22, 2024
Patient was seen and examined at bedside this morning. Family also present. Mother was inquiring about whether or not he would receive dialysis today.
Objective Data
-
Vital Signs:
Vital Signs
Temp Pulse Resp BP Pulse Ox
98.2 F 110 16 127/71 92
11/22/24 08:00 11/22/24 08:00 11/22/24 08:00 11/22/24 08:00 11/22/24 08:00
I&O
11/21/24 11/22/24 11/23/24
06:59 06:59 06:59
Intake Total 460 / 460 360 / 360
Output Total 50 / 50
Balance 460 / 460 310 / 310
Review of Systems
-
Unable to obtain full review of systems at this time due to: Language Barrier and Other (Cognitive disorder)
Physical Exam
-
General: No Apparent Distress
--- NOTE | 2024-11-22 10:40 | HOSPNOTE ---
Hospice continues to follow. Mi met with patient and family and provided support. Patient remains on comfort and is not inpatient appropriate at this time. Attending updated. Plan is to continue comfort over the weekend and reassess Sunday. Also
need to verify patients insurance coverage for inpatient and home hospice as well on Sunday. Hospice will follow and continue to be available through the weekend. More information to follow Sunday.
--- NOTE | 2024-11-22 19:00 | PTCARENOTE ---
Resumed care of pt sitting on side of bed complaining of SOB. Oxygen increased to 6 LO2 NC. Lungs dec t/o. Family at bedside helping to translate pt needs. RT at bedside and place pt on 8 Lo2 mid flow NC. Pt positioned in bed per comfort. Family at
bedside. Will continue to monitor.
--- NOTE | 2024-11-22 19:14 | RESPNOTE ---
placed pt on 8 lpm mid flow for saturation of 90%, BS bilat equal and diminished.
[2024-11-22 19:50] VITALS: BP 100/57
--- NOTE | 2024-11-23 01:42 | PTCARENOTE ---
Pt repositioned. Pt denies any complaints of SOB, pain or discomfort. Symptoms controlled at this time. No PRN medications given thus far. Pt remians on 8 LO2 [facility]. Family remains at bedside. Will continue to monitor.
[2024-11-23 08:00] VITALS: BP 79/47
[2024-11-23 09:18] VITALS: BP 79/47
[2024-11-23 09:22] VITALS: BP 88/51
--- NOTE | 2024-11-23 13:23 | HOSPNOTE ---
SN was stopped by facility RN inquiring about hospice nurse speaking with family of patient to explain the decline in patient status. SN reached out to office, SN from hospice visited family yesterday with brief description of what hospice has to
offer. Office explained awaiting verification of insurance and will not be able to sign patient on if appropriate until thursday 11/23. Message was relayed to facility RN, expresses understanding.
[2024-11-23] MEDS: ATIVAN 1 MG PO (13:37)
--- NOTE | 2024-11-23 14:19 | W.PN.HOSP.TC ---
Today's Communication/Plan
-
Assessment / Plan
Assessment / Plan
General: Somnolent, oxygen mask in place
HEENT: Microcephalic, right IJ tunneled PermCath
Respiratory: Rhonchorous breath sounds bilaterally, Non Labored Respirations
Cardiac: S1/S2 and Regular Rhythm; No Rub or Gallop
GI: Soft, Non Tender, Non Distended and Normal Bowel Sounds
Musculoskeletal: No Edema, no deformity
: NO Gruber
Neuro: Somnolent but arousable
Psych: Unable to assess
Impression:
Presentation with acute respiratory failure.
VDRF
� Intubated 11/10/2024
� Extubated 11/11/2024
Bilateral cavitary pneumonia secondary to aspiration.
Sepsis present on admission currently resolved
Hyponatremia/hyperkalemia improved.
Hypoglycemia resolved.
Acute kidney injury CKD stage V requiring HD initiation.
Metabolic acidosis.
Lactic acidosis.
Seizure suspected secondary to hypoglycemia.
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
Other conditions:
Microcephaly with developmental delay.
History of splenectomy/appendectomy in [facility].
Recurrent pneumonias.
Presumptive diagnosis of tuberculosis status posttreatment. Details not clear
History of fungal pneumonia proven by bronchoscopy at [facility] 2022. 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
Bronchiectasis
Hepatitis?
Chronic normocytic anemia
Hypothyroidism replaced
Plan
Patient is a 29 years old with microcephaly and developmental delay with complex clinical picture including acute on chronic hypoxic respiratory failure due to aspiration cavitary pneumonia with high clinical suspicion for invasive aspergillosis,
new diagnosis of peripheral T-cell lymphoma and acute on chronic kidney failure requiring initiation of hemodialysis.
Despite of aggressive multidisciplinary approach and treatment including broad-spectrum antibiotics with addition of antifungal agent, initiated over this admission renal replacement therapy and with new diagnosis of aggressive lymphoma clinical
course has been unfavorable particularly with patient not able to tolerate dialysis.
After multiple discussion with patient's family and today with another discussion with patient's father at the bedside and mother over the phone, with full understanding of limited options to treat in the situation of intolerance to hemodialysis and
with wishes for patient to be comfortable plan is to transition to comfort care with initiation of hospice likely inpatient.
Continue comfort care, awaiting hospice formal evaluation, respiratory status deteriorating
Anticipated Discharge: > 48 hours
Subjective/Interval History
-
Date of Service: November 23, 2024
Patient was seen and examined at bedside this morning. He remains on comfort care, clinically deteriorating. Family at bedside.
Objective Data
-
Vital Signs:
Vital Signs
Temp Pulse Resp BP Pulse Ox
97.9 F 116 22 88/51 90
11/23/24 08:00 11/23/24 09:22 11/23/24 09:22 11/23/24 09:22 11/23/24 13:55
I&O
11/22/24 11/23/24 11/24/24
06:59 06:59 06:59
Intake Total 360 / 360 240 / 240
Output Total 50 / 50
Balance 310 / 310 240 / 240
Review of Systems
-
Unable to obtain full review of systems at this time due to: Acuity and Patient Non-verbal
Physical Exam
-
General: Appears Chronically Ill
[2024-11-23] MEDS: DILAUDID 1 MG IV ×3 (14:28→20:31)
[2024-11-23] MEDS: FLUSH (NSS) 2 FLUSH IV ×2 (14:29→16:02)
[2024-11-23 19:05] VITALS: BP 88/45
[2024-11-24] MEDS: DILAUDID 1 MG IV ×2 (03:33→08:06)
[2024-11-24 07:02] VITALS: BP 84/40
[2024-11-24] MEDS: LEVSIN 0.125 MG PO (08:06)
--- NOTE | 2024-11-24 09:48 | PTCARENOTE ---
pt unresponsive. using accessory muscles amira breathing snoring. pt repositioned and medication given. pt parents at bedside. reviewed pt condition and end of life process. pt mother requested an increase in oxygen for pt comfort. placed on
midflow and non rebreather mask. oral care done.
--- NOTE | 2024-11-24 10:01 | CM ---
Chart reviewed
patient on comfort care
hospice referral in [facility]
PLAN: On comfort care
--- NOTE | 2024-11-24 12:08 | W.PN.DEATH ---
Pronouncement of
-
Called to see patient to pronounce.
No spontaneous heart tones or respirations noted.
Patient not responsive to verbal stimuli.
Patient is pronounced .
Time of : 11:30 (am)
Date of : 11/24/24
Cause of : Pneumonia, renal failure, lymphoma
Family Notified: Yes
--- NOTE | 2024-11-24 13:12 | PTCARENOTE ---
pt pronounced at 11:30 tod. pt parents at bedside. [facility] notified. waiting for other family members to arrive.
== END 2024-11-24 11:30 | disposition expired | DRG 853 ==
LOC: 2 NORTH 22:41
PROVIDERS: Hospitalist; Internal Medicine; Internal Medicine Critical Care Medicine; Nurse Practitioner Family; Nurse Practitioner Primary Care; Physician Assistant Medical; Radiology Vascular & Interventional Radiology; Specialist; ADMITTING PHYSICIAN Internal Medicine; ATTENDING PHYSICIAN Internal Medicine; CONSULT PHYSICIAN Internal Medicine Infectious Disease; CONSULT PHYSICIAN Specialist; EMERGENCY PHYSICIAN Emergency Medicine; FAMILY PHYSICIAN Internal Medicine; OTHER PHYSICIAN Internal Medicine Critical Care Medicine; OTHER PHYSICIAN Internal Medicine Hematology & Oncology
PROC: 5A1945Z Respiratory Ventilation, 24-96 Consecutive Hours (ICD-10-PCS; 2024-11-10)
PROC: 0BH17EZ Insertion of Endotracheal Airway into Trachea, Via Natural or Artificial Opening (ICD-10-PCS; 2024-11-10)
PROC: 02HV33Z Insertion of Infusion Device into Superior Vena Cava, Percutaneous Approach (ICD-10-PCS; 2024-11-10)
PROC: 30233N1 Transfusion of Nonautologous Red Blood Cells into Peripheral Vein, Percutaneous Approach (ICD-10-PCS; 2024-11-11)
PROC: 02H633Z Insertion of Infusion Device into Right Atrium, Percutaneous Approach (ICD-10-PCS; 2024-11-14)
PROC: 0JH63XZ Insertion of Tunneled Vascular Access Device into Chest Subcutaneous Tissue and Fascia, Percutaneous Approach (ICD-10-PCS; 2024-11-14)
PROC: 07BH3ZX Excision of Right Inguinal Lymphatic, Percutaneous Approach, Diagnostic (ICD-10-PCS; 2024-11-14)
PROC: 5A1D70Z Performance of Urinary Filtration, Intermittent, Less than 6 Hours Per Day (ICD-10-PCS; 2024-11-15)
PROC: 3E0234Z Introduction of Serum, Toxoid and Vaccine into Muscle, Percutaneous Approach (ICD-10-PCS; 2024-11-20)
DX: A41.9 Sepsis, unspecified organism (principal); J69.0 Pneumonitis due to inhalation of food and vomit; J96.01 Acute respiratory failure with hypoxia; R65.21 Severe sepsis with septic shock; N18.5 Chronic kidney disease, stage 5; E87.1 Hypo-osmolality and hyponatremia; D69.3 Immune thrombocytopenic purpura; E87.20 Acidosis, unspecified; C84.40 Peripheral T-cell lymphoma, not elsewhere classified, unspecified site; J90 Pleural effusion, not elsewhere classified; B44.1 Other pulmonary aspergillosis; R64 Cachexia; Z68.1 Body mass index [BMI] 19.9 or less, adult; N17.9 Acute kidney failure, unspecified; Q02 Microcephaly; R62.7 Adult failure to thrive; Z51.5 Encounter for palliative care; E03.9 Hypothyroidism, unspecified; G40.901 Epilepsy, unspecified, not intractable, with status epilepticus; E16.2 Hypoglycemia, unspecified; E87.70 Fluid overload, unspecified; D63.1 Anemia in chronic kidney disease; E21.0 Primary hyperparathyroidism; J47.9 Bronchiectasis, uncomplicated; E87.5 Hyperkalemia; R74.01 Elevation of levels of liver transaminase levels; F79 Unspecified intellectual disabilities; I45.10 Unspecified right bundle-branch block; K76.9 Liver disease, unspecified; K86.89 Other specified diseases of pancreas; Z87.01 Personal history of pneumonia (recurrent); Z90.81 Acquired absence of spleen; Z11.52 Encounter for screening for COVID-19; Q99.9 Chromosomal abnormality, unspecified; Z86.11 Personal history of tuberculosis; Z23 Encounter for immunization
CPT/HCPCS: 36558; 36600; 38505; 71045; 71046; 71250; 74022; 74176; 74230; 76604; 76937; 76942; 77001; 80048; 80053; 80076; 80202; 81003; 81015; 82164; 82248; 82306; 82533; 82607; 82652; 82728; 82746; 82805; 82962; 83519; 83540; 83550; 83605; 83615; 83735; 83789; 83880; 83930; 83935; 83970; 84100; 84300; 84443; 84478; 84484; 84550; 85014; 85018; 85025; 85027; 85045; 85610; 85730; 86480; 86606; 86704; 86706; 86803; 86850; 86900; 86901; 86920; 87015; 87040; 87070; 87081; 87102; 87106; 87107; 87116; 87176; 87205; 87278; 87340; 87449; 87502; 87641; 87811; 87899; 88305; 88333; 88341; 88342; 90619; 92526; 92610; 92611; 93005; 93306; 94002; 94003; 94640; 94669; 96365; 96375; 97163; 99152; 99153; 99291; C1750; G0257; J1610; P9016; P9047; Q5106